=== PATIENT | female | born 1975 | race Caucasian/White ===

== ENCOUNTER 2021-02-18 12:10 | Inpatient (IN) | payer BC ==
[~2021-02-18] VITALS: Ht 157.5 cm; Wt 170.0 kg
[2021-02-18] VITALS (7 sets, daily range): BP systolic 110–146; BP diastolic 61–87
[2021-02-18] MEDS ORDERED: ALBUTEROL SULFATE 2.5 MG/3 ML NEBU. NEB PRN (14:30)
[2021-02-18] MEDS ORDERED: methylPREDNISolone SOD SUCC PF 125 MG/2 ML VIAL. IV SCH (15:00)
[2021-02-18] MEDS ORDERED: DEXTROSE 50% 25 GM / 50ML DISP.SYRIN. IV PRN (15:30)
[2021-02-18] MEDS ORDERED: REMDESIVIR LOAD in IV NORMAL SALINE 250ML TV IV ONE (15:30)
[2021-02-18] MEDS ORDERED: MELO15TA23 PO (15:36)
--- NOTE | 2021-02-18 15:38 | NUR ---
SW following for discharge planning. Spoke with RN and reviewed chart. Pt COVID positive. Pt on IV Remdesivir until 02/22. SW following for discharge planning. Addendum: 02/20/21 at 1149 by REJI GTZ Pt transferred to ICU.
[2021-02-18] MEDS ORDERED: IPRATROPIUM BROMIDE 0.5 MG/2.5 ML NEBU. NEB SCH (16:00)
[2021-02-18] MEDS: INSULIN LISPRO 300 UNITS/3 ML VIAL. SQ SCH (17:00)
[2021-02-18] MEDS ORDERED: STERILE WATER for RESP 1,000 ML BAG. INH PRN (18:15)
--- NOTE | 2021-02-18 18:30 | NUR ---
Spoke with patient and , patient is aware of concern for work at breathing. Discussion was had about intubation, the patient and both agreed that if needed to possibly save her life that they would like her to be intubated.
--- NOTE | 2021-02-18 18:41 | CONS ---
DATE OF CONSULTATION: 02/18/2021 PULMONARY CONSULTATION ATTENDING PHYSICIAN: Dr. Fairbanks. REASON FOR CONSULTATION: Respiratory failure, COVID-19 pneumonia. HISTORY OF PRESENT ILLNESS: The patient is a 45-year-old morbidly obese female with a BMI of 63.5. She was brought into the hospital from [facility] after she was tested positive for COVID-19. The patient has been short of breath, which has been progressive. She was transferred to our facility on 5 liters nasal cannula; however, she was hypoxic on arrival and as a result, was placed on a nonrebreather mask. I did a telemedicine consult. She appears to be mildly tachypneic, but saturating in the low 90s on 100% FiO2. Her T-max 100.3. She has a cough. This has been nonproductive. She has some tightness in her chest as well. No headache, no nausea, vomiting or diarrhea. She has history of obstructive sleep apnea for which she is on CPAP. The severity of sleep apnea unknown and CPAP pressure is unknown. She is not on oxygen. PAST MEDICAL HISTORY: Significant for morbid obesity with a BMI of 63. History of obstructive sleep apnea, possible obesity hypoventilation syndrome, history of asthma, which has been reasonably controlled. PAST SURGICAL HISTORY: No recent surgery. ALLERGIES: None. MEDICATIONS: On admission were reviewed. She is on Lovenox for DVT prophylaxis, high dose. REVIEW OF SYSTEMS: Ten-point system obtained. Pertinent positives discussed in my history of present illness, otherwise noncontributory. All systems that were negative were reviewed as well. SOCIAL HISTORY: Denies smoking. FAMILY HISTORY: Noncontributory to lungs. PHYSICAL EXAMINATION: VITAL SIGNS: Reviewed. Blood pressure 159/87, T-max of 100.5. She is mildly uncomfortable while on visual exam, but requiring nonrebreather 100% FiO2. She is obese. No significant pitting edema. LABORATORY DATA: Glucose of 102. Other chemistries and BMP have been ordered. Chest x-ray is pending. IMPRESSION: 1. Acute hypoxic respiratory failure with acute lung injury/early acute respiratory distress syndrome secondary to COVID-19 pneumonia. 2. Underlying morbid obesity one of the contributing factors to her severity of hypoxia. 3. No significant tobacco history. 4. History of asthma, under control. 5. Obstructive sleep apnea, on home CPAP. Unknown severity of obstructive sleep apnea and unknown CPAP pressure. 6. Abnormal CXR with bilateral patchy infiltrates c/w viral pneumonia. RECOMMENDATIONS: 1. I have discussed with the patient and the RN. At this point, I will transfer her to the ICU. She has risk for worsening hypoxia and intubation. I will place the patient on Vapotherm. 2. We will use BiPAP at nighttime. 3. Continue to finish the remdesivir course. 4. she is on solumedrol, will change to Decadron at 8 mg IV 24 hours. 5. High dose Lovenox for now 6. Obtain D-dimers. 7. Continue empiric antibiotics. 8. I discussed with the patient regarding the need for possible intubation in case of worsening hypoxia and she is agreeable to that. d/w RN. KEVIN PENNY MD DR: TAVON/carlos JOB#: [id number] / [id number] KRISTIE
--- NOTE | 2021-02-18 18:46 | NUR ---
PATIENT TRANSFERRED TO 113 D/T INCREASE O2 NEEDS. BRANDON JUÁREZ, UPDATED. REPORT GIVEN TO SAMINA COLON
[2021-02-18] MEDS: LACTOBACILLUS RHAMNOSUS GG 1 CAPSULE. PO SCH (20:28)
[2021-02-18] MEDS: guaiFENesin DM 600/30MG 1 TAB TAB.ER.12H PO SCH (20:28)
[2021-02-18] MEDS: ACETAMINOPHEN 325 MG TABLET. PO PRN (20:29)
[2021-02-18] MEDS: INSULIN GLARGINE SYRINGE. SQ SCH (21:15)
--- NOTE | 2021-02-18 22:07 | NUR ---
Oxygen Sat 84% - 86% with Vapotherm at 40/100 with NRB at 15L. RT placed patient on Bi-Pap at 28/12 with Rate of 18 and FiO2 100%. Spoke with Marshall Zaidi, , with update on patient status. Marshall is aware patient may need intubation. Marshall reports he and the patient are "willing to do whatever it takes to make her better". ABG to be drawn at 2230.
[2021-02-18 23:07] LABS: BASE EXCESS ABG 0 mmol/L (-3-3); HCO3 ABG 27 mmol/L (21-28); PCO2 ABG 51 mmHg (35-46); PO2 ABG 57 mmHg (75-108); SAT O2 ABG 89 % (92-99)
[2021-02-18 23:08] LABS: FIO2 ABG 100
[2021-02-19] VITALS (32 sets, daily range): BP systolic 106–154; BP diastolic 61–96
[2021-02-19] MEDS: ACETAMINOPHEN 325 MG TABLET. PO PRN ×2 (02:49→14:19)
[2021-02-19] MEDS: INSULIN LISPRO 300 UNITS/3 ML VIAL. SQ SCH ×4 (07:32→23:46)
--- NOTE | 2021-02-19 07:53 | PDOC ---
Infectious Disease Note Vital Sign Vital Signs Vital Signs Date Time Temp Pulse Resp B/P (MAP) Pulse Ox O2 Delivery O2 Flow Rate FiO2 02/19/21 07:00 97.6 83 32 142/78 (99) 88 BiPAP/CPAP 97.6 02/18/21 21:00 40.0 Labs Lab Laboratory Tests Test 02/18/21 16:47 02/18/21 19:25 02/18/21 20:34 02/18/21 22:34 Glucose (Fingerstick) 102 mg/dL (70-99) 158 mg/dL (70-99) D-Dimer (Mckenzie) < 0.27 ug/mlFEU O2 Saturation 89 % (92-99) Arterial Blood pH 7.34 (7.35-7.45) Arterial Blood pCO2 at Patient Temp 51 mmHg (35-46) Arterial Blood pO2 at Patient Temp 57 mmHg (75-108) Arterial Blood HCO3 27 mmol/L (21-28) Arterial Blood Base Excess 0 mmol/L (-3-3) FiO2 100 Test 02/19/21 07:14 Glucose (Fingerstick) 164 mg/dL (70-99) Objective Assessment pt seen, consult dictated Plan Plan of Care / ALFIE CLAYTON MD Feb 19, 2021 07:53
[2021-02-19 08:07] LABS: HEMATOCRIT 37.3 % (36.0-47.0); HEMOGLOBIN 11.8 g/dL (12.0-15.5); RED BLOOD COUNT 4.76 x10^6/uL (3.50-5.40); WHITE BLOOD COUNT 6.6 x10^3/uL (4.0-11.0)
[2021-02-19] MEDS: LACTOBACILLUS RHAMNOSUS GG 1 CAPSULE. PO SCH (08:08)
[2021-02-19] MEDS: guaiFENesin DM 600/30MG 1 TAB TAB.ER.12H PO SCH ×2 (08:08→20:41)
[2021-02-19] MEDS: DEXAMETHASONE SOD PHOS 4 MG/ML VIAL IVP SCH (08:08)
[2021-02-19 08:19] LABS: ALBUMIN 2.5 g/dL (3.4-5.0); ALBUMIN/GLOBULIN RATIO 0.5 (1.0-1.7); C-REACTIVE PROTEIN 246.7 mg/L (0-3.3); CALCIUM 8.5 mg/dL (8.5-10.1); CREATININE 0.6 mg/dL (0.6-1.0); GFR 109.1; POTASSIUM 4.4 mmol/L (3.5-5.1); TOTAL BILIRUBIN 0.3 mg/dL (0.2-1.0); TOTAL PROTEIN 7.9 g/dL (6.4-8.2)
[2021-02-19 08:42] LABS: BASE EXCESS ABG 2 mmol/L (-3-3); HCO3 ABG 28 mmol/L (21-28); PCO2 ABG 49 mmHg (35-46); PO2 ABG 52 mmHg (75-108); SAT O2 ABG 87 % (92-99)
[2021-02-19 08:50] LABS: FIO2 ABG 100
--- NOTE | 2021-02-19 09:05 | PN ---
DATE: 02/19/2021 SUBJECTIVE: The patient is resting slightly propped up in bed, clearly tachypneic, on BiPAP machine. PHYSICAL EXAMINATION: GENERAL: When I examined her this morning, there was no pallor, jaundice, cyanosis or thyromegaly. No jugular venous distention. No lower limb edema. VITAL SIGNS: Her heart rate was 83, blood pressure was 142/78, temperature 97.6, respiratory rate was 52 and oxygen saturation was 88% on BiPAP machine with an FiO2 of 100%. HEAD, EYES, EARS, NOSE, THROAT: Showed normocephalic, atraumatic. NECK: Supple. HEART: Showed normal first and second heart sounds. No gallop, rub or murmur. CHEST: Shows central trachea. Equal bilateral chest expansion, air entry. Few scattered rhonchi and bilateral basal crepitation posteriorly. ABDOMEN: Distended, soft, nontender. NEUROLOGICAL: She is grossly intact. LABORATORY DATA: Her lab work is still pending at the time of this dictation. Her D-dimer was actually less than 0.27. Her blood sugar seems to be reasonably controlled. Her blood gases done yesterday showed a pH of 7.34, pCO2 of 51, pO2 of 57, bicarbonate 27 and oxygen saturation was 89% on FiO2 of 100%. ASSESSMENT: 1. Acute hypoxic respiratory failure. 2. COVID-19 pneumonia. 3. Questionable community acquired pneumonia. 4. Bronchial asthma exacerbation. 5. Morbid obesity and obstructive sleep apnea. PLAN: My plan is to repeat all her lab work and also arrange to have a chest x-ray and arterial blood gases. Meanwhile, we will continue with remdesivir and dexamethasone. Continue with insulin sliding scale and Lantus insulin. Continue with IV antibiotic and monitor her closely. ELIZABETH FERNANDEZ MD DR: BOLA/carlos JOB#: [id number] / [id number]
[2021-02-19] MEDS ORDERED: SUCCINYLCHOLINE 200 MG/10 ML VIAL. ONE ×2 (10:02→10:15)
[2021-02-19] MEDS ORDERED: ETOMIDATE 20 MG/10 ML VIAL. IV ONE ×2 (10:04→10:15)
--- NOTE | 2021-02-19 10:04 | PDOC ---
PULMONARY PROGRESS NOTES DATE: 02/19/21 TIME: 09:58 Subjective remains on 100%FIO2/ BIPAP still hypoxic Vitals Vital Signs Date Time Temp Pulse Resp B/P (MAP) Pulse Ox O2 Delivery O2 Flow Rate FiO2 02/19/21 09:00 94 37 139/83 (101) 86 BiPAP/CPAP 02/19/21 07:34 40.0 02/19/21 07:00 97.6 97.6 Comments visual exam done,mild increase WOM on BIPAP, sats 86% on 100%FIO2 Labs Laboratory Tests Test 02/18/21 16:47 02/18/21 19:25 02/18/21 20:34 02/18/21 22:34 Glucose (Fingerstick) 102 mg/dL (70-99) 158 mg/dL (70-99) D-Dimer (Mckenzie) < 0.27 ug/mlFEU O2 Saturation 89 % (92-99) Arterial Blood pH 7.34 (7.35-7.45) Arterial Blood pCO2 at Patient Temp 51 mmHg (35-46) Arterial Blood pO2 at Patient Temp 57 mmHg (75-108) Arterial Blood HCO3 27 mmol/L (21-28) Arterial Blood Base Excess 0 mmol/L (-3-3) FiO2 100 Test 02/19/21 07:14 02/19/21 07:57 02/19/21 08:35 Glucose (Fingerstick) 164 mg/dL (70-99) White Blood Count 6.6 x10^3/uL (4.0-11.0) Red Blood Count 4.76 x10^6/uL (3.50-5.40) Hemoglobin 11.8 g/dL (12.0-15.5) Hematocrit 37.3 % (36.0-47.0) Mean Corpuscular Volume 78 fL (79-100) Mean Corpuscular Hemoglobin 25 pg (25-35) Mean Corpuscular Hemoglobin Concent 32 g/dL (31-37) Red Cell Distribution Width 15.0 % (11.5-14.5) Platelet Count 253 x10^3/uL (140-400) D-Dimer (Mckenzie) 0.28 ug/mlFEU (0.00-0.50) Sodium Level 140 mmol/L (136-145) Potassium Level 4.4 mmol/L (3.5-5.1) Chloride Level 101 mmol/L (98-107) Carbon Dioxide Level 30 mmol/L (21-32) Anion Gap 9 (6-14) Blood Urea Nitrogen 12 mg/dL (7-20) Creatinine 0.6 mg/dL (0.6-1.0) Estimated GFR (Cockcroft-Gault) 109.1 BUN/Creatinine Ratio 20 (6-20) Glucose Level 143 mg/dL (70-99) Calcium Level 8.5 mg/dL (8.5-10.1) Total Bilirubin 0.3 mg/dL (0.2-1.0) Aspartate Amino Transf (AST/SGOT) 63 U/L (15-37) Alanine Aminotransferase (ALT/SGPT) 77 U/L (14-59) Alkaline Phosphatase 67 U/L (46-116) C-Reactive Protein, Quantitative 246.7 mg/L (0-3.3) Total Protein 7.9 g/dL (6.4-8.2) Albumin 2.5 g/dL (3.4-5.0) Albumin/Globulin Ratio 0.5 (1.0-1.7) O2 Saturation 87 % (92-99) Arterial Blood pH 7.37 (7.35-7.45) Arterial Blood pCO2 at Patient Temp 49 mmHg (35-46) Arterial Blood pO2 at Patient Temp 52 mmHg (75-108) Arterial Blood HCO3 28 mmol/L (21-28) Arterial Blood Base Excess 2 mmol/L (-3-3) FiO2 100 Laboratory Tests Test 02/18/21 16:47 02/18/21 19:25 02/18/21 20:34 02/18/21 22:34 Glucose (Fingerstick) 102 mg/dL (70-99) 158 mg/dL (70-99) D-Dimer (Mckenzie) < 0.27 ug/mlFEU O2 Saturation 89 % (92-99) Arterial Blood pH 7.34 (7.35-7.45) Arterial Blood pCO2 at Patient Temp 51 mmHg (35-46) Arterial Blood pO2 at Patient Temp 57 mmHg (75-108) Arterial Blood HCO3 27 mmol/L (21-28) Arterial Blood Base Excess 0 mmol/L (-3-3) FiO2 100 Test 02/19/21 07:14 02/19/21 07:57 02/19/21 08:35 Glucose (Fingerstick) 164 mg/dL (70-99) White Blood Count 6.6 x10^3/uL (4.0-11.0) Red Blood Count 4.76 x10^6/uL (3.50-5.40) Hemoglobin 11.8 g/dL (12.0-15.5) Hematocrit 37.3 % (36.0-47.0) Mean Corpuscular Volume 78 fL (79-100) Mean Corpuscular Hemoglobin 25 pg (25-35) Mean Corpuscular Hemoglobin Concent 32 g/dL (31-37) Red Cell Distribution Width 15.0 % (11.5-14.5) Platelet Count 253 x10^3/uL (140-400) D-Dimer (Mckenzie) 0.28 ug/mlFEU (0.00-0.50) Sodium Level 140 mmol/L (136-145) Potassium Level 4.4 mmol/L (3.5-5.1) Chloride Level 101 mmol/L (98-107) Carbon Dioxide Level 30 mmol/L (21-32) Anion Gap 9 (6-14) Blood Urea Nitrogen 12 mg/dL (7-20) Creatinine 0.6 mg/dL (0.6-1.0) Estimated GFR (Cockcroft-Gault) 109.1 BUN/Creatinine Ratio 20 (6-20) Glucose Level 143 mg/dL (70-99) Calcium Level 8.5 mg/dL (8.5-10.1) Total Bilirubin 0.3 mg/dL (0.2-1.0) Aspartate Amino Transf (AST/SGOT) 63 U/L (15-37) Alanine Aminotransferase (ALT/SGPT) 77 U/L (14-59) Alkaline Phosphatase 67 U/L (46-116) C-Reactive Protein, Quantitative 246.7 mg/L (0-3.3) Total Protein 7.9 g/dL (6.4-8.2) Albumin 2.5 g/dL (3.4-5.0) Albumin/Globulin Ratio 0.5 (1.0-1.7) O2 Saturation 87 % (92-99) Arterial Blood pH 7.37 (7.35-7.45) Arterial Blood pCO2 at Patient Temp 49 mmHg (35-46) Arterial Blood pO2 at Patient Temp 52 mmHg (75-108) Arterial Blood HCO3 28 mmol/L (21-28) Arterial Blood Base Excess 2 mmol/L (-3-3) FiO2 100 Medications Active Scripts Medications Dose Route/Sig Max Daily Dose Days Date Category Meloxicam 15 Mg Tablet 1 Tab PO DAILY 30 02/18/21 Reported Impression . 1. Acute hypoxic respiratory failure with acute lung injury/early acute respiratory distress syndrome secondary to COVID-19 pneumonia. 2. Underlying morbid obesity one of the contributing factors to her severity of hypoxia. 3. No significant tobacco history. 4. History of asthma, under control. 5. Obstructive sleep apnea, on home CPAP. Unknown severity of obstructive sleep apnea and unknown CPAP pressure. 6. Abnormal CXR with bilateral patchy infiltrates c/w viral pneumonia. Plan . 1. She has worsening hypoxia and cannot sustain BIPAP for long duration. She needs intubation. Will need high PEEP/ full sedation post intubation. Message left for . 2. follow ABG and make changes. 3. Continue to finish the remdesivir course. 4. Decadron at 8 mg IV 24 hours. 5. D-Dimer normal .on High dose Lovenox . will change to lower dose 6. start enteral nutrition 7. Continue empiric antibiotics. 8. d/w RN. / RT/ Anesthesia cct 35 min KEVIN PENNY MD Feb 19, 2021 10:04
[2021-02-19] MEDS ORDERED: PROPOFOL 100 ML IV ONE (10:12)
--- NOTE | 2021-02-19 10:14 | RAD ---
XR CHEST 1V History: Reason: worsening hypoxia / Spl. Instructions: / History: Comparison: February 15, 2021 Findings: Diffuse interstitial and alveolar opacities. Low lung volumes. No definite pneumothorax. Enlarged car diac size. Possible small pleural effusions. Impression: 1. Increased diffuse pulmonary consolidations, may represent pulmonary edema, ARDS or pneumonia. 2. Increased cardiac size, may represent pericardial effusion Electronically signed by: Ranjith Fuentes DO (02/19/2021 10:11 AM) [id number]
[2021-02-19] MEDS ORDERED: PROPOFOL 10 MG/ML (100ML) VIAL. IV ONE (10:15)
--- NOTE | 2021-02-19 10:28 | CONS ---
DATE OF CONSULTATION: 02/19/2021 REQUESTING PHYSICIAN: Chano Fairbanks MD REASON FOR CONSULTATION: Pneumonia and COVID-19 positive. HISTORY OF PRESENT ILLNESS: This is a 45-year-old morbidly obese female who was transferred from [facility]. The patient presented there with probably about 4 or 5 days' history of shortness of breath. The patient had gone to Urgent Care, but the test was mislabeled or something happened, so this was not available. At [facility], she had COVID done which was positive. The patient has been requiring more and more oxygen and hence transferred to [place]. The patient is now on 100% FiO2, satting at 88%. The patient is on steroids, Levaquin and consult has been requested. The patient is currently on BiPAP, able to communicate. PAST MEDICAL HISTORY: She does have a history of: 1. Asthma. 2. Obstructive sleep apnea. 3. Morbid obesity. 4. Hypothyroidism. 5. History of endometrial cancer. PAST SURGICAL HISTORY: 1. She had undergone abdominal hysterectomy. 2. Bilateral salpingo-oophorectomy. 3. She also had corneal transplant in the left side. SOCIAL HISTORY: Positive for smoking. No alcohol use or drug use. ALLERGIES: No known drug allergies. CURRENT MEDICATIONS: Reviewed. REVIEW OF SYSTEMS: As in HPI. All other systems reviewed are negative. PHYSICAL EXAMINATION: GENERAL: Alert, oriented female, in moderate respiratory distress, on a BiPAP. VITAL SIGNS: Temperature 97.6, pulse 94, respirations 28, blood pressure 136/81. The patient did have a temperature up to 100.6. HEENT: Both pupils are round and reacting. No conjunctival lesion. No lesion in the mouth. NECK: Supple. No JVP. No lymphadenopathy. LUNGS: Clear. HEART: S1, S2 regular. ABDOMEN: Soft, nontender. No organomegaly. EXTREMITIES: No edema or cyanosis. SKIN: Unremarkable. NEUROLOGIC: The patient is alert, awake and appropriate. No focal neurologic deficit. LABORATORY DATA: White count here is pending. Her white count at [place] was 8000. Creatinine is normal. Chest x-ray showed bilateral perihilar and bibasilar airspace opacity. IMPRESSION: 1. COVID-19 positive. 2. Hypoxic respiratory failure. 3. Pneumonia, bilateral pulmonary infiltrate. 4. Morbid obesity. 5. History of asthma. 6. Obstructive sleep apnea. RECOMMENDATIONS: Continue steroids. Continuous remdesivir has been started. Supportive care. We will continue to follow. Thank you very much, Dr. Fairbanks, for giving me the opportunity to participate in this patient's care. ALFIE CLAYTON MD DR: MAYRA/carlos JOB#: [id number] / [id number]
--- NOTE | 2021-02-19 10:29 | HP ---
ADMIT DATE: 02/18/2021 HISTORY OF PRESENT ILLNESS: The patient is a 45-year-old female patient who was admitted to the Emergency Room to [facility] on 02/16/2021 with a complaint of shortness of breath that apparently has been going on over the past week prior to admission and was seen at an urgent care for a COVID test, which was not at that time has resulted. She stated that she was diagnosed with an upper respiratory tract infection and was given treatment for bilateral ear infection; however, she continued to have fever, cough, shortness of breath and therefore, she came to the Emergency Room where she was extensively investigated, has had lab work with a white cell count that was normal. Her chemistry was mostly unremarkable except for slightly elevated liver enzymes. Her D-dimer was only 0.42. She has had a chest x-ray, which basically showed stable cardiomediastinal silhouette. There is pulmonary vascular congestion, bilateral perihilar and bibasilar airspace opacities that are unchanged; however, there is no pneumothorax or pleural effusion and no acute bony abnormalities. She was admitted with diagnosis of acute hypoxic respiratory failure, questionable community-acquired pneumonia versus COVID-19 pneumonia. She was started with IV Levaquin, dexamethasone, nebulized albuterol and Atrovent as well as Lovenox. Unfortunately, the patient continued to be short of breath and her oxygen saturation has steadily risen from 2 to 4 and eventually to 5. The patient requested transfer to [facility] and was transferred to 6th floor. She was continued on all her current medication. PAST MEDICAL HISTORY: Significant for bronchial asthma. She also has obstructive sleep apnea, on BiPAP. She stated that at one point in time, she had problems with her thyroid gland that has resolved. She has a history of endometrial cancer for which she underwent total abdominal hysterectomy and bilateral salpingo-oophorectomy. PAST SURGICAL HISTORY: Significant for, 1. Total abdominal hysterectomy, bilateral salpingo-oophorectomy. 2. Corneal transplant on the left side. ALLERGIES: She has no known drug allergies. HOME MEDICATIONS: Include Advair Diskus 250/50 one puff twice a day. She is also on albuterol sulfate 2 puffs every 4-6 hours. She was treated with Mucinex/dextromethorphan 1 tablet twice a day. She was also treated as an outpatient with Augmentin as well as Zithromax. After admission, we switched her to Levaquin and added dexamethasone as well as Lovenox. FAMILY HISTORY: She has 5 brothers and 4 sisters, 3 brothers and 2 sisters are older and the rest are younger and all seemingly healthy. Her father at the age of 63 because of myocardial infarction. Mother is still alive at age of 68 and apparently healthy. SOCIAL HISTORY: She is , has no children. She quit smoking 20 years ago. She does not drink alcohol or use any recreational drugs. 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 PHYSICAL EXAMINATION: GENERAL: On arrival to [facility], she was resting slightly propped up in bed, clearly somewhat tachypneic. There was no pallor, jaundice, cyanosis or thyromegaly. No jugular venous distention or limb edema. VITAL SIGNS: Her heart rate was 111, blood pressure was 139/87, temperature was 100.3, respiratory rate was 21. She was only 80% on 5 liters by nasal cannula, that improved to 92% by nonrebreather mask. HEAD, EYES, EARS, NOSE AND THROAT: Showed normocephalic, atraumatic. NECK: Supple. HEART: Showed normal first and second heart sounds. No gallop, rub or murmur. CHEST: Central trachea, equal bilateral expansion, air entry, vesicular breath sounds. Very few scattered rhonchi, could not appreciate any crepitation. ABDOMEN: Distended, soft, nontender. NEUROLOGIC: She was grossly intact. LABORATORY DATA: Showed a white cell count 7600, hemoglobin 11.9, hematocrit 38, MCV 79 and platelet count 236,000. Her chemistry showed a serum sodium 141, potassium 4.3, chloride 103, bicarbonate 27, anion gap of 11, BUN 15, creatinine 0.6, estimated GFR was 109 mL per minute. Glucose was 104 and calcium was 8.5. She continued to have slightly elevated liver enzymes. Her most recent D-dimer was 0.42 and her rapid COVID-19 antigen test was positive. Her blood cultures showed no growth after 2 days and her most recent chest x-ray done at [facility] showed that the cardiomediastinal silhouette is stable. There is pulmonary vascular congestion, bilateral perihilar and bibasilar airspace opacities are unchanged. There is no pneumothorax, no pleural effusion is appreciated, no acute bony abnormalities. ASSESSMENT: The patient was admitted to [facility] with, 1. Acute hypoxic respiratory failure. 2. COVID-19 pneumonia. 3. Questionable community-acquired pneumonia. 4. The patient is also known to have bronchial asthma. 5. Morbid obesity. 6. Obstructive sleep apnea. PLAN: My plan is obviously to continue with IV antibiotic. Continue with IV dexamethasone. Continue with Lovenox for DVT prophylaxis. I have consulted the cardiology coordinator and also started her on remdesivir. Apparently shortly after she arrived here, her oxygen requirement has dramatically increased and she was started initially on nonrebreather mask and Vapotherm. At around 2100 hours, she was on Vapotherm at 40 liters and FiO2 of 100% on nonrebreather mask and was started back on her BiPAP with an FiO2 of 100%. ELIZABETH FERNANDEZ MD DR: BOLA/carlos JOB#: [id number] / [id number]
[2021-02-19] MEDS: MIDAZOLAM 100mg/100ml NS BAG 100 ML IV PRN ×2 (11:12→16:46)
--- NOTE | 2021-02-19 11:30 | NUR ---
Patient was intubated at this time. Patient and (Marshall) have consent. Patient was given 200mg of Succinylcholine and 20mg of Etomidate before being intubated. Tube is a 7.5 and 22 @ the lip. Vent settings are AC 20, TV 500, FiO2 100% and peep of 12. Patient is receiving Versed drip at 10mg and Fentanyl at 75mcg. Patient's SpO2 is 92% and she is resting comfortable in bed, not fighting vent. Patient has an OG tube to LIS. Chest x-ray confirmed placement of ET tube and OG tube. And patient's hushand was update. Will continue to monitor patient.
--- NOTE | 2021-02-19 11:33 | RAD ---
AP chest. HISTORY: Intubated AP view was taken of the chest. There is an endotracheal tube at the level the clavicles at T2. There is an NG tube which extends into the stomach. There are diffuse bilateral infiltrates. There is no d efinite effusion. IMPRESSION: 1. Diffuse infiltrates. 2. Endotracheal tube at the level the clavicles at approximately T2. 3. NG tube extends into the stomach. Electronically signed by: Mynor Harris MD (02/19/2021 11:31 AM) [id number]
--- NOTE | 2021-02-19 11:42 | NUR ---
Have reviewed and agree with documentation completed by sports intern
[2021-02-19 12:15] LABS: BASE EXCESS ABG 3 mmol/L (-3-3); HCO3 ABG 31 mmol/L (21-28); PCO2 ABG 59 mmHg (35-46); PO2 ABG 56 mmHg (75-108); SAT O2 ABG 88 % (92-99)
[2021-02-19 12:16] LABS: FIO2 ABG 100
[2021-02-19] MEDS: fentaNYL HIGH DOSE PCA 55 ML IV PRN (13:38)
--- NOTE | 2021-02-19 13:49 | PDOC ---
Provider Note Date of Service: DATE: 02/19/21 TIME: 13:46 Provider Note called to ICU for covid pos pt with poor ventilation / labs, needing intubation, pre o2 x 5 min, induced 10mg etom, 100mg sux in peripheral IV. DL with glidescope easy, 7.5 ETT to 22cm, teeth, secured, pos ET CO2, CXR pending. care to icu team. left radi al art line sterile p/d, 20g over wire, secured. Justifications for Admission Other Justification DOMINIQUE RAY MD Feb 19, 2021 13:49
--- NOTE | 2021-02-19 14:09 | NUR ---
SS following for discharge planning. SS reviewed pt chart and discussed with pt RN. Pt is from home with spouse. Pt transferred from [facility]. Pt is COVID19 positive. Pt intubated today and is currently on the vent at 100%. Pt on IV Remdesivir and IV Levaquin. Pt on Versed and Fentanyl. Not stable. SS will continue to follow for discharge planning.
[2021-02-19] MEDS: REMDESIVIR 100mg in NORMAL SALINE 250ML X 4 DAYS IV SCH (15:58)
[2021-02-19] MEDS: FAMOTIDINE 20 MG/2 ML VIAL IVP SCH (20:39)
[2021-02-19] MEDS: VECURONIUM BOLUS 10 MG VIAL. IV PRN ×2 (20:39→23:46)
[2021-02-19] MEDS: INSULIN GLARGINE SYRINGE. SQ SCH (20:43)
[2021-02-19] MEDS: ENOXAPARIN 40 MG/0.4 ML SYRINGE. SQ SCH (20:46)
--- NOTE | 2021-02-19 22:23 | NUR ---
Suction patient and performed FS. Patient had eyes open and watching me. She then dropped her O2 sats to 64. She received a bolus of versed without and improvement. Vecuronium given. Dr Lechuga called. To add propofol to her sedation schedule Addendum: 02/20/21 at 0036 by BRAEDEN PAREDES RN [facility] placed. See their note
[2021-02-19] MEDS: PROPOFOL 100 ML IV PRN (23:20)
[2021-02-20] VITALS (25 sets, daily range): BP systolic 107–150; BP diastolic 58–77
[2021-02-20] MEDS: MIDAZOLAM 100mg/100ml NS BAG 100 ML IV PRN ×3 (00:29→20:14)
[2021-02-20] MEDS: VECURONIUM BOLUS 10 MG VIAL. IV PRN ×3 (04:15→13:26)
[2021-02-20] MEDS: PROPOFOL 100 ML IV PRN ×2 (04:21→14:55)
[2021-02-20] MEDS: fentaNYL HIGH DOSE PCA 55 ML IV PRN ×2 (05:55→23:10)
[2021-02-20] MEDS: INSULIN LISPRO 300 UNITS/3 ML VIAL. SQ SCH ×3 (06:00→17:56)
[2021-02-20 07:28] LABS: HEMATOCRIT 34.1 % (36.0-47.0); RED BLOOD COUNT 4.4 x10^6/uL (3.50-5.40); RED CELL DISTRIBUTION WIDTH 15.5 % (11.5-14.5); WHITE BLOOD COUNT 7.6 x10^3/uL (4.0-11.0)
--- NOTE | 2021-02-20 07:51 | PDOC ---
Infectious Disease Note Subjective Subjective pt is intubated on vent now ROS ROS no n/v/d/fever Vital Sign Vital Signs Vital Signs Date Time Temp Pulse Resp B/P (MAP) Pulse Ox O2 Delivery O2 Flow Rate FiO2 02/20/21 07:00 99 20 150/77 (101) 87 Ventilator 02/20/21 06:22 40.0 02/20/21 04:00 98.0 98.0 Physical Exam PHYSICAL EXAM GENERAL: sedated on vent VITAL SIGNS: stable HEENT: Both pupils are round and reacting. No conjunctival lesion. No lesion in the mouth. NECK: Supple. No JVP. No lymphadenopathy. LUNGS: Clear. HEART: S1, S2 regular. ABDOMEN: Soft, nontender. No organomegaly. EXTREMITIES: No edema or cyanosis. SKIN: Unremarkable. NEUROLOGIC: sedated on vent Labs Lab Laboratory Tests Test 02/19/21 07:57 02/19/21 08:35 02/19/21 12:05 02/19/21 17:17 White Blood Count 6.6 x10^3/uL (4.0-11.0) Red Blood Count 4.76 x10^6/uL (3.50-5.40) Hemoglobin 11.8 g/dL (12.0-15.5) Hematocrit 37.3 % (36.0-47.0) Mean Corpuscular Volume 78 fL (79-100) Mean Corpuscular Hemoglobin 25 pg (25-35) Mean Corpuscular Hemoglobin Concent 32 g/dL (31-37) Red Cell Distribution Width 15.0 % (11.5-14.5) Platelet Count 253 x10^3/uL (140-400) D-Dimer (Mckenzie) 0.28 ug/mlFEU (0.00-0.50) Sodium Level 140 mmol/L (136-145) Potassium Level 4.4 mmol/L (3.5-5.1) Chloride Level 101 mmol/L (98-107) Carbon Dioxide Level 30 mmol/L (21-32) Anion Gap 9 (6-14) Blood Urea Nitrogen 12 mg/dL (7-20) Creatinine 0.6 mg/dL (0.6-1.0) Estimated GFR (Cockcroft-Gault) 109.1 BUN/Creatinine Ratio 20 (6-20) Glucose Level 143 mg/dL (70-99) Calcium Level 8.5 mg/dL (8.5-10.1) Total Bilirubin 0.3 mg/dL (0.2-1.0) Aspartate Amino Transf (AST/SGOT) 63 U/L (15-37) Alanine Aminotransferase (ALT/SGPT) 77 U/L (14-59) Alkaline Phosphatase 67 U/L (46-116) C-Reactive Protein, Quantitative 246.7 mg/L (0-3.3) Total Protein 7.9 g/dL (6.4-8.2) Albumin 2.5 g/dL (3.4-5.0) Albumin/Globulin Ratio 0.5 (1.0-1.7) O2 Saturation 87 % (92-99) 88 % (92-99) Arterial Blood pH 7.37 (7.35-7.45) 7.33 (7.35-7.45) Arterial Blood pCO2 at Patient Temp 49 mmHg (35-46) 59 mmHg (35-46) Arterial Blood pO2 at Patient Temp 52 mmHg (75-108) 56 mmHg (75-108) Arterial Blood HCO3 28 mmol/L (21-28) 31 mmol/L (21-28) Arterial Blood Base Excess 2 mmol/L (-3-3) 3 mmol/L (-3-3) FiO2 100 100 Glucose (Fingerstick) 147 mg/dL (70-99) Test 02/19/21 20:21 02/20/21 06:00 Glucose (Fingerstick) 127 mg/dL (70-99) 115 mg/dL (70-99) Objective Assessment IMPRESSION: 1. COVID-19 positive. 2. Hypoxic respiratory failure. 3. Pneumonia, bilateral pulmonary infiltrate. 4. Morbid obesity. 5. History of asthma. 6. Obstructive sleep apnea. Plan Plan of Care cont supportive care cont steroids, remdesivir and levaquin ALFIE CLAYTON MD Feb 20, 2021 07:51
[2021-02-20 08:05] LABS: CALCIUM 8.8 mg/dL (8.5-10.1); CREATININE 0.6 mg/dL (0.6-1.0); GFR 109.1; POTASSIUM 4.4 mmol/L (3.5-5.1)
[2021-02-20] MEDS: ENOXAPARIN 40 MG/0.4 ML SYRINGE. SQ SCH ×2 (08:10→20:51)
[2021-02-20] MEDS: DEXAMETHASONE SOD PHOS 4 MG/ML VIAL IVP SCH (08:13)
[2021-02-20] MEDS: FAMOTIDINE 20 MG/2 ML VIAL IVP SCH ×2 (08:13→20:51)
[2021-02-20 08:48] LABS: BASE EXCESS ABG 3 mmol/L (-3-3); HCO3 ABG 29 mmol/L (21-28); PCO2 ABG 49 mmHg (35-46); SAT O2 ABG 79 % (92-99)
[2021-02-20 08:51] LABS: FIO2 ABG 100; PO2 ABG 44 mmHg (75-108)
[2021-02-20] MEDS: ACETAMINOPHEN 650 MG/20.3 ML SOLUTION. PEG PRN ×3 (09:28→20:24)
--- NOTE | 2021-02-20 10:15 | PN ---
DATE: 02/20/2021 SUBJECTIVE: The patient is heavily sedated, intubated and mechanically ventilated. Continued to be hypoxic despite FiO2 of 100%. PHYSICAL EXAMINATION: GENERAL: On examining her, she was resting slightly propped up in bed, in no apparent respiratory distress. No pallor, jaundice, cyanosis or thyromegaly. No jugular venous distension. No lower limb edema. VITAL SIGNS: Her heart rate was 94, blood pressure was 146/77, temperature was 98, respiratory rate was 20 and oxygen saturation was 88% on FiO2 of 100%. HEAD, EYES, EARS, NOSE AND THROAT: Showed normocephalic, atraumatic. NECK: Supple. HEART: Normal first and second heart sounds. No gallop, rub or murmur. CHEST: Showed central trachea, equal bilateral chest expansion, air entry, vesicular breath sounds. I could not really appreciate any crepitation or rhonchi anteriorly. ABDOMEN: Distended, soft and nontender. NEUROLOGIC: She was heavily sedated. Her intake over the last 24 hours was 270 and output was 1000. LABORATORY DATA: Her lab work as of yesterday showed white cell count 6600, hemoglobin 12, hematocrit 37, MCV 78 and platelet count 253,000. Her D-dimer was 0.28. Her chemistry as of yesterday showed a serum sodium 140, potassium 4.4, chloride 101, bicarbonate 30, anion gap of 9, BUN 12 and creatinine 0.6. Estimated GFR was 109 mL per minute. Her glucose 143 and calcium was 8.5. Total bilirubin, ALT and alkaline phosphatase were slightly elevated. The alkaline phosphatase ____. Her C-reactive protein was 246, total protein 7.9 and albumin 2.5. Today's labs are still pending at the time of this dictation. ASSESSMENT: 1. Acute hypoxic respiratory failure with acute lung injury and acute respiratory distress syndrome secondary to COVID-19 pneumonia. 2. Bronchial asthma. 3. Morbid obesity and obstructive sleep apnea. PLAN: To obviously continue with sedation and mechanical ventilation. Continue with nutritional support through the NG tube. Continue with IV antibiotic. Continue with DVT prophylaxis. Continue with GI prophylaxis. Continue with remdesivir and dexamethasone as well as levofloxacin. Continue to monitor blood sugar and adjust insulin. Continue with albuterol and Atrovent. ELIZABETH FERNANDEZ MD DR: BOLA/carlos JOB#: [id number] / [id number]
--- NOTE | 2021-02-20 11:02 | NUR ---
SS following up with discharge planning. SS reviewed pt chart and discussed with pt RN. Pt is currently on the vent at 100%. COVID19 positive. Pt on Remdesivir and IV Levaquin. Pt on Versed, Fentanyl, and Propofol. Not stable. SS will continue to follow for discharge planning.
[2021-02-20] MEDS ORDERED: PERFLUTREN PROTEIN-A MICROSPHR 0.22 MG/ML 3 ML VIAL. IV ONE ×2 (11:19→13:45)
--- NOTE | 2021-02-20 11:35 | PDOC ---
PULMONARY PROGRESS NOTES DATE: 02/20/21 TIME: 11:25 Subjective remains on 100%FIO2/ 12 PEEP desaturate with any movement sedated fully Vitals Vital Signs Date Time Temp Pulse Resp B/P (MAP) Pulse Ox O2 Delivery O2 Flow Rate FiO2 02/20/21 11:00 79 20 107/58 (74) 87 Ventilator 02/20/21 08:00 101.5 101.5 02/20/21 06:22 40.0 Comments visual exam done, intubated/ sedated no increase WOB Labs Laboratory Tests Test 02/18/21 16:47 02/18/21 19:25 02/18/21 20:34 02/18/21 22:34 Glucose (Fingerstick) 102 mg/dL (70-99) 158 mg/dL (70-99) D-Dimer (Mckenzie) < 0.27 ug/mlFEU O2 Saturation 89 % (92-99) Arterial Blood pH 7.34 (7.35-7.45) Arterial Blood pCO2 at Patient Temp 51 mmHg (35-46) Arterial Blood pO2 at Patient Temp 57 mmHg (75-108) Arterial Blood HCO3 27 mmol/L (21-28) Arterial Blood Base Excess 0 mmol/L (-3-3) FiO2 100 Test 02/19/21 07:14 02/19/21 07:57 02/19/21 08:35 02/19/21 12:05 Glucose (Fingerstick) 164 mg/dL (70-99) White Blood Count 6.6 x10^3/uL (4.0-11.0) Red Blood Count 4.76 x10^6/uL (3.50-5.40) Hemoglobin 11.8 g/dL (12.0-15.5) Hematocrit 37.3 % (36.0-47.0) Mean Corpuscular Volume 78 fL (79-100) Mean Corpuscular Hemoglobin 25 pg (25-35) Mean Corpuscular Hemoglobin Concent 32 g/dL (31-37) Red Cell Distribution Width 15.0 % (11.5-14.5) Platelet Count 253 x10^3/uL (140-400) D-Dimer (Mckenzie) 0.28 ug/mlFEU (0.00-0.50) Sodium Level 140 mmol/L (136-145) Potassium Level 4.4 mmol/L (3.5-5.1) Chloride Level 101 mmol/L (98-107) Carbon Dioxide Level 30 mmol/L (21-32) Anion Gap 9 (6-14) Blood Urea Nitrogen 12 mg/dL (7-20) Creatinine 0.6 mg/dL (0.6-1.0) Estimated GFR (Cockcroft-Gault) 109.1 BUN/Creatinine Ratio 20 (6-20) Glucose Level 143 mg/dL (70-99) Calcium Level 8.5 mg/dL (8.5-10.1) Total Bilirubin 0.3 mg/dL (0.2-1.0) Aspartate Amino Transf (AST/SGOT) 63 U/L (15-37) Alanine Aminotransferase (ALT/SGPT) 77 U/L (14-59) Alkaline Phosphatase 67 U/L (46-116) C-Reactive Protein, Quantitative 246.7 mg/L (0-3.3) Total Protein 7.9 g/dL (6.4-8.2) Albumin 2.5 g/dL (3.4-5.0) Albumin/Globulin Ratio 0.5 (1.0-1.7) O2 Saturation 87 % (92-99) 88 % (92-99) Arterial Blood pH 7.37 (7.35-7.45) 7.33 (7.35-7.45) Arterial Blood pCO2 at Patient Temp 49 mmHg (35-46) 59 mmHg (35-46) Arterial Blood pO2 at Patient Temp 52 mmHg (75-108) 56 mmHg (75-108) Arterial Blood HCO3 28 mmol/L (21-28) 31 mmol/L (21-28) Arterial Blood Base Excess 2 mmol/L (-3-3) 3 mmol/L (-3-3) FiO2 100 100 Test 02/19/21 17:17 02/19/21 20:21 02/20/21 06:00 02/20/21 07:20 Glucose (Fingerstick) 147 mg/dL (70-99) 127 mg/dL (70-99) 115 mg/dL (70-99) White Blood Count 7.6 x10^3/uL (4.0-11.0) Red Blood Count 4.40 x10^6/uL (3.50-5.40) Hemoglobin 11.0 g/dL (12.0-15.5) Hematocrit 34.1 % (36.0-47.0) Mean Corpuscular Volume 78 fL (79-100) Mean Corpuscular Hemoglobin 25 pg (25-35) Mean Corpuscular Hemoglobin Concent 32 g/dL (31-37) Red Cell Distribution Width 15.5 % (11.5-14.5) Platelet Count 274 x10^3/uL (140-400) Sodium Level 143 mmol/L (136-145) Potassium Level 4.4 mmol/L (3.5-5.1) Chloride Level 107 mmol/L (98-107) Carbon Dioxide Level 29 mmol/L (21-32) Anion Gap 7 (6-14) Blood Urea Nitrogen 23 mg/dL (7-20) Creatinine 0.6 mg/dL (0.6-1.0) Estimated GFR (Cockcroft-Gault) 109.1 Glucose Level 113 mg/dL (70-99) Calcium Level 8.8 mg/dL (8.5-10.1) Test 02/20/21 08:00 O2 Saturation 79 % (92-99) Arterial Blood pH 7.38 (7.35-7.45) Arterial Blood pCO2 at Patient Temp 49 mmHg (35-46) Arterial Blood pO2 at Patient Temp 44 mmHg (75-108) Arterial Blood HCO3 29 mmol/L (21-28) Arterial Blood Base Excess 3 mmol/L (-3-3) FiO2 100 Laboratory Tests Test 02/19/21 12:05 02/19/21 17:17 02/19/21 20:21 02/20/21 06:00 O2 Saturation 88 % (92-99) Arterial Blood pH 7.33 (7.35-7.45) Arterial Blood pCO2 at Patient Temp 59 mmHg (35-46) Arterial Blood pO2 at Patient Temp 56 mmHg (75-108) Arterial Blood HCO3 31 mmol/L (21-28) Arterial Blood Base Excess 3 mmol/L (-3-3) FiO2 100 Glucose (Fingerstick) 147 mg/dL (70-99) 127 mg/dL (70-99) 115 mg/dL (70-99) Test 02/20/21 07:20 02/20/21 08:00 White Blood Count 7.6 x10^3/uL (4.0-11.0) Red Blood Count 4.40 x10^6/uL (3.50-5.40) Hemoglobin 11.0 g/dL (12.0-15.5) Hematocrit 34.1 % (36.0-47.0) Mean Corpuscular Volume 78 fL (79-100) Mean Corpuscular Hemoglobin 25 pg (25-35) Mean Corpuscular Hemoglobin Concent 32 g/dL (31-37) Red Cell Distribution Width 15.5 % (11.5-14.5) Platelet Count 274 x10^3/uL (140-400) Sodium Level 143 mmol/L (136-145) Potassium Level 4.4 mmol/L (3.5-5.1) Chloride Level 107 mmol/L (98-107) Carbon Dioxide Level 29 mmol/L (21-32) Anion Gap 7 (6-14) Blood Urea Nitrogen 23 mg/dL (7-20) Creatinine 0.6 mg/dL (0.6-1.0) Estimated GFR (Cockcroft-Gault) 109.1 Glucose Level 113 mg/dL (70-99) Calcium Level 8.8 mg/dL (8.5-10.1) O2 Saturation 79 % (92-99) Arterial Blood pH 7.38 (7.35-7.45) Arterial Blood pCO2 at Patient Temp 49 mmHg (35-46) Arterial Blood pO2 at Patient Temp 44 mmHg (75-108) Arterial Blood HCO3 29 mmol/L (21-28) Arterial Blood Base Excess 3 mmol/L (-3-3) FiO2 100 Medications Active Scripts Medications Dose Route/Sig Max Daily Dose Days Date Category Meloxicam 15 Mg Tablet 1 Tab PO DAILY 02/18/21 Reported Comments cxr 4 extensive bilateral infiltrate cardiomegaly Impression . 1. Acute hypoxic respiratory failure with acute lung injury/early acute respiratory distress syndrome secondary to COVID-19 pneumonia./ severe hypoxia 2. Underlying morbid obesity one of the contributing factors to her severity of hypoxia. 3. No significant tobacco history. 4. History of asthma, under control. 5. Obstructive sleep apnea, on home CPAP. Unknown severity of obstructive sleep apnea and unknown CPAP pressure. 6. Abnormal CXR with bilateral patchy infiltrates c/w viral pneumonia. Plan . 1. AC mode/ increase PEEP to 13 full sedation / prn paralytic. De-saturate with any movement. Not safe to elis fuentes with a BMI of 61. Not a candidate for safe transfer to for ECHMO 2. follow ABG and make changes. 3. Continue to finish the remdesivir course. 4. Decadron at 8 mg IV 24 hours. 5. D-Dimer normal .Lovenox for DVT 6. enteral nutrition 7. Continue empiric antibiotics. 8. d/w RN. / RT/ 9. echo 10.d/w in detail .Prognosis explained cct 35 min KEVIN PENNY MD Feb 20, 2021 11:35
--- NOTE | 2021-02-20 14:55 | CARD ---
MR#: [id number] Date of Study: 02/20/2021 Ordering Physician: KEVIN PENNY, Referring Physician: KEVIN PENNY Tech: Miri Vela [facility] APPROVED REPORT EXAM: Two-dimensional and M-mode echocardiogram with Doppler and color Doppler. Other Information Quality : Technically LimitedHR: 78bpm Rhythm : NSRTechnically limited study due to Patient on vent Obese INDICATION Dyspnea Echo Enhancing Agent Indication: Endocardial border delineation Agent/Amount Used: Optison 3mL RISK FACTORS Hypertension Obesity 2D DIMENSIONS Left Atrium(2D)4.0 (1.6-4.0cm)IVSd1.0 (0.7-1.1cm) Aortic Root(2D)3.1 (2.0-3.7cm)LVDd4.5 (3.9-5.9cm) LVOT Diameter2.3 (1.8-2.4cm)PWd0.9 (0.7-1.1cm) LVDs3.6 (2.5-4.0cm)FS (%) 19.6 % SV37.1 mlLVEF(%)40.4 (>50%) Pulmonary Valve PV Peak Gmqaggdy34.5cm/s Tricuspid Valve TR P. [id number] Peak Gr.21mmHg LEFT VENTRICLE The left ventricle is normal size. There is normal left ventricular wall thickness. The left ventricu lar systolic function is normal and the ejection fraction is within normal range. Estimated ejection fraction 65%. There is normal LV segmental wall motion. The left ventricular diastolic function and f illing is normal for age. No left ventricle thrombus noted on this study. RIGHT VENTRICLE The right ventricle is normal size. There is normal right ventricular wall thickness. The right ventr icular systolic function is normal. ATRIA The left atrium size is normal. The right atrium size is normal. The interatrial septum is intact wit h no evidence for an atrial septal defect or patent foramen ovale as noted on 2-D or Doppler imaging. AORTIC VALVE The aortic valve is normal in structure and function. Doppler and Color Flow revealed no significant aortic regurgitation. There is no significant aortic valvular stenosis. MITRAL VALVE The mitral valve is normal in structure and function. There is no evidence of mitral valve prolapse. There is no mitral valve stenosis. Doppler and Color Flow revealed no mitral valve regurgitation note d. TRICUSPID VALVE The tricuspid valve is normal in structure and function. Doppler and Color Flow revealed no tricuspid valve regurgitation noted. There is no tricuspid valve stenosis. PULMONIC VALVE Doppler and Color Flow revealed no pulmonic valvular regurgitation. There is no pulmonic valvular eric nosis. GREAT VESSELS The aortic root is normal in size. The ascending aorta is normal in size. The IVC was not visualized. PERICARDIAL EFFUSION There is no evidence of significant pericardial effusion. Critical Notification Critical Value: No <Conclusion> The left ventricular systolic function is normal and the ejection fraction is within normal range. E stimated ejection fraction 65%. There is normal LV segmental wall motion. There is no evidence of significant pericardial effusion. No significant valvular regurgitation or stenosis. Technically limited study. Signed by : Rex Menjivar, Electronically Approved : 02/20/2021 14:55:04
[2021-02-20] MEDS: REMDESIVIR 100mg in NORMAL SALINE 250ML X 4 DAYS IV SCH (15:32)
[2021-02-20] MEDS: PIPERACILLIN/TAZOBACTAM 3.375 GM in IV NORMAL SALINE 50ML 50 ML IV SCH (18:11)
--- NOTE | 2021-02-20 20:00 | NUR ---
Patient has left radial arterial line for continuous close BP monitoring and lab draws. BP will be documented hourly under Vital Signs intervention and Q4HRS under Arterial Line intervention to avoid double charting. Addendum: 02/20/21 at 1074 by OBED ARCOS RN Amended: Links added.
--- NOTE | 2021-02-20 20:01 | NUR ---
Admission information completed using information from [facility] chart and patient's .
--- NOTE | 2021-02-20 20:30 | NUR ---
Patient suctioned and desaturated to mid 70's, recovered to 90% after 20min. Patient is to have minimal stimulation per Dr Lechuga secondary to poor oxygenation--no turns and minimal suctioning. Patient is offloaded and continuous rotation mode started (bed mode) with turns of 20 degrees every 30 minutes. Will monitor toleration and stop if O2 sats decrease <87%.
[2021-02-20] MEDS: INSULIN GLARGINE SYRINGE. SQ SCH (20:52)
[2021-02-21] VITALS (25 sets, daily range): BP systolic 120–165; BP diastolic 60–86
[2021-02-21] MEDS: PIPERACILLIN/TAZOBACTAM 3.375 GM in IV NORMAL SALINE 50ML 50 ML IV SCH ×5 (00:06→23:43)
[2021-02-21] MEDS: INSULIN LISPRO 300 UNITS/3 ML VIAL. SQ SCH ×5 (00:24→23:48)
[2021-02-21] MEDS: PROPOFOL 100 ML IV PRN ×3 (00:32→19:21)
[2021-02-21] MEDS: MIDAZOLAM 100mg/100ml NS BAG 100 ML IV PRN ×2 (06:01→15:37)
[2021-02-21 06:20] LABS: HEMATOCRIT 33.6 % (36.0-47.0); HEMOGLOBIN 10.8 g/dL (12.0-15.5); RED BLOOD COUNT 4.31 x10^6/uL (3.50-5.40); WHITE BLOOD COUNT 7.6 x10^3/uL (4.0-11.0)
[2021-02-21 06:45] LABS: ALBUMIN 2.2 g/dL (3.4-5.0); ALBUMIN/GLOBULIN RATIO 0.5 (1.0-1.7); CALCIUM 8.3 mg/dL (8.5-10.1); CREATININE 0.6 mg/dL (0.6-1.0); GFR 109.1; POTASSIUM 4.5 mmol/L (3.5-5.1); TOTAL BILIRUBIN 0.3 mg/dL (0.2-1.0); TOTAL PROTEIN 6.9 g/dL (6.4-8.2)
[2021-02-21 07:39] LABS: BASE EXCESS ABG 2 mmol/L (-3-3); FIO2 ABG 100; HCO3 ABG 27 mmol/L (21-28); PCO2 ABG 47 mmHg (35-46); PO2 ABG 53 mmHg (75-108); SAT O2 ABG 84 % (92-99)
--- NOTE | 2021-02-21 07:51 | PDOC ---
Infectious Disease Note Subjective Subjective pt is intubated on vent, cont fever ROS ROS no n/v/d/ Vital Sign Vital Signs Vital Signs Date Time Temp Pulse Resp B/P (MAP) Pulse Ox O2 Delivery O2 Flow Rate FiO2 02/21/21 07:27 92 Ventilator 02/21/21 07:00 64 20 131/66 (87) 02/21/21 04:00 99.4 99.4 Physical Exam PHYSICAL EXAM GENERAL: sedated on vent VITAL SIGNS: stable HEENT: Both pupils are round and reacting. No conjunctival lesion. No lesion in the mouth. NECK: Supple. No JVP. No lymphadenopathy. LUNGS: Clear. HEART: S1, S2 regular. ABDOMEN: Soft, nontender. No organomegaly. EXTREMITIES: No edema or cyanosis. SKIN: Unremarkable. NEUROLOGIC: sedated on vent Labs Lab Laboratory Tests Test 02/20/21 08:00 02/20/21 12:19 02/20/21 17:27 02/21/21 00:23 O2 Saturation 79 % (92-99) Arterial Blood pH 7.38 (7.35-7.45) Arterial Blood pCO2 at Patient Temp 49 mmHg (35-46) Arterial Blood pO2 at Patient Temp 44 mmHg (75-108) Arterial Blood HCO3 29 mmol/L (21-28) Arterial Blood Base Excess 3 mmol/L (-3-3) FiO2 100 Glucose (Fingerstick) 157 mg/dL (70-99) 130 mg/dL (70-99) 130 mg/dL (70-99) Test 02/21/21 05:50 02/21/21 05:59 02/21/21 07:35 White Blood Count 7.6 x10^3/uL (4.0-11.0) Red Blood Count 4.31 x10^6/uL (3.50-5.40) Hemoglobin 10.8 g/dL (12.0-15.5) Hematocrit 33.6 % (36.0-47.0) Mean Corpuscular Volume 78 fL (79-100) Mean Corpuscular Hemoglobin 25 pg (25-35) Mean Corpuscular Hemoglobin Concent 32 g/dL (31-37) Red Cell Distribution Width 15.0 % (11.5-14.5) Platelet Count 289 x10^3/uL (140-400) Sodium Level 144 mmol/L (136-145) Potassium Level 4.5 mmol/L (3.5-5.1) Chloride Level 108 mmol/L (98-107) Carbon Dioxide Level 30 mmol/L (21-32) Anion Gap 6 (6-14) Blood Urea Nitrogen 26 mg/dL (7-20) Creatinine 0.6 mg/dL (0.6-1.0) Estimated GFR (Cockcroft-Gault) 109.1 BUN/Creatinine Ratio 43 (6-20) Glucose Level 142 mg/dL (70-99) Calcium Level 8.3 mg/dL (8.5-10.1) Total Bilirubin 0.3 mg/dL (0.2-1.0) Aspartate Amino Transf (AST/SGOT) 65 U/L (15-37) Alanine Aminotransferase (ALT/SGPT) 64 U/L (14-59) Alkaline Phosphatase 58 U/L (46-116) Total Protein 6.9 g/dL (6.4-8.2) Albumin 2.2 g/dL (3.4-5.0) Albumin/Globulin Ratio 0.5 (1.0-1.7) Glucose (Fingerstick) 135 mg/dL (70-99) O2 Saturation 84 % (92-99) Arterial Blood pH 7.39 (7.35-7.45) Arterial Blood pCO2 at Patient Temp 47 mmHg (35-46) Arterial Blood pO2 at Patient Temp 53 mmHg (75-108) Arterial Blood HCO3 27 mmol/L (21-28) Arterial Blood Base Excess 2 mmol/L (-3-3) FiO2 100 Micro BC neg Objective Assessment IMPRESSION: 1. COVID-19 positive. 2. Hypoxic respiratory failure. 3. Pneumonia, bilateral pulmonary infiltrate. 4. Morbid obesity. 5. History of asthma. 6. Obstructive sleep apnea. 7 Fever likely from COVID Plan Plan of Care cont supportive care cont steroids, remdesivir and cont zosyn need ct chest, abd and pelvis, though now unstable to take for ct ALFIE CLAYTON MD Feb 21, 2021 07:51
--- NOTE | 2021-02-21 08:28 | PN ---
DATE: 02/21/2021 SUBJECTIVE: The patient continued to be heavily sedated, intubated and mechanically ventilated. She is now maintaining her oxygen saturation around 91-94% on FiO2 of 100%. She desaturates quickly. Suctioned or change position did also spike a temperature up to 101.9 yesterday. PHYSICAL EXAMINATION: GENERAL: On examining her this morning, she looked pale, but no jaundice, cyanosis, or thyromegaly. No jugular venous distention or limb edema. VITAL SIGNS: Her heart rate was 66, blood pressure was 125/63, temperature was 99.4, respiratory rate 20, and oxygen saturation was 92% on FiO2 of 100%. HEENT: Showed normocephalic, atraumatic. She has orotracheal and orogastric tube. NECK: Supple. HEART: Normal first and second heart sounds. No gallop or murmur. CHEST: Shows central trachea, equal bilateral expansion of air entry, vesicular sounds. I could not appreciate any crepitation or rhonchi anteriorly. ABDOMEN: Distended, soft, nontender. NEUROLOGIC: She is heavily sedated. Her intake over the last 24 hours was 763, output was 950. LABORATORY DATA: As of this morning, her white cell count was 7600, hemoglobin 11, hematocrit 33, MCV 78 and platelet count 289,000. Today, her chemistry is still pending at the time of this dictation. Her blood sugar seems to be reasonably controlled. Her chest x-ray showed the patient has diffuse infiltrate with endotracheal tube at the level of the clavicle at approximately T2, NG tube extends into the stomach. ASSESSMENT: 1. Acute hypoxic respiratory failure with lung injury and acute respiratory distress syndrome secondary to COVID-19 pneumonia. 2. Possible community-acquired pneumonia. 3. Bronchial asthma. 4. Morbid obesity. 5. Obstructive sleep apnea. PLAN: Obviously to continue with sedation and mechanical ventilation. Continue with IV dexamethasone. Continue with IV antibiotic. Continue with remdesivir. Continue nutritional support. Continue to monitor blood sugar and adjust insulin as needed. Continue with GI and DVT prophylaxis. ELIZABETH FERNANDEZ MD DR: BOLA/carlos JOB#: [id number] / [id number]
[2021-02-21] MEDS: DEXAMETHASONE SOD PHOS 4 MG/ML VIAL IVP SCH (08:47)
[2021-02-21] MEDS: ENOXAPARIN 40 MG/0.4 ML SYRINGE. SQ SCH ×2 (08:47→21:02)
[2021-02-21] MEDS: FAMOTIDINE 20 MG/2 ML VIAL IVP SCH ×2 (08:48→21:02)
--- NOTE | 2021-02-21 09:58 | PDOC ---
PULMONARY PROGRESS NOTES DATE: 02/21/21 TIME: 09:49 Subjective remains on 100%FIO2/ 13 PEEP desaturate with any movement sedated fully Vitals Vital Signs Date Time Temp Pulse Resp B/P (MAP) Pulse Ox O2 Delivery O2 Flow Rate FiO2 02/21/21 08:00 02/21/21 07:27 92 Ventilator 02/21/21 07:00 64 20 02/21/21 04:00 99.4 99.4 Comments visual exam done, intubated/ sedated no increase [facility] Labs Laboratory Tests Test 02/19/21 12:05 02/19/21 17:17 02/19/21 20:21 02/20/21 06:00 O2 Saturation 88 % (92-99) Arterial Blood pH 7.33 (7.35-7.45) Arterial Blood pCO2 at Patient Temp 59 mmHg (35-46) Arterial Blood pO2 at Patient Temp 56 mmHg (75-108) Arterial Blood HCO3 31 mmol/L (21-28) Arterial Blood Base Excess 3 mmol/L (-3-3) FiO2 100 Glucose (Fingerstick) 147 mg/dL (70-99) 127 mg/dL (70-99) 115 mg/dL (70-99) Test 02/20/21 07:20 02/20/21 08:00 02/20/21 12:19 02/20/21 17:27 White Blood Count 7.6 x10^3/uL (4.0-11.0) Red Blood Count 4.40 x10^6/uL (3.50-5.40) Hemoglobin 11.0 g/dL (12.0-15.5) Hematocrit 34.1 % (36.0-47.0) Mean Corpuscular Volume 78 fL (79-100) Mean Corpuscular Hemoglobin 25 pg (25-35) Mean Corpuscular Hemoglobin Concent 32 g/dL (31-37) Red Cell Distribution Width 15.5 % (11.5-14.5) Platelet Count 274 x10^3/uL (140-400) Sodium Level 143 mmol/L (136-145) Potassium Level 4.4 mmol/L (3.5-5.1) Chloride Level 107 mmol/L (98-107) Carbon Dioxide Level 29 mmol/L (21-32) Anion Gap 7 (6-14) Blood Urea Nitrogen 23 mg/dL (7-20) Creatinine 0.6 mg/dL (0.6-1.0) Estimated GFR (Cockcroft-Gault) 109.1 Glucose Level 113 mg/dL (70-99) Calcium Level 8.8 mg/dL (8.5-10.1) O2 Saturation 79 % (92-99) Arterial Blood pH 7.38 (7.35-7.45) Arterial Blood pCO2 at Patient Temp 49 mmHg (35-46) Arterial Blood pO2 at Patient Temp 44 mmHg (75-108) Arterial Blood HCO3 29 mmol/L (21-28) Arterial Blood Base Excess 3 mmol/L (-3-3) FiO2 100 Glucose (Fingerstick) 157 mg/dL (70-99) 130 mg/dL (70-99) Test 02/21/21 00:23 02/21/21 05:50 02/21/21 05:59 02/21/21 07:35 Glucose (Fingerstick) 130 mg/dL (70-99) 135 mg/dL (70-99) White Blood Count 7.6 x10^3/uL (4.0-11.0) Red Blood Count 4.31 x10^6/uL (3.50-5.40) Hemoglobin 10.8 g/dL (12.0-15.5) Hematocrit 33.6 % (36.0-47.0) Mean Corpuscular Volume 78 fL (79-100) Mean Corpuscular Hemoglobin 25 pg (25-35) Mean Corpuscular Hemoglobin Concent 32 g/dL (31-37) Red Cell Distribution Width 15.0 % (11.5-14.5) Platelet Count 289 x10^3/uL (140-400) Sodium Level 144 mmol/L (136-145) Potassium Level 4.5 mmol/L (3.5-5.1) Chloride Level 108 mmol/L (98-107) Carbon Dioxide Level 30 mmol/L (21-32) Anion Gap 6 (6-14) Blood Urea Nitrogen 26 mg/dL (7-20) Creatinine 0.6 mg/dL (0.6-1.0) Estimated GFR (Cockcroft-Gault) 109.1 BUN/Creatinine Ratio 43 (6-20) Glucose Level 142 mg/dL (70-99) Calcium Level 8.3 mg/dL (8.5-10.1) Total Bilirubin 0.3 mg/dL (0.2-1.0) Aspartate Amino Transf (AST/SGOT) 65 U/L (15-37) Alanine Aminotransferase (ALT/SGPT) 64 U/L (14-59) Alkaline Phosphatase 58 U/L (46-116) Total Protein 6.9 g/dL (6.4-8.2) Albumin 2.2 g/dL (3.4-5.0) Albumin/Globulin Ratio 0.5 (1.0-1.7) O2 Saturation 84 % (92-99) Arterial Blood pH 7.39 (7.35-7.45) Arterial Blood pCO2 at Patient Temp 47 mmHg (35-46) Arterial Blood pO2 at Patient Temp 53 mmHg (75-108) Arterial Blood HCO3 27 mmol/L (21-28) Arterial Blood Base Excess 2 mmol/L (-3-3) FiO2 100 Laboratory Tests Test 02/20/21 12:19 02/20/21 17:27 02/21/21 00:23 02/21/21 05:50 Glucose (Fingerstick) 157 mg/dL (70-99) 130 mg/dL (70-99) 130 mg/dL (70-99) White Blood Count 7.6 x10^3/uL (4.0-11.0) Red Blood Count 4.31 x10^6/uL (3.50-5.40) Hemoglobin 10.8 g/dL (12.0-15.5) Hematocrit 33.6 % (36.0-47.0) Mean Corpuscular Volume 78 fL (79-100) Mean Corpuscular Hemoglobin 25 pg (25-35) Mean Corpuscular Hemoglobin Concent 32 g/dL (31-37) Red Cell Distribution Width 15.0 % (11.5-14.5) Platelet Count 289 x10^3/uL (140-400) Sodium Level 144 mmol/L (136-145) Potassium Level 4.5 mmol/L (3.5-5.1) Chloride Level 108 mmol/L (98-107) Carbon Dioxide Level 30 mmol/L (21-32) Anion Gap 6 (6-14) Blood Urea Nitrogen 26 mg/dL (7-20) Creatinine 0.6 mg/dL (0.6-1.0) Estimated GFR (Cockcroft-Gault) 109.1 BUN/Creatinine Ratio 43 (6-20) Glucose Level 142 mg/dL (70-99) Calcium Level 8.3 mg/dL (8.5-10.1) Total Bilirubin 0.3 mg/dL (0.2-1.0) Aspartate Amino Transf (AST/SGOT) 65 U/L (15-37) Alanine Aminotransferase (ALT/SGPT) 64 U/L (14-59) Alkaline Phosphatase 58 U/L (46-116) Total Protein 6.9 g/dL (6.4-8.2) Albumin 2.2 g/dL (3.4-5.0) Albumin/Globulin Ratio 0.5 (1.0-1.7) Test 02/21/21 05:59 02/21/21 07:35 Glucose (Fingerstick) 135 mg/dL (70-99) O2 Saturation 84 % (92-99) Arterial Blood pH 7.39 (7.35-7.45) Arterial Blood pCO2 at Patient Temp 47 mmHg (35-46) Arterial Blood pO2 at Patient Temp 53 mmHg (75-108) Arterial Blood HCO3 27 mmol/L (21-28) Arterial Blood Base Excess 2 mmol/L (-3-3) FiO2 100 Medications Active Scripts Medications Dose Route/Sig Max Daily Dose Days Date Category Meloxicam 15 Mg Tablet 1 Tab PO DAILY 30 02/18/21 Reported Comments cxr 02/19 extensive bilateral infiltrate cardiomegaly Impression . 1. Acute hypoxic respiratory failure with acute lung injury/early acute respiratory distress syndrome secondary to COVID-19 pneumonia./ severe hypoxia 2. Underlying morbid obesity one of the contributing factors to her severity of hypoxia. 3. No significant tobacco history. 4. History of asthma, under control. 5. Obstructive sleep apnea, on home CPAP. Unknown severity of obstructive sleep apnea and unknown CPAP pressure. 6. Abnormal CXR with bilateral patchy infiltrates c/w viral pneumonia. Plan . 1. AC mode/ PEEP of 13, 100%FIO2 full sedation / prn paralytic. De-saturate with any movement. High risk to prone with a BMI of 61 but will attempt today. d/w ICU team. Not a candidate for safe transfer to for [facility] 2. follow ABG and make changes. 3. Continue to finish the remdesivir course. 4. Decadron at 8 mg IV 24 hours. 5. D-Dimer normal .Lovenox for DVT 6. enteral nutrition 7. Continue empiric antibiotics. 8. d/w RN. / RT/ 9. echo 10.d/w in detail .Prognosis explained/ d/w pharmacy . Tociluzimab not available cct 35 min KEVIN PENNY MD Feb 21, 2021 09:58
[2021-02-21] MEDS: VECURONIUM BOLUS 10 MG VIAL. IV PRN ×4 (10:06→17:51)
[2021-02-21] MEDS: fentaNYL HIGH DOSE PCA 55 ML IV PRN (15:38)
[2021-02-21] MEDS: REMDESIVIR 100mg in NORMAL SALINE 250ML X 4 DAYS IV SCH (16:41)
[2021-02-21] MEDS: VECURONIUM BROMIDE 50 MG in TOTAL VOLUME 50 ML IV PRN ×2 (18:06→21:03)
[2021-02-21 20:36] LABS: BASE EXCESS ABG 2 mmol/L (-3-3); FIO2 ABG 100%; HCO3 ABG 29 mmol/L (21-28); PCO2 ABG 57 mmHg (35-46); PO2 ABG 75 mmHg (75-108); SAT O2 ABG 93 % (92-99)
[2021-02-21] MEDS: INSULIN GLARGINE SYRINGE. SQ SCH (21:05)
[2021-02-22] VITALS (24 sets, daily range): BP systolic 115–137; BP diastolic 59–79
[2021-02-22] MEDS: VECURONIUM BROMIDE 50 MG in TOTAL VOLUME 50 ML IV PRN ×4 (03:22→21:00)
[2021-02-22] MEDS: MIDAZOLAM 100mg/100ml NS BAG 100 ML IV PRN ×2 (03:23→14:51)
[2021-02-22] MEDS: INSULIN LISPRO 300 UNITS/3 ML VIAL. SQ SCH ×4 (05:26→23:37)
[2021-02-22] MEDS: PIPERACILLIN/TAZOBACTAM 3.375 GM in IV NORMAL SALINE 50ML 50 ML IV SCH ×4 (05:26→23:38)
[2021-02-22 07:42] LABS: BASE EXCESS ABG 4 mmol/L (-3-3); HCO3 ABG 29 mmol/L (21-28); PCO2 ABG 47 mmHg (35-46); PO2 ABG 88 mmHg (75-108); SAT O2 ABG 96 % (92-99)
[2021-02-22 07:54] LABS: FIO2 ABG 100 VENT
[2021-02-22] MEDS: FAMOTIDINE 20 MG/2 ML VIAL IVP SCH ×2 (08:24→21:00)
[2021-02-22] MEDS: DEXAMETHASONE SOD PHOS 4 MG/ML VIAL IVP SCH (08:24)
[2021-02-22] MEDS: ENOXAPARIN 40 MG/0.4 ML SYRINGE. SQ SCH ×2 (08:25→20:59)
[2021-02-22] MEDS: fentaNYL HIGH DOSE PCA 55 ML IV PRN (09:24)
--- NOTE | 2021-02-22 10:17 | PDOC ---
PULMONARY PROGRESS NOTES DATE: 02/22/21 TIME: 10:13 Subjective remains on 100%FIO2/ 13 PEEP Improvement in oxygenation with prone positioning sedated fully Vitals Vital Signs Date Time Temp Pulse Resp B/P (MAP) Pulse Ox O2 Delivery O2 Flow Rate FiO2 02/22/21 10:02 96 Ventilator 02/22/21 10:00 65 20 126/63 (84) 02/22/21 08:00 99.2 99.2 Comments visual exam done, intubated/ sedated no increase WOB Labs Laboratory Tests Test 02/20/21 12:19 02/20/21 17:27 02/21/21 00:23 02/21/21 05:50 Glucose (Fingerstick) 157 mg/dL (70-99) 130 mg/dL (70-99) 130 mg/dL (70-99) White Blood Count 7.6 x10^3/uL (4.0-11.0) Red Blood Count 4.31 x10^6/uL (3.50-5.40) Hemoglobin 10.8 g/dL (12.0-15.5) Hematocrit 33.6 % (36.0-47.0) Mean Corpuscular Volume 78 fL (79-100) Mean Corpuscular Hemoglobin 25 pg (25-35) Mean Corpuscular Hemoglobin Concent 32 g/dL (31-37) Red Cell Distribution Width 15.0 % (11.5-14.5) Platelet Count 289 x10^3/uL (140-400) Sodium Level 144 mmol/L (136-145) Potassium Level 4.5 mmol/L (3.5-5.1) Chloride Level 108 mmol/L (98-107) Carbon Dioxide Level 30 mmol/L (21-32) Anion Gap 6 (6-14) Blood Urea Nitrogen 26 mg/dL (7-20) Creatinine 0.6 mg/dL (0.6-1.0) Estimated GFR (Cockcroft-Gault) 109.1 BUN/Creatinine Ratio 43 (6-20) Glucose Level 142 mg/dL (70-99) Calcium Level 8.3 mg/dL (8.5-10.1) Total Bilirubin 0.3 mg/dL (0.2-1.0) Aspartate Amino Transf (AST/SGOT) 65 U/L (15-37) Alanine Aminotransferase (ALT/SGPT) 64 U/L (14-59) Alkaline Phosphatase 58 U/L (46-116) Total Protein 6.9 g/dL (6.4-8.2) Albumin 2.2 g/dL (3.4-5.0) Albumin/Globulin Ratio 0.5 (1.0-1.7) Test 02/21/21 05:59 02/21/21 07:35 02/21/21 11:52 02/21/21 20:15 Glucose (Fingerstick) 135 mg/dL (70-99) 168 mg/dL (70-99) O2 Saturation 84 % (92-99) 93 % (92-99) Arterial Blood pH 7.39 (7.35-7.45) 7.33 (7.35-7.45) Arterial Blood pCO2 at Patient Temp 47 mmHg (35-46) 57 mmHg (35-46) Arterial Blood pO2 at Patient Temp 53 mmHg (75-108) 75 mmHg (75-108) Arterial Blood HCO3 27 mmol/L (21-28) 29 mmol/L (21-28) Arterial Blood Base Excess 2 mmol/L (-3-3) 2 mmol/L (-3-3) FiO2 100 100% Test 02/21/21 23:48 02/22/21 05:23 02/22/21 07:40 Glucose (Fingerstick) 156 mg/dL (70-99) 136 mg/dL (70-99) O2 Saturation 96 % (92-99) Arterial Blood pH 7.41 (7.35-7.45) Arterial Blood pCO2 at Patient Temp 47 mmHg (35-46) Arterial Blood pO2 at Patient Temp 88 mmHg (75-108) Arterial Blood HCO3 29 mmol/L (21-28) Arterial Blood Base Excess 4 mmol/L (-3-3) FiO2 100 vent Laboratory Tests Test 02/21/21 11:52 02/21/21 20:15 02/21/21 23:48 02/22/21 05:23 Glucose (Fingerstick) 168 mg/dL (70-99) 156 mg/dL (70-99) 136 mg/dL (70-99) O2 Saturation 93 % (92-99) Arterial Blood pH 7.33 (7.35-7.45) Arterial Blood pCO2 at Patient Temp 57 mmHg (35-46) Arterial Blood pO2 at Patient Temp 75 mmHg (75-108) Arterial Blood HCO3 29 mmol/L (21-28) Arterial Blood Base Excess 2 mmol/L (-3-3) FiO2 100% Test 02/22/21 07:40 O2 Saturation 96 % (92-99) Arterial Blood pH 7.41 (7.35-7.45) Arterial Blood pCO2 at Patient Temp 47 mmHg (35-46) Arterial Blood pO2 at Patient Temp 88 mmHg (75-108) Arterial Blood HCO3 29 mmol/L (21-28) Arterial Blood Base Excess 4 mmol/L (-3-3) FiO2 100 vent Medications Active Scripts Medications Dose Route/Sig Max Daily Dose Days Date Category Meloxicam 15 Mg Tablet 1 Tab PO DAILY 30 02/18/21 Reported Comments cxr 02/19 extensive bilateral infiltrate cardiomegaly Impression . 1. Acute hypoxic respiratory failure with acute lung injury/early acute respiratory distress syndrome secondary to COVID-19 pneumonia./ severe hypoxia 2. Underlying morbid obesity one of the contributing factors to her severity of hypoxia. 3. No significant tobacco history. 4. History of asthma, under control. 5. Obstructive sleep apnea, on home CPAP. Unknown severity of obstructive sleep apnea and unknown CPAP pressure. 6. Abnormal CXR with bilateral patchy infiltrates c/w viral pneumonia. Plan . updated 02/22 Improvement in oxygenation with prone positioning (PO2 improved from 53 to 88) 1. AC mode/ PEEP of 13, 100%FIO2 full sedation / prn paralytic. High risk to prone with a BMI of 61 but will continue daily 16 hrs prone positioning. d/w ICU team. 2. follow ABG and make changes. 3. Continue to finish the remdesivir course. 4. Decadron at 8 mg IV 24 hours. 5. D-Dimer normal .Lovenox for DVT 6. enteral nutrition 7. Continue empiric antibiotics. 8. d/w RN. / RT/ 9. echo with no pericardial effusion/ or CMP cct 30 min updated 02/21 1. AC mode/ PEEP of 13, 100%FIO2 full sedation / prn paralytic. De-saturate with any movement. High risk to prone with a BMI of 61 but will attempt today. d/w ICU team. Not a candidate for safe transfer to for [facility] 2. follow ABG and make changes. 3. Continue to finish the remdesivir course. 4. Decadron at 8 mg IV 24 hours. 5. D-Dimer normal .Lovenox for DVT 6. enteral nutrition 7. Continue empiric antibiotics. 8. d/w RN. / RT/ 9. echo 10.d/w in detail .Prognosis explained/ d/w pharmacy . Tociluzimab not available cct 35 min KEVIN PENNY MD Feb 22, 2021 10:17
[2021-02-22] MEDS: REMDESIVIR 100mg in NORMAL SALINE 250ML X 4 DAYS IV SCH (15:59)
[2021-02-22] MEDS: MINERAL OIL/PETROLATUM,WHITE OPHTH OINT 3.5GM TUBE. OU PRN (18:06)
[2021-02-22] MEDS: INSULIN GLARGINE SYRINGE. SQ SCH (20:59)
--- NOTE | 2021-02-22 21:42 | PN ---
DATE: 02/22/2021 SUBJECTIVE: The patient is now in a prone position, continued to be heavily sedated; however, her oxygen saturation was 98% on FiO2 of 100%. PHYSICAL EXAMINATION: GENERAL: On examining her, she looked well and was clearly in no apparent respiratory distress. No pallor, jaundice, cyanosis or thyromegaly. No jugular venous distension. No lower limb edema. VITAL SIGNS: Her heart rate was 63, blood pressure was 127/69, temperature was 98.6, respiratory rate 20, and oxygen saturation was 98% on FiO2 of 100%. The rest of clinical exam is stable. Her intake over the last 24 hours was 2600, output was 1330. LABORATORY WORK: As of yesterday showed a serum sodium of 144, potassium 4.5, chloride 108, bicarbonate 30, anion gap of 6, BUN 26, creatinine 0.6. Her blood sugars are within acceptable range. Her AST, ALT slightly elevated. Total bilirubin and alkaline phosphatase are normal. White cell count was 7600, hemoglobin 11, hematocrit 33, MCV 78 and platelet count 209,000. Her blood gases this morning showed a pH of 7.4, pCO2 of 46, and pO2 of 78. ASSESSMENT: 1. Acute hypoxic respiratory failure with lung injury and acute respiratory distress syndrome secondary to COVID-19 pneumonia. 2. Possible community-acquired pneumonia. 3. Bronchial asthma. 4. Morbid obesity. 5. Obstructive sleep apnea. PLAN: Continue with sedation and mechanical ventilation. She is now in a prone position and that improved her oxygen saturation to 98%. Continue with dexamethasone. Continue with IV antibiotic. Continue with remdesivir. Continue nutritional support. Continue to monitor blood sugar and adjust the insulin as needed. Continue with GI and DVT prophylaxis. ELIZABETH FERNANDEZ MD DR: BOLA/carlos JOB#: [id number] / [id number]
[2021-02-23] VITALS (24 sets, daily range): BP systolic 124–144; BP diastolic 61–74
[2021-02-23] MEDS: MIDAZOLAM 100mg/100ml NS BAG 100 ML IV PRN ×2 (03:13→15:16)
[2021-02-23] MEDS: VECURONIUM BROMIDE 50 MG in TOTAL VOLUME 50 ML IV PRN ×3 (03:14→18:36)
[2021-02-23] MEDS: fentaNYL HIGH DOSE PCA 55 ML IV PRN ×2 (03:14→20:15)
[2021-02-23] MEDS: PIPERACILLIN/TAZOBACTAM 3.375 GM in IV NORMAL SALINE 50ML 50 ML IV SCH ×3 (05:34→18:36)
[2021-02-23] MEDS: INSULIN LISPRO 300 UNITS/3 ML VIAL. SQ SCH ×3 (05:35→18:34)
[2021-02-23 05:49] LABS: HEMATOCRIT 36.4 % (36.0-47.0); HEMOGLOBIN 11.6 g/dL (12.0-15.5); RED BLOOD COUNT 4.61 x10^6/uL (3.50-5.40); RED CELL DISTRIBUTION WIDTH 14.8 % (11.5-14.5); WHITE BLOOD COUNT 10.4 x10^3/uL (4.0-11.0)
[2021-02-23 06:06] LABS: ALBUMIN 2.2 g/dL (3.4-5.0); ALBUMIN/GLOBULIN RATIO 0.5 (1.0-1.7); CALCIUM 8.6 mg/dL (8.5-10.1); CREATININE 0.6 mg/dL (0.6-1.0); GFR 109.1; POTASSIUM 4.5 mmol/L (3.5-5.1); TOTAL BILIRUBIN 0.6 mg/dL (0.2-1.0); TOTAL PROTEIN 6.7 g/dL (6.4-8.2)
--- NOTE | 2021-02-23 07:53 | PDOC ---
Infectious Disease Note Subjective Subjective pt is intubated on vent, ROS ROS no n/v/d/ Vital Sign Vital Signs Vital Signs Date Time Temp Pulse Resp B/P (MAP) Pulse Ox O2 Delivery O2 Flow Rate FiO2 02/23/21 05:57 84 20 135/67 (89) 95 Ventilator 02/23/21 04:00 99.2 99.2 Physical Exam PHYSICAL EXAM GENERAL: sedated on vent VITAL SIGNS: stable HEENT: Both pupils are round and reacting. No conjunctival lesion. No lesion in the mouth. NECK: Supple. No JVP. No lymphadenopathy. LUNGS: Clear. HEART: S1, S2 regular. ABDOMEN: Soft, nontender. No organomegaly. EXTREMITIES: No edema or cyanosis. SKIN: Unremarkable. NEUROLOGIC: sedated on vent Labs Lab Laboratory Tests Test 02/22/21 12:55 02/22/21 16:21 02/22/21 23:35 02/23/21 05:30 Glucose (Fingerstick) 159 mg/dL (70-99) 193 mg/dL (70-99) 161 mg/dL (70-99) White Blood Count 10.4 x10^3/uL (4.0-11.0) Red Blood Count 4.61 x10^6/uL (3.50-5.40) Hemoglobin 11.6 g/dL (12.0-15.5) Hematocrit 36.4 % (36.0-47.0) Mean Corpuscular Volume 79 fL (79-100) Mean Corpuscular Hemoglobin 25 pg (25-35) Mean Corpuscular Hemoglobin Concent 32 g/dL (31-37) Red Cell Distribution Width 14.8 % (11.5-14.5) Platelet Count 311 x10^3/uL (140-400) Sodium Level 143 mmol/L (136-145) Potassium Level 4.5 mmol/L (3.5-5.1) Chloride Level 104 mmol/L (98-107) Carbon Dioxide Level 32 mmol/L (21-32) Anion Gap 7 (6-14) Blood Urea Nitrogen 29 mg/dL (7-20) Creatinine 0.6 mg/dL (0.6-1.0) Estimated GFR (Cockcroft-Gault) 109.1 BUN/Creatinine Ratio 48 (6-20) Glucose Level 131 mg/dL (70-99) Calcium Level 8.6 mg/dL (8.5-10.1) Total Bilirubin 0.6 mg/dL (0.2-1.0) Aspartate Amino Transf (AST/SGOT) 134 U/L (15-37) Alanine Aminotransferase (ALT/SGPT) 229 U/L (14-59) Alkaline Phosphatase 77 U/L (46-116) Total Protein 6.7 g/dL (6.4-8.2) Albumin 2.2 g/dL (3.4-5.0) Albumin/Globulin Ratio 0.5 (1.0-1.7) Test 02/23/21 05:32 Glucose (Fingerstick) 128 mg/dL (70-99) Micro BC neg Objective Assessment IMPRESSION: 1. COVID-19 positive. 2. Hypoxic respiratory failure. 3. Pneumonia, bilateral pulmonary infiltrate. 4. Morbid obesity. 5. History of asthma. 6. Obstructive sleep apnea. 7 Fever likely from COVID Plan Plan of Care cont supportive care cont steroids, remdesivir and cont ALFIE Gloria MD Feb 23, 2021 07:53
--- NOTE | 2021-02-23 08:12 | RAD ---
XR CHEST 1V INDICATION: COVID/Intubated ICU#113 / Spl. Instructions: / History: . COMPARISON STUDY: 02/19/2021. FINDINGS: Life Support Devices: Stable endotracheal tube, enteric tube. Lungs: Low lung volume. Improving bilateral perihilar and basilar heterogeneous opacities. Pleura: Stable pleural spaces. Heart and Mediastinum: Stable cardiomediastinal silhouette and great vessels. Bones and Soft Tissues: Stable regional skeleton and soft tissues. IMPRESSION: 1. Stable life support devices. 2. Improving bilateral perihilar and basilar opacities Electronically signed by: Shyam Calvillo MD (02/23/2021 8:10 AM) [id number]
[2021-02-23] MEDS: DEXAMETHASONE SOD PHOS 4 MG/ML VIAL IVP SCH (08:45)
[2021-02-23] MEDS: FAMOTIDINE 20 MG/2 ML VIAL IVP SCH ×2 (08:46→21:16)
[2021-02-23] MEDS: MINERAL OIL/PETROLATUM,WHITE OPHTH OINT 3.5GM TUBE. OU PRN (08:47)
[2021-02-23] MEDS: ENOXAPARIN 40 MG/0.4 ML SYRINGE. SQ SCH (08:47)
[2021-02-23 08:55] LABS: BASE EXCESS ABG 5 mmol/L (-3-3); HCO3 ABG 31 mmol/L (21-28); PCO2 ABG 54 mmHg (35-46); PO2 ABG 65 mmHg (75-108); SAT O2 ABG 92 % (92-99)
[2021-02-23 08:57] LABS: FIO2 ABG 100
--- NOTE | 2021-02-23 10:16 | PDOC ---
PULMONARY PROGRESS NOTES DATE: 02/23/21 TIME: 10:13 Subjective remains on 100%FIO2/ 13 PEEP Improvement in oxygenation with prone positioning 02/22 sedated fully/ prn paralysis Vitals Vital Signs Date Time Temp Pulse Resp B/P (MAP) Pulse Ox O2 Delivery O2 Flow Rate FiO2 02/23/21 08:00 98 Ventilator 02/23/21 05:57 84 20 135/67 (89) 02/23/21 04:00 99.2 99.2 Comments visual exam done, intubated/ sedated no increase WOB Labs Laboratory Tests Test 02/21/21 11:52 02/21/21 20:15 02/21/21 23:48 02/22/21 05:23 Glucose (Fingerstick) 168 mg/dL (70-99) 156 mg/dL (70-99) 136 mg/dL (70-99) O2 Saturation 93 % (92-99) Arterial Blood pH 7.33 (7.35-7.45) Arterial Blood pCO2 at Patient Temp 57 mmHg (35-46) Arterial Blood pO2 at Patient Temp 75 mmHg (75-108) Arterial Blood HCO3 29 mmol/L (21-28) Arterial Blood Base Excess 2 mmol/L (-3-3) FiO2 100% Test 02/22/21 07:40 02/22/21 12:55 02/22/21 16:21 02/22/21 23:35 O2 Saturation 96 % (92-99) Arterial Blood pH 7.41 (7.35-7.45) Arterial Blood pCO2 at Patient Temp 47 mmHg (35-46) Arterial Blood pO2 at Patient Temp 88 mmHg (75-108) Arterial Blood HCO3 29 mmol/L (21-28) Arterial Blood Base Excess 4 mmol/L (-3-3) FiO2 100 vent Glucose (Fingerstick) 159 mg/dL (70-99) 193 mg/dL (70-99) 161 mg/dL (70-99) Test 02/23/21 05:30 02/23/21 05:32 02/23/21 08:00 White Blood Count 10.4 x10^3/uL (4.0-11.0) Red Blood Count 4.61 x10^6/uL (3.50-5.40) Hemoglobin 11.6 g/dL (12.0-15.5) Hematocrit 36.4 % (36.0-47.0) Mean Corpuscular Volume 79 fL (79-100) Mean Corpuscular Hemoglobin 25 pg (25-35) Mean Corpuscular Hemoglobin Concent 32 g/dL (31-37) Red Cell Distribution Width 14.8 % (11.5-14.5) Platelet Count 311 x10^3/uL (140-400) Sodium Level 143 mmol/L (136-145) Potassium Level 4.5 mmol/L (3.5-5.1) Chloride Level 104 mmol/L (98-107) Carbon Dioxide Level 32 mmol/L (21-32) Anion Gap 7 (6-14) Blood Urea Nitrogen 29 mg/dL (7-20) Creatinine 0.6 mg/dL (0.6-1.0) Estimated GFR (Cockcroft-Gault) 109.1 BUN/Creatinine Ratio 48 (6-20) Glucose Level 131 mg/dL (70-99) Calcium Level 8.6 mg/dL (8.5-10.1) Total Bilirubin 0.6 mg/dL (0.2-1.0) Aspartate Amino Transf (AST/SGOT) 134 U/L (15-37) Alanine Aminotransferase (ALT/SGPT) 229 U/L (14-59) Alkaline Phosphatase 77 U/L (46-116) Total Protein 6.7 g/dL (6.4-8.2) Albumin 2.2 g/dL (3.4-5.0) Albumin/Globulin Ratio 0.5 (1.0-1.7) Glucose (Fingerstick) 128 mg/dL (70-99) O2 Saturation 92 % (92-99) Arterial Blood pH 7.37 (7.35-7.45) Arterial Blood pCO2 at Patient Temp 54 mmHg (35-46) Arterial Blood pO2 at Patient Temp 65 mmHg (75-108) Arterial Blood HCO3 31 mmol/L (21-28) Arterial Blood Base Excess 5 mmol/L (-3-3) FiO2 100 Laboratory Tests Test 02/22/21 12:55 02/22/21 16:21 02/22/21 23:35 02/23/21 05:30 Glucose (Fingerstick) 159 mg/dL (70-99) 193 mg/dL (70-99) 161 mg/dL (70-99) White Blood Count 10.4 x10^3/uL (4.0-11.0) Red Blood Count 4.61 x10^6/uL (3.50-5.40) Hemoglobin 11.6 g/dL (12.0-15.5) Hematocrit 36.4 % (36.0-47.0) Mean Corpuscular Volume 79 fL (79-100) Mean Corpuscular Hemoglobin 25 pg (25-35) Mean Corpuscular Hemoglobin Concent 32 g/dL (31-37) Red Cell Distribution Width 14.8 % (11.5-14.5) Platelet Count 311 x10^3/uL (140-400) Sodium Level 143 mmol/L (136-145) Potassium Level 4.5 mmol/L (3.5-5.1) Chloride Level 104 mmol/L (98-107) Carbon Dioxide Level 32 mmol/L (21-32) Anion Gap 7 (6-14) Blood Urea Nitrogen 29 mg/dL (7-20) Creatinine 0.6 mg/dL (0.6-1.0) Estimated GFR (Cockcroft-Gault) 109.1 BUN/Creatinine Ratio 48 (6-20) Glucose Level 131 mg/dL (70-99) Calcium Level 8.6 mg/dL (8.5-10.1) Total Bilirubin 0.6 mg/dL (0.2-1.0) Aspartate Amino Transf (AST/SGOT) 134 U/L (15-37) Alanine Aminotransferase (ALT/SGPT) 229 U/L (14-59) Alkaline Phosphatase 77 U/L (46-116) Total Protein 6.7 g/dL (6.4-8.2) Albumin 2.2 g/dL (3.4-5.0) Albumin/Globulin Ratio 0.5 (1.0-1.7) Test 02/23/21 05:32 02/23/21 08:00 Glucose (Fingerstick) 128 mg/dL (70-99) O2 Saturation 92 % (92-99) Arterial Blood pH 7.37 (7.35-7.45) Arterial Blood pCO2 at Patient Temp 54 mmHg (35-46) Arterial Blood pO2 at Patient Temp 65 mmHg (75-108) Arterial Blood HCO3 31 mmol/L (21-28) Arterial Blood Base Excess 5 mmol/L (-3-3) FiO2 100 Medications Active Scripts Medications Dose Route/Sig Max Daily Dose Days Date Category Meloxicam 15 Mg Tablet 1 Tab PO DAILY 30 02/18/21 Reported Comments cxr 02/23 improving bilateral infiltrates cxr 02/19 extensive bilateral infiltrate cardiomegaly Impression . 1. Acute hypoxic respiratory failure with acute lung injury/early acute respiratory distress syndrome secondary to COVID-19 pneumonia./ severe hypoxia 2. Underlying morbid obesity one of the contributing factors to her severity of hypoxia. 3. No significant tobacco history. 4. History of asthma, under control. 5. Obstructive sleep apnea, on home CPAP. Unknown severity of obstructive sleep apnea and unknown CPAP pressure. 6. Abnormal CXR with bilateral patchy infiltrates c/w viral pneumonia., improving 02/23 Plan . updated 02/23 Improvement in oxygenation with prone positioning (PO2 improved from 53 to 88) on 02/23 1. AC mode/ PEEP of 13, 100%FIO2 full sedation / prn paralytic. Despite high risk to prone with a BMI of 61, we will continue daily 16 hrs prone positioning. Oxygenation improves with prone position .d/w ICU team. 2. follow ABG and make changes. 3. Continue to finish the remdesivir course. 4. Decadron at 8 mg IV 24 hours. 5. D-Dimer normal .Lovenox for DVT 6. enteral nutrition 7. Continue empiric antibiotics. 8. d/w RN. / RT/ and in detail 9. echo with no pericardial effusion/ or CMP cct 30 min updated 02/22 Improvement in oxygenation with prone positioning (PO2 improved from 53 to 88) 1. AC mode/ PEEP of 13, 100%FIO2 full sedation / prn paralytic. High risk to prone with a BMI of 61 but will continue daily 16 hrs prone positioning. d/w ICU team. 2. follow ABG and make changes. 3. Continue to finish the remdesivir course. 4. Decadron at 8 mg IV 24 hours. 5. D-Dimer normal .Lovenox for DVT 6. enteral nutrition 7. Continue empiric antibiotics. 8. d/w RN. / RT/ 9. echo with no pericardial effusion/ or CMP cct 30 min updated 02/21 1. AC mode/ PEEP of 13, 100%FIO2 full sedation / prn paralytic. De-saturate with any movement. High risk to prone with a BMI of 61 but will attempt today. d/w ICU team. Not a candidate for safe transfer to for [facility] 2. follow ABG and make changes. 3. Continue to finish the remdesivir course. 4. Decadron at 8 mg IV 24 hours. 5. D-Dimer normal .Lovenox for DVT 6. enteral nutrition 7. Continue empiric antibiotics. 8. d/w RN. / RT/ 9. echo 10.d/w in detail .Prognosis explained/ d/w pharmacy . Tociluzimab not available cct 35 min KEVIN PENNY MD Feb 23, 2021 10:16
--- NOTE | 2021-02-23 10:20 | PN ---
DATE: 02/23/2021 SUBJECTIVE: The patient is actually in supine position. She was in a prone position yesterday and around 4:00 p.m., she was switched back, she continued to do well; in fact oxygen saturation 99% on FiO2 of 100%. She has had a chest x-ray that was not read, but seems to be somewhat better than before. Nursing staff did not voice any concern and stated that she has generally uneventful night. PHYSICAL EXAMINATION: GENERAL: When I examined her, she was pale, no jaundice, cyanosis or thyromegaly. No jugular venous distention. No lower limb edema. VITAL SIGNS: Her heart rate was 84, blood pressure was 135/67, temperature 99.2, respiratory rate 20, and oxygen saturation was 99% on FiO2 of 100%. HEENT: Showed normocephalic, atraumatic. NECK: Supple. HEART: Normal first and second heart sounds. No gallop, rub or murmur. CHEST: Shows central trachea, equal bilateral expansion, air entry, vesicular sounds. I could not really appreciate any crepitation or rhonchi anteriorly. ABDOMEN: Distended, soft, nontender. NEUROLOGIC: She is heavily sedated. She continued to be on fentanyl, Versed and propofol. Her intake was 2350, output was 1400. LABORATORY DATA: As of this morning, her white cell count was 10,400, hemoglobin was 11.6, hematocrit 36, MCV 79 and platelet count of 311,000. Her serum sodium was 143, potassium 4.5, chloride 104, bicarbonate 32, anion gap of 7, BUN 29, creatinine 0.6, estimated GFR 109 mL per minute. Her glucose was 131, calcium was 8.6. Total bilirubin and alkaline phosphatase are normal. AST, ALT is slightly elevated and higher than before. Total protein 6.7, albumin 2.2. ASSESSMENT: 1. Acute hypoxic respiratory failure, lung injury and acute respiratory distress syndrome secondary to COVID-19 pneumonia, doing much better. She was in prone position yesterday, she is now maintaining her oxygen saturation at 99% on FiO2 of 100%. Her chest x-ray is definitely much better, although it has not been read officially yet. 2. Possible community-acquired pneumonia, for which she continues to be on IV antibiotic. 3. Bronchial asthma. 4. Morbid obesity. 5. Obstructive sleep apnea. PLAN: To obviously continue with mechanical ventilation and wean as tolerated. Continue on prone position as tolerated. Continue with dexamethasone. Continue with IV antibiotic. Continue with remdesivir. Continue with nutritional support. Continue to monitor blood sugar and adjust insulin as needed. Continue GI and DVT prophylaxis. ELIZABETH FERNANDEZ MD DR: BOLA/carlos JOB#: [id number] / [id number]
--- NOTE | 2021-02-23 14:43 | NUR ---
SS following up with discharge planning. SS reviewed pt chart and discussed with pt RN. Pt is currently on the vent at 100%. COVID19 positive. Pt on IV Zosyn. Pt on Fentanyl, Versed, and Vec. Not stable. SS will continue to follow for discharge planning.
--- NOTE | 2021-02-23 15:04 | NUR ---
Have reviewed and agree with documentation completed by biomedical engineering internship and made changes as needed
--- NOTE | 2021-02-23 20:00 | NUR ---
Patient is prone and has left radial arterial line for continuous close BP monitoring and lab draws. BP will be documented hourly under Vital Signs intervention and Q4HRS under Arterial Line intervention to avoid double charting Addendum: 02/23/21 at 2232 by OBED ARCOS RN Amended: Links added.
[2021-02-23] MEDS: ACETAMINOPHEN 650 MG SUPP.RECT. PR PRN (21:00)
[2021-02-23] MEDS: INSULIN GLARGINE SYRINGE. SQ SCH (21:00)
[2021-02-24] VITALS (24 sets, daily range): BP systolic 108–150; BP diastolic 53–82
[2021-02-24] MEDS: PIPERACILLIN/TAZOBACTAM 3.375 GM in IV NORMAL SALINE 50ML 50 ML IV SCH ×4 (00:07→18:17)
[2021-02-24] MEDS: INSULIN LISPRO 300 UNITS/3 ML VIAL. SQ SCH ×4 (00:26→17:20)
[2021-02-24] MEDS: MIDAZOLAM 100mg/100ml NS BAG 100 ML IV PRN ×3 (01:25→22:23)
[2021-02-24] MEDS: VECURONIUM BROMIDE 50 MG in TOTAL VOLUME 50 ML IV PRN ×3 (01:25→22:22)
--- NOTE | 2021-02-24 07:59 | PDOC ---
Infectious Disease Note Subjective Subjective pt is intubated on vent, in a prone position ROS ROS No nausea vomiting diarrhea Off-and-on fever Vital Sign Vital Signs Vital Signs Date Time Temp Pulse Resp B/P (MAP) Pulse Ox O2 Delivery O2 Flow Rate FiO2 02/24/21 07:00 78 20 130/69 (89) 91 Ventilator 02/24/21 04:00 98.6 98.6 Physical Exam PHYSICAL EXAM GENERAL: sedated on vent VITAL SIGNS: stable HEENT: Both pupils are round and reacting. No conjunctival lesion. No lesion in the mouth. NECK: Supple. No JVP. No lymphadenopathy. LUNGS: Clear. HEART: S1, S2 regular. ABDOMEN: Soft, nontender. No organomegaly. EXTREMITIES: No edema or cyanosis. SKIN: Unremarkable. NEUROLOGIC: sedated on vent Labs Lab Laboratory Tests Test 02/23/21 08:00 02/23/21 11:57 02/23/21 18:31 02/24/21 00:25 O2 Saturation 92 % (92-99) Arterial Blood pH 7.37 (7.35-7.45) Arterial Blood pCO2 at Patient Temp 54 mmHg (35-46) Arterial Blood pO2 at Patient Temp 65 mmHg (75-108) Arterial Blood HCO3 31 mmol/L (21-28) Arterial Blood Base Excess 5 mmol/L (-3-3) FiO2 100 Glucose (Fingerstick) 201 mg/dL (70-99) 173 mg/dL (70-99) 134 mg/dL (70-99) Test 02/24/21 06:21 Glucose (Fingerstick) 143 mg/dL (70-99) Micro BC neg Objective Assessment IMPRESSION: 1. COVID-19 positive. 2. Hypoxic respiratory failure. 3. Pneumonia, bilateral pulmonary infiltrate. 4. Morbid obesity. 5. History of asthma. 6. Obstructive sleep apnea. 7 Fever likely from COVID Plan Plan of Care cont supportive care cont steroids, remdesivir and cont ALFIE Gloria MD Feb 24, 2021 07:59
--- NOTE | 2021-02-24 08:06 | PDOC ---
PULMONARY PROGRESS NOTES DATE: 02/24/21 TIME: 08:06 Subjective Patient currently on 100% FiO2, 13 of PEEP Proned nightly Temperature yesterday 101.4 Sedate Vitals Vital Signs Date Time Temp Pulse Resp B/P (MAP) Pulse Ox O2 Delivery O2 Flow Rate FiO2 02/24/21 07:00 78 20 130/69 (89) 91 Ventilator 02/24/21 04:00 98.6 98.6 Comments visual exam done, intubated/ sedated no increase WOB Labs Laboratory Tests Test 02/22/21 12:55 02/22/21 16:21 02/22/21 23:35 02/23/21 05:30 Glucose (Fingerstick) 159 mg/dL (70-99) 193 mg/dL (70-99) 161 mg/dL (70-99) White Blood Count 10.4 x10^3/uL (4.0-11.0) Red Blood Count 4.61 x10^6/uL (3.50-5.40) Hemoglobin 11.6 g/dL (12.0-15.5) Hematocrit 36.4 % (36.0-47.0) Mean Corpuscular Volume 79 fL (79-100) Mean Corpuscular Hemoglobin 25 pg (25-35) Mean Corpuscular Hemoglobin Concent 32 g/dL (31-37) Red Cell Distribution Width 14.8 % (11.5-14.5) Platelet Count 311 x10^3/uL (140-400) Sodium Level 143 mmol/L (136-145) Potassium Level 4.5 mmol/L (3.5-5.1) Chloride Level 104 mmol/L (98-107) Carbon Dioxide Level 32 mmol/L (21-32) Anion Gap 7 (6-14) Blood Urea Nitrogen 29 mg/dL (7-20) Creatinine 0.6 mg/dL (0.6-1.0) Estimated GFR (Cockcroft-Gault) 109.1 BUN/Creatinine Ratio 48 (6-20) Glucose Level 131 mg/dL (70-99) Calcium Level 8.6 mg/dL (8.5-10.1) Total Bilirubin 0.6 mg/dL (0.2-1.0) Aspartate Amino Transf (AST/SGOT) 134 U/L (15-37) Alanine Aminotransferase (ALT/SGPT) 229 U/L (14-59) Alkaline Phosphatase 77 U/L (46-116) Total Protein 6.7 g/dL (6.4-8.2) Albumin 2.2 g/dL (3.4-5.0) Albumin/Globulin Ratio 0.5 (1.0-1.7) Test 02/23/21 05:32 02/23/21 08:00 02/23/21 11:57 02/23/21 18:31 Glucose (Fingerstick) 128 mg/dL (70-99) 201 mg/dL (70-99) 173 mg/dL (70-99) O2 Saturation 92 % (92-99) Arterial Blood pH 7.37 (7.35-7.45) Arterial Blood pCO2 at Patient Temp 54 mmHg (35-46) Arterial Blood pO2 at Patient Temp 65 mmHg (75-108) Arterial Blood HCO3 31 mmol/L (21-28) Arterial Blood Base Excess 5 mmol/L (-3-3) FiO2 100 Test 02/24/21 00:25 02/24/21 06:21 Glucose (Fingerstick) 134 mg/dL (70-99) 143 mg/dL (70-99) Laboratory Tests Test 02/23/21 11:57 02/23/21 18:31 02/24/21 00:25 02/24/21 06:21 Glucose (Fingerstick) 201 mg/dL (70-99) 173 mg/dL (70-99) 134 mg/dL (70-99) 143 mg/dL (70-99) Medications Active Scripts Medications Dose Route/Sig Max Daily Dose Days Date Category Meloxicam 15 Mg Tablet 1 Tab PO DAILY 30 02/18/21 Reported Comments cxr 4/5 improving bilateral infiltrates cxr 02/19 extensive bilateral infiltrate cardiomegaly Impression . 1. Acute hypoxic respiratory failure with acute lung injury/early acute respiratory distress syndrome secondary to COVID-19 pneumonia. 2. Morbid obesity, BMI of 65 3. No significant tobacco history. 4. History of asthma, under control. 5. Obstructive sleep apnea, on home CPAP. Unknown severity of obstructive sleep apnea and unknown CPAP pressure. 6. Abnormal CXR with bilateral patchy infiltrates c/w viral pneumonia., Plan . Updated 4 6 Continue proning nightly Increase IV ratio to 1-1 ABG noted, adequate for patient Continue DVT GI prophylaxis Enteral nutrition Steroids Completed a course of remdesivir Total cumulative critical care time of approximately 35 minutes, reviewing the current documentation, labs, chest x-ray, discussing with RN and RT, formulating a plan. updated 02/23 Improvement in oxygenation with prone positioning (PO2 improved from 53 to 88) on 02/23 1. AC mode/ PEEP of 13, 100%FIO2 full sedation / prn paralytic. Despite high risk to prone with a BMI of 61, we will continue daily 16 hrs prone positioning. Oxygenation improves with prone position .d/w ICU team. 2. follow ABG and make changes. 3. Continue to finish the remdesivir course. 4. Decadron at 8 mg IV 24 hours. 5. D-Dimer normal .Lovenox for DVT 6. enteral nutrition 7. Continue empiric antibiotics. 8. d/w RN. / RT/ and in detail 9. echo with no pericardial effusion/ or CMP cct 30 min DAVID LIZ MD Feb 24, 2021 08:06
[2021-02-24 08:12] LABS: BASE EXCESS ABG 7 mmol/L (-3-3); HCO3 ABG 34 mmol/L (21-28); PCO2 ABG 58 mmHg (35-46); PO2 ABG 58 mmHg (75-108); SAT O2 ABG 89 % (92-99)
--- NOTE | 2021-02-24 08:38 | PN ---
DATE: 02/24/2021 SUBJECTIVE: The patient is in a prone position, continued to be intubated, mechanically ventilated. She is maintaining her oxygen saturations 91% on FiO2 of 100%. PHYSICAL EXAMINATION: GENERAL: On examining her, she looked pale, but no jaundice or cyanosis. No lymphadenopathy, no thyromegaly. No jugular venous distention. No lower limb edema. VITAL SIGNS: Her heart rate was 78, blood pressure was 130/69, temperature was 98.6, respiratory rate was 20, and oxygen saturation was 91% on FiO2 of 100%. Rest of clinical exam is stable, has not really changed. Her intake over the last 24 hours was 2900, output was 1475. LABORATORY DATA: Her lab work is still pending at the time of this dictation. ASSESSMENT: 1. Acute hypoxic respiratory failure, lung cancer and acute respiratory distress syndrome secondary to COVID-19 pneumonia. The patient is now in a prone position, maintaining her oxygen saturation at 91% on FiO2 of 100%. Her chest x-ray is definitely much better compared to initial x-ray on admission. 2. Possible community-acquired pneumonia for which she continues to be on IV antibiotic. 3. Bronchial asthma. 4. Morbid obesity. 5. Obstructive sleep apnea. PLAN: To continue mechanical ventilation, wean as tolerated. Continue prone position as per superintendent circus. Continue with dexamethasone. Continue with IV antibiotic. Continue with remdesivir. Continue nutritional support. Continue to monitor her blood sugar and adjust insulin as needed. Continue GI and DVT prophylaxis. ELIZABETH FERNANDEZ MD DR: BOLA/carlos JOB#: [id number] / [id number]
[2021-02-24] MEDS: DEXAMETHASONE SOD PHOS 4 MG/ML VIAL IVP SCH (09:09)
[2021-02-24] MEDS: FAMOTIDINE 20 MG/2 ML VIAL IVP SCH ×2 (09:09→20:32)
[2021-02-24 09:11] LABS: BASO % 0 % (0-3); EOS # 0.1 x10^3/uL (0.0-0.7); EOS % 1 % (0-3); HEMATOCRIT 39.1 % (36.0-47.0); HEMOGLOBIN 12.3 g/dL (12.0-15.5); LYMPH # 2.1 x10^3/uL (1.0-4.8); LYMPH % 16 % (24-48); MEAN CORPUSCULAR HEMOGLOBIN 25 pg (25-35); MEAN CORPUSCULAR HGB CONC 31 g/dL (31-37); MEAN CORPUSCULAR VOLUME 79 fL (79-100); MONO % 8 % (0-9); NEUT # 9.9 x10^3/uL (1.8-7.7); NEUT % 76 % (31-73); PLATELET COUNT 295 x10^3/uL (140-400); RED BLOOD COUNT 4.96 x10^6/uL (3.50-5.40); RED CELL DISTRIBUTION WIDTH 14.7 % (11.5-14.5); WHITE BLOOD COUNT 13.1 x10^3/uL (4.0-11.0)
[2021-02-24 09:18] LABS: CALCIUM 8.4 mg/dL (8.5-10.1); CREATININE 0.5 mg/dL (0.6-1.0); GFR 134.7; POTASSIUM 4.5 mmol/L (3.5-5.1)
[2021-02-24 09:20] LABS: FIO2 ABG 100
[2021-02-24] MEDS: fentaNYL HIGH DOSE PCA 55 ML IV PRN (13:13)
--- NOTE | 2021-02-24 15:03 | NUR ---
SS following up with discharge planning. SS reviewed pt chart and discussed with pt RN. No changes today. Pt is currently on the vent at 100%. COVID19 positive. Pt on IV Zosyn. Pt on Fentanyl, Versed, and Vec. Not stable. SS will continue to follow for discharge planning.
[2021-02-24] MEDS: INSULIN GLARGINE SYRINGE. SQ SCH (20:33)
[2021-02-25] VITALS (23 sets, daily range): BP systolic 107–151; BP diastolic 52–77
[2021-02-25] MEDS: PIPERACILLIN/TAZOBACTAM 3.375 GM in IV NORMAL SALINE 50ML 50 ML IV SCH ×4 (00:12→17:02)
[2021-02-25] MEDS: INSULIN LISPRO 300 UNITS/3 ML VIAL. SQ SCH ×4 (00:16→17:01)
[2021-02-25] MEDS: VECURONIUM BROMIDE 50 MG in TOTAL VOLUME 50 ML IV PRN ×4 (04:56→23:12)
[2021-02-25 06:42] LABS: BASO % 0 % (0-3); CALCIUM 8.8 mg/dL (8.5-10.1); CREATININE 0.6 mg/dL (0.6-1.0); EOS % 0 % (0-3); GFR 109.1; HEMATOCRIT 38.2 % (36.0-47.0); LYMPH # 1.7 x10^3/uL (1.0-4.8); LYMPH % 11 % (24-48); MEAN CORPUSCULAR HEMOGLOBIN 25 pg (25-35); MEAN CORPUSCULAR HGB CONC 31 g/dL (31-37); MEAN CORPUSCULAR VOLUME 80 fL (79-100); MONO # 1.2 x10^3/uL (0.0-1.1); MONO % 8 % (0-9); NEUT # 12.7 x10^3/uL (1.8-7.7); NEUT % 81 % (31-73); PLATELET COUNT 279 x10^3/uL (140-400); POTASSIUM 4.7 mmol/L (3.5-5.1); RED CELL DISTRIBUTION WIDTH 14.9 % (11.5-14.5); WHITE BLOOD COUNT 15.6 x10^3/uL (4.0-11.0)
[2021-02-25] MEDS: FAMOTIDINE 20 MG/2 ML VIAL IVP SCH ×2 (07:37→22:24)
[2021-02-25] MEDS: DEXAMETHASONE SOD PHOS 4 MG/ML VIAL IVP SCH (07:38)
[2021-02-25] MEDS: fentaNYL HIGH DOSE PCA 55 ML IV PRN ×2 (07:39→23:11)
--- NOTE | 2021-02-25 07:50 | PDOC ---
Infectious Disease Note Subjective Subjective pt is intubated on vent, in a prone position ROS ROS No nausea vomiting diarrhea Vital Sign Vital Signs Vital Signs Date Time Temp Pulse Resp B/P (MAP) Pulse Ox O2 Delivery O2 Flow Rate FiO2 02/25/21 07:00 78 20 120/71 (87) 100 Ventilator 02/25/21 04:00 99.4 99.4 Physical Exam PHYSICAL EXAM GENERAL: sedated on vent VITAL SIGNS: stable HEENT: Both pupils are round and reacting. No conjunctival lesion. No lesion in the mouth. NECK: Supple. No JVP. No lymphadenopathy. LUNGS: Clear. HEART: S1, S2 regular. ABDOMEN: Soft, nontender. No organomegaly. EXTREMITIES: No edema or cyanosis. SKIN: Unremarkable. NEUROLOGIC: sedated on vent Labs Lab Laboratory Tests Test 02/24/21 08:00 02/24/21 09:00 02/24/21 11:24 02/24/21 16:42 O2 Saturation 89 % (92-99) Arterial Blood pH 7.38 (7.35-7.45) Arterial Blood pCO2 at Patient Temp 58 mmHg (35-46) Arterial Blood pO2 at Patient Temp 58 mmHg (75-108) Arterial Blood HCO3 34 mmol/L (21-28) Arterial Blood Base Excess 7 mmol/L (-3-3) FiO2 100 White Blood Count 13.1 x10^3/uL (4.0-11.0) Red Blood Count 4.96 x10^6/uL (3.50-5.40) Hemoglobin 12.3 g/dL (12.0-15.5) Hematocrit 39.1 % (36.0-47.0) Mean Corpuscular Volume 79 fL (79-100) Mean Corpuscular Hemoglobin 25 pg (25-35) Mean Corpuscular Hemoglobin Concent 31 g/dL (31-37) Red Cell Distribution Width 14.7 % (11.5-14.5) Platelet Count 295 x10^3/uL (140-400) Neutrophils (%) (Auto) 76 % (31-73) Lymphocytes (%) (Auto) 16 % (24-48) Monocytes (%) (Auto) 8 % (0-9) Eosinophils (%) (Auto) 1 % (0-3) Basophils (%) (Auto) 0 % (0-3) Neutrophils # (Auto) 9.9 x10^3/uL (1.8-7.7) Lymphocytes # (Auto) 2.1 x10^3/uL (1.0-4.8) Monocytes # (Auto) 1.0 x10^3/uL (0.0-1.1) Eosinophils # (Auto) 0.1 x10^3/uL (0.0-0.7) Basophils # (Auto) 0.0 x10^3/uL (0.0-0.2) Sodium Level 144 mmol/L (136-145) Potassium Level 4.5 mmol/L (3.5-5.1) Chloride Level 102 mmol/L (98-107) Carbon Dioxide Level 34 mmol/L (21-32) Anion Gap 8 (6-14) Blood Urea Nitrogen 29 mg/dL (7-20) Creatinine 0.5 mg/dL (0.6-1.0) Estimated GFR (Cockcroft-Gault) 134.7 Glucose Level 122 mg/dL (70-99) Calcium Level 8.4 mg/dL (8.5-10.1) Glucose (Fingerstick) 165 mg/dL (70-99) 245 mg/dL (70-99) Test 02/25/21 00:15 02/25/21 05:45 02/25/21 05:52 Glucose (Fingerstick) 165 mg/dL (70-99) 141 mg/dL (70-99) White Blood Count 15.6 x10^3/uL (4.0-11.0) Red Blood Count 4.80 x10^6/uL (3.50-5.40) Hemoglobin 12.0 g/dL (12.0-15.5) Hematocrit 38.2 % (36.0-47.0) Mean Corpuscular Volume 80 fL (79-100) Mean Corpuscular Hemoglobin 25 pg (25-35) Mean Corpuscular Hemoglobin Concent 31 g/dL (31-37) Red Cell Distribution Width 14.9 % (11.5-14.5) Platelet Count 279 x10^3/uL (140-400) Neutrophils (%) (Auto) 81 % (31-73) Lymphocytes (%) (Auto) 11 % (24-48) Monocytes (%) (Auto) 8 % (0-9) Eosinophils (%) (Auto) 0 % (0-3) Basophils (%) (Auto) 0 % (0-3) Neutrophils # (Auto) 12.7 x10^3/uL (1.8-7.7) Lymphocytes # (Auto) 1.7 x10^3/uL (1.0-4.8) Monocytes # (Auto) 1.2 x10^3/uL (0.0-1.1) Eosinophils # (Auto) 0.0 x10^3/uL (0.0-0.7) Basophils # (Auto) 0.0 x10^3/uL (0.0-0.2) Sodium Level 139 mmol/L (136-145) Potassium Level 4.7 mmol/L (3.5-5.1) Chloride Level 102 mmol/L (98-107) Carbon Dioxide Level 34 mmol/L (21-32) Anion Gap 3 (6-14) Blood Urea Nitrogen 31 mg/dL (7-20) Creatinine 0.6 mg/dL (0.6-1.0) Estimated GFR (Cockcroft-Gault) 109.1 Glucose Level 131 mg/dL (70-99) Calcium Level 8.8 mg/dL (8.5-10.1) Micro BC neg Objective Assessment IMPRESSION: 1. COVID-19 positive. 2. Hypoxic respiratory failure. 3. Pneumonia, bilateral pulmonary infiltrate. 4. Morbid obesity. 5. History of asthma. 6. Obstructive sleep apnea. 7 Fever likely from COVID Plan Plan of Care cont supportive care cont steroids, cont ALFIE Gloria MD Feb 25, 2021 07:50
[2021-02-25 08:22] LABS: BASE EXCESS ABG 7 mmol/L (-3-3); HCO3 ABG 35 mmol/L (21-28); PO2 ABG 89 mmHg (75-108); SAT O2 ABG 96 % (92-99)
[2021-02-25 08:26] LABS: FIO2 ABG 100; PCO2 ABG 60 mmHg (35-46)
--- NOTE | 2021-02-25 08:43 | PDOC ---
PULMONARY PROGRESS NOTES DATE: 02/25/21 TIME: 08:43 Subjective No overnight events. Currently on 2-1 i.e. ratio Patient currently on 100% FiO2, 13 of PEEP Proned nightly Sedate Vitals Vital Signs Date Time Temp Pulse Resp B/P (MAP) Pulse Ox O2 Delivery O2 Flow Rate FiO2 02/25/21 08:00 Mechanical Ventilator 02/25/21 08:00 99.0 92 20 126/77 (93) 100 99.0 Comments visual exam done, intubated/ sedated no increase WOB Labs Laboratory Tests Test 02/23/21 11:57 02/23/21 18:31 02/24/21 00:25 02/24/21 06:21 Glucose (Fingerstick) 201 mg/dL (70-99) 173 mg/dL (70-99) 134 mg/dL (70-99) 143 mg/dL (70-99) Test 02/24/21 08:00 02/24/21 09:00 02/24/21 11:24 02/24/21 16:42 O2 Saturation 89 % (92-99) Arterial Blood pH 7.38 (7.35-7.45) Arterial Blood pCO2 at Patient Temp 58 mmHg (35-46) Arterial Blood pO2 at Patient Temp 58 mmHg (75-108) Arterial Blood HCO3 34 mmol/L (21-28) Arterial Blood Base Excess 7 mmol/L (-3-3) FiO2 100 White Blood Count 13.1 x10^3/uL (4.0-11.0) Red Blood Count 4.96 x10^6/uL (3.50-5.40) Hemoglobin 12.3 g/dL (12.0-15.5) Hematocrit 39.1 % (36.0-47.0) Mean Corpuscular Volume 79 fL (79-100) Mean Corpuscular Hemoglobin 25 pg (25-35) Mean Corpuscular Hemoglobin Concent 31 g/dL (31-37) Red Cell Distribution Width 14.7 % (11.5-14.5) Platelet Count 295 x10^3/uL (140-400) Neutrophils (%) (Auto) 76 % (31-73) Lymphocytes (%) (Auto) 16 % (24-48) Monocytes (%) (Auto) 8 % (0-9) Eosinophils (%) (Auto) 1 % (0-3) Basophils (%) (Auto) 0 % (0-3) Neutrophils # (Auto) 9.9 x10^3/uL (1.8-7.7) Lymphocytes # (Auto) 2.1 x10^3/uL (1.0-4.8) Monocytes # (Auto) 1.0 x10^3/uL (0.0-1.1) Eosinophils # (Auto) 0.1 x10^3/uL (0.0-0.7) Basophils # (Auto) 0.0 x10^3/uL (0.0-0.2) Sodium Level 144 mmol/L (136-145) Potassium Level 4.5 mmol/L (3.5-5.1) Chloride Level 102 mmol/L (98-107) Carbon Dioxide Level 34 mmol/L (21-32) Anion Gap 8 (6-14) Blood Urea Nitrogen 29 mg/dL (7-20) Creatinine 0.5 mg/dL (0.6-1.0) Estimated GFR (Cockcroft-Gault) 134.7 Glucose Level 122 mg/dL (70-99) Calcium Level 8.4 mg/dL (8.5-10.1) Glucose (Fingerstick) 165 mg/dL (70-99) 245 mg/dL (70-99) Test 02/25/21 00:15 02/25/21 05:45 02/25/21 05:52 02/25/21 07:45 Glucose (Fingerstick) 165 mg/dL (70-99) 141 mg/dL (70-99) White Blood Count 15.6 x10^3/uL (4.0-11.0) Red Blood Count 4.80 x10^6/uL (3.50-5.40) Hemoglobin 12.0 g/dL (12.0-15.5) Hematocrit 38.2 % (36.0-47.0) Mean Corpuscular Volume 80 fL (79-100) Mean Corpuscular Hemoglobin 25 pg (25-35) Mean Corpuscular Hemoglobin Concent 31 g/dL (31-37) Red Cell Distribution Width 14.9 % (11.5-14.5) Platelet Count 279 x10^3/uL (140-400) Neutrophils (%) (Auto) 81 % (31-73) Lymphocytes (%) (Auto) 11 % (24-48) Monocytes (%) (Auto) 8 % (0-9) Eosinophils (%) (Auto) 0 % (0-3) Basophils (%) (Auto) 0 % (0-3) Neutrophils # (Auto) 12.7 x10^3/uL (1.8-7.7) Lymphocytes # (Auto) 1.7 x10^3/uL (1.0-4.8) Monocytes # (Auto) 1.2 x10^3/uL (0.0-1.1) Eosinophils # (Auto) 0.0 x10^3/uL (0.0-0.7) Basophils # (Auto) 0.0 x10^3/uL (0.0-0.2) Sodium Level 139 mmol/L (136-145) Potassium Level 4.7 mmol/L (3.5-5.1) Chloride Level 102 mmol/L (98-107) Carbon Dioxide Level 34 mmol/L (21-32) Anion Gap 3 (6-14) Blood Urea Nitrogen 31 mg/dL (7-20) Creatinine 0.6 mg/dL (0.6-1.0) Estimated GFR (Cockcroft-Gault) 109.1 Glucose Level 131 mg/dL (70-99) Calcium Level 8.8 mg/dL (8.5-10.1) O2 Saturation 96 % (92-99) Arterial Blood pH 7.38 (7.35-7.45) Arterial Blood pCO2 at Patient Temp 60 mmHg (35-46) Arterial Blood pO2 at Patient Temp 89 mmHg (75-108) Arterial Blood HCO3 35 mmol/L (21-28) Arterial Blood Base Excess 7 mmol/L (-3-3) FiO2 100 Laboratory Tests Test 02/24/21 09:00 02/24/21 11:24 02/24/21 16:42 02/25/21 00:15 White Blood Count 13.1 x10^3/uL (4.0-11.0) Red Blood Count 4.96 x10^6/uL (3.50-5.40) Hemoglobin 12.3 g/dL (12.0-15.5) Hematocrit 39.1 % (36.0-47.0) Mean Corpuscular Volume 79 fL (79-100) Mean Corpuscular Hemoglobin 25 pg (25-35) Mean Corpuscular Hemoglobin Concent 31 g/dL (31-37) Red Cell Distribution Width 14.7 % (11.5-14.5) Platelet Count 295 x10^3/uL (140-400) Neutrophils (%) (Auto) 76 % (31-73) Lymphocytes (%) (Auto) 16 % (24-48) Monocytes (%) (Auto) 8 % (0-9) Eosinophils (%) (Auto) 1 % (0-3) Basophils (%) (Auto) 0 % (0-3) Neutrophils # (Auto) 9.9 x10^3/uL (1.8-7.7) Lymphocytes # (Auto) 2.1 x10^3/uL (1.0-4.8) Monocytes # (Auto) 1.0 x10^3/uL (0.0-1.1) Eosinophils # (Auto) 0.1 x10^3/uL (0.0-0.7) Basophils # (Auto) 0.0 x10^3/uL (0.0-0.2) Sodium Level 144 mmol/L (136-145) Potassium Level 4.5 mmol/L (3.5-5.1) Chloride Level 102 mmol/L (98-107) Carbon Dioxide Level 34 mmol/L (21-32) Anion Gap 8 (6-14) Blood Urea Nitrogen 29 mg/dL (7-20) Creatinine 0.5 mg/dL (0.6-1.0) Estimated GFR (Cockcroft-Gault) 134.7 Glucose Level 122 mg/dL (70-99) Calcium Level 8.4 mg/dL (8.5-10.1) Glucose (Fingerstick) 165 mg/dL (70-99) 245 mg/dL (70-99) 165 mg/dL (70-99) Test 02/25/21 05:45 02/25/21 05:52 02/25/21 07:45 White Blood Count 15.6 x10^3/uL (4.0-11.0) Red Blood Count 4.80 x10^6/uL (3.50-5.40) Hemoglobin 12.0 g/dL (12.0-15.5) Hematocrit 38.2 % (36.0-47.0) Mean Corpuscular Volume 80 fL (79-100) Mean Corpuscular Hemoglobin 25 pg (25-35) Mean Corpuscular Hemoglobin Concent 31 g/dL (31-37) Red Cell Distribution Width 14.9 % (11.5-14.5) Platelet Count 279 x10^3/uL (140-400) Neutrophils (%) (Auto) 81 % (31-73) Lymphocytes (%) (Auto) 11 % (24-48) Monocytes (%) (Auto) 8 % (0-9) Eosinophils (%) (Auto) 0 % (0-3) Basophils (%) (Auto) 0 % (0-3) Neutrophils # (Auto) 12.7 x10^3/uL (1.8-7.7) Lymphocytes # (Auto) 1.7 x10^3/uL (1.0-4.8) Monocytes # (Auto) 1.2 x10^3/uL (0.0-1.1) Eosinophils # (Auto) 0.0 x10^3/uL (0.0-0.7) Basophils # (Auto) 0.0 x10^3/uL (0.0-0.2) Sodium Level 139 mmol/L (136-145) Potassium Level 4.7 mmol/L (3.5-5.1) Chloride Level 102 mmol/L (98-107) Carbon Dioxide Level 34 mmol/L (21-32) Anion Gap 3 (6-14) Blood Urea Nitrogen 31 mg/dL (7-20) Creatinine 0.6 mg/dL (0.6-1.0) Estimated GFR (Cockcroft-Gault) 109.1 Glucose Level 131 mg/dL (70-99) Calcium Level 8.8 mg/dL (8.5-10.1) Glucose (Fingerstick) 141 mg/dL (70-99) O2 Saturation 96 % (92-99) Arterial Blood pH 7.38 (7.35-7.45) Arterial Blood pCO2 at Patient Temp 60 mmHg (35-46) Arterial Blood pO2 at Patient Temp 89 mmHg (75-108) Arterial Blood HCO3 35 mmol/L (21-28) Arterial Blood Base Excess 7 mmol/L (-3-3) FiO2 100 Medications Active Scripts Medications Dose Route/Sig Max Daily Dose Days Date Category Meloxicam 15 Mg Tablet 1 Tab PO DAILY 30 02/18/21 Reported Comments cxr 4/5 improving bilateral infiltrates cxr 4/ extensive bilateral infiltrate cardiomegaly Impression . 1. Acute hypoxic respiratory failure with acute lung injury/early acute respiratory distress syndrome secondary to COVID-19 pneumonia. 2. Morbid obesity, BMI of 65 3. No significant tobacco history. 4. History of asthma, under control. 5. Obstructive sleep apnea, on home CPAP. Unknown severity of obstructive sleep apnea and unknown CPAP pressure. 6. Abnormal CXR with bilateral patchy infiltrates c/w viral pneumonia., 7. Fever, improved Plan . Updated 02/25 Discussed with RN continue current proning nightly ABG noted DVT GI prophylaxis Steroids Completed remdesivir Currently on ratio of 2:1 Antibiotics per ID Total cumulative critical care time of 30 minutes, reviewing the current documentation, chest x-ray, labs, formulating the plan Updated 6 Continue proning nightly Increase IV ratio to 1-1 ABG noted, adequate for patient Continue DVT GI prophylaxis Enteral nutrition Steroids Completed a course of remdesivir Total cumulative critical care time of approximately 35 minutes, reviewing the current documentation, labs, chest x-ray, discussing with RN and RT, formulating a plan. updated 02/23 Improvement in oxygenation with prone positioning (PO2 improved from 53 to 88) on 02/23 1. AC mode/ PEEP of 13, 100%FIO2 full sedation / prn paralytic. Despite high risk to prone with a BMI of 61, we will continue daily 16 hrs prone positioning. Oxygenation improves with prone position .d/w ICU team. 2. follow ABG and make changes. 3. Continue to finish the remdesivir course. 4. Decadron at 8 mg IV 24 hours. 5. D-Dimer normal .Lovenox for DVT 6. enteral nutrition 7. Continue empiric antibiotics. 8. d/w RN. / RT/ and in detail 9. echo with no pericardial effusion/ or CMP cct 30 min DAVID LIZ MD Feb 25, 2021 08:43
[2021-02-25] MEDS: MIDAZOLAM 100mg/100ml NS BAG 100 ML IV PRN ×2 (10:30→21:24)
--- NOTE | 2021-02-25 10:59 | RAD ---
ADDENDUM #1 Addendum: Subcutaneous emphysema is seen on the left, new since the prior exam. Electronically signed by: Romeo Foley MD (02/25/2021 11:14 AM) [id number] ORIGINAL REPORT Exam Date: 02/25/2021 10:27 AM XR CHEST 1V Indication: Reason: ARDS/COVID / Spl. Instructions: / History: Comparison: February 23, 2021 FINDINGS/ IMPRESSION: Support lines and tubes remain in place. Evaluation is limited by rotation. Diffuse bilateral lung in filtrates are more prominent compared to the prior exam. Small bilateral pleural effusions are not ex cluded. No pneumothorax. The cardiac silhouette is obscured by infiltrates. Electronically signed by: Romeo Foley MD (02/25/2021 10:57 AM) [id number]
[2021-02-25 11:26] LABS: % BANDS 4 % (0-9); % LYMPHS 17 % (24-48); % MONOS 6 % (0-10); % SEGS 73 % (35-66); NUCLEATED RBC 1; PLT ESTIMATE ADEQUATE (ADEQUATE)
--- NOTE | 2021-02-25 12:35 | PN ---
DATE: 02/25/2021 SUBJECTIVE: The patient continued to be paralyzed, heavily sedated, in prone position; however, her oxygen saturation is much better, maintaining her oxygen saturation at 96% on FiO2 of 100%. Nursing staff stated that she has marked facial swelling and they turn her face as well as her arms regularly. PHYSICAL EXAMINATION: GENERAL: On examining her, she obviously was continued to be intubated, mechanically ventilated and heavily sedated, paralyzed, she was pale, but no jaundice, cyanosis or thyromegaly. No jugular venous distention. No lower limb edema. VITAL SIGNS: Her heart rate was 81, blood pressure was 117/71, temperature was 99.4, respiratory rate was 20, and oxygen saturation was 96% on FiO2 of 100%. Rest of her exam is stable. Her intake was 2700, output was 1600. LABORATORY DATA: As of this morning, her serum sodium was 139, potassium 4.7, chloride 102, bicarbonate 34, anion gap of 3, BUN 31, creatinine 0.6, estimated GFR was 109 mL per minute. Her glucose was 131 and calcium was 8.8. Her white cell count was 15,600, hemoglobin 12, hematocrit 38, MCV 80 and platelet count 279,000 with normal manual differential. ASSESSMENT: 1. Acute hypoxic respiratory failure, multifactorial including: A. COVID-19 pneumonia. B. Acute lung injury with respiratory distress syndrome. C. Possible community-acquired pneumonia. 2. Bronchial asthma. 3. Morbid obesity. 4. Obstructive sleep apnea. PLAN: Plan is obviously to continue with mechanical ventilation in the prone position, seems to be oxygenating much better. Continue with dexamethasone. Continue with IV antibiotic. Continue with remdesivir. Continue with nutritional support. Continue to monitor blood sugar and adjust insulin as needed. Continue with GI and DVT prophylaxis. ELIZABETH FERNANDEZ MD DR: BOLA/carlos JOB#: [id number] / [id number]
--- NOTE | 2021-02-25 15:08 | RAD ---
XR CHEST 1V Clinical Indication: Reason: ptx / Spl. Instructions: / History: Comparison: AP chest, earlier same day. Findings: Endotracheal tube tip is 6.2 cm superior to the [place]. Enteric tube courses below left hemidiaphragm , unchanged. There is right PICC, tip in distal SVC. The cardiomediastinal silhouette is probably sta ble, difficult to evaluate due to pulmonary opacities. There are diffuse bilateral pulmonary opacitie s. There is increased consolidation in the right lung base. No definite pneumothorax. No pleural effu [place] is seen. Left chest subcutaneous air is partially seen, is slightly improved. IMPRESSION: 1. Stable life support devices. 2. Bilateral diffuse pulmonary opacities. Increased consolidation in the right lung base. 3. Left chest wall subcutaneous air is slightly improved. Electronically signed by: Tanvir Valenzuela MD (02/25/2021 3:06 PM) [id number]
[2021-02-25] MEDS: ACETAMINOPHEN 650 MG SUPP.RECT. PR PRN ×2 (16:43→22:27)
--- NOTE | 2021-02-25 17:07 | NUR ---
SW following today. Pt remains COVID positive on the vent at 100%. Pt not ready for discharge.
[2021-02-25] MEDS: INSULIN GLARGINE SYRINGE. SQ SCH (22:25)
[2021-02-26] VITALS (24 sets, daily range): BP systolic 116–190; BP diastolic 63–107
[2021-02-26] MEDS: PIPERACILLIN/TAZOBACTAM 3.375 GM in IV NORMAL SALINE 50ML 50 ML IV SCH ×3 (00:17→12:15)
[2021-02-26] MEDS: INSULIN LISPRO 300 UNITS/3 ML VIAL. SQ SCH ×5 (01:41→23:36)
--- NOTE | 2021-02-26 07:48 | PDOC ---
Infectious Disease Note Subjective Subjective pt is intubated on vent, in a prone position ROS ROS no n/v/d/ Vital Sign Vital Signs Vital Signs Date Time Temp Pulse Resp B/P (MAP) Pulse Ox O2 Delivery O2 Flow Rate FiO2 02/26/21 06:00 93 20 166/90 (115) 87 Ventilator 02/26/21 04:00 98.7 98.7 02/25/21 23:11 40.0 Physical Exam PHYSICAL EXAM GENERAL: sedated on vent VITAL SIGNS: stable HEENT: Both pupils are round and reacting. No conjunctival lesion. No lesion in the mouth. NECK: Supple. No JVP. No lymphadenopathy. LUNGS: Clear. HEART: S1, S2 regular. ABDOMEN: Soft, nontender. No organomegaly. EXTREMITIES: No edema or cyanosis. SKIN: Unremarkable. NEUROLOGIC: sedated on vent Labs Lab Laboratory Tests Test 02/25/21 11:39 02/25/21 17:00 02/26/21 00:27 02/26/21 05:55 Glucose (Fingerstick) 180 mg/dL (70-99) 220 mg/dL (70-99) 154 mg/dL (70-99) 130 mg/dL (70-99) Micro BC neg Objective Assessment IMPRESSION: 1. COVID-19 positive. 2. Hypoxic respiratory failure. 3. Pneumonia, bilateral pulmonary infiltrate. 4. Morbid obesity. 5. History of asthma. 6. Obstructive sleep apnea. 7 Fever likely from COVID Plan Plan of Care cont supportive care cont steroids, cont ALFIE Gloria MD Feb 26, 2021 07:48
[2021-02-26 08:00] LABS: BASE EXCESS ABG 8 mmol/L (-3-3); HCO3 ABG 35 mmol/L (21-28); PO2 ABG 60 mmHg (75-108); SAT O2 ABG 89 % (92-99)
[2021-02-26 08:03] LABS: FIO2 ABG 100; PCO2 ABG 61 mmHg (35-46)
[2021-02-26 08:54] LABS: BASO % 0 % (0-3); EOS % 0 % (0-3); HEMATOCRIT 36.5 % (36.0-47.0); HEMOGLOBIN 11.6 g/dL (12.0-15.5); LYMPH # 1.4 x10^3/uL (1.0-4.8); LYMPH % 9 % (24-48); MEAN CORPUSCULAR HEMOGLOBIN 25 pg (25-35); MEAN CORPUSCULAR HGB CONC 32 g/dL (31-37); MEAN CORPUSCULAR VOLUME 79 fL (79-100); MONO % 7 % (0-9); NEUT # 12.2 x10^3/uL (1.8-7.7); NEUT % 83 % (31-73); PLATELET COUNT 292 x10^3/uL (140-400); RED BLOOD COUNT 4.65 x10^6/uL (3.50-5.40); RED CELL DISTRIBUTION WIDTH 14.7 % (11.5-14.5); WHITE BLOOD COUNT 14.6 x10^3/uL (4.0-11.0)
[2021-02-26] MEDS: VECURONIUM BROMIDE 50 MG in TOTAL VOLUME 50 ML IV PRN ×3 (08:55→20:58)
[2021-02-26] MEDS: MIDAZOLAM 100mg/100ml NS BAG 100 ML IV PRN ×2 (08:56→17:10)
[2021-02-26] MEDS: FAMOTIDINE 20 MG/2 ML VIAL IVP SCH ×2 (08:57→20:58)
[2021-02-26] MEDS: DEXAMETHASONE SOD PHOS 4 MG/ML VIAL IVP SCH (09:00)
--- NOTE | 2021-02-26 09:24 | PDOC ---
PULMONARY PROGRESS NOTES DATE: 02/26/21 TIME: 09:24 Subjective Patient currently on 100% FiO2 13 of PEEP Currently on 2-1 i.e. ratio No new overnight event Proned nightly Sedate Vitals Vital Signs Date Time Temp Pulse Resp B/P (MAP) Pulse Ox O2 Delivery O2 Flow Rate FiO2 02/26/21 08:34 85 Ventilator 02/26/21 06:00 93 20 166/90 (115) 02/26/21 04:00 98.7 98.7 02/25/21 23:11 40.0 Comments No subcutaneous emphysema ROS: No Chest Pain Lungs: Crackles Cardiovascular: S1, S2 Abdomen: Soft Extremities: Other (Edema) Skin: Warm Labs Laboratory Tests Test 02/24/21 11:24 02/24/21 16:42 02/25/21 00:15 02/25/21 05:45 Glucose (Fingerstick) 165 mg/dL (70-99) 245 mg/dL (70-99) 165 mg/dL (70-99) White Blood Count 15.6 x10^3/uL (4.0-11.0) Red Blood Count 4.80 x10^6/uL (3.50-5.40) Hemoglobin 12.0 g/dL (12.0-15.5) Hematocrit 38.2 % (36.0-47.0) Mean Corpuscular Volume 80 fL (79-100) Mean Corpuscular Hemoglobin 25 pg (25-35) Mean Corpuscular Hemoglobin Concent 31 g/dL (31-37) Red Cell Distribution Width 14.9 % (11.5-14.5) Platelet Count 279 x10^3/uL (140-400) Neutrophils (%) (Auto) 81 % (31-73) Lymphocytes (%) (Auto) 11 % (24-48) Monocytes (%) (Auto) 8 % (0-9) Eosinophils (%) (Auto) 0 % (0-3) Basophils (%) (Auto) 0 % (0-3) Neutrophils # (Auto) 12.7 x10^3/uL (1.8-7.7) Lymphocytes # (Auto) 1.7 x10^3/uL (1.0-4.8) Monocytes # (Auto) 1.2 x10^3/uL (0.0-1.1) Eosinophils # (Auto) 0.0 x10^3/uL (0.0-0.7) Basophils # (Auto) 0.0 x10^3/uL (0.0-0.2) Segmented Neutrophils % 73 % (35-66) Band Neutrophils % 4 % (0-9) Lymphocytes % 17 % (24-48) Monocytes % 6 % (0-10) Nucleated Red Blood Cells 1 Platelet Estimate Adequate (ADEQUATE) Sodium Level 139 mmol/L (136-145) Potassium Level 4.7 mmol/L (3.5-5.1) Chloride Level 102 mmol/L (98-107) Carbon Dioxide Level 34 mmol/L (21-32) Anion Gap 3 (6-14) Blood Urea Nitrogen 31 mg/dL (7-20) Creatinine 0.6 mg/dL (0.6-1.0) Estimated GFR (Cockcroft-Gault) 109.1 Glucose Level 131 mg/dL (70-99) Calcium Level 8.8 mg/dL (8.5-10.1) Test 02/25/21 05:52 02/25/21 07:45 02/25/21 11:39 02/25/21 17:00 Glucose (Fingerstick) 141 mg/dL (70-99) 180 mg/dL (70-99) 220 mg/dL (70-99) O2 Saturation 96 % (92-99) Arterial Blood pH 7.38 (7.35-7.45) Arterial Blood pCO2 at Patient Temp 60 mmHg (35-46) Arterial Blood pO2 at Patient Temp 89 mmHg (75-108) Arterial Blood HCO3 35 mmol/L (21-28) Arterial Blood Base Excess 7 mmol/L (-3-3) FiO2 100 Test 02/26/21 00:27 02/26/21 05:55 02/26/21 07:50 02/26/21 07:58 Glucose (Fingerstick) 154 mg/dL (70-99) 130 mg/dL (70-99) White Blood Count 14.6 x10^3/uL (4.0-11.0) Red Blood Count 4.65 x10^6/uL (3.50-5.40) Hemoglobin 11.6 g/dL (12.0-15.5) Hematocrit 36.5 % (36.0-47.0) Mean Corpuscular Volume 79 fL (79-100) Mean Corpuscular Hemoglobin 25 pg (25-35) Mean Corpuscular Hemoglobin Concent 32 g/dL (31-37) Red Cell Distribution Width 14.7 % (11.5-14.5) Platelet Count 292 x10^3/uL (140-400) Neutrophils (%) (Auto) 83 % (31-73) Lymphocytes (%) (Auto) 9 % (24-48) Monocytes (%) (Auto) 7 % (0-9) Eosinophils (%) (Auto) 0 % (0-3) Basophils (%) (Auto) 0 % (0-3) Neutrophils # (Auto) 12.2 x10^3/uL (1.8-7.7) Lymphocytes # (Auto) 1.4 x10^3/uL (1.0-4.8) Monocytes # (Auto) 1.0 x10^3/uL (0.0-1.1) Eosinophils # (Auto) 0.0 x10^3/uL (0.0-0.7) Basophils # (Auto) 0.0 x10^3/uL (0.0-0.2) O2 Saturation 89 % (92-99) Arterial Blood pH 7.38 (7.35-7.45) Arterial Blood pCO2 at Patient Temp 61 mmHg (35-46) Arterial Blood pO2 at Patient Temp 60 mmHg (75-108) Arterial Blood HCO3 35 mmol/L (21-28) Arterial Blood Base Excess 8 mmol/L (-3-3) FiO2 100 Laboratory Tests Test 02/25/21 11:39 02/25/21 17:00 02/26/21 00:27 02/26/21 05:55 Glucose (Fingerstick) 180 mg/dL (70-99) 220 mg/dL (70-99) 154 mg/dL (70-99) 130 mg/dL (70-99) Test 02/26/21 07:50 02/26/21 07:58 White Blood Count 14.6 x10^3/uL (4.0-11.0) Red Blood Count 4.65 x10^6/uL (3.50-5.40) Hemoglobin 11.6 g/dL (12.0-15.5) Hematocrit 36.5 % (36.0-47.0) Mean Corpuscular Volume 79 fL (79-100) Mean Corpuscular Hemoglobin 25 pg (25-35) Mean Corpuscular Hemoglobin Concent 32 g/dL (31-37) Red Cell Distribution Width 14.7 % (11.5-14.5) Platelet Count 292 x10^3/uL (140-400) Neutrophils (%) (Auto) 83 % (31-73) Lymphocytes (%) (Auto) 9 % (24-48) Monocytes (%) (Auto) 7 % (0-9) Eosinophils (%) (Auto) 0 % (0-3) Basophils (%) (Auto) 0 % (0-3) Neutrophils # (Auto) 12.2 x10^3/uL (1.8-7.7) Lymphocytes # (Auto) 1.4 x10^3/uL (1.0-4.8) Monocytes # (Auto) 1.0 x10^3/uL (0.0-1.1) Eosinophils # (Auto) 0.0 x10^3/uL (0.0-0.7) Basophils # (Auto) 0.0 x10^3/uL (0.0-0.2) O2 Saturation 89 % (92-99) Arterial Blood pH 7.38 (7.35-7.45) Arterial Blood pCO2 at Patient Temp 61 mmHg (35-46) Arterial Blood pO2 at Patient Temp 60 mmHg (75-108) Arterial Blood HCO3 35 mmol/L (21-28) Arterial Blood Base Excess 8 mmol/L (-3-3) FiO2 100 Medications Active Scripts Medications Dose Route/Sig Max Daily Dose Days Date Category Meloxicam 15 Mg Tablet 1 Tab PO DAILY 30 02/18/21 Reported Comments cxr 02/23 improving bilateral infiltrates cxr 02/19 extensive bilateral infiltrate cardiomegaly Impression . 1. Acute hypoxic respiratory failure with acute lung injury/early acute respiratory distress syndrome secondary to COVID-19 pneumonia. 2. Morbid obesity, BMI of 65 3. No significant tobacco history. 4. History of asthma, under control. 5. Obstructive sleep apnea, on home CPAP. Unknown severity of obstructive sleep apnea and unknown CPAP pressure. 6. Abnormal CXR with bilateral patchy infiltrates c/w viral pneumonia., 7. Fever, 8. Subcutaneous emphysema improved Plan . Updated 4/8 Continue current support Proning nightly Discussed with RN Antibiotics Completed course of remdesivir Continue steroids Nutritional support Total cumulative 30 minutes, reviewing the current documentation, data, labs, chest x-ray, discussion with RN and RT, formulating a plan. Updated 02/25 Discussed with RN continue current proning nightly ABG noted DVT GI prophylaxis Steroids Completed remdesivir Currently on ratio of 2:1 Antibiotics per ID Total cumulative critical care time of 30 minutes, reviewing the current documen tation, chest x-ray, labs, formulating the plan Updated 6 Continue proning nightly Increase IV ratio to 1-1 ABG noted, adequate for patient Continue DVT GI prophylaxis Enteral nutrition Steroids Completed a course of remdesivir Total cumulative critical care time of approximately 35 minutes, reviewing the current documentation, labs, chest x-ray, discussing with RN and RT, formulating a plan. updated 02/23 Improvement in oxygenation with prone positioning (PO2 improved from 53 to 88) on 02/23 1. AC mode/ PEEP of 13, 100%FIO2 full sedation / prn paralytic. Despite high risk to prone with a BMI of 61, we will continue daily 16 hrs prone positioning. Oxygenation improves with prone position .d/w ICU team. 2. follow ABG and make changes. 3. Continue to finish the remdesivir course. 4. Decadron at 8 mg IV 24 hours. 5. D-Dimer normal .Lovenox for DVT 6. enteral nutrition 7. Continue empiric antibiotics. 8. d/w RN. / RT/ and in detail 9. echo with no pericardial effusion/ or CMP cct 30 min DAVID LIZ MD Feb 26, 2021 09:24
[2021-02-26 09:28] LABS: CALCIUM 8.8 mg/dL (8.5-10.1); CREATININE 0.5 mg/dL (0.6-1.0); GFR 134.7; MAGNESIUM 2.4 mg/dL (1.8-2.4); POTASSIUM 4.7 mmol/L (3.5-5.1)
--- NOTE | 2021-02-26 12:55 | PN ---
DATE: 02/26/2021 SUBJECTIVE: She is still on vecuronium sedated, paralyzed, intubated and mechanically ventilated. She is now in a supine position, maintaining her oxygen saturation at 88% on FiO2 of 100%. She normally goes to a prone position at [address] to 8:00 in the morning and during the daytime, she is in a supine position. PHYSICAL EXAMINATION: GENERAL: When I examined her, she looked pale, but no jaundice or cyanosis. No lymphadenopathy, no thyromegaly. No jugular venous distention. Mild bilateral lower limb edema. VITAL SIGNS: Her heart rate was 88, blood pressure was 136/76, temperature was 98.7, respiratory rate was 20, and oxygen saturation was 88% on FiO2 of 100% in a supine position. HEAD, EYES, EARS, NOSE, AND THROAT: Normocephalic, atraumatic. The rest of clinical exam is stable. Her intake over the last 24 hours was 2300, output was 1400. LABORATORY DATA: As of this morning showed a white cell count of 14,600; hemoglobin 11.6; hematocrit 36; MCV 79 and platelet count of 292,000. Her chemistry showed a serum sodium 142, potassium 4.7, chloride 101, bicarbonate 36, anion gap of 5, BUN 26, creatinine 0.5. Estimated GFR was 134 mL per minute. Her glucose was 88 and magnesium was 2.4. ASSESSMENT: 1. Acute hypoxic respiratory failure, multifactorial including: A. COVID-19 pneumonia. B. Acute lung injury with respiratory distress syndrome. C. Possible community-acquired pneumonia. 2. Bronchial asthma. 3. Morbid obesity. 4. Obstructive sleep apnea. PLAN: To obviously continue with mechanical ventilation in the prone position. It seems to be oxygenating much better. Continue with dexamethasone. Continue with IV antibiotic. Continue with remdesivir. Continue with nutritional support. Continue to monitor blood sugar and adjust insulin as needed. Continue GI and DVT prophylaxis. ELIZABETH FERNANDEZ MD DR: BOLA/carlos JOB#: [id number] / [id number]
--- NOTE | 2021-02-26 12:55 | RAD ---
XR CHEST 1V INDICATION: Reason: Vent Pt / Spl. Instructions: / History: . COMPARISON STUDY: 02/25/2021. FINDINGS: Life Support Devices: Stable endotracheal tube, enteric tube, right PICC. Lungs: Normal lung volume. Stable diffuse bilateral opacities. Pleura: Stable pleural spaces. Heart and Mediastinum: Stable cardiomediastinal silhouette and great vessels. Bones and Soft Tissues: Stable regional skeleton and soft tissues. IMPRESSION: 1. Stable diffuse bilateral opacities. 2. Stable life support devices. Electronically signed by: Shyam Calvillo MD (02/26/2021 12:52 PM) [id number]
[2021-02-26] MEDS: POLYETHYLENE GLYCOL 3350 17 GM PACKET. PO PRN (14:08)
[2021-02-26] MEDS: ACETAMINOPHEN 650 MG/20.3 ML SOLUTION. PEG PRN (14:13)
[2021-02-26] MEDS: fentaNYL HIGH DOSE PCA 55 ML IV PRN (16:19)
[2021-02-26] MEDS: INSULIN GLARGINE SYRINGE. SQ SCH (20:58)
[2021-02-27] VITALS (24 sets, daily range): BP systolic 91–174; BP diastolic 50–100
[2021-02-27] MEDS: VECURONIUM BROMIDE 50 MG in TOTAL VOLUME 50 ML IV PRN ×4 (02:11→22:58)
[2021-02-27] MEDS: MIDAZOLAM 100mg/100ml NS BAG 100 ML IV PRN ×3 (02:12→21:35)
[2021-02-27 05:40] LABS: BASO % 0 % (0-3); EOS % 0 % (0-3); HEMATOCRIT 38.7 % (36.0-47.0); HEMOGLOBIN 12.5 g/dL (12.0-15.5); LYMPH # 1.7 x10^3/uL (1.0-4.8); LYMPH % 11 % (24-48); MEAN CORPUSCULAR HEMOGLOBIN 25 pg (25-35); MEAN CORPUSCULAR HGB CONC 32 g/dL (31-37); MEAN CORPUSCULAR VOLUME 79 fL (79-100); MONO # 1.3 x10^3/uL (0.0-1.1); MONO % 8 % (0-9); NEUT # 12.6 x10^3/uL (1.8-7.7); NEUT % 81 % (31-73); PLATELET COUNT 330 x10^3/uL (140-400); RED BLOOD COUNT 4.92 x10^6/uL (3.50-5.40); WHITE BLOOD COUNT 15.6 x10^3/uL (4.0-11.0)
[2021-02-27] MEDS: fentaNYL HIGH DOSE PCA 55 ML IV PRN ×2 (05:58→21:36)
[2021-02-27] MEDS: INSULIN LISPRO 300 UNITS/3 ML VIAL. SQ SCH ×4 (06:00→23:15)
[2021-02-27 06:13] LABS: CALCIUM 9.1 mg/dL (8.5-10.1); CREATININE 0.5 mg/dL (0.6-1.0); GFR 134.7; POTASSIUM 4.7 mmol/L (3.5-5.1)
[2021-02-27 07:57] LABS: BASE EXCESS ABG 7 mmol/L (-3-3); HCO3 ABG 35 mmol/L (21-28); PO2 ABG 69 mmHg (75-108); SAT O2 ABG 92 % (92-99)
--- NOTE | 2021-02-27 08:03 | PDOC ---
Infectious Disease Note Subjective Subjective pt is intubated on vent, in a prone position ROS ROS no n/v/d/ Vital Sign Vital Signs Vital Signs Date Time Temp Pulse Resp B/P (MAP) Pulse Ox O2 Delivery O2 Flow Rate FiO2 02/27/21 07:14 99.4 130 24 161/98 (119) 98 Ventilator 99.4 02/27/21 06:28 40.0 Physical Exam PHYSICAL EXAM GENERAL: sedated on vent VITAL SIGNS: stable HEENT: Both pupils are round and reacting. No conjunctival lesion. No lesion in the mouth. NECK: Supple. No JVP. No lymphadenopathy. LUNGS: Clear. HEART: S1, S2 regular. ABDOMEN: Soft, nontender. No organomegaly. EXTREMITIES: No edema or cyanosis. SKIN: Unremarkable. NEUROLOGIC: sedated on vent Labs Lab Laboratory Tests Test 02/26/21 12:18 02/26/21 16:55 02/26/21 23:34 02/27/21 05:30 Glucose (Fingerstick) 194 mg/dL (70-99) 253 mg/dL (70-99) 179 mg/dL (70-99) White Blood Count 15.6 x10^3/uL (4.0-11.0) Red Blood Count 4.92 x10^6/uL (3.50-5.40) Hemoglobin 12.5 g/dL (12.0-15.5) Hematocrit 38.7 % (36.0-47.0) Mean Corpuscular Volume 79 fL (79-100) Mean Corpuscular Hemoglobin 25 pg (25-35) Mean Corpuscular Hemoglobin Concent 32 g/dL (31-37) Red Cell Distribution Width 15.0 % (11.5-14.5) Platelet Count 330 x10^3/uL (140-400) Neutrophils (%) (Auto) 81 % (31-73) Lymphocytes (%) (Auto) 11 % (24-48) Monocytes (%) (Auto) 8 % (0-9) Eosinophils (%) (Auto) 0 % (0-3) Basophils (%) (Auto) 0 % (0-3) Neutrophils # (Auto) 12.6 x10^3/uL (1.8-7.7) Lymphocytes # (Auto) 1.7 x10^3/uL (1.0-4.8) Monocytes # (Auto) 1.3 x10^3/uL (0.0-1.1) Eosinophils # (Auto) 0.0 x10^3/uL (0.0-0.7) Basophils # (Auto) 0.0 x10^3/uL (0.0-0.2) Sodium Level 140 mmol/L (136-145) Potassium Level 4.7 mmol/L (3.5-5.1) Chloride Level 102 mmol/L (98-107) Carbon Dioxide Level 32 mmol/L (21-32) Anion Gap 6 (6-14) Blood Urea Nitrogen 33 mg/dL (7-20) Creatinine 0.5 mg/dL (0.6-1.0) Estimated GFR (Cockcroft-Gault) 134.7 Glucose Level 131 mg/dL (70-99) Calcium Level 9.1 mg/dL (8.5-10.1) Micro BC neg Objective Assessment IMPRESSION: 1. COVID-19 positive. 2. Hypoxic respiratory failure. 3. Pneumonia, bilateral pulmonary infiltrate. 4. Morbid obesity. 5. History of asthma. 6. Obstructive sleep apnea. 7 Fever likely from COVID Plan Plan of Care cont supportive care cont steroids, prognosis poor ALFIE CLAYTON MD Feb 27, 2021 08:03
[2021-02-27 08:07] LABS: PCO2 ABG 64 mmHg (35-46)
[2021-02-27] MEDS: FAMOTIDINE 20 MG/2 ML VIAL IVP SCH ×2 (08:16→20:33)
[2021-02-27] MEDS: DEXAMETHASONE SOD PHOS 4 MG/ML VIAL IVP SCH (08:17)
--- NOTE | 2021-02-27 08:53 | PN ---
DATE: 02/27/2021 SUBJECTIVE: The patient continued to be in a prone position maintaining her oxygen saturations at 97% on FiO2 of 100%. She is, however, somewhat tachycardic with a heart rate of 120. Her blood pressure is also on a slightly higher side at 160/98. OBJECTIVE: GENERAL: On examining her, she was pale, but not jaundiced or cyanosed. No lymphadenopathy, no thyromegaly. No jugular venous distention. Mild bilateral lower limb edema. VITAL SIGNS: Her heart rate was 120, blood pressure was 160/98, temperature was 99, respiratory rate was 24, and oxygen saturation was 98% on FiO2 of 100%. HEAD, EYES, EARS, NOSE AND THROAT: Showed normocephalic, atraumatic. The rest of clinical exam is stable. Her intake was 1850, output was 1300. LABORATORY DATA: As of this morning, her white cell count was 15,600, hemoglobin 13, hematocrit 39, MCV 79 and platelet count of 230,000. Serum sodium 140, potassium 4.7, chloride 102, bicarbonate 32, anion gap of 6, BUN 33, creatinine 0.5, estimated GFR was 134 mL per minute. Her glucose 131, calcium was 9.1. Her blood gases are still pending at the time of this dictation. ASSESSMENT: 1. Acute hypoxic respiratory failure, multifactorial including: A. COVID-19 pneumonia. B. Acute lung injury with respiratory distress syndrome. C. Possible community-acquired pneumonia. 2. Bronchial asthma. 3. Morbid obesity. 4. Obstructive sleep apnea. PLAN: To continue with current plan of management, mainly sedation and paralytic agent. Continue mechanical ventilation. Continue with nutritional support. Continue with dexamethasone. She is off antibiotic. Continue with DVT and GI prophylaxis. ELIZABETH FERNANDEZ MD DR: BOLA/carlos JOB#: [id number] / [id number]
--- NOTE | 2021-02-27 10:09 | PDOC ---
PULMONARY PROGRESS NOTES DATE: 02/27/21 TIME: 10:08 Subjective Patient currently on 100% FiO2 13 of PEEP Currently on 2-1 i.e. ratio Tachy on monitor No new overnight event Vitals Vital Signs Date Time Temp Pulse Resp B/P (MAP) Pulse Ox O2 Delivery O2 Flow Rate FiO2 02/27/21 09:15 126 26 130/74 (92) 91 Ventilator 02/27/21 07:14 99.4 99.4 02/27/21 06:28 40.0 Lungs: Crackles Cardiovascular: S1, S2 Abdomen: Soft Extremities: Other (Edema) Skin: Warm Labs Laboratory Tests Test 02/25/21 11:39 02/25/21 17:00 02/26/21 00:27 02/26/21 05:55 Glucose (Fingerstick) 180 mg/dL (70-99) 220 mg/dL (70-99) 154 mg/dL (70-99) 130 mg/dL (70-99) Test 02/26/21 07:50 02/26/21 07:58 02/26/21 12:18 02/26/21 16:55 White Blood Count 14.6 x10^3/uL (4.0-11.0) Red Blood Count 4.65 x10^6/uL (3.50-5.40) Hemoglobin 11.6 g/dL (12.0-15.5) Hematocrit 36.5 % (36.0-47.0) Mean Corpuscular Volume 79 fL (79-100) Mean Corpuscular Hemoglobin 25 pg (25-35) Mean Corpuscular Hemoglobin Concent 32 g/dL (31-37) Red Cell Distribution Width 14.7 % (11.5-14.5) Platelet Count 292 x10^3/uL (140-400) Neutrophils (%) (Auto) 83 % (31-73) Lymphocytes (%) (Auto) 9 % (24-48) Monocytes (%) (Auto) 7 % (0-9) Eosinophils (%) (Auto) 0 % (0-3) Basophils (%) (Auto) 0 % (0-3) Neutrophils # (Auto) 12.2 x10^3/uL (1.8-7.7) Lymphocytes # (Auto) 1.4 x10^3/uL (1.0-4.8) Monocytes # (Auto) 1.0 x10^3/uL (0.0-1.1) Eosinophils # (Auto) 0.0 x10^3/uL (0.0-0.7) Basophils # (Auto) 0.0 x10^3/uL (0.0-0.2) Sodium Level 142 mmol/L (136-145) Potassium Level 4.7 mmol/L (3.5-5.1) Chloride Level 101 mmol/L (98-107) Carbon Dioxide Level 36 mmol/L (21-32) Anion Gap 5 (6-14) Blood Urea Nitrogen 26 mg/dL (7-20) Creatinine 0.5 mg/dL (0.6-1.0) Estimated GFR (Cockcroft-Gault) 134.7 Glucose Level 134 mg/dL (70-99) Calcium Level 8.8 mg/dL (8.5-10.1) Magnesium Level 2.4 mg/dL (1.8-2.4) O2 Saturation 89 % (92-99) Arterial Blood pH 7.38 (7.35-7.45) Arterial Blood pCO2 at Patient Temp 61 mmHg (35-46) Arterial Blood pO2 at Patient Temp 60 mmHg (75-108) Arterial Blood HCO3 35 mmol/L (21-28) Arterial Blood Base Excess 8 mmol/L (-3-3) FiO2 100 Glucose (Fingerstick) 194 mg/dL (70-99) 253 mg/dL (70-99) Test 02/26/21 23:34 02/27/21 05:30 02/27/21 07:45 Glucose (Fingerstick) 179 mg/dL (70-99) White Blood Count 15.6 x10^3/uL (4.0-11.0) Red Blood Count 4.92 x10^6/uL (3.50-5.40) Hemoglobin 12.5 g/dL (12.0-15.5) Hematocrit 38.7 % (36.0-47.0) Mean Corpuscular Volume 79 fL (79-100) Mean Corpuscular Hemoglobin 25 pg (25-35) Mean Corpuscular Hemoglobin Concent 32 g/dL (31-37) Red Cell Distribution Width 15.0 % (11.5-14.5) Platelet Count 330 x10^3/uL (140-400) Neutrophils (%) (Auto) 81 % (31-73) Lymphocytes (%) (Auto) 11 % (24-48) Monocytes (%) (Auto) 8 % (0-9) Eosinophils (%) (Auto) 0 % (0-3) Basophils (%) (Auto) 0 % (0-3) Neutrophils # (Auto) 12.6 x10^3/uL (1.8-7.7) Lymphocytes # (Auto) 1.7 x10^3/uL (1.0-4.8) Monocytes # (Auto) 1.3 x10^3/uL (0.0-1.1) Eosinophils # (Auto) 0.0 x10^3/uL (0.0-0.7) Basophils # (Auto) 0.0 x10^3/uL (0.0-0.2) Sodium Level 140 mmol/L (136-145) Potassium Level 4.7 mmol/L (3.5-5.1) Chloride Level 102 mmol/L (98-107) Carbon Dioxide Level 32 mmol/L (21-32) Anion Gap 6 (6-14) Blood Urea Nitrogen 33 mg/dL (7-20) Creatinine 0.5 mg/dL (0.6-1.0) Estimated GFR (Cockcroft-Gault) 134.7 Glucose Level 131 mg/dL (70-99) Calcium Level 9.1 mg/dL (8.5-10.1) O2 Saturation 92 % (92-99) Arterial Blood pH 7.36 (7.35-7.45) Arterial Blood pCO2 at Patient Temp 64 mmHg (35-46) Arterial Blood pO2 at Patient Temp 69 mmHg (75-108) Arterial Blood HCO3 35 mmol/L (21-28) Arterial Blood Base Excess 7 mmol/L (-3-3) FiO2 100/vent Laboratory Tests Test 02/26/21 12:18 02/26/21 16:55 02/26/21 23:34 02/27/21 05:30 Glucose (Fingerstick) 194 mg/dL (70-99) 253 mg/dL (70-99) 179 mg/dL (70-99) White Blood Count 15.6 x10^3/uL (4.0-11.0) Red Blood Count 4.92 x10^6/uL (3.50-5.40) Hemoglobin 12.5 g/dL (12.0-15.5) Hematocrit 38.7 % (36.0-47.0) Mean Corpuscular Volume 79 fL (79-100) Mean Corpuscular Hemoglobin 25 pg (25-35) Mean Corpuscular Hemoglobin Concent 32 g/dL (31-37) Red Cell Distribution Width 15.0 % (11.5-14.5) Platelet Count 330 x10^3/uL (140-400) Neutrophils (%) (Auto) 81 % (31-73) Lymphocytes (%) (Auto) 11 % (24-48) Monocytes (%) (Auto) 8 % (0-9) Eosinophils (%) (Auto) 0 % (0-3) Basophils (%) (Auto) 0 % (0-3) Neutrophils # (Auto) 12.6 x10^3/uL (1.8-7.7) Lymphocytes # (Auto) 1.7 x10^3/uL (1.0-4.8) Monocytes # (Auto) 1.3 x10^3/uL (0.0-1.1) Eosinophils # (Auto) 0.0 x10^3/uL (0.0-0.7) Basophils # (Auto) 0.0 x10^3/uL (0.0-0.2) Sodium Level 140 mmol/L (136-145) Potassium Level 4.7 mmol/L (3.5-5.1) Chloride Level 102 mmol/L (98-107) Carbon Dioxide Level 32 mmol/L (21-32) Anion Gap 6 (6-14) Blood Urea Nitrogen 33 mg/dL (7-20) Creatinine 0.5 mg/dL (0.6-1.0) Estimated GFR (Cockcroft-Gault) 134.7 Glucose Level 131 mg/dL (70-99) Calcium Level 9.1 mg/dL (8.5-10.1) Test 02/27/21 07:45 O2 Saturation 92 % (92-99) Arterial Blood pH 7.36 (7.35-7.45) Arterial Blood pCO2 at Patient Temp 64 mmHg (35-46) Arterial Blood pO2 at Patient Temp 69 mmHg (75-108) Arterial Blood HCO3 35 mmol/L (21-28) Arterial Blood Base Excess 7 mmol/L (-3-3) FiO2 100/vent Medications Active Scripts Medications Dose Route/Sig Max Daily Dose Days Date Category Meloxicam 15 Mg Tablet 1 Tab PO DAILY 02/18/21 Reported Comments CXR-02/26 Impression: Extensive subcutaneous emphysema is seen throughout the chest. There appears to be a small right pneumothorax. Pneumomediastinum is seen. cxr 02/23 improving bilateral infiltrates cxr 02/19 extensive bilateral infiltrate cardiomegaly Impression . 1. Acute hypoxic respiratory failure with acute lung injury/early acute respiratory distress syndrome secondary to COVID-19 pneumonia. 2. Morbid obesity, BMI of 65 3. No significant tobacco history. 4. History of asthma, under control. 5. Obstructive sleep apnea, on home CPAP. Unknown severity of obstructive sleep apnea and unknown CPAP pressure. 6. Abnormal CXR with bilateral patchy infiltrates c/w viral pneumonia., 7. Fever, 8. Subcutaneous emphysema improved Plan . Updated 02/27 Continue current vent support currently on 100% and PEEP 13 Follow ABG/CXR-- small right pneumo, no other changes IR consult for right side Chest tube 2/2 pneumo Proning 16 hours daily Continue Antibiotics per ID Pt. has Completed course of remdesivir Continue steroids Nutritional support DVT/GI PPX D/W RN and RT and IR Total cumulative 30 minutes, reviewing the current documentation, data, labs, chest x-ray, discussion with RN and RT, formulating a plan. Updated 02/26 Continue current support Proning nightly Discussed with RN Antibiotics Completed course of remdesivir Continue steroids Nutritional support Total cumulative 30 minutes, reviewing the current documentation, data, labs, chest x-ray, discussion with RN and RT, formulating a plan. Updated 02/25 Discussed with RN continue current proning nightly ABG noted DVT GI prophylaxis Steroids Completed remdesivir Currently on ratio of 2:1 Antibiotics per ID Total cumulative critical care time of 30 minutes, reviewing the current documentation, chest x-ray, labs, formulating the plan Updated 02 24 Continue proning nightly Increase IV ratio to 1-1 ABG noted, adequate for patient Continue DVT GI prophylaxis Enteral nutrition Steroids Completed a course of remdesivir Total cumulative critical care time of approximately 35 minutes, reviewing the current documentation, labs, chest x-ray, discussing with RN and RT, formulating a plan. updated 02/23 Improvement in oxygenation with prone positioning (PO2 improved from 53 to 88) on 02/23 1. AC mode/ PEEP of 13, 100%FIO2 full sedation / prn paralytic. Despite high risk to prone with a BMI of 61, we will continue daily 16 hrs prone positioning. Oxygenation improves with prone position .d/w ICU team. 2. follow ABG and make changes. 3. Continue to finish the remdesivir course. 4. Decadron at 8 mg IV 24 hours. 5. D-Dimer normal .Lovenox for DVT 6. enteral nutrition 7. Continue empiric antibiotics. 8. d/w RN. / RT/ and in detail 9. echo with no pericardial effusion/ or CMP cct 30 min DAVID LIZ MD Feb 27, 2021 10:09
--- NOTE | 2021-02-27 10:22 | NUR ---
SS following up with discharge planning. SS reviewed pt chart and discussed with pt RN. Pt is currently on the vent at 100%. COVID19 positive. Pt is off antibiotics. Pt on Vec, Fentanyl, and Versed. Not stable. SS will continue to follow for discharge planning.
--- NOTE | 2021-02-27 13:46 | RAD ---
AP portable chest radiograph 02/27/2021 Clinical History: Respiratory failure. An AP erect portable digital radiograph of the chest was obtained. Comparison study is dated 02/26/2021. The ET tube, NG tube and right arm PICC are unchanged in position. The cardiac and mediastinal silhou ettes are within normal limits in size and configuration. Pneumomediastinum is seen. Extensive subcut aneous emphysema is seen throughout the chest and visualized neck and proximal arms which is new sinc e the previous examination there appears to be a small right pneumothorax new since the previous exam ination. Diffuse bilateral perihilar infiltrates are noted. No pleural effusion is seen. The osseous structures are unchanged. Impression: Extensive subcutaneous emphysema is seen throughout the chest. There appears to be a smal l right pneumothorax. Pneumomediastinum is seen. These findings are new since the previous examinatio n. These findings were discussed with the patient's nurse. FOR INTERNAL CODING PURPOSES RESULT CODE: (C) Electronically signed by: Suman Harris MD (02/27/2021 1:44 PM) [id number]
[2021-02-27] MEDS: DEXMEDETOMIDINE 400 MCG in IV NORMAL SALINE 100ML 96 ML IV PRN (13:47)
[2021-02-27] MEDS ORDERED: LIDOCAINE WITH 8.4% SOD BICARB 3 ML DISP.SYRIN. ONE (14:23)
[2021-02-27] MEDS ORDERED: LIDOCAINE WITH 8.4% SOD BICARB 3 ML DISP.SYRIN. INJ ONE (15:30)
--- NOTE | 2021-02-27 15:50 | PDOC4 ---
PROCEDURE Procedure Procedure: Chest tube placement 24 Kenyan, on the right side. Indication: Repeat chest x-ray revealed diffuse subcutaneous emphysema with a small right-sided pneumothorax Risk benefits and alternatives reviewed with he consented. Description: Timeout was performed prior to the procedure. Patient was prepped in sterile fashion. I palpated a area directly under her breast tissue, the area was prepped in sterile fashion. Utilizing a scalpel an incision was made approximately 1 cm in length. Thereafter blunt dissection utilizing a [place] and my finger was performed. I eventually reached the intercostal space. A [place]ita was utilized to enter the intercostal space. Upon entering the the pleural space there was a gush of air. Subsequently a digital exam was performed there was no adhesions. A 24 Kenyan was introduced aiming for the apex. There was minimal amount of pleural fluid. There was no air leak seen after chest tube placement. There was minimal amount of fluctuation with inspiration and expiration. The chest tube was secured in place with interrupted sutures. Vaseline gauze was applied. 4 x 4's were applied along with tape. Patient tolerated procedure well with no immediate complications Impression #1 spontaneous pneumothorax, COVID-19 viral pneumonia, respiratory failure, ARDS. Plan chest tube placement 24 Kenyan as described above Stat chest x-ray for placement. DAVID LIZ MD Feb 27, 2021 15:50
--- NOTE | 2021-02-27 16:01 | RAD ---
EXAM: XR CHEST 1V 02/27/2021 3:27 PM CLINICAL INDICATION: Chest tube placement COMPARISON: Chest radiograph 02/27/2021 TECHNIQUE: AP supine view the chest FINDINGS: An endotracheal tube terminates 5.8 cm above the [place]. A nasogastric tube is seen to the level the diaphragm. A right PICC projects over the lower superior vena cava. The heart is normal in size. Multifocal airspace opacities are redemonstrated. There is a new right c hest tube. The right pneumothorax has decreased in size, now small. No definite left pneumothorax. Ex tensive subcutaneous emphysema is unchanged. IMPRESSION: 1. Interval placement of right chest tube with decrease, small right pleural pneumothorax. 2. Unchanged extensive subcutaneous emphysema. 3. Unchanged extensive bilateral airspace opacities. Electronically signed by: Odessa Ortiz MD (02/27/2021 3:59 PM) [id number]
[2021-02-27] MEDS: INSULIN GLARGINE SYRINGE. SQ SCH (20:32)
[2021-02-27] MEDS: ACETAMINOPHEN 650 MG/20.3 ML SOLUTION. PEG PRN (20:33)
[2021-02-28] VITALS (25 sets, daily range): BP systolic 70–154; BP diastolic 34–78
[2021-02-28] MEDS: VECURONIUM BROMIDE 50 MG in TOTAL VOLUME 50 ML IV PRN ×4 (02:55→22:35)
[2021-02-28] MEDS: INSULIN LISPRO 300 UNITS/3 ML VIAL. SQ SCH ×4 (05:34→23:40)
[2021-02-28 05:43] LABS: HEMATOCRIT 36.9 % (36.0-47.0); HEMOGLOBIN 11.7 g/dL (12.0-15.5); RED BLOOD COUNT 4.64 x10^6/uL (3.50-5.40); RED CELL DISTRIBUTION WIDTH 15.3 % (11.5-14.5); WHITE BLOOD COUNT 12.9 x10^3/uL (4.0-11.0)
[2021-02-28 05:57] LABS: CALCIUM 8.3 mg/dL (8.5-10.1); CREATININE 0.8 mg/dL (0.6-1.0); GFR 78.3; POTASSIUM 5.6 mmol/L (3.5-5.1)
--- NOTE | 2021-02-28 06:28 | RAD ---
XR CHEST 1V History: Reason: vent patient with sub q emphysema ICU#113 / Spl. Instructions: / History: Comparison: February 27, 2021 Findings: Diffuse interstitial and alveolar opacities, decreased compared to prior. Stable right thoracostomy t ube. Decreased right pneumothorax. Diffuse chest wall subcutaneous gas, unchanged. Stable right PICC and endotracheal tube as well as enteric tube. Unchanged heart size. Impression: 1. Decreased diffuse interstitial and alveolar opacities. 2. Decreased right pneumothorax. Stable thoracostomy tube. Electronically signed by: Ranjith Fuentes DO (02/28/2021 6:26 AM) [facility]
--- NOTE | 2021-02-28 08:12 | PDOC ---
Infectious Disease Note Subjective Subjective pt is intubated on vent, ROS ROS No nausea vomiting diarrhea Vital Sign Vital Signs Vital Signs Date Time Temp Pulse Resp B/P (MAP) Pulse Ox O2 Delivery O2 Flow Rate FiO2 02/28/21 07:46 93 Ventilator 02/28/21 06:00 114 26 91/49 (63) 02/28/21 04:00 98.3 98.3 Physical Exam PHYSICAL EXAM GENERAL: sedated on vent VITAL SIGNS: stable HEENT: Both pupils are round and reacting. No conjunctival lesion. No lesion in the mouth. NECK: Supple. No JVP. No lymphadenopathy. LUNGS: Clear. HEART: S1, S2 regular. ABDOMEN: Soft, nontender. No organomegaly. EXTREMITIES: No edema or cyanosis. SKIN: Unremarkable. NEUROLOGIC: sedated on vent Labs Lab Laboratory Tests Test 02/27/21 12:19 02/27/21 17:32 02/27/21 23:13 02/28/21 05:30 Glucose (Fingerstick) 247 mg/dL (70-99) 252 mg/dL (70-99) 199 mg/dL (70-99) White Blood Count 12.9 x10^3/uL (4.0-11.0) Red Blood Count 4.64 x10^6/uL (3.50-5.40) Hemoglobin 11.7 g/dL (12.0-15.5) Hematocrit 36.9 % (36.0-47.0) Mean Corpuscular Volume 80 fL (79-100) Mean Corpuscular Hemoglobin 25 pg (25-35) Mean Corpuscular Hemoglobin Concent 32 g/dL (31-37) Red Cell Distribution Width 15.3 % (11.5-14.5) Platelet Count 294 x10^3/uL (140-400) Sodium Level 140 mmol/L (136-145) Potassium Level 5.6 mmol/L (3.5-5.1) Chloride Level 102 mmol/L (98-107) Carbon Dioxide Level 34 mmol/L (21-32) Anion Gap 4 (6-14) Blood Urea Nitrogen 53 mg/dL (7-20) Creatinine 0.8 mg/dL (0.6-1.0) Estimated GFR (Cockcroft-Gault) 78.3 Glucose Level 162 mg/dL (70-99) Calcium Level 8.3 mg/dL (8.5-10.1) Test 02/28/21 05:32 Glucose (Fingerstick) 151 mg/dL (70-99) Micro BC neg Objective Assessment IMPRESSION: 1. COVID-19 positive. 2. Hypoxic respiratory failure. 3. Pneumonia, bilateral pulmonary infiltrate. 4. Morbid obesity. 5. History of asthma. 6. Obstructive sleep apnea. 7 Fever likely from COVID Plan Plan of Care cont supportive care cont steroids, prognosis poor ALFIE CLAYTON MD Feb 28, 2021 08:12
[2021-02-28 08:14] LABS: BASE EXCESS ABG 2 mmol/L (-3-3); HCO3 ABG 30 mmol/L (21-28); PO2 ABG 89 mmHg (75-108); SAT O2 ABG 96 % (92-99)
[2021-02-28] MEDS: FAMOTIDINE 20 MG/2 ML VIAL IVP SCH ×2 (08:44→21:00)
[2021-02-28] MEDS: DEXAMETHASONE SOD PHOS 4 MG/ML VIAL IVP SCH (08:45)
--- NOTE | 2021-02-28 08:45 | PN ---
DATE: 02/28/2021 SUBJECTIVE: The patient is resting, slightly propped up in bed, in a supine position, continues to be on mechanical ventilation. She is paralyzed, sedated, maintaining her oxygen saturation at 92% on FiO2 of 100%. She has a right-sided chest tube and her lungs seemed to be completely expanded. She is somewhat tachycardic and slightly hypotensive, probably intravascularly depleted as her BUN is disproportionately high compared to creatinine. In fact, her BUN today is 53. PHYSICAL EXAMINATION: GENERAL: On examining her, she was somewhat pale, but no jaundice, cyanosis, or thyromegaly. No jugular venous distention. No lower limb edema. VITAL SIGNS: Her heart rate was 114, blood pressure was 91/49, temperature was 98.3, respiratory rate was 26 and oxygen saturation was 92% on FiO2 of 100%. HEAD, EYES, EARS, NOSE, AND THROAT: Showed normocephalic, atraumatic. She has orotracheal and orogastric tube in place. NECK: Supple. HEART: Normal first and second heart sounds. No gallop or murmur. CHEST: Shows central trachea, equal bilateral chest expansion, air entry, vesicular sounds. I could not appreciate any crepitation or rhonchi anteriorly. ABDOMEN: Distended, soft, nontender. NEUROLOGIC: She is heavily sedated. Her intake was 2850, output was 1500. Her white cell count was 12,900; hemoglobin 11.7; hematocrit 37; MCV 80; and platelet count 294,000. Serum sodium 140, potassium 5.6, chloride 102, bicarbonate 34, anion gap of 4, BUN 53, creatinine 0.8, estimated GFR was 78 mL per minute. Her glucose 162, calcium was 8.3. Today's blood gases are still pending at the time of this dictation. As of yesterday, her arterial blood gas showed a pH of 7.36, pCO2 of 64, pO2 of 69, bicarb 35, and oxygen saturation was 92% on FiO2 of 100%. ASSESSMENT: 1. Acute hypoxic respiratory failure, multifactorial including: A. COVID-19 pneumonia. B. Acute lung injury with respiratory distress syndrome. C. Possible community-acquired pneumonia. 2. Right-sided pneumothorax, status post chest tube placement and full expansion of the right lung. 3. Bronchial asthma. 4. Morbid obesity. 5. Obstructive sleep apnea. PLAN: The patient is tachycardic and hypotensive and probably clinically seemed to be dehydrated, so we will give her a bolus of normal saline. There is also hyperkalemia; it could be due to hemolysis. The patient is not on any potassium. I will probably repeat her lab work before treating this. ELIZABETH FERNANDEZ MD DR: BOLA/carlos JOB#: [id number] / [id number]
[2021-02-28 09:03] LABS: FIO2 ABG 100% VENT; PCO2 ABG 61 mmHg (35-46)
[2021-02-28] MEDS: ACETAMINOPHEN 650 MG/20.3 ML SOLUTION. PEG PRN ×2 (09:36→14:51)
[2021-02-28] MEDS ORDERED: IV NORMAL SALINE 1000ML BAG 1,000 ML IV ONE (09:45)
[2021-02-28] MEDS: MIDAZOLAM 100mg/100ml NS BAG 100 ML IV PRN ×2 (11:05→21:01)
[2021-02-28 12:24] LABS: CALCIUM 8.1 mg/dL (8.5-10.1); CREATININE 0.9 mg/dL (0.6-1.0); GFR 68.3; POTASSIUM 5.6 mmol/L (3.5-5.1)
[2021-02-28] MEDS ORDERED: CALCIUM GLUCONATE 1,000 MG/10 ML VIAL. IVP ONE (13:45)
[2021-02-28] MEDS ORDERED: DEXTROSE 50% 25 GM / 50ML DISP.SYRIN. IV ONE (13:45)
[2021-02-28] MEDS ORDERED: INSULIN REGULAR 100 UNIT/ML 3ML VIAL. IV ONE (13:45)
[2021-02-28] MEDS: fentaNYL HIGH DOSE PCA 55 ML IV PRN (14:49)
--- NOTE | 2021-02-28 16:13 | PDOC ---
PULMONARY PROGRESS NOTES DATE: 02/28/21 TIME: 16:10 Subjective remains on vent support 26/500/100%/13 Currently on 2-1 i.e. ratio Fever overnight S/P right chest tube on 02/27/21-- no leak on exam Vitals Vital Signs Date Time Temp Pulse Resp B/P (MAP) Pulse Ox O2 Delivery O2 Flow Rate FiO2 02/28/21 15:25 94 Ventilator 02/28/21 15:00 101.3 118 26 138/71 (93) 101.3 02/28/21 14:49 40.0 Comments intubated/sedated Lungs: Crackles Cardiovascular: S1, S2 Abdomen: Soft Extremities: Other (Edema) Skin: Warm Labs Laboratory Tests Test 02/26/21 16:55 02/26/21 23:34 02/27/21 05:30 02/27/21 07:45 Glucose (Fingerstick) 253 mg/dL (70-99) 179 mg/dL (70-99) White Blood Count 15.6 x10^3/uL (4.0-11.0) Red Blood Count 4.92 x10^6/uL (3.50-5.40) Hemoglobin 12.5 g/dL (12.0-15.5) Hematocrit 38.7 % (36.0-47.0) Mean Corpuscular Volume 79 fL (79-100) Mean Corpuscular Hemoglobin 25 pg (25-35) Mean Corpuscular Hemoglobin Concent 32 g/dL (31-37) Red Cell Distribution Width 15.0 % (11.5-14.5) Platelet Count 330 x10^3/uL (140-400) Neutrophils (%) (Auto) 81 % (31-73) Lymphocytes (%) (Auto) 11 % (24-48) Monocytes (%) (Auto) 8 % (0-9) Eosinophils (%) (Auto) 0 % (0-3) Basophils (%) (Auto) 0 % (0-3) Neutrophils # (Auto) 12.6 x10^3/uL (1.8-7.7) Lymphocytes # (Auto) 1.7 x10^3/uL (1.0-4.8) Monocytes # (Auto) 1.3 x10^3/uL (0.0-1.1) Eosinophils # (Auto) 0.0 x10^3/uL (0.0-0.7) Basophils # (Auto) 0.0 x10^3/uL (0.0-0.2) Sodium Level 140 mmol/L (136-145) Potassium Level 4.7 mmol/L (3.5-5.1) Chloride Level 102 mmol/L (98-107) Carbon Dioxide Level 32 mmol/L (21-32) Anion Gap 6 (6-14) Blood Urea Nitrogen 33 mg/dL (7-20) Creatinine 0.5 mg/dL (0.6-1.0) Estimated GFR (Cockcroft-Gault) 134.7 Glucose Level 131 mg/dL (70-99) Calcium Level 9.1 mg/dL (8.5-10.1) O2 Saturation 92 % (92-99) Arterial Blood pH 7.36 (7.35-7.45) Arterial Blood pCO2 at Patient Temp 64 mmHg (35-46) Arterial Blood pO2 at Patient Temp 69 mmHg (75-108) Arterial Blood HCO3 35 mmol/L (21-28) Arterial Blood Base Excess 7 mmol/L (-3-3) FiO2 100/vent Test 02/27/21 12:19 02/27/21 17:32 02/27/21 23:13 02/28/21 05:30 Glucose (Fingerstick) 247 mg/dL (70-99) 252 mg/dL (70-99) 199 mg/dL (70-99) White Blood Count 12.9 x10^3/uL (4.0-11.0) Red Blood Count 4.64 x10^6/uL (3.50-5.40) Hemoglobin 11.7 g/dL (12.0-15.5) Hematocrit 36.9 % (36.0-47.0) Mean Corpuscular Volume 80 fL (79-100) Mean Corpuscular Hemoglobin 25 pg (25-35) Mean Corpuscular Hemoglobin Concent 32 g/dL (31-37) Red Cell Distribution Width 15.3 % (11.5-14.5) Platelet Count 294 x10^3/uL (140-400) Sodium Level 140 mmol/L (136-145) Potassium Level 5.6 mmol/L (3.5-5.1) Chloride Level 102 mmol/L (98-107) Carbon Dioxide Level 34 mmol/L (21-32) Anion Gap 4 (6-14) Blood Urea Nitrogen 53 mg/dL (7-20) Creatinine 0.8 mg/dL (0.6-1.0) Estimated GFR (Cockcroft-Gault) 78.3 Glucose Level 162 mg/dL (70-99) Calcium Level 8.3 mg/dL (8.5-10.1) Test 02/28/21 05:32 02/28/21 08:05 02/28/21 12:00 02/28/21 14:39 Glucose (Fingerstick) 151 mg/dL (70-99) 244 mg/dL (70-99) O2 Saturation 96 % (92-99) Arterial Blood pH 7.32 (7.35-7.45) Arterial Blood pCO2 at Patient Temp 61 mmHg (35-46) Arterial Blood pO2 at Patient Temp 89 mmHg (75-108) Arterial Blood HCO3 30 mmol/L (21-28) Arterial Blood Base Excess 2 mmol/L (-3-3) FiO2 100% vent Sodium Level 140 mmol/L (136-145) Potassium Level 5.6 mmol/L (3.5-5.1) Chloride Level 105 mmol/L (98-107) Carbon Dioxide Level 33 mmol/L (21-32) Anion Gap 2 (6-14) Blood Urea Nitrogen 49 mg/dL (7-20) Creatinine 0.9 mg/dL (0.6-1.0) Estimated GFR (Cockcroft-Gault) 68.3 Glucose Level 223 mg/dL (70-99) Calcium Level 8.1 mg/dL (8.5-10.1) Laboratory Tests Test 02/27/21 17:32 02/27/21 23:13 02/28/21 05:30 02/28/21 05:32 Glucose (Fingerstick) 252 mg/dL (70-99) 199 mg/dL (70-99) 151 mg/dL (70-99) White Blood Count 12.9 x10^3/uL (4.0-11.0) Red Blood Count 4.64 x10^6/uL (3.50-5.40) Hemoglobin 11.7 g/dL (12.0-15.5) Hematocrit 36.9 % (36.0-47.0) Mean Corpuscular Volume 80 fL (79-100) Mean Corpuscular Hemoglobin 25 pg (25-35) Mean Corpuscular Hemoglobin Concent 32 g/dL (31-37) Red Cell Distribution Width 15.3 % (11.5-14.5) Platelet Count 294 x10^3/uL (140-400) Sodium Level 140 mmol/L (136-145) Potassium Level 5.6 mmol/L (3.5-5.1) Chloride Level 102 mmol/L (98-107) Carbon Dioxide Level 34 mmol/L (21-32) Anion Gap 4 (6-14) Blood Urea Nitrogen 53 mg/dL (7-20) Creatinine 0.8 mg/dL (0.6-1.0) Estimated GFR (Cockcroft-Gault) 78.3 Glucose Level 162 mg/dL (70-99) Calcium Level 8.3 mg/dL (8.5-10.1) Test 02/28/21 08:05 02/28/21 12:00 02/28/21 14:39 O2 Saturation 96 % (92-99) Arterial Blood pH 7.32 (7.35-7.45) Arterial Blood pCO2 at Patient Temp 61 mmHg (35-46) Arterial Blood pO2 at Patient Temp 89 mmHg (75-108) Arterial Blood HCO3 30 mmol/L (21-28) Arterial Blood Base Excess 2 mmol/L (-3-3) FiO2 100% vent Sodium Level 140 mmol/L (136-145) Potassium Level 5.6 mmol/L (3.5-5.1) Chloride Level 105 mmol/L (98-107) Carbon Dioxide Level 33 mmol/L (21-32) Anion Gap 2 (6-14) Blood Urea Nitrogen 49 mg/dL (7-20) Creatinine 0.9 mg/dL (0.6-1.0) Estimated GFR (Cockcroft-Gault) 68.3 Glucose Level 223 mg/dL (70-99) Calcium Level 8.1 mg/dL (8.5-10.1) Glucose (Fingerstick) 244 mg/dL (70-99) Medications Active Scripts Medications Dose Route/Sig Max Daily Dose Days Date Category Meloxicam 15 Mg Tablet 1 Tab PO DAILY 30 02/18/21 Reported Comments CXR-02/26 Impression: Extensive subcutaneous emphysema is seen throughout the chest. There appears to be a small right pneumothorax. Pneumomediastinum is seen. cxr / improving bilateral infiltrates cxr 02/19 extensive bilateral infiltrate cardiomegaly Impression . 1. Acute hypoxic respiratory failure with acute lung injury/early acute respiratory distress syndrome secondary to COVID-19 pneumonia. 2. Morbid obesity, BMI of 65 3. No significant tobacco history. 4. History of asthma, under control. 5. Obstructive sleep apnea, on home CPAP. Unknown severity of obstructive sleep apnea and unknown CPAP pressure. 6. Abnormal CXR with bilateral patchy infiltrates c/w viral pneumonia., 7. Fever, 8. Subcutaneous emphysema improved Plan . Updated 02/28 Continue current vent support currently on 100% and PEEP 13 Follow ABG/CXR-no changes continue right chest tube to suction-20 Proning 16 hours daily Continue Antibiotics per ID Pt. has Completed course of remdesivir Continue steroids nwith slow taper Nutritional support DVT/GI PPX D/W RN and RT Total cumulative 30 minutes, reviewing the current documentation, data, labs, chest x-ray, discussion with RN and RT, formulating a plan. Updated 02/27 Continue current vent support currently on 100% and PEEP 13 Follow ABG/CXR-- small right pneumo, no other changes IR consult for right side Chest tube 2/2 pneumo Proning 16 hours daily Continue Antibiotics per ID Pt. has Completed course of remdesivir Continue steroids Nutritional support DVT/GI PPX D/W RN and RT and IR Total cumulative 30 minutes, reviewing the current documentation, data, labs, chest x-ray, discussion with RN and RT, formulating a plan. Updated 02/26 Continue current support Proning nightly Discussed with RN Antibiotics Completed course of remdesivir Continue steroids Nutritional support Total cumulative 30 minutes, reviewing the current documentation, data, labs, chest x-ray, discussion with RN and RT, formulating a plan. Updated 02/25 Discussed with RN continue current proning nightly ABG noted DVT GI prophylaxis Steroids Completed remdesivir Currently on ratio of 2:1 Antibiotics per ID Total cumulative critical care time of 30 minutes, reviewing the current documentation, chest x-ray, labs, formulating the plan Updated 4 6 Continue proning nightly Increase IV ratio to 1-1 ABG noted, adequate for patient Continue DVT GI prophylaxis Enteral nutrition Steroids Completed a course of remdesivir Total cumulative critical care time of approximately 35 minutes, reviewing the current documentation, labs, chest x-ray, discussing with RN and RT, formulating a plan. updated 02/23 Improvement in oxygenation with prone positioning (PO2 improved from 53 to 88) on 02/23 1. AC mode/ PEEP of 13, 100%FIO2 full sedation / prn paralytic. Despite high risk to prone with a BMI of 61, we will continue daily 16 hrs prone positioning. Oxygenation improves with prone position .d/w ICU team. 2. follow ABG and make changes. 3. Continue to finish the remdesivir course. 4. Decadron at 8 mg IV 24 hours. 5. D-Dimer normal .Lovenox for DVT 6. enteral nutrition 7. Continue empiric antibiotics. 8. d/w RN. / RT/ and in detail 9. echo with no pericardial effusion/ or CMP cct 30 min DAVID LIZ MD Feb 28, 2021 16:13
[2021-02-28] MEDS: MEROPENEM 1 GM in IV NORMAL SALINE 100ML 100 ML IV SCH ×2 (16:18→22:51)
[2021-02-28 20:07] LABS: CALCIUM 8.1 mg/dL (8.5-10.1); CREATININE 0.7 mg/dL (0.6-1.0); GFR 91.3; POTASSIUM 5.5 mmol/L (3.5-5.1)
[2021-02-28] MEDS: INSULIN GLARGINE SYRINGE. SQ SCH (21:01)
[2021-03-01] VITALS (23 sets, daily range): BP systolic 86–177; BP diastolic 41–87
[2021-03-01] MEDS: VECURONIUM BROMIDE 50 MG in TOTAL VOLUME 50 ML IV PRN ×5 (04:24→23:58)
[2021-03-01] MEDS: INSULIN LISPRO 300 UNITS/3 ML VIAL. SQ SCH ×4 (05:28→23:56)
[2021-03-01] MEDS: MEROPENEM 1 GM in IV NORMAL SALINE 100ML 100 ML IV SCH ×3 (05:28→22:00)
[2021-03-01] MEDS: fentaNYL HIGH DOSE PCA 55 ML IV PRN ×2 (05:28→20:59)
--- NOTE | 2021-03-01 05:35 | RAD ---
XR CHEST 1V Clinical History: Reason: vent patient with sub q emphysema ICU#113 / Spl. Instructions: / History : Technique: AP view of the chest was obtained at 03/01/2021 4:45 AM. Comparison: February 29, 2020. Findings: The heart is top normal limits in size. The pulmonary vessels appear normal. There is patchy reticula r opacities of lungs is hazy opacity in the left lung base and obscuration left hemidiaphragm. The endotracheal tube NG tube and right chest tube and right PICC are again seen unchanged. Impression: 1. Small left effusion and marked bilateral interstitial infiltrates likely atypical pneumonia. 2. The left effusion appears worse however the infiltrates appear unchanged. 3. Previously seen bilateral subcutaneous emphysema has resolved. Electronically signed by: Sylvester Brewer III, MD (03/01/2021 5:32 AM) [facility]
[2021-03-01] MEDS: FAMOTIDINE 20 MG/2 ML VIAL IVP SCH ×2 (07:34→21:13)
[2021-03-01] MEDS: DEXAMETHASONE SOD PHOS 4 MG/ML VIAL IVP SCH (07:34)
[2021-03-01 08:09] LABS: BASE EXCESS ABG 8 mmol/L (-3-3); HCO3 ABG 36 mmol/L (21-28); PO2 ABG 53 mmHg (75-108); SAT O2 ABG 86 % (92-99)
[2021-03-01 08:25] LABS: HEMATOCRIT 36.3 % (36.0-47.0); HEMOGLOBIN 11.5 g/dL (12.0-15.5); RED BLOOD COUNT 4.57 x10^6/uL (3.50-5.40); RED CELL DISTRIBUTION WIDTH 14.9 % (11.5-14.5); WHITE BLOOD COUNT 16.6 x10^3/uL (4.0-11.0)
[2021-03-01 08:32] LABS: FIO2 ABG 100% VENT; PCO2 ABG 66 mmHg (35-46)
[2021-03-01 08:38] LABS: ALBUMIN 2.2 g/dL (3.4-5.0); ALBUMIN/GLOBULIN RATIO 0.5 (1.0-1.7); CALCIUM 8.6 mg/dL (8.5-10.1); CREATININE 0.5 mg/dL (0.6-1.0); GFR 134.7; POTASSIUM 4.9 mmol/L (3.5-5.1); TOTAL BILIRUBIN 0.6 mg/dL (0.2-1.0); TOTAL PROTEIN 6.9 g/dL (6.4-8.2)
--- NOTE | 2021-03-01 08:57 | PDOC ---
Infectious Disease Note Subjective Subjective pt is intubated on vent, ROS ROS no n/v/d, did have fever Vital Sign Vital Signs Vital Signs Date Time Temp Pulse Resp B/P (MAP) Pulse Ox O2 Delivery O2 Flow Rate FiO2 03/01/21 07:17 85 Ventilator 03/01/21 05:48 82 26 104/46 (65) 03/01/21 03:51 99.8 99.8 02/28/21 15:19 40.0 Physical Exam PHYSICAL EXAM GENERAL: sedated on vent VITAL SIGNS: stable HEENT: Both pupils are round and reacting. No conjunctival lesion. No lesion in the mouth. NECK: Supple. No JVP. No lymphadenopathy. LUNGS: decrease bs, chest tube in place HEART: S1, S2 regular. ABDOMEN: Soft, nontender. No organomegaly. EXTREMITIES: No edema or cyanosis. SKIN: Unremarkable. NEUROLOGIC: sedated on vent Labs Lab Laboratory Tests Test 02/28/21 12:00 02/28/21 14:39 02/28/21 16:11 02/28/21 19:50 Sodium Level 140 mmol/L (136-145) 142 mmol/L (136-145) Potassium Level 5.6 mmol/L (3.5-5.1) 5.5 mmol/L (3.5-5.1) Chloride Level 105 mmol/L (98-107) 104 mmol/L (98-107) Carbon Dioxide Level 33 mmol/L (21-32) 35 mmol/L (21-32) Anion Gap 2 (6-14) 3 (6-14) Blood Urea Nitrogen 49 mg/dL (7-20) 31 mg/dL (7-20) Creatinine 0.9 mg/dL (0.6-1.0) 0.7 mg/dL (0.6-1.0) Estimated GFR (Cockcroft-Gault) 68.3 91.3 Glucose Level 223 mg/dL (70-99) 205 mg/dL (70-99) Calcium Level 8.1 mg/dL (8.5-10.1) 8.1 mg/dL (8.5-10.1) Glucose (Fingerstick) 244 mg/dL (70-99) 256 mg/dL (70-99) Test 02/28/21 23:33 03/01/21 05:25 03/01/21 08:00 Glucose (Fingerstick) 182 mg/dL (70-99) 137 mg/dL (70-99) White Blood Count 16.6 x10^3/uL (4.0-11.0) Red Blood Count 4.57 x10^6/uL (3.50-5.40) Hemoglobin 11.5 g/dL (12.0-15.5) Hematocrit 36.3 % (36.0-47.0) Mean Corpuscular Volume 80 fL (79-100) Mean Corpuscular Hemoglobin 25 pg (25-35) Mean Corpuscular Hemoglobin Concent 32 g/dL (31-37) Red Cell Distribution Width 14.9 % (11.5-14.5) Platelet Count 292 x10^3/uL (140-400) O2 Saturation 86 % (92-99) Arterial Blood pH 7.36 (7.35-7.45) Arterial Blood pCO2 at Patient Temp 66 mmHg (35-46) Arterial Blood pO2 at Patient Temp 53 mmHg (75-108) Arterial Blood HCO3 36 mmol/L (21-28) Arterial Blood Base Excess 8 mmol/L (-3-3) FiO2 100% vent Sodium Level 142 mmol/L (136-145) Potassium Level 4.9 mmol/L (3.5-5.1) Chloride Level 100 mmol/L (98-107) Carbon Dioxide Level 36 mmol/L (21-32) Anion Gap 6 (6-14) Blood Urea Nitrogen 29 mg/dL (7-20) Creatinine 0.5 mg/dL (0.6-1.0) Estimated GFR (Cockcroft-Gault) 134.7 BUN/Creatinine Ratio 58 (6-20) Glucose Level 138 mg/dL (70-99) Calcium Level 8.6 mg/dL (8.5-10.1) Total Bilirubin 0.6 mg/dL (0.2-1.0) Aspartate Amino Transf (AST/SGOT) 227 U/L (15-37) Alanine Aminotransferase (ALT/SGPT) 646 U/L (14-59) Alkaline Phosphatase 102 U/L (46-116) Total Protein 6.9 g/dL (6.4-8.2) Albumin 2.2 g/dL (3.4-5.0) Albumin/Globulin Ratio 0.5 (1.0-1.7) Micro BC neg Objective Assessment IMPRESSION: 1. COVID-19 positive. 2. Hypoxic respiratory failure. 3. Pneumonia, bilateral pulmonary infiltrate. 4. Morbid obesity. 5. History of asthma. 6. Obstructive sleep apnea. 7 Fever likely from COVID 8 Pneumothorax s/p chest tube in place Plan Plan of Care cont supportive care cont steroids, prognosis poor meropenem ALFIE CLAYTON MD Mar 01, 2021 08:57
[2021-03-01] MEDS: MIDAZOLAM 100mg/100ml NS BAG 100 ML IV PRN ×2 (10:49→19:34)
[2021-03-01] MEDS ORDERED: FUROSEMIDE 40 MG/4 ML VIAL. IVP ONE (11:00)
[2021-03-01] MEDS: ACETAMINOPHEN 650 MG/20.3 ML SOLUTION. PEG PRN (14:03)
--- NOTE | 2021-03-01 14:20 | PN ---
DATE: 03/01/2021 SUBJECTIVE: The patient is resting, slightly propped up in bed, in a supine position. She continued to be paralyzed, heavily sedated, however, her oxygen saturation is only 83% on FiO2 of 100%. She unfortunately developed pneumothorax. Her repeat chest x-ray this morning showed the patient has small left-sided pleural effusion and marked bilateral interstitial infiltrate, likely atypical pneumonia. The left effusion appears to have worse, however, the infiltrates appear unchanged. Previously seen bilateral subcutaneous emphysema has resolved. PHYSICAL EXAMINATION: GENERAL: When I examined her this morning, she looked pale, but no jaundice or cyanosis. No lymphadenopathy, no thyromegaly. No jugular venous distention. Mild bilateral lower limb edema. VITAL SIGNS: Her heart rate was 82, blood pressure 104/46, temperature was 99.8. She did spike a temperature yesterday up to 101.5, was cultured and started on meropenem. HEAD, EYES, EARS, NOSE AND THROAT: Showed normocephalic, atraumatic, has orotracheal and orogastric tube. The rest of clinical exam is stable, has not really changed. Her intake over the last 24 hours was 3073, output was 1820. LABORATORY DATA: As of yesterday, her white cell count was 12,900, hemoglobin 12, hematocrit 36, MCV 80 and platelet count 294,000. Her chemistry showed a serum sodium 142, potassium 5.5, chloride 104, bicarbonate 35, anion gap of 3, BUN 31, creatinine 0.7, estimated GFR was 91 mL per minute, her glucose was ____ and calcium was 8.1. ASSESSMENT: 1. Acute hypoxic respiratory failure, multifactorial including: A. COVID-19 pneumonia. B. Acute lung injury with acute respiratory distress syndrome. C. Possible community-acquired pneumonia. D. Small right-sided pleural effusion. E. Left-sided pleural effusion. 2. Bronchial asthma. 3. Morbid obesity. 4. Obstructive sleep apnea. 5. Mild hyperkalemia. 6. The patient has spiked her temperature up to 101.5. She was pancultured and was started on IV meropenem. PLAN: To continue with mechanical ventilation. Continue with IV antibiotic. Continue with nutritional support. We switched her to Nepro to minimize her potassium and today's labs are still pending at the time of this dictation. ELIZABETH FERNANDEZ MD DR: BOLA/carlos JOB#: [id number] / [id number]
[2021-03-01] MEDS ORDERED: VANCOMYCIN 2 GM in IV NORMAL SALINE 500ML BAG 500 ML IV ONE (15:00)
[2021-03-01] MEDS: VANCOMYCIN PER PHARMACY MC PRN (16:04)
--- NOTE | 2021-03-01 16:09 | NUR ---
Pharmacy Vancomycin Dosing Note S: Consulted to monitor and dose vancomycin started 03/01/21. O: SANTY LOUIS is a 45 year old F with CAP, INTUBATED Other Antibiotics: MERREM LABS: Last BUN: 29 Last Creatinine: 0.5 Creatinine Clearance: >100 mL/min Last WBC: 16.6 Tmax (past 24 hours): 101.5 Vancomycin Dosing: Dosing Weight: Actual Target Trough: 10-20 A: Based on: VANCO dosing guidelines P: 1. Begin Vancomycin 2000mg LOAD dose, then 1500 mg IV q12h 2. Follow up Trough level on 03/03/21 at 0030 3. Pharmacy will continue to monitor, follow and adjust therapy as needed. MELISSA JAIN, [facility], 03/01/21 [id number]
--- NOTE | 2021-03-01 20:12 | PDOC ---
PULMONARY PROGRESS NOTES DATE: 03/01/21 TIME: 20:08 Subjective remains on vent support 26/500/100%/13 Nursing reports [id number] hypoxia this am, with oxygen saturation in the low to mid 80% Currently on 2-1 i.e. ratio Fever overnight again, now with tachycardia as well S/P right chest tube on 02/27/21-- no leak on exam Vitals Vital Signs Date Time Temp Pulse Resp B/P (MAP) Pulse Ox O2 Delivery O2 Flow Rate FiO2 03/01/21 19:00 92 26 150/82 (104) 82 Ventilator 03/01/21 16:00 100.1 100.1 02/28/21 15:19 40.0 Comments intubated/sedated Lungs: Crackles Cardiovascular: S1, S2 Abdomen: Soft Extremities: Other (Edema) Skin: Warm Labs Laboratory Tests Test 02/27/21 23:13 02/28/21 05:30 02/28/21 05:32 02/28/21 08:05 Glucose (Fingerstick) 199 mg/dL (70-99) 151 mg/dL (70-99) White Blood Count 12.9 x10^3/uL (4.0-11.0) Red Blood Count 4.64 x10^6/uL (3.50-5.40) Hemoglobin 11.7 g/dL (12.0-15.5) Hematocrit 36.9 % (36.0-47.0) Mean Corpuscular Volume 80 fL (79-100) Mean Corpuscular Hemoglobin 25 pg (25-35) Mean Corpuscular Hemoglobin Concent 32 g/dL (31-37) Red Cell Distribution Width 15.3 % (11.5-14.5) Platelet Count 294 x10^3/uL (140-400) Sodium Level 140 mmol/L (136-145) Potassium Level 5.6 mmol/L (3.5-5.1) Chloride Level 102 mmol/L (98-107) Carbon Dioxide Level 34 mmol/L (21-32) Anion Gap 4 (6-14) Blood Urea Nitrogen 53 mg/dL (7-20) Creatinine 0.8 mg/dL (0.6-1.0) Estimated GFR (Cockcroft-Gault) 78.3 Glucose Level 162 mg/dL (70-99) Calcium Level 8.3 mg/dL (8.5-10.1) O2 Saturation 96 % (92-99) Arterial Blood pH 7.32 (7.35-7.45) Arterial Blood pCO2 at Patient Temp 61 mmHg (35-46) Arterial Blood pO2 at Patient Temp 89 mmHg (75-108) Arterial Blood HCO3 30 mmol/L (21-28) Arterial Blood Base Excess 2 mmol/L (-3-3) FiO2 100% vent Test 02/28/21 12:00 02/28/21 14:39 02/28/21 16:11 02/28/21 19:50 Sodium Level 140 mmol/L (136-145) 142 mmol/L (136-145) Potassium Level 5.6 mmol/L (3.5-5.1) 5.5 mmol/L (3.5-5.1) Chloride Level 105 mmol/L (98-107) 104 mmol/L (98-107) Carbon Dioxide Level 33 mmol/L (21-32) 35 mmol/L (21-32) Anion Gap 2 (6-14) 3 (6-14) Blood Urea Nitrogen 49 mg/dL (7-20) 31 mg/dL (7-20) Creatinine 0.9 mg/dL (0.6-1.0) 0.7 mg/dL (0.6-1.0) Estimated GFR (Cockcroft-Gault) 68.3 91.3 Glucose Level 223 mg/dL (70-99) 205 mg/dL (70-99) Calcium Level 8.1 mg/dL (8.5-10.1) 8.1 mg/dL (8.5-10.1) Glucose (Fingerstick) 244 mg/dL (70-99) 256 mg/dL (70-99) Test 02/28/21 23:33 03/01/21 05:25 03/01/21 08:00 03/01/21 13:32 Glucose (Fingerstick) 182 mg/dL (70-99) 137 mg/dL (70-99) 224 mg/dL (70-99) White Blood Count 16.6 x10^3/uL (4.0-11.0) Red Blood Count 4.57 x10^6/uL (3.50-5.40) Hemoglobin 11.5 g/dL (12.0-15.5) Hematocrit 36.3 % (36.0-47.0) Mean Corpuscular Volume 80 fL (79-100) Mean Corpuscular Hemoglobin 25 pg (25-35) Mean Corpuscular Hemoglobin Concent 32 g/dL (31-37) Red Cell Distribution Width 14.9 % (11.5-14.5) Platelet Count 292 x10^3/uL (140-400) O2 Saturation 86 % (92-99) Arterial Blood pH 7.36 (7.35-7.45) Arterial Blood pCO2 at Patient Temp 66 mmHg (35-46) Arterial Blood pO2 at Patient Temp 53 mmHg (75-108) Arterial Blood HCO3 36 mmol/L (21-28) Arterial Blood Base Excess 8 mmol/L (-3-3) FiO2 100% vent Sodium Level 142 mmol/L (136-145) Potassium Level 4.9 mmol/L (3.5-5.1) Chloride Level 100 mmol/L (98-107) Carbon Dioxide Level 36 mmol/L (21-32) Anion Gap 6 (6-14) Blood Urea Nitrogen 29 mg/dL (7-20) Creatinine 0.5 mg/dL (0.6-1.0) Estimated GFR (Cockcroft-Gault) 134.7 BUN/Creatinine Ratio 58 (6-20) Glucose Level 138 mg/dL (70-99) Calcium Level 8.6 mg/dL (8.5-10.1) Total Bilirubin 0.6 mg/dL (0.2-1.0) Aspartate Amino Transf (AST/SGOT) 227 U/L (15-37) Alanine Aminotransferase (ALT/SGPT) 646 U/L (14-59) Alkaline Phosphatase 102 U/L (46-116) Total Protein 6.9 g/dL (6.4-8.2) Albumin 2.2 g/dL (3.4-5.0) Albumin/Globulin Ratio 0.5 (1.0-1.7) Test 03/01/21 16:37 Glucose (Fingerstick) 219 mg/dL (70-99) Laboratory Tests Test 02/28/21 23:33 03/01/21 05:25 03/01/21 08:00 03/01/21 13:32 Glucose (Fingerstick) 182 mg/dL (70-99) 137 mg/dL (70-99) 224 mg/dL (70-99) White Blood Count 16.6 x10^3/uL (4.0-11.0) Red Blood Count 4.57 x10^6/uL (3.50-5.40) Hemoglobin 11.5 g/dL (12.0-15.5) Hematocrit 36.3 % (36.0-47.0) Mean Corpuscular Volume 80 fL (79-100) Mean Corpuscular Hemoglobin 25 pg (25-35) Mean Corpuscular Hemoglobin Concent 32 g/dL (31-37) Red Cell Distribution Width 14.9 % (11.5-14.5) Platelet Count 292 x10^3/uL (140-400) O2 Saturation 86 % (92-99) Arterial Blood pH 7.36 (7.35-7.45) Arterial Blood pCO2 at Patient Temp 66 mmHg (35-46) Arterial Blood pO2 at Patient Temp 53 mmHg (75-108) Arterial Blood HCO3 36 mmol/L (21-28) Arterial Blood Base Excess 8 mmol/L (-3-3) FiO2 100% vent Sodium Level 142 mmol/L (136-145) Potassium Level 4.9 mmol/L (3.5-5.1) Chloride Level 100 mmol/L (98-107) Carbon Dioxide Level 36 mmol/L (21-32) Anion Gap 6 (6-14) Blood Urea Nitrogen 29 mg/dL (7-20) Creatinine 0.5 mg/dL (0.6-1.0) Estimated GFR (Cockcroft-Gault) 134.7 BUN/Creatinine Ratio 58 (6-20) Glucose Level 138 mg/dL (70-99) Calcium Level 8.6 mg/dL (8.5-10.1) Total Bilirubin 0.6 mg/dL (0.2-1.0) Aspartate Amino Transf (AST/SGOT) 227 U/L (15-37) Alanine Aminotransferase (ALT/SGPT) 646 U/L (14-59) Alkaline Phosphatase 102 U/L (46-116) Total Protein 6.9 g/dL (6.4-8.2) Albumin 2.2 g/dL (3.4-5.0) Albumin/Globulin Ratio 0.5 (1.0-1.7) Test 03/01/21 16:37 Glucose (Fingerstick) 219 mg/dL (70-99) Medications Active Scripts Medications Dose Route/Sig Max Daily Dose Days Date Category Meloxicam 15 Mg Tablet 1 Tab PO DAILY 30 02/18/21 Reported Comments CXR 03/01 Impression: 1. Small left effusion and marked bilateral interstitial infiltrates likely atypical pneumonia. 2. The left effusion appears worse however the infiltrates appear unchanged. 3. Previously seen bilateral subcutaneous emphysema has resolved. CXR-02/26 Impression: Extensive subcutaneous emphysema is seen throughout the chest. There appears to be a small right pneumothorax. Pneumomediastinum is seen. cxr 02/23 improving bilateral infiltrates cxr 02/19 extensive bilateral infiltrate cardiomegaly Impression . 1. Acute hypoxic respiratory failure with acute lung injury/early acute respiratory distress syndrome secondary to COVID-19 pneumonia. 2. Morbid obesity, BMI of 65 3. No significant tobacco history. 4. History of asthma, under control. 5. Obstructive sleep apnea, on home CPAP. Unknown severity of obstructive sleep apnea and unknown CPAP pressure. 6. Abnormal CXR with bilateral patchy infiltrates c/w viral pneumonia., 7. Fever, 8. Subcutaneous emphysema improved Plan . Updated 03/01 Continue current vent support currently on 100% and PEEP 13, ongoing hypoxia despite vent support Follow ABG/CXR- lasix X1 today continue right chest tube to suction-20-- no air leak Proning 16 hours daily Continue Antibiotics and fever per ID Pt. has Completed course of remdesivir Continue steroids with slow taper Nutritional support Poor prognosis DVT/GI PPX D/W RN and RT Total cumulative 30 minutes, reviewing the current documentation, data, labs, chest x-ray, discussion with RN and RT, formulating a plan. Updated 02/28 Continue current vent support currently on 100% and PEEP 13 Follow ABG/CXR-no changes continue right chest tube to suction-20 Proning 16 hours daily Continue Antibiotics per ID Pt. has Completed course of remdesivir Continue steroids nwith slow taper Nutritional support DVT/GI PPX D/W RN and RT Total cumulative 30 minutes, reviewing the current documentation, data, labs, chest x-ray, discussion with RN and RT, formulating a plan. Updated 02/27 Continue current vent support currently on 100% and PEEP 13 Follow ABG/CXR-- small right pneumo, no other changes IR consult for right side Chest tube 2/2 pneumo Proning 16 hours daily Continue Antibiotics per ID Pt. has Completed course of remdesivir Continue steroids Nutritional support DVT/GI PPX D/W RN and RT and IR Total cumulative 30 minutes, reviewing the current documentation, data, labs, chest x-ray, discussion with RN and RT, formulating a plan. Updated 02/26 Continue current support Proning nightly Discussed with RN Antibiotics Completed course of remdesivir Continue steroids Nutritional support Total cumulative 30 minutes, reviewing the current documentation, data, labs, chest x-ray, discussion with RN and RT, formulating a plan. Updated 02/25 Discussed with RN continue current proning nightly ABG noted DVT GI prophylaxis Steroids Completed remdesivir Currently on ratio of 2:1 Antibiotics per ID Total cumulative critical care time of 30 minutes, reviewing the current documentation, chest x-ray, labs, formulating the plan Updated 02 24 Continue proning nightly Increase IV ratio to 1-1 ABG noted, adequate for patient Continue DVT GI prophylaxis Enteral nutrition Steroids Completed a course of remdesivir Total cumulative critical care time of approximately 35 minutes, reviewing the current documentation, labs, chest x-ray, discussing with RN and RT, formulating a plan. updated 02/23 Improvement in oxygenation with prone positioning (PO2 improved from 53 to 88) on 02/23 1. AC mode/ PEEP of 13, 100%FIO2 full sedation / prn paralytic. Despite high risk to prone with a BMI of 61, we will continue daily 16 hrs prone positioning. Oxygenation improves with prone position .d/w ICU team. 2. follow ABG and make changes. 3. Continue to finish the remdesivir course. 4. Decadron at 8 mg IV 24 hours. 5. D-Dimer normal .Lovenox for DVT 6. enteral nutrition 7. Continue empiric antibiotics. 8. d/w RN. / RT/ and in detail 9. echo with no pericardial effusion/ or CMP cct 30 min DAVID LIZ MD Mar 01, 2021 20:12
[2021-03-01] MEDS: INSULIN GLARGINE SYRINGE. SQ SCH (21:00)
[2021-03-02] VITALS (23 sets, daily range): BP systolic 88–185; BP diastolic 46–104
[2021-03-02] MEDS: VANCOMYCIN 1.5 GM in IV NORMAL SALINE 500ML BAG 500 ML IV SCH ×2 (01:21→13:38)
[2021-03-02] MEDS: MIDAZOLAM 100mg/100ml NS BAG 100 ML IV PRN ×2 (03:46→15:41)
[2021-03-02] MEDS: VECURONIUM BROMIDE 50 MG in TOTAL VOLUME 50 ML IV PRN ×4 (04:25→20:24)
[2021-03-02] MEDS: MEROPENEM 1 GM in IV NORMAL SALINE 100ML 100 ML IV SCH ×3 (05:40→22:18)
[2021-03-02] MEDS: INSULIN LISPRO 300 UNITS/3 ML VIAL. SQ SCH ×3 (05:40→18:28)
[2021-03-02] MEDS ORDERED: ALTEPLASE 2MG VIAL 5 MG in IV NORMAL SALINE 50ML 30 ML IV ONE (07:30)
[2021-03-02] MEDS ORDERED: ALTEPLASE 1MG SYRINGE. INT CAT ONE ×2 (07:45→16:00)
[2021-03-02 07:58] LABS: BASE EXCESS ABG 7 mmol/L (-3-3); HCO3 ABG 35 mmol/L (21-28); PO2 ABG 52 mmHg (75-108); SAT O2 ABG 83 % (92-99)
[2021-03-02 08:04] LABS: PCO2 ABG 64 mmHg (35-46)
[2021-03-02 08:05] LABS: FIO2 ABG 100
--- NOTE | 2021-03-02 08:08 | PDOC ---
Infectious Disease Note Subjective: Subjective Intubated/sedated Vital Signs: Vital Signs Vital Signs Date Time Temp Pulse Resp B/P (MAP) Pulse Ox O2 Delivery O2 Flow Rate FiO2 03/02/21 06:00 100 26 154/104 (121) 92 Ventilator 03/02/21 04:00 99.8 99.8 Physical Exam: PHYSICAL EXAM GENERAL: sedated on vent HEENT: Both pupils are round and reacting. ETT OGT tube in place NECK: Supple. No JVP. No lymphadenopathy. LUNGS: decrease bs, right chest tube in place HEART: S1, S2 regular. ABDOMEN: Soft, nontender. Bowel sounds present EXTREMITIES: Trace edema ,no cyanosis. SKIN: No generalized rash NEUROLOGIC: sedated on vent PICC line clean Medications: Inpatient Meds: Medications reviewed. Labs: Lab Laboratory Tests Test 03/01/21 13:32 03/01/21 16:37 03/01/21 23:52 03/02/21 05:10 Glucose (Fingerstick) 224 mg/dL (70-99) 219 mg/dL (70-99) 163 mg/dL (70-99) Procalcitonin 0.13 ng/mL (0.00-0.10) Test 03/02/21 05:37 03/02/21 07:50 Glucose (Fingerstick) 129 mg/dL (70-99) O2 Saturation 83 % (92-99) Arterial Blood pH 7.36 (7.35-7.45) Arterial Blood pCO2 at Patient Temp 64 mmHg (35-46) Arterial Blood pO2 at Patient Temp 52 mmHg (75-108) Arterial Blood HCO3 35 mmol/L (21-28) Arterial Blood Base Excess 7 mmol/L (-3-3) FiO2 100 Objective: Assessment: 1. COVID-19 positive. 2. Hypoxic respiratory failure. 3. Pneumonia, bilateral pulmonary infiltrate. 4. Morbid obesity. 5. History of asthma. 6. Obstructive sleep apnea. 7 Fever likely from COVID 8 Pneumothorax s/p chest tube in place Plan: Plan of Care cont supportive care cont steroids, meropenem prognosis poor BYRON CLAYTON MD Mar 02, 2021 08:08
[2021-03-02] MEDS: POLYETHYLENE GLYCOL 3350 17 GM PACKET. PO PRN ×2 (08:47→20:24)
[2021-03-02] MEDS: DEXAMETHASONE SOD PHOS 4 MG/ML VIAL IVP SCH (08:48)
[2021-03-02] MEDS: FAMOTIDINE 20 MG/2 ML VIAL IVP SCH ×2 (08:48→20:24)
--- NOTE | 2021-03-02 09:28 | PDOC ---
PULMONARY PROGRESS NOTES DATE: 03/02/21 TIME: 09:28 Subjective remains on vent support /500/100%/13 hypoxia Currently on 2-1 i.e. ratio S/P right chest tube on 02/27/21-- no leak on exam Vitals Vital Signs Date Time Temp Pulse Resp B/P (MAP) Pulse Ox O2 Delivery O2 Flow Rate FiO2 03/02/21 07:25 90 Ventilator 03/02/21 06:00 100 26 154/104 (121) 03/02/21 04:00 99.8 99.8 Comments intubated/sedated Lungs: Crackles Cardiovascular: S1, S2 Abdomen: Soft Extremities: Other (Edema) Skin: Warm Labs Laboratory Tests Test 02/28/21 12:00 02/28/21 14:39 02/28/21 16:11 02/28/21 19:50 Sodium Level 140 mmol/L (136-145) 142 mmol/L (136-145) Potassium Level 5.6 mmol/L (3.5-5.1) 5.5 mmol/L (3.5-5.1) Chloride Level 105 mmol/L (98-107) 104 mmol/L (98-107) Carbon Dioxide Level 33 mmol/L (21-32) 35 mmol/L (21-32) Anion Gap 2 (6-14) 3 (6-14) Blood Urea Nitrogen 49 mg/dL (7-20) 31 mg/dL (7-20) Creatinine 0.9 mg/dL (0.6-1.0) 0.7 mg/dL (0.6-1.0) Estimated GFR (Cockcroft-Gault) 68.3 91.3 Glucose Level 223 mg/dL (70-99) 205 mg/dL (70-99) Calcium Level 8.1 mg/dL (8.5-10.1) 8.1 mg/dL (8.5-10.1) Glucose (Fingerstick) 244 mg/dL (70-99) 256 mg/dL (70-99) Test 02/28/21 23:33 03/01/21 05:25 03/01/21 08:00 03/01/21 13:32 Glucose (Fingerstick) 182 mg/dL (70-99) 137 mg/dL (70-99) 224 mg/dL (70-99) White Blood Count 16.6 x10^3/uL (4.0-11.0) Red Blood Count 4.57 x10^6/uL (3.50-5.40) Hemoglobin 11.5 g/dL (12.0-15.5) Hematocrit 36.3 % (36.0-47.0) Mean Corpuscular Volume 80 fL (79-100) Mean Corpuscular Hemoglobin 25 pg (25-35) Mean Corpuscular Hemoglobin Concent 32 g/dL (31-37) Red Cell Distribution Width 14.9 % (11.5-14.5) Platelet Count 292 x10^3/uL (140-400) O2 Saturation 86 % (92-99) Arterial Blood pH 7.36 (7.35-7.45) Arterial Blood pCO2 at Patient Temp 66 mmHg (35-46) Arterial Blood pO2 at Patient Temp 53 mmHg (75-108) Arterial Blood HCO3 36 mmol/L (21-28) Arterial Blood Base Excess 8 mmol/L (-3-3) FiO2 100% vent Sodium Level 142 mmol/L (136-145) Potassium Level 4.9 mmol/L (3.5-5.1) Chloride Level 100 mmol/L (98-107) Carbon Dioxide Level 36 mmol/L (21-32) Anion Gap 6 (6-14) Blood Urea Nitrogen 29 mg/dL (7-20) Creatinine 0.5 mg/dL (0.6-1.0) Estimated GFR (Cockcroft-Gault) 134.7 BUN/Creatinine Ratio 58 (6-20) Glucose Level 138 mg/dL (70-99) Calcium Level 8.6 mg/dL (8.5-10.1) Total Bilirubin 0.6 mg/dL (0.2-1.0) Aspartate Amino Transf (AST/SGOT) 227 U/L (15-37) Alanine Aminotransferase (ALT/SGPT) 646 U/L (14-59) Alkaline Phosphatase 102 U/L (46-116) Total Protein 6.9 g/dL (6.4-8.2) Albumin 2.2 g/dL (3.4-5.0) Albumin/Globulin Ratio 0.5 (1.0-1.7) Test 03/01/21 16:37 03/01/21 23:52 03/02/21 05:10 03/02/21 05:37 Glucose (Fingerstick) 219 mg/dL (70-99) 163 mg/dL (70-99) 129 mg/dL (70-99) Procalcitonin 0.13 ng/mL (0.00-0.10) Test 03/02/21 07:50 O2 Saturation 83 % (92-99) Arterial Blood pH 7.36 (7.35-7.45) Arterial Blood pCO2 at Patient Temp 64 mmHg (35-46) Arterial Blood pO2 at Patient Temp 52 mmHg (75-108) Arterial Blood HCO3 35 mmol/L (21-28) Arterial Blood Base Excess 7 mmol/L (-3-3) FiO2 100 Laboratory Tests Test 03/01/21 13:32 03/01/21 16:37 03/01/21 23:52 03/02/21 05:10 Glucose (Fingerstick) 224 mg/dL (70-99) 219 mg/dL (70-99) 163 mg/dL (70-99) Procalcitonin 0.13 ng/mL (0.00-0.10) Test 03/02/21 05:37 03/02/21 07:50 Glucose (Fingerstick) 129 mg/dL (70-99) O2 Saturation 83 % (92-99) Arterial Blood pH 7.36 (7.35-7.45) Arterial Blood pCO2 at Patient Temp 64 mmHg (35-46) Arterial Blood pO2 at Patient Temp 52 mmHg (75-108) Arterial Blood HCO3 35 mmol/L (21-28) Arterial Blood Base Excess 7 mmol/L (-3-3) FiO2 100 Medications Active Scripts Medications Dose Route/Sig Max Daily Dose Days Date Category Meloxicam 15 Mg Tablet 1 Tab PO DAILY 30 02/18/21 Reported Comments CXR 03/02 IMPRESSION: 1. Stable bilateral perihilar and basilar opacities. 2. No pneumothorax is seen. 3. Stable small left greater than right pleural effusions. 4. Stable life devices. CXR 03/01 Impression: 1. Small left effusion and marked bilateral interstitial infiltrates likely atypical pneumonia. 2. The left effusion appears worse however the infiltrates appear unchanged. 3. Previously seen bilateral subcutaneous emphysema has resolved. CXR-02/26 Impression: Extensive subcutaneous emphysema is seen throughout the chest. There appears to be a small right pneumothorax. Pneumomediastinum is seen. cxr / improving bilateral infiltrates cxr 02/19 extensive bilateral infiltrate cardiomegaly Impression . 1. Acute hypoxic respiratory failure with acute lung injury/early acute respiratory distress syndrome secondary to COVID-19 pneumonia. 2. Morbid obesity, BMI of 65 3. No significant tobacco history. 4. History of asthma, under control. 5. Obstructive sleep apnea, on home CPAP. Unknown severity of obstructive sleep apnea and unknown CPAP pressure. 6. Abnormal CXR with bilateral patchy infiltrates c/w viral pneumonia., 7. Fever, 8. Subcutaneous emphysema improved Plan . Updated 03/02 Continue current vent support currently on 100% and PEEP 13 Follow ABG/CXR- continue right chest tube to suction-20-- no air leak Continue Antibiotics and fever per ID Pt. has Completed course of remdesivir Continue steroids with slow taper Nutritional support Poor prognosis DVT/GI PPX D/W RN and RT D/W at bedside Total cumulative 30 minutes, reviewing the current documentation, data, labs, chest x-ray, discussion with RN and RT, formulating a plan. Updated 03/01 Continue current vent support currently on 100% and PEEP 13, ongoing hypoxia d espite vent support Follow ABG/CXR- lasix X1 today continue right chest tube to suction-20-- no air leak Proning 16 hours daily Continue Antibiotics and fever per ID Pt. has Completed course of remdesivir Continue steroids with slow taper Nutritional support Poor prognosis DVT/GI PPX D/W RN and RT Total cumulative 30 minutes, reviewing the current documentation, data, labs, chest x-ray, discussion with RN and RT, formulating a plan. Updated 02/28 Continue current vent support currently on 100% and PEEP 13 Follow ABG/CXR-no changes continue right chest tube to suction-20 Proning 16 hours daily Continue Antibiotics per ID Pt. has Completed course of remdesivir Continue steroids nwith slow taper Nutritional support DVT/GI PPX D/W RN and RT Total cumulative 30 minutes, reviewing the current documentation, data, labs, chest x-ray, discussion with RN and RT, formulating a plan. Updated 02/27 Continue current vent support currently on 100% and PEEP 13 Follow ABG/CXR-- small right pneumo, no other changes IR consult for right side Chest tube 2/2 pneumo Proning 16 hours daily Continue Antibiotics per ID Pt. has Completed course of remdesivir Continue steroids Nutritional support DVT/GI PPX D/W RN and RT and IR Total cumulative 30 minutes, reviewing the current documentation, data, labs, chest x-ray, discussion with RN and RT, formulating a plan. Updated 02/26 Continue current support Proning nightly Discussed with RN Antibiotics Completed course of remdesivir Continue steroids Nutritional support Total cumulative 30 minutes, reviewing the current documentation, data, labs, chest x-ray, discussion with RN and RT, formulating a plan. Updated 02/25 Discussed with RN continue current proning nightly ABG noted DVT GI prophylaxis Steroids Completed remdesivir Currently on ratio of 2:1 Antibiotics per ID Total cumulative critical care time of 30 minutes, reviewing the current docum entation, chest x-ray, labs, formulating the plan Updated 02 24 Continue proning nightly Increase IV ratio to 1-1 ABG noted, adequate for patient Continue DVT GI prophylaxis Enteral nutrition Steroids Completed a course of remdesivir Total cumulative critical care time of approximately 35 minutes, reviewing the current documentation, labs, chest x-ray, discussing with RN and RT, formulating a plan. updated 02/23 Improvement in oxygenation with prone positioning (PO2 improved from 53 to 88) on 02/23 1. AC mode/ PEEP of 13, 100%FIO2 full sedation / prn paralytic. Despite high risk to prone with a BMI of 61, we will continue daily 16 hrs prone positioning. Oxygenation improves with prone position .d/w ICU team. 2. follow ABG and make changes. 3. Continue to finish the remdesivir course. 4. Decadron at 8 mg IV 24 hours. 5. D-Dimer normal .Lovenox for DVT 6. enteral nutrition 7. Continue empiric antibiotics. 8. d/w RN. / RT/ and in detail 9. echo with no pericardial effusion/ or CMP cct 30 min DAVID LIZ MD Mar 02, 2021 09:28
--- NOTE | 2021-03-02 10:40 | RAD ---
XR CHEST 1V INDICATION: vent pt COMPARISON STUDY: 03/01/2021. FINDINGS: Life Support Devices: Stable right chest tube, right PICC, endotracheal tube, enteric tube. Lungs: Normal lung volume. Stable bilateral perihilar and basilar opacities. Pleura: Stable small left greater than right pleural effusions. No pneumothorax. Heart and Mediastinum: Stable cardiomediastinal silhouette and great vessels. Bones and Soft Tissues: Stable regional skeleton and soft tissues. IMPRESSION: 1. Stable bilateral perihilar and basilar opacities. 2. No pneumothorax is seen. 3. Stable small left greater than right pleural effusions. 4. Stable life devices. Electronically signed by: Shyam Calvillo MD (03/02/2021 10:38 AM) [id number]
[2021-03-02] MEDS: fentaNYL HIGH DOSE PCA 55 ML IV PRN ×2 (10:47→22:10)
--- NOTE | 2021-03-02 11:44 | PN ---
DATE: SUBJECTIVE: The patient is resting, slightly propped up in bed, in a supine position, maintaining her oxygen saturation at 91% on FiO2 of 100%. Apparently, the patient had a rough night last night and has been hypoxic throughout the night despite suctioning. PHYSICAL EXAMINATION: GENERAL: When I examined her, she looked pale. No jaundice, cyanosis or thyromegaly. No jugular venous distention. No limb edema. VITAL SIGNS: Her heart rate was 100, blood pressure was 154/104, temperature was 99.8, respiratory rate was 26 and oxygen saturation was 91%. The rest of clinical exam is stable. Her intake over the last 24 hours was 4200, output was is 200. LABORATORY DATA: As of yesterday, her white cell count of 16,600, hemoglobin 11.5, hematocrit 36, MCV 80 and platelet count 292,000. Her blood sugar is reasonably but not optimally controlled. Her procalamine was 0.13. Her chest x-ray showed the heart is top normal limit in size and pulmonary vessels appear normal. There is patchy reticular opacities of lungs and hazy opacity in the left lung base and with obscuration of the left hemidiaphragm. The endotracheal tube, NG tube, and right chest tube and right PICC line are seen in and unchanged. ASSESSMENT: 1. Acute hypoxic respiratory failure, multifactorial including: A. COVID-19 pneumonia. B. Acute lung injury with acute respiratory distress syndrome. C. Possible community-acquired pneumonia. D. Small right-sided pleural effusion. E. Left-sided pleural effusion. 2. Bronchial asthma. 3. Morbid obesity. 4. Obstructive sleep apnea. 5. Mild hyperkalemia. 6. The patient has spiked a temperature up to 101.5 and her blood culture has grown Gram-positive cocci in clusters. Identification and sensitivity is still pending at the time of this dictation. PLAN: To obviously continue with mechanical ventilation. Continue with IV antibiotic. Nutritional support continued. She is now on Nepro as her potassium was high. Today's labs are still pending at the time of this dictation. ELIZABETH FERNANDEZ MD DR: BOLA/carlos JOB#: [id number] / [id number]
--- NOTE | 2021-03-02 15:23 | NUR ---
SS following up with discharge planning. SS reviewed pt chart and discussed with pt RN. Pt is currently on the vent at 100%. COVID19 positive. Pt had chest tube placed. Pt on IV Vancomycin and IV Meropenem. Pt on Fentanyl, Versed, and Vec. Full Code. Not stable. SS will continue to follow for discharge planning.
[2021-03-02] MEDS ORDERED: amLODIPine BESYLATE 5 MG TABLET PO ONE (16:00)
[2021-03-02] MEDS: PROPOFOL 100 ML IV PRN (20:23)
[2021-03-02] MEDS: NYSTATIN TOPICAL POWDER 15GM BOTTLE. TP SCH (20:27)
[2021-03-02] MEDS: INSULIN GLARGINE SYRINGE. SQ SCH (20:34)
[2021-03-03] VITALS (24 sets, daily range): BP systolic 98–203; BP diastolic 45–91
[2021-03-03] MEDS: INSULIN LISPRO 300 UNITS/3 ML VIAL. SQ SCH ×4 (00:48→18:45)
[2021-03-03] MEDS: PROPOFOL 100 ML IV PRN ×5 (01:00→20:36)
[2021-03-03] MEDS: VANCOMYCIN 1.5 GM in IV NORMAL SALINE 500ML BAG 500 ML IV SCH ×3 (01:01→18:05)
[2021-03-03 01:22] LABS: VANC TR 7.6 mcg/mL (10.0-20.0)
[2021-03-03] MEDS: VECURONIUM BROMIDE 50 MG in TOTAL VOLUME 50 ML IV PRN ×5 (01:54→20:40)
[2021-03-03] MEDS: MIDAZOLAM 100mg/100ml NS BAG 100 ML IV PRN ×3 (01:55→20:05)
[2021-03-03] MEDS: VANCOMYCIN PER PHARMACY MC PRN (03:02)
--- NOTE | 2021-03-03 03:02 | NUR ---
Pharmacy Vancomycin Dosing Note S:Consulted to monitor and dose vancomycin started 03/01/21. O:SANTY LOUIS is a 45 year old F with CAP INTUBATED . Height: 5 feet, 2 inches Weight: 163.476765 kg [place] Body Weight: 50.10 Adjusted Body Weight: 95.66 Dosing Weight: Actual Other Antibiotics: MERREM LABS: Last BUN: 29 Last Creatinine: 0.5 Creatinine Clearance: >100 mL/min Last WBC: 16.6 Last Procalcitonin: Tmax (past 24 hours): 101.5 Microbiology: I/O: 150 / 675 Drug Levels: Last Trough level: 7.2 on 03/03/21 at 0030 Last dose given 03/01/21 at 1500 Vancomycin Dosing: Loading Dose: 2000 mg x1 Dosing Weight: Actual Target Trough: 10-20 A: Based on: TROUGH AND CRCL P: 1. Begin Vancomycin 1500 mg IV q8h 2. Follow up Trough level on 03/04/21 at 0830 3. Pharmacy will continue to monitor, follow and adjust therapy as needed. GEMMA HENRY RPH, 03/03/21 0302 Signed: 03/03/21 at 0303 by GEMMA HENRY RPH PHA
[2021-03-03] MEDS: MEROPENEM 1 GM in IV NORMAL SALINE 100ML 100 ML IV SCH ×3 (05:47→22:31)
[2021-03-03 06:44] LABS: ALBUMIN 2.1 g/dL (3.4-5.0); ALBUMIN/GLOBULIN RATIO 0.5 (1.0-1.7); CALCIUM 8.6 mg/dL (8.5-10.1); CREATININE 0.5 mg/dL (0.6-1.0); GFR 134.7; POTASSIUM 4.7 mmol/L (3.5-5.1); TOTAL BILIRUBIN 0.5 mg/dL (0.2-1.0); TOTAL PROTEIN 6.3 g/dL (6.4-8.2)
--- NOTE | 2021-03-03 06:53 | RAD ---
XR CHEST 1V Clinical History: Reason: vent patient with sub q emphysema 113 / Spl. Instructions: / History: Technique: AP view of the chest was obtained at 03/03/2021 6:42 AM. Comparison March 02, 2021 Findings: The endotracheal tube is again seen with its tip at level of clavicles. The enteric tube and right PI CC are again seen unchanged. Right chest tubes again seen unchanged. The heart is top normal limits in size. There is patchy opacity throughout the lungs. The pulmonary v essels are not well seen. Impression: Marked bilateral infiltrates likely atypical pneumonia. This appears mildly worse. Electronically signed by: Sylvester Brewer III, MD (03/03/2021 6:51 AM) [facility]
[2021-03-03 07:23] LABS: BASO % 0 % (0-3); EOS # 0.1 x10^3/uL (0.0-0.7); EOS % 1 % (0-3); HEMATOCRIT 32.5 % (36.0-47.0); HEMOGLOBIN 10.3 g/dL (12.0-15.5); LYMPH # 1.4 x10^3/uL (1.0-4.8); LYMPH % 10 % (24-48); MEAN CORPUSCULAR HEMOGLOBIN 25 pg (25-35); MEAN CORPUSCULAR HGB CONC 32 g/dL (31-37); MEAN CORPUSCULAR VOLUME 80 fL (79-100); MONO # 0.9 x10^3/uL (0.0-1.1); MONO % 7 % (0-9); NEUT # 11.7 x10^3/uL (1.8-7.7); NEUT % 83 % (31-73); PLATELET COUNT 295 x10^3/uL (140-400); RED BLOOD COUNT 4.05 x10^6/uL (3.50-5.40); WHITE BLOOD COUNT 14.1 x10^3/uL (4.0-11.0)
--- NOTE | 2021-03-03 07:33 | PDOC ---
Infectious Disease Note Subjective: Subjective Intubated/sedated FiO2 100%, PEEP of 13 Vital Signs: Vital Signs Vital Signs Date Time Temp Pulse Resp B/P (MAP) Pulse Ox O2 Delivery O2 Flow Rate FiO2 03/03/21 06:00 68 26 122/57 (78) 82 Ventilator 03/03/21 04:00 99.2 99.2 03/02/21 22:40 92.0 Physical Exam: PHYSICAL EXAM GENERAL: sedated on vent HEENT: Both pupils are round and reacting. ETT OGT tube in place NECK: Supple. No JVP. No lymphadenopathy. LUNGS: decrease bs, right chest tube in place HEART: S1, S2 regular. ABDOMEN: Soft, nontender. Bowel sounds present EXTREMITIES: Trace edema ,no cyanosis. SKIN: No generalized rash NEUROLOGIC: sedated on vent PICC line clean Medications: Inpatient Meds: Medications reviewed. Labs: Lab Laboratory Tests Test 03/02/21 07:50 03/02/21 13:42 03/02/21 18:25 03/03/21 00:36 O2 Saturation 83 % (92-99) Arterial Blood pH 7.36 (7.35-7.45) Arterial Blood pCO2 at Patient Temp 64 mmHg (35-46) Arterial Blood pO2 at Patient Temp 52 mmHg (75-108) Arterial Blood HCO3 35 mmol/L (21-28) Arterial Blood Base Excess 7 mmol/L (-3-3) FiO2 100 Glucose (Fingerstick) 214 mg/dL (70-99) 247 mg/dL (70-99) 164 mg/dL (70-99) Test 03/03/21 00:38 03/03/21 05:30 03/03/21 05:41 Vancomycin Level Trough 7.6 mcg/mL (10.0-20.0) Vancomycin Last Dose Date Vancomycin Last Dose Time Sodium Level 139 mmol/L (136-145) Potassium Level 4.7 mmol/L (3.5-5.1) Chloride Level 101 mmol/L (98-107) Carbon Dioxide Level 33 mmol/L (21-32) Anion Gap 5 (6-14) Blood Urea Nitrogen 34 mg/dL (7-20) Creatinine 0.5 mg/dL (0.6-1.0) Estimated GFR (Cockcroft-Gault) 134.7 BUN/Creatinine Ratio 68 (6-20) Glucose Level 161 mg/dL (70-99) Calcium Level 8.6 mg/dL (8.5-10.1) Total Bilirubin 0.5 mg/dL (0.2-1.0) Aspartate Amino Transf (AST/SGOT) 84 U/L (15-37) Alanine Aminotransferase (ALT/SGPT) 467 U/L (14-59) Alkaline Phosphatase 98 U/L (46-116) Total Protein 6.3 g/dL (6.4-8.2) Albumin 2.1 g/dL (3.4-5.0) Albumin/Globulin Ratio 0.5 (1.0-1.7) Glucose (Fingerstick) 154 mg/dL (70-99) Objective: Assessment: 1. COVID-19 positive. 2. Hypoxic respiratory failure. 3. Pneumonia, bilateral pulmonary infiltrate. 4. Morbid obesity. 5. History of asthma. 6. Obstructive sleep apnea. 7 Fever likely from COVID 8 Pneumothorax s/p chest tube in place 9. Blood culture positive for GPC could be contaminant Plan: Plan of Care cont supportive care cont steroids, meropenem and iv vanc monitor renal func closely, creatinine 0.5 Follow-up repeat blood cultures 03/03/2021 prognosis poor dw BYRON SNA MD Mar 03, 2021 07:33
[2021-03-03 08:36] LABS: BASE EXCESS ABG 4 mmol/L (-3-3); HCO3 ABG 31 mmol/L (21-28); PCO2 ABG 56 mmHg (35-46); SAT O2 ABG 78 % (92-99)
[2021-03-03 08:53] LABS: PO2 ABG 45 mmHg (75-108)
[2021-03-03 08:54] LABS: FIO2 ABG 100% VENT
--- NOTE | 2021-03-03 10:02 | PDOC ---
PULMONARY PROGRESS NOTES DATE: 03/03/21 TIME: 09:55 Subjective remains on vent support /500/100%/13 hypoxia Currently on 2-1 i.e. ratio S/P right chest tube on 02/27/21-- no leak on exam Vitals Vital Signs Date Time Temp Pulse Resp B/P (MAP) Pulse Ox O2 Delivery O2 Flow Rate FiO2 03/03/21 09:25 77 Ventilator 03/03/21 06:00 68 26 122/57 (78) 03/03/21 04:00 99.2 99.2 03/02/21 22:40 92.0 Comments intubated/sedated Lungs: Crackles Cardiovascular: S1, S2 Abdomen: Soft Extremities: Other (Edema) Skin: Warm Labs Laboratory Tests Test 03/01/21 13:32 03/01/21 16:37 03/01/21 23:52 03/02/21 05:10 Glucose (Fingerstick) 224 mg/dL (70-99) 219 mg/dL (70-99) 163 mg/dL (70-99) Procalcitonin 0.13 ng/mL (0.00-0.10) Test 03/02/21 05:37 03/02/21 07:50 03/02/21 13:42 03/02/21 18:25 Glucose (Fingerstick) 129 mg/dL (70-99) 214 mg/dL (70-99) 247 mg/dL (70-99) O2 Saturation 83 % (92-99) Arterial Blood pH 7.36 (7.35-7.45) Arterial Blood pCO2 at Patient Temp 64 mmHg (35-46) Arterial Blood pO2 at Patient Temp 52 mmHg (75-108) Arterial Blood HCO3 35 mmol/L (21-28) Arterial Blood Base Excess 7 mmol/L (-3-3) FiO2 100 Test 03/03/21 00:36 03/03/21 00:38 03/03/21 05:30 03/03/21 05:41 Glucose (Fingerstick) 164 mg/dL (70-99) 154 mg/dL (70-99) Vancomycin Level Trough 7.6 mcg/mL (10.0-20.0) Vancomycin Last Dose Date Vancomycin Last Dose Time White Blood Count 14.1 x10^3/uL (4.0-11.0) Red Blood Count 4.05 x10^6/uL (3.50-5.40) Hemoglobin 10.3 g/dL (12.0-15.5) Hematocrit 32.5 % (36.0-47.0) Mean Corpuscular Volume 80 fL (79-100) Mean Corpuscular Hemoglobin 25 pg (25-35) Mean Corpuscular Hemoglobin Concent 32 g/dL (31-37) Red Cell Distribution Width 15.0 % (11.5-14.5) Platelet Count 295 x10^3/uL (140-400) Neutrophils (%) (Auto) 83 % (31-73) Lymphocytes (%) (Auto) 10 % (24-48) Monocytes (%) (Auto) 7 % (0-9) Eosinophils (%) (Auto) 1 % (0-3) Basophils (%) (Auto) 0 % (0-3) Neutrophils # (Auto) 11.7 x10^3/uL (1.8-7.7) Lymphocytes # (Auto) 1.4 x10^3/uL (1.0-4.8) Monocytes # (Auto) 0.9 x10^3/uL (0.0-1.1) Eosinophils # (Auto) 0.1 x10^3/uL (0.0-0.7) Basophils # (Auto) 0.0 x10^3/uL (0.0-0.2) Sodium Level 139 mmol/L (136-145) Potassium Level 4.7 mmol/L (3.5-5.1) Chloride Level 101 mmol/L (98-107) Carbon Dioxide Level 33 mmol/L (21-32) Anion Gap 5 (6-14) Blood Urea Nitrogen 34 mg/dL (7-20) Creatinine 0.5 mg/dL (0.6-1.0) Estimated GFR (Cockcroft-Gault) 134.7 BUN/Creatinine Ratio 68 (6-20) Glucose Level 161 mg/dL (70-99) Calcium Level 8.6 mg/dL (8.5-10.1) Total Bilirubin 0.5 mg/dL (0.2-1.0) Aspartate Amino Transf (AST/SGOT) 84 U/L (15-37) Alanine Aminotransferase (ALT/SGPT) 467 U/L (14-59) Alkaline Phosphatase 98 U/L (46-116) Total Protein 6.3 g/dL (6.4-8.2) Albumin 2.1 g/dL (3.4-5.0) Albumin/Globulin Ratio 0.5 (1.0-1.7) Test 03/03/21 08:00 O2 Saturation 78 % (92-99) Arterial Blood pH 7.36 (7.35-7.45) Arterial Blood pCO2 at Patient Temp 56 mmHg (35-46) Arterial Blood pO2 at Patient Temp 45 mmHg (75-108) Arterial Blood HCO3 31 mmol/L (21-28) Arterial Blood Base Excess 4 mmol/L (-3-3) FiO2 100% vent Laboratory Tests Test 03/02/21 13:42 03/02/21 18:25 03/03/21 00:36 03/03/21 00:38 Glucose (Fingerstick) 214 mg/dL (70-99) 247 mg/dL (70-99) 164 mg/dL (70-99) Vancomycin Level Trough 7.6 mcg/mL (10.0-20.0) Vancomycin Last Dose Date Vancomycin Last Dose Time Test 03/03/21 05:30 03/03/21 05:41 03/03/21 08:00 White Blood Count 14.1 x10^3/uL (4.0-11.0) Red Blood Count 4.05 x10^6/uL (3.50-5.40) Hemoglobin 10.3 g/dL (12.0-15.5) Hematocrit 32.5 % (36.0-47.0) Mean Corpuscular Volume 80 fL (79-100) Mean Corpuscular Hemoglobin 25 pg (25-35) Mean Corpuscular Hemoglobin Concent 32 g/dL (31-37) Red Cell Distribution Width 15.0 % (11.5-14.5) Platelet Count 295 x10^3/uL (140-400) Neutrophils (%) (Auto) 83 % (31-73) Lymphocytes (%) (Auto) 10 % (24-48) Monocytes (%) (Auto) 7 % (0-9) Eosinophils (%) (Auto) 1 % (0-3) Basophils (%) (Auto) 0 % (0-3) Neutrophils # (Auto) 11.7 x10^3/uL (1.8-7.7) Lymphocytes # (Auto) 1.4 x10^3/uL (1.0-4.8) Monocytes # (Auto) 0.9 x10^3/uL (0.0-1.1) Eosinophils # (Auto) 0.1 x10^3/uL (0.0-0.7) Basophils # (Auto) 0.0 x10^3/uL (0.0-0.2) Sodium Level 139 mmol/L (136-145) Potassium Level 4.7 mmol/L (3.5-5.1) Chloride Level 101 mmol/L (98-107) Carbon Dioxide Level 33 mmol/L (21-32) Anion Gap 5 (6-14) Blood Urea Nitrogen 34 mg/dL (7-20) Creatinine 0.5 mg/dL (0.6-1.0) Estimated GFR (Cockcroft-Gault) 134.7 BUN/Creatinine Ratio 68 (6-20) Glucose Level 161 mg/dL (70-99) Calcium Level 8.6 mg/dL (8.5-10.1) Total Bilirubin 0.5 mg/dL (0.2-1.0) Aspartate Amino Transf (AST/SGOT) 84 U/L (15-37) Alanine Aminotransferase (ALT/SGPT) 467 U/L (14-59) Alkaline Phosphatase 98 U/L (46-116) Total Protein 6.3 g/dL (6.4-8.2) Albumin 2.1 g/dL (3.4-5.0) Albumin/Globulin Ratio 0.5 (1.0-1.7) Glucose (Fingerstick) 154 mg/dL (70-99) O2 Saturation 78 % (92-99) Arterial Blood pH 7.36 (7.35-7.45) Arterial Blood pCO2 at Patient Temp 56 mmHg (35-46) Arterial Blood pO2 at Patient Temp 45 mmHg (75-108) Arterial Blood HCO3 31 mmol/L (21-28) Arterial Blood Base Excess 4 mmol/L (-3-3) FiO2 100% vent Medications Active Scripts Medications Dose Route/Sig Max Daily Dose Days Date Category Meloxicam 15 Mg Tablet 1 Tab PO DAILY 30 02/18/21 Reported Comments cxr 03/03 diffuse infiltrates small right apical PTX CXR 03/02 IMPRESSION: 1. Stable bilateral perihilar and basilar opacities. 2. No pneumothorax is seen. 3. Stable small left greater than right pleural effusions. 4. Stable life devices. CXR 03/01 Impression: 1. Small left effusion and marked bilateral interstitial infiltrates likely atypical pneumonia. 2. The left effusion appears worse however the infiltrates appear unchanged. 3. Previously seen bilateral subcutaneous emphysema has resolved. Impression . 1. Acute hypoxic respiratory failure with acute lung injury/early acute respiratory distress syndrome secondary to COVID-19 pneumonia. 2. Morbid obesity, BMI of 65 3. No significant tobacco history. 4. History of asthma, under control. 5. Obstructive sleep apnea, on home CPAP. Unknown severity of obstructive sleep apnea and unknown CPAP pressure. 6. Abnormal CXR with bilateral patchy infiltrates c/w viral pneumonia., 7. Fever, 8. Subcutaneous emphysema improved 9. Right PTX , small 10. New fever/ susperimposed new sepsis/ bacteremia Plan . Updated 03/03 Continue current vent support currently on 100% and PEEP 13 I increased PEEP today, her plateau pressure increased further to 41. reduced PEEP back to 13 Follow ABG/CXR-reviewed very poor prognosis despite two weeks of aggressive care continue right chest tube to suction-20-- no air leak Continue Antibiotics and fever per ID Pt. has Completed course of remdesivir Continue steroids with slow taper Nutritional support Poor prognosis DVT/GI PPX D/W RN and RT d/w in detail. He agrees for chemical code only if she codes Total cumulative 30 minutes, reviewing the current documentation, data, labs, chest x-ray, discussion with RN and RT, formulating a plan. Updated 03/02 Continue current vent support currently on 100% and PEEP 13 Follow ABG/CXR- continue right chest tube to suction-20-- no air leak Continue Antibiotics and fever per ID Pt. has Completed course of remdesivir Continue steroids with slow taper Nutritional support Poor prognosis DVT/GI PPX D/W RN and RT D/W at bedside Total cumulative 30 minutes, reviewing the current documentation, data, labs, chest x-ray, discussion with RN and RT, formulating a plan. Updated 03/01 Continue current vent support currently on 100% and PEEP 13, ongoing hypoxia despite vent support Follow ABG/CXR- lasix X1 today continue right chest tube to suction-20-- no air leak Proning 16 hours daily Continue Antibiotics and fever per ID Pt. has Completed course of remdesivir Continue steroids with slow taper Nutritional support Poor prognosis DVT/GI PPX D/W RN and RT Total cumulative 30 minutes, reviewing the current documentation, data, labs, chest x-ray, discussion with RN and RT, formulating a plan. KEVIN PENNY MD Mar 03, 2021 10:02
--- NOTE | 2021-03-03 10:18 | NUR ---
SS following up with discharge planning. SS reviewed pt chart and discussed with pt RN. Pt is currently on the vent at 100%. COVID19 positive. Chest tube in place. Full Code. Pt on IV Vancomycin and IV Meropenem. Pt on Fentanyl, Versed, and Vec. Not stable. SS will continue to follow for discharge planning.
[2021-03-03] MEDS: DEXAMETHASONE SOD PHOS 4 MG/ML VIAL IVP SCH (10:40)
[2021-03-03] MEDS: NYSTATIN TOPICAL POWDER 15GM BOTTLE. TP SCH ×2 (10:41→20:38)
[2021-03-03] MEDS: FAMOTIDINE 20 MG/2 ML VIAL IVP SCH ×2 (10:41→20:38)
[2021-03-03] MEDS: fentaNYL HIGH DOSE PCA 55 ML IV PRN ×2 (11:19→22:35)
--- NOTE | 2021-03-03 11:19 | PN ---
DATE: 03/03/2021 SUBJECTIVE: The patient is resting, slightly propped up in bed, continued to be paralyzed, sedated, intubated and mechanically ventilated. Unfortunately, she desaturates with any movement. PHYSICAL EXAMINATION: GENERAL: When I saw her this morning, she looked pale, no jaundice, cyanosis or thyromegaly. No jugular venous distension. No limb edema. VITAL SIGNS: Her heart rate was 68, blood pressure was 122/57, temperature was 99.2, respiratory rate was 26 and oxygen saturation was only 82% on FiO2 of 100%. HEAD, EYES, EARS, NOSE AND THROAT: Showed normocephalic, atraumatic. NECK: Supple. HEART: Normal first and second heart sounds. No gallop, rub or murmur. CHEST: Clear to auscultation. No crepitation or rhonchi. ABDOMEN: Distended, soft, nontender. NEUROLOGIC: She is heavily sedated. Her intake was 200, output was 2400. LABORATORY DATA: Her most recent white cell count was 16,600, hemoglobin 11.5, hematocrit 36, MCV was 80 and platelet count 292,000. Her chemistry as of this morning showed serum sodium 139, potassium 4.7, chloride 101, bicarbonate 33, anion gap of 5, BUN 34, creatinine 0.5, estimated GFR was 134, glucose 161, calcium was 8.6. Total bilirubin and alkaline phosphatase are normal. AST, ALT slightly elevated. Total protein 6.3, albumin was 2.1. ASSESSMENT: 1. Acute hypoxic respiratory failure, multifactorial including: A. COVID-19 pneumonia. B. Acute lung injury with acute respiratory distress syndrome. C. Community-acquired pneumonia. D. Small right side pleural effusion . E. Left side pleural effusion. F. Pneumothorax, status post chest tube placement with expansion of the right lung. 2. Bronchial asthma. 3. Morbid obesity. 4. Obstructive sleep apnea. 5. Hyperkalemia, resolved with potassium is down to 4.7. 6. The patient did spike a temperature up to 101.6, pancultured and she grew Gram-positive cocci in clusters. PLAN: Obviously to continue with mechanical ventilation and wean as tolerated. Continue with nutritional support. Continue with IV antibiotic. Continue with DVT and GI prophylaxis. Continue to monitor her blood sugar and adjust insulin as needed. ELIZABETH FERNANDEZ MD DR: Cece JOB#: [id number] / [id number]
--- NOTE | 2021-03-03 14:45 | NUR ---
Wound Care Attempted to see pt for wound care consult re: a R abdominal fold wound. Pt's family at bedside in active prayer/islam over pt, will f/u tomorrow to evaluate.
[2021-03-03] MEDS: INSULIN GLARGINE SYRINGE. SQ SCH (20:37)
[2021-03-04] VITALS (24 sets, daily range): BP systolic 103–172; BP diastolic 50–96
[2021-03-04] MEDS: INSULIN LISPRO 300 UNITS/3 ML VIAL. SQ SCH ×5 (00:33→23:49)
[2021-03-04] MEDS: VANCOMYCIN 1.5 GM in IV NORMAL SALINE 500ML BAG 500 ML IV SCH (00:35)
[2021-03-04] MEDS: VECURONIUM BROMIDE 50 MG in TOTAL VOLUME 50 ML IV PRN ×5 (01:43→20:56)
[2021-03-04] MEDS: PROPOFOL 100 ML IV PRN ×8 (02:26→23:27)
[2021-03-04] MEDS: MIDAZOLAM 100mg/100ml NS BAG 100 ML IV PRN ×2 (05:20→14:58)
[2021-03-04] MEDS: MEROPENEM 1 GM in IV NORMAL SALINE 100ML 100 ML IV SCH ×3 (05:21→22:06)
--- NOTE | 2021-03-04 07:25 | PDOC ---
Infectious Disease Note Subjective: Subjective Intubated/sedated T-max 100*F FiO2 100%, PEEP of 14 Vital Signs: Vital Signs Vital Signs Date Time Temp Pulse Resp B/P (MAP) Pulse Ox O2 Delivery O2 Flow Rate FiO2 03/04/21 06:00 73 26 107/60 (76) 75 Ventilator 03/04/21 04:00 99.0 99.0 03/03/21 23:05 92.0 Physical Exam: PHYSICAL EXAM GENERAL: sedated on vent HEENT: Both pupils are round and reacting. ETT OGT tube in place NECK: Supple. No JVP. No lymphadenopathy. LUNGS: decrease bs, right chest tube in place HEART: S1, S2 regular. ABDOMEN: Soft, nontender. Bowel sounds present EXTREMITIES: Trace edema ,no cyanosis. SKIN: No generalized rash NEUROLOGIC: sedated on vent PICC line clean Medications: Inpatient Meds: Medications reviewed. Labs: Lab Laboratory Tests Test 03/03/21 08:00 03/03/21 15:30 03/03/21 18:42 03/03/21 23:35 O2 Saturation 78 % (92-99) Arterial Blood pH 7.36 (7.35-7.45) Arterial Blood pCO2 at Patient Temp 56 mmHg (35-46) Arterial Blood pO2 at Patient Temp 45 mmHg (75-108) Arterial Blood HCO3 31 mmol/L (21-28) Arterial Blood Base Excess 4 mmol/L (-3-3) FiO2 100% vent Glucose (Fingerstick) 206 mg/dL (70-99) 212 mg/dL (70-99) 194 mg/dL (70-99) Test 03/04/21 05:46 Glucose (Fingerstick) 132 mg/dL (70-99) Objective: Assessment: 1. COVID-19 positive. 2. Hypoxic respiratory failure. 3. Pneumonia, bilateral pulmonary infiltrate. 4. Morbid obesity. 5. History of asthma. 6. Obstructive sleep apnea. 7 Fever likely from COVID 8 Pneumothorax s/p chest tube in place 9. Blood culture positive coagulase negative staph likely contaminant Plan: Plan of Care cont supportive care cont steroids, meropenem DC IV Vanco Start Zyvox Follow-up repeat blood cultures 03/03/2021 prognosis poor dw BYRON SAN MD Mar 04, 2021 07:25
[2021-03-04 08:14] LABS: BASE EXCESS ABG 6 mmol/L (-3-3); HCO3 ABG 34 mmol/L (21-28); SAT O2 ABG 72 % (92-99)
[2021-03-04 08:22] LABS: PCO2 ABG 63 mmHg (35-46)
[2021-03-04 08:23] LABS: FIO2 ABG 100; PO2 ABG 41 mmHg (75-108)
[2021-03-04] MEDS: FAMOTIDINE 20 MG/2 ML VIAL IVP SCH ×2 (08:48→20:43)
[2021-03-04] MEDS: DEXAMETHASONE SOD PHOS 4 MG/ML VIAL IVP SCH (08:48)
[2021-03-04] MEDS: LINEZOLID 600 MG TABLET PO SCH ×2 (08:48→20:44)
[2021-03-04] MEDS: NYSTATIN TOPICAL POWDER 15GM BOTTLE. TP SCH ×2 (09:00→20:47)
--- NOTE | 2021-03-04 10:04 | RAD ---
XR CHEST 1V History: Reason: Shortness of breath Comparison: March 03, 2021 Findings: Increased diffuse interstitial and alveolar opacities. Stable right thoracostomy tube. Increased smal l right apical pneumothorax. Enlarged cardiac size, unchanged. Stable endotracheal tube, right PICC a nd enteric tube. Small left pleural effusion, unchanged. Impression: 1. Increased small right apical pneumothorax. Stable right thoracostomy tube. 2. Increased diffuse interstitial and alveolar opacities. FOR INTERNAL CODING PURPOSES Critical result: Findings discussed with patient's nurse Mary Grace at 03/04/2021 10:00 AM. RESULT CODE: (C) Electronically signed by: Ranjith Fuentes DO (03/04/2021 10:02 AM) [id number]
--- NOTE | 2021-03-04 10:13 | PDOC ---
PULMONARY PROGRESS NOTES DATE: 03/04/21 TIME: 10:06 Subjective remains on vent support 26/500/100%/14 hypoxia persist Currently on 2-1 i.e. ratio S/P right chest tube on 02/27/21-- no leak on exam small stable right PTX Vitals Vital Signs Date Time Temp Pulse Resp B/P (MAP) Pulse Ox O2 Delivery O2 Flow Rate FiO2 03/04/21 08:37 75 Ventilator 03/04/21 06:00 73 26 107/60 (76) 03/04/21 04:00 99.0 99.0 03/03/21 23:05 92.0 Comments intubated/sedated/ paralyzed Lungs: Crackles Cardiovascular: S1, S2 Abdomen: Soft Extremities: Other (Edema) Skin: Warm Labs Laboratory Tests Test 03/02/21 13:42 03/02/21 18:25 03/03/21 00:36 03/03/21 00:38 Glucose (Fingerstick) 214 mg/dL (70-99) 247 mg/dL (70-99) 164 mg/dL (70-99) Vancomycin Level Trough 7.6 mcg/mL (10.0-20.0) Vancomycin Last Dose Date Vancomycin Last Dose Time Test 03/03/21 05:30 03/03/21 05:41 03/03/21 08:00 03/03/21 15:30 White Blood Count 14.1 x10^3/uL (4.0-11.0) Red Blood Count 4.05 x10^6/uL (3.50-5.40) Hemoglobin 10.3 g/dL (12.0-15.5) Hematocrit 32.5 % (36.0-47.0) Mean Corpuscular Volume 80 fL (79-100) Mean Corpuscular Hemoglobin 25 pg (25-35) Mean Corpuscular Hemoglobin Concent 32 g/dL (31-37) Red Cell Distribution Width 15.0 % (11.5-14.5) Platelet Count 295 x10^3/uL (140-400) Neutrophils (%) (Auto) 83 % (31-73) Lymphocytes (%) (Auto) 10 % (24-48) Monocytes (%) (Auto) 7 % (0-9) Eosinophils (%) (Auto) 1 % (0-3) Basophils (%) (Auto) 0 % (0-3) Neutrophils # (Auto) 11.7 x10^3/uL (1.8-7.7) Lymphocytes # (Auto) 1.4 x10^3/uL (1.0-4.8) Monocytes # (Auto) 0.9 x10^3/uL (0.0-1.1) Eosinophils # (Auto) 0.1 x10^3/uL (0.0-0.7) Basophils # (Auto) 0.0 x10^3/uL (0.0-0.2) Sodium Level 139 mmol/L (136-145) Potassium Level 4.7 mmol/L (3.5-5.1) Chloride Level 101 mmol/L (98-107) Carbon Dioxide Level 33 mmol/L (21-32) Anion Gap 5 (6-14) Blood Urea Nitrogen 34 mg/dL (7-20) Creatinine 0.5 mg/dL (0.6-1.0) Estimated GFR (Cockcroft-Gault) 134.7 BUN/Creatinine Ratio 68 (6-20) Glucose Level 161 mg/dL (70-99) Calcium Level 8.6 mg/dL (8.5-10.1) Total Bilirubin 0.5 mg/dL (0.2-1.0) Aspartate Amino Transf (AST/SGOT) 84 U/L (15-37) Alanine Aminotransferase (ALT/SGPT) 467 U/L (14-59) Alkaline Phosphatase 98 U/L (46-116) Total Protein 6.3 g/dL (6.4-8.2) Albumin 2.1 g/dL (3.4-5.0) Albumin/Globulin Ratio 0.5 (1.0-1.7) Glucose (Fingerstick) 154 mg/dL (70-99) 206 mg/dL (70-99) O2 Saturation 78 % (92-99) Arterial Blood pH 7.36 (7.35-7.45) Arterial Blood pCO2 at Patient Temp 56 mmHg (35-46) Arterial Blood pO2 at Patient Temp 45 mmHg (75-108) Arterial Blood HCO3 31 mmol/L (21-28) Arterial Blood Base Excess 4 mmol/L (-3-3) FiO2 100% vent Test 03/03/21 18:42 03/03/21 23:35 03/04/21 05:46 03/04/21 08:12 Glucose (Fingerstick) 212 mg/dL (70-99) 194 mg/dL (70-99) 132 mg/dL (70-99) O2 Saturation 72 % (92-99) Arterial Blood pH 7.35 (7.35-7.45) Arterial Blood pCO2 at Patient Temp 63 mmHg (35-46) Arterial Blood pO2 at Patient Temp 41 mmHg (75-108) Arterial Blood HCO3 34 mmol/L (21-28) Arterial Blood Base Excess 6 mmol/L (-3-3) FiO2 100 Laboratory Tests Test 03/03/21 15:30 03/03/21 18:42 03/03/21 23:35 03/04/21 05:46 Glucose (Fingerstick) 206 mg/dL (70-99) 212 mg/dL (70-99) 194 mg/dL (70-99) 132 mg/dL (70-99) Test 03/04/21 08:12 O2 Saturation 72 % (92-99) Arterial Blood pH 7.35 (7.35-7.45) Arterial Blood pCO2 at Patient Temp 63 mmHg (35-46) Arterial Blood pO2 at Patient Temp 41 mmHg (75-108) Arterial Blood HCO3 34 mmol/L (21-28) Arterial Blood Base Excess 6 mmol/L (-3-3) FiO2 100 Medications Active Scripts Medications Dose Route/Sig Max Daily Dose Days Date Category Meloxicam 15 Mg Tablet 1 Tab PO DAILY 30 02/18/21 Reported Comments 03/04 worsening bilateral infiltrates no change in small right apical PTX cxr 03/03 diffuse infiltrates small right apical PTX CXR 03/02 IMPRESSION: 1. Stable bilateral perihilar and basilar opacities. 2. No pneumothorax is seen. 3. Stable small left greater than right pleural effusions. 4. Stable life devices. CXR 03/01 Impression: 1. Small left effusion and marked bilateral interstitial infiltrates likely atypical pneumonia. 2. The left effusion appears worse however the infiltrates appear unchanged. 3. Previously seen bilateral subcutaneous emphysema has resolved. Impression . 1. Acute hypoxic respiratory failure with acute lung injury/ acute respiratory distress syndrome secondary to COVID-19 pneumonia and now new sepsis and suspected VAP. Hypoxia is refractory 2. Morbid obesity, BMI of 65 3. No significant tobacco history. 4. History of asthma, under control. 5. Obstructive sleep apnea, on home CPAP. Unknown severity of obstructive sleep apnea and unknown CPAP pressure. 6. Abnormal CXR with bilateral patchy infiltrates c/w viral pneumonia., worse 03/04 7. Fever, new sepsis/ suspected VAP 8. Subcutaneous emphysema improved 9. Right PTX , small and unchanged 10. New fever/ susperimposed new sepsis/ bacteremia Plan . Updated 03/04 remains critically ill with refractory hypoxia Continue current vent support currently on 100% and PEEP 14 I increased PEEP today to 15, her plateau pressure increased further to 45 with increase in driving pressure. She has reached upper inflection point and alveoli can no longer be recruited by increase in PEEP.. reduced PEEP back to 14 Follow ABG/CXR-reviewed, worsening infiltrates, suspected VAP, will try lasix very poor prognosis despite two weeks of aggressive care continue right chest tube to suction-20-- no air leak , no increase in PTX Continue Antibiotics and fever per ID Pt. has Completed course of remdesivir Continue steroids with slow taper Nutritional support Poor prognosis DVT/GI PPX D/W RN and RT d/w in detail. He agrees for chemical code only if she codes. Pt not likely to survive Total cumulative 35 minutes, reviewing the current documentation, data, labs, chest x-ray, discussion with RN and RT, formulating a plan. Updated 03/03 Continue current vent support currently on 100% and PEEP 13 I increased PEEP today, her plateau pressure increased further to 41. reduced PEEP back to 13 Follow ABG/CXR-reviewed very poor prognosis despite two weeks of aggressive care continue right chest tube to suction-20-- no air leak Continue Antibiotics and fever per ID Pt. has Completed course of remdesivir Continue steroids with slow taper Nutritional support Poor prognosis DVT/GI PPX D/W RN and RT d/w in detail. He agrees for chemical code only if she codes Total cumulative 30 minutes, reviewing the current documentation, data, labs, chest x-ray, discussion with RN and RT, formulating a plan. Updated 03/02 Continue current vent support currently on 100% and PEEP 13 Follow ABG/CXR- continue right chest tube to suction-20-- no air leak Continue Antibiotics and fever per ID Pt. has Completed course of remdesivir Continue steroids with slow taper Nutritional support Poor prognosis DVT/GI PPX D/W RN and RT D/W at bedside Total cumulative 30 minutes, reviewing the current documentation, data, labs, chest x-ray, discussion with RN and RT, formulating a plan. Updated 03/01 Continue current vent support currently on 100% and PEEP 13, ongoing hypoxia despite vent support Follow ABG/CXR- lasix X1 today continue right chest tube to suction-20-- no air leak Proning 16 hours daily Continue Antibiotics and fever per ID Pt. has Completed course of remdesivir Continue steroids with slow taper Nutritional support Poor prognosis DVT/GI PPX D/W RN and RT Total cumulative 30 minutes, reviewing the current documentation, data, labs, chest x-ray, discussion with RN and RT, formulating a plan. KEVIN PENNY MD Mar 04, 2021 10:13
[2021-03-04] MEDS ORDERED: FUROSEMIDE 40 MG/4 ML VIAL. IVP ONE (10:15)
[2021-03-04] MEDS: fentaNYL HIGH DOSE PCA 55 ML IV PRN (10:58)
--- NOTE | 2021-03-04 11:12 | PN ---
DATE: 03/04/2021 SUBJECTIVE: The patient continues to do poorly. She is now on oxygen saturation only 75% on FiO2 of 100%, apparently, her code status was changed to only chemical code according to nursing staff. OBJECTIVE: GENERAL: On examining her, she was pale, but no jaundice, cyanosis or thyromegaly. No jugular venous distention. No lower limb edema. VITAL SIGNS: Her heart rate was 73, blood pressure was 107/60, temperature was 99, respiratory rate was 26 and oxygen saturation was 75% on FiO2 of 100%. HEAD, EYES, EARS, NOSE AND THROAT Showed normocephalic, atraumatic. She has orotracheal and orogastric tube. NECK: Supple. HEART: Normal first and second heart sounds. No gallop or murmur. CHEST: Shows central trachea, equal bilateral expansion, air entry. I could not appreciate any crepitation or rhonchi anteriorly. ABDOMEN: Distended, soft, nontender. NEUROLOGIC: She is heavily sedated. She is paralyzed. Her intake was 4700, output was 2100. LABORATORY DATA: As of yesterday, her serum sodium was 139, potassium 4.7, chloride 101, bicarbonate 33, anion gap of 5, BUN 34, creatinine 0.5, estimated GFR was 134 mL per minute. Her glucose 161, calcium was 8.6. Total bilirubin and alkaline phosphatase is normal. AST and ALT are elevated, although they are trending down. Her total protein 6.3, albumin 2.1. White cell count was 14,000, hemoglobin 10, hematocrit 32, MCV 80 and platelet count 295,000. Her blood gases are still pending at the time of this dictation. ASSESSMENT: 1. Acute hypoxic respiratory failure with acute lung injury and early acute respiratory distress syndrome secondary to COVID-19 pneumonia. 2. Bronchial asthma. 3. Obstructive sleep apnea, on home CPAP. 4. Right side pneumothorax, status post chest tube placement. 5. Subcutaneous emphysema, resolved. 6. Superimposed bacteremia, pneumonia. PLAN: Obviously to continue with mechanical ventilation. She is on FiO2 of 100% and PEEP of 13 and maintaining oxygen saturation only at 75%. Continue with chest tube management. Continue with antibiotic. Continue with steroids. She has completed her remdesivir. Continued nutritional support. Continue with DVT and GI prophylaxis. Her prognosis overall is very poor. ELIZABETH FERNANDEZ MD DR: Cece JOB#: [id number] / [id number]
--- NOTE | 2021-03-04 12:28 | NUR ---
Hscarine and sister at bedside, aware of low O2 sats and stutus of poor prognosis. Praying. Sats running 70-75 consistent. VS stable otherwise.
--- NOTE | 2021-03-04 16:08 | NUR ---
SS following up with discharge planning. SS reviewed pt chart and discussed with pt RN. Pt is currently on the vent at 100%. COVID19 positive. Chest tube in place. Full Code. Pt on IV Meropenem. Pt on Fentanyl, Versed, Vec, and Propofol. Not stable. SS will continue to follow for discharge planning.
[2021-03-04] MEDS: INSULIN GLARGINE SYRINGE. SQ SCH (20:45)
[2021-03-05] VITALS (24 sets, daily range): BP systolic 104–169; BP diastolic 51–95
[2021-03-05] MEDS: fentaNYL HIGH DOSE PCA 55 ML IV PRN ×2 (00:13→13:07)
[2021-03-05] MEDS: VECURONIUM BROMIDE 50 MG in TOTAL VOLUME 50 ML IV PRN ×5 (01:48→21:58)
[2021-03-05] MEDS: MIDAZOLAM 100mg/100ml NS BAG 100 ML IV PRN ×3 (01:49→21:58)
[2021-03-05] MEDS: PROPOFOL 100 ML IV PRN ×7 (02:54→23:25)
[2021-03-05] MEDS: INSULIN LISPRO 300 UNITS/3 ML VIAL. SQ SCH ×4 (05:58→23:48)
[2021-03-05] MEDS: MEROPENEM 1 GM in IV NORMAL SALINE 100ML 100 ML IV SCH ×3 (05:58→21:47)
--- NOTE | 2021-03-05 07:38 | PDOC ---
Infectious Disease Note Subjective: Subjective Intubated/sedated Afebrile last 24 hours FiO2 100% PEEP of 14 No acute issues per discussion with RN Vital Signs: Vital Signs Vital Signs Date Time Temp Pulse Resp B/P (MAP) Pulse Ox O2 Delivery O2 Flow Rate FiO2 03/05/21 06:00 63 26 107/60 (76) 84 Ventilator 03/05/21 04:00 98.9 98.9 03/04/21 16:00 92.0 Physical Exam: PHYSICAL EXAM GENERAL: sedated on vent HEENT: Both pupils are round and reacting. ETT OGT tube in place NECK: Supple. No JVP. No lymphadenopathy. LUNGS: decrease bs, right chest tube in place HEART: S1, S2 regular. ABDOMEN: Soft, nontender. Bowel sounds present EXTREMITIES: Trace edema ,no cyanosis. SKIN: No generalized rash NEUROLOGIC: sedated on vent PICC line clean Medications: Inpatient Meds: Medications reviewed. Labs: Lab Laboratory Tests Test 03/04/21 08:12 03/04/21 12:04 03/04/21 17:27 03/04/21 23:37 O2 Saturation 72 % (92-99) Arterial Blood pH 7.35 (7.35-7.45) Arterial Blood pCO2 at Patient Temp 63 mmHg (35-46) Arterial Blood pO2 at Patient Temp 41 mmHg (75-108) Arterial Blood HCO3 34 mmol/L (21-28) Arterial Blood Base Excess 6 mmol/L (-3-3) FiO2 100 Glucose (Fingerstick) 130 mg/dL (70-99) 178 mg/dL (70-99) 122 mg/dL (70-99) Test 03/05/21 05:55 Glucose (Fingerstick) 105 mg/dL (70-99) Objective: Assessment: 1. COVID-19 positive. 2. Hypoxic respiratory failure. 3. Pneumonia, bilateral pulmonary infiltrate/ ARDS 4. Morbid obesity. 5. History of asthma. 6. Obstructive sleep apnea. 7 Fever likely from COVID resolved 8 Pneumothorax s/p chest tube in place 9. Blood culture positive coagulase negative staph likely contaminant Plan: Plan of Care cont supportive care cont steroids, meropenem/ Zyvox Follow-up repeat blood cultures 03/03/2021 prognosis poor dw BYRON SAN MD Mar 05, 2021 07:38
[2021-03-05] MEDS: FAMOTIDINE 20 MG/2 ML VIAL IVP SCH ×2 (08:28→20:14)
[2021-03-05] MEDS: DEXAMETHASONE SOD PHOS 4 MG/ML VIAL IVP SCH (08:28)
[2021-03-05] MEDS: LINEZOLID 600 MG TABLET PO SCH ×2 (08:30→20:14)
[2021-03-05 08:31] LABS: BASE EXCESS ABG 5 mmol/L (-3-3); HCO3 ABG 32 mmol/L (21-28); SAT O2 ABG 74 % (92-99)
[2021-03-05] MEDS: NYSTATIN TOPICAL POWDER 15GM BOTTLE. TP SCH ×2 (08:32→20:16)
[2021-03-05 08:40] LABS: PCO2 ABG 64 mmHg (35-46)
[2021-03-05 08:41] LABS: PO2 ABG 44 mmHg (75-108)
--- NOTE | 2021-03-05 08:43 | PDOC ---
PULMONARY PROGRESS NOTES DATE: 03/05/21 TIME: 08:42 Subjective Patient sedated, chest tube in place, no air leak Remains on vent support 26/500/100%/14 hypoxia persist Currently on 2-1 i.e. ratio Vitals Vital Signs Date Time Temp Pulse Resp B/P (MAP) Pulse Ox O2 Delivery O2 Flow Rate FiO2 03/05/21 08:12 77 Ventilator 03/05/21 06:00 63 26 107/60 (76) 03/05/21 04:00 98.9 98.9 03/04/21 16:00 92.0 Comments intubated/sedated/ paralyzed Lungs: Crackles Cardiovascular: S1, S2 Abdomen: Soft Extremities: Other (Edema) Skin: Warm Labs Laboratory Tests Test 03/03/21 15:30 03/03/21 18:42 03/03/21 23:35 03/04/21 05:46 Glucose (Fingerstick) 206 mg/dL (70-99) 212 mg/dL (70-99) 194 mg/dL (70-99) 132 mg/dL (70-99) Test 03/04/21 08:12 03/04/21 12:04 03/04/21 17:27 03/04/21 23:37 O2 Saturation 72 % (92-99) Arterial Blood pH 7.35 (7.35-7.45) Arterial Blood pCO2 at Patient Temp 63 mmHg (35-46) Arterial Blood pO2 at Patient Temp 41 mmHg (75-108) Arterial Blood HCO3 34 mmol/L (21-28) Arterial Blood Base Excess 6 mmol/L (-3-3) FiO2 100 Glucose (Fingerstick) 130 mg/dL (70-99) 178 mg/dL (70-99) 122 mg/dL (70-99) Test 03/05/21 05:55 03/05/21 08:00 Glucose (Fingerstick) 105 mg/dL (70-99) O2 Saturation 74 % (92-99) Arterial Blood pH 7.32 (7.35-7.45) Arterial Blood pCO2 at Patient Temp 64 mmHg (35-46) Arterial Blood pO2 at Patient Temp 44 mmHg (75-108) Arterial Blood HCO3 32 mmol/L (21-28) Arterial Blood Base Excess 5 mmol/L (-3-3) FiO2 100/vent Laboratory Tests Test 03/04/21 12:04 03/04/21 17:27 03/04/21 23:37 03/05/21 05:55 Glucose (Fingerstick) 130 mg/dL (70-99) 178 mg/dL (70-99) 122 mg/dL (70-99) 105 mg/dL (70-99) Test 03/05/21 08:00 O2 Saturation 74 % (92-99) Arterial Blood pH 7.32 (7.35-7.45) Arterial Blood pCO2 at Patient Temp 64 mmHg (35-46) Arterial Blood pO2 at Patient Temp 44 mmHg (75-108) Arterial Blood HCO3 32 mmol/L (21-28) Arterial Blood Base Excess 5 mmol/L (-3-3) FiO2 100/vent Medications Active Scripts Medications Dose Route/Sig Max Daily Dose Days Date Category Meloxicam 15 Mg Tablet 1 Tab PO DAILY 30 02/18/21 Reported Comments 03/04 worsening bilateral infiltrates no change in small right apical PTX cxr 03/03 diffuse infiltrates small right apical PTX CXR 03/02 IMPRESSION: 1. Stable bilateral perihilar and basilar opacities. 2. No pneumothorax is seen. 3. Stable small left greater than right pleural effusions. 4. Stable life devices. CXR 03/01 Impression: 1. Small left effusion and marked bilateral interstitial infiltrates likely atypical pneumonia. 2. The left effusion appears worse however the infiltrates appear unchanged. 3. Previously seen bilateral subcutaneous emphysema has resolved. Impression . 1. Acute hypoxic respiratory failure with acute lung injury/ acute respiratory distress syndrome secondary to COVID-19 pneumonia and now new sepsis and suspected VAP. Hypoxia is refractory 2. Morbid obesity, BMI of 65 3. No significant tobacco history. 4. History of asthma, under control. 5. Obstructive sleep apnea, on home CPAP. Unknown severity of obstructive sleep apnea and unknown CPAP pressure. 6. Abnormal CXR with bilateral patchy infiltrates c/w viral pneumonia., worse 03/04 7. Fever, new sepsis/ suspected VAP 8. Subcutaneous emphysema improved 9. Right PTX , small and unchanged 10. New fever/ susperimposed new sepsis/ bacteremia Plan . Updated 03/05 Continue current support currently on 14 of PEEP 100% FiO2 We will continue nutritional support Chest tube in place no air leak seen Antibiotics per ID Patient finished a course of remdesivir and steroids As needed Lasix Total cumulative critical care time of 30 minutes, reviewing the current documentation, labs, chest x-ray, going over the findings with the at the bedside, formulating a plan. Updated 03/04 remains critically ill with refractory hypoxia Continue current vent support currently on 100% and PEEP 14 I increased PEEP today to 15, her plateau pressure increased further to 45 with increase in driving pressure. She has reached upper inflection point and alveoli can no longer be recruited by increase in PEEP.. reduced PEEP back to 14 Follow ABG/CXR-reviewed, worsening infiltrates, suspected VAP, will try lasix very poor prognosis despite two weeks of aggressive care continue right chest tube to suction-20-- no air leak , no increase in PTX Continue Antibiotics and fever per ID Pt. has Completed course of remdesivir Continue steroids with slow taper Nutritional support Poor prognosis DVT/GI PPX D/W RN and RT d/w in detail. He agrees for chemical code only if she codes. Pt not likely to survive Total cumulative 35 minutes, reviewing the current documentation, data, labs, chest x-ray, discussion with RN and RT, formulating a plan. Updated 03/03 Continue current vent support currently on 100% and PEEP 13 I increased PEEP today, her plateau pressure increased further to 41. reduced PEEP back to 13 Follow ABG/CXR-reviewed very poor prognosis despite two weeks of aggressive care continue right chest tube to suction-20-- no air leak Continue Antibiotics and fever per ID Pt. has Completed course of remdesivir Continue steroids with slow taper Nutritional support Poor prognosis DVT/GI PPX D/W RN and RT d/w in detail. He agrees for chemical code only if she codes Total cumulative 30 minutes, reviewing the current documentation, data, labs, chest x-ray, discussion with RN and RT, formulating a plan. Updated 03/02 Continue current vent support currently on 100% and PEEP 13 Follow ABG/CXR- continue right chest tube to suction-20-- no air leak Continue Antibiotics and fever per ID Pt. has Completed course of remdesivir Continue steroids with slow taper Nutritional support Poor prognosis DVT/GI PPX D/W RN and RT D/W at bedside Total cumulative 30 minutes, reviewing the current documentation, data, labs, chest x-ray, discussion with RN and RT, formulating a plan. Updated 03/01 Continue current vent support currently on 100% and PEEP 13, ongoing hypoxia despite vent support Follow ABG/CXR- lasix X1 today continue right chest tube to suction-20-- no air leak Proning 16 hours daily Continue Antibiotics and fever per ID Pt. has Completed course of remdesivir Continue steroids with slow taper Nutritional support Poor prognosis DVT/GI PPX D/W RN and RT Total cumulative 30 minutes, reviewing the current documentation, data, labs, chest x-ray, discussion with RN and RT, formulating a plan. DAVID LIZ MD Mar 05, 2021 08:43
[2021-03-05 09:09] LABS: BASO % 0 % (0-3); EOS # 0.4 x10^3/uL (0.0-0.7); EOS % 2 % (0-3); HEMATOCRIT 35.1 % (36.0-47.0); LYMPH # 1.9 x10^3/uL (1.0-4.8); LYMPH % 13 % (24-48); MEAN CORPUSCULAR HEMOGLOBIN 25 pg (25-35); MEAN CORPUSCULAR HGB CONC 31 g/dL (31-37); MEAN CORPUSCULAR VOLUME 81 fL (79-100); MONO # 0.8 x10^3/uL (0.0-1.1); MONO % 5 % (0-9); NEUT # 11.9 x10^3/uL (1.8-7.7); NEUT % 79 % (31-73); PLATELET COUNT 342 x10^3/uL (140-400); RED BLOOD COUNT 4.34 x10^6/uL (3.50-5.40); RED CELL DISTRIBUTION WIDTH 15.9 % (11.5-14.5)
--- NOTE | 2021-03-05 09:40 | PN ---
DATE: 03/05/2021 SUBJECTIVE: The patient continued to be paralyzed, sedated, intubated and mechanically ventilated. Her oxygen saturation was only 77% this morning on FiO2 of 100%. She is now on PEEP on 14. PHYSICAL EXAMINATION: GENERAL: When I examined her, she was pale, but no jaundice, cyanosis or thyromegaly. No jugular venous distention. No lower limb edema. VITAL SIGNS: Blood pressure was 160/80, her heart rate was 100, her temperature was 98.9, respiratory rate 26 and oxygen saturation was 77% on FiO2 of 100%. HEAD, EYES, EARS, NOSE AND THROAT: Showed she is normocephalic, atraumatic. She has orotracheal and orogastric tube in place. NECK: Supple. HEART: Normal first and second heart sounds. No gallop, rub or murmur. CHEST: Shows central trachea, equal bilateral chest expansion, air entry, vesicular sounds. No crepitation or rhonchi anteriorly. ABDOMEN: Distended, soft. NEUROLOGIC: She is heavily sedated. Her intake over the last 24 hours was 4300, output was 1500. LABORATORY DATA: Lab work is still pending this morning; however, her most recent white cell count was 14,000, hemoglobin 10, hematocrit 33, MCV 80, platelet count 295,000. Her blood sugar is well controlled. Her most recent chemistry showed a serum sodium 139, potassium 4.7, chloride 101, bicarbonate 33, anion gap of 5, BUN 34, creatinine 0.5, estimated GFR was 34 mL per minute. Her glucose 161, calcium was 8.6. Total bilirubin and alkaline phosphatase is normal. AST and ALT elevated. Total protein 6.3, albumin was 2.1. ASSESSMENT: 1. Acute hypoxic respiratory failure, multifactorial including: A. COVID-19 pneumonia. B. Acute kidney injury. C. Adult respiratory distress syndrome. 2. Bronchial asthma. 3. Obstructive sleep apnea, on home CPAP. 4. Morbid obesity. 5. Right-sided pneumothorax, status post chest tube placement. 6. Subcutaneous emphysema, resolved. 7. Superimposed bacterial pneumonia. The patient continued to do poorly. Her overall prognosis is poor. She is now continued to be on FiO2 of 100% with a PEEP of 14. Her oxygen saturation was only 77%. PLAN: To continue obviously with chest tube management. Continue with antibiotic. Continue with steroids. She did complete her remdesivir treatment. Continue nutritional support through the gastrostomy tube. Continue with DVT and GI prophylaxis. ELIZABETH FERNANDEZ MD DR: BOLA/carlos JOB#: [id number] / [id number]
[2021-03-05 09:59] LABS: ALBUMIN 2.1 g/dL (3.4-5.0); ALBUMIN/GLOBULIN RATIO 0.4 (1.0-1.7); CALCIUM 8.9 mg/dL (8.5-10.1); CREATININE 0.5 mg/dL (0.6-1.0); GFR 134.7; POTASSIUM 4.9 mmol/L (3.5-5.1); TOTAL BILIRUBIN 0.6 mg/dL (0.2-1.0); TOTAL PROTEIN 6.8 g/dL (6.4-8.2)
[2021-03-05] MEDS ORDERED: FUROSEMIDE 40 MG/4 ML VIAL. IVP ONE (12:15)
--- NOTE | 2021-03-05 15:48 | NUR ---
SS following up with discharge planning. SS reviewed pt chart and discussed with pt RN. Pt is currently on the vent at 100%. COVID19 positive. Chest tube in place. Pt on IV Meropenem. Pt on Fentanyl, Versed, Vec, and Propofol. Not stable. SS will continue to follow for discharge planning.
[2021-03-05] MEDS: INSULIN GLARGINE SYRINGE. SQ SCH (20:15)
[2021-03-06] VITALS (25 sets, daily range): BP systolic 93–164; BP diastolic 50–92
[2021-03-06] MEDS: fentaNYL HIGH DOSE PCA 55 ML IV PRN ×2 (02:21→16:18)
[2021-03-06] MEDS: VECURONIUM BROMIDE 50 MG in TOTAL VOLUME 50 ML IV PRN ×5 (02:21→23:01)
[2021-03-06] MEDS: PROPOFOL 100 ML IV PRN ×5 (03:57→18:03)
[2021-03-06] MEDS: INSULIN LISPRO 300 UNITS/3 ML VIAL. SQ SCH ×4 (05:33→23:54)
[2021-03-06] MEDS: MEROPENEM 1 GM in IV NORMAL SALINE 100ML 100 ML IV SCH ×3 (05:33→21:35)
[2021-03-06 07:36] LABS: BASE EXCESS ABG 8 mmol/L (-3-3); HCO3 ABG 36 mmol/L (21-28); SAT O2 ABG 80 % (92-99)
[2021-03-06 07:39] LABS: FIO2 ABG 100; PCO2 ABG 67 mmHg (35-46); PO2 ABG 48 mmHg (75-108)
--- NOTE | 2021-03-06 08:18 | PDOC ---
Infectious Disease Note Subjective: Subjective Intubated/sedated T max 100.2 FiO2 100% PEEP of 14 No acute issues per discussion with RN Vital Signs: Vital Signs Vital Signs Date Time Temp Pulse Resp B/P (MAP) Pulse Ox O2 Delivery O2 Flow Rate FiO2 03/06/21 07:15 88 Ventilator 03/06/21 07:00 72 26 103/62 (76) 03/06/21 04:00 98.9 98.9 03/06/21 02:21 92.0 Physical Exam: PHYSICAL EXAM GENERAL: Intubated/sedated HEENT: ETT OGT tube in place, normocephalic atraumatic NECK: Supple. No JVP. LUNGS: Decreased breath sounds,Right chest tube in place HEART: S1, S2 ABDOMEN: Soft, nontender. Bowel sounds present Lott in place EXTREMITIES: +edema ,no cyanosis. SKIN: No generalized rash NEUROLOGIC: sedated on vent PICC line clean Medications: Inpatient Meds: Medications reviewed. Labs: Lab Laboratory Tests Test 03/05/21 08:55 03/05/21 14:04 03/05/21 17:47 03/05/21 23:45 White Blood Count 15.0 x10^3/uL (4.0-11.0) Red Blood Count 4.34 x10^6/uL (3.50-5.40) Hemoglobin 11.0 g/dL (12.0-15.5) Hematocrit 35.1 % (36.0-47.0) Mean Corpuscular Volume 81 fL (79-100) Mean Corpuscular Hemoglobin 25 pg (25-35) Mean Corpuscular Hemoglobin Concent 31 g/dL (31-37) Red Cell Distribution Width 15.9 % (11.5-14.5) Platelet Count 342 x10^3/uL (140-400) Neutrophils (%) (Auto) 79 % (31-73) Lymphocytes (%) (Auto) 13 % (24-48) Monocytes (%) (Auto) 5 % (0-9) Eosinophils (%) (Auto) 2 % (0-3) Basophils (%) (Auto) 0 % (0-3) Neutrophils # (Auto) 11.9 x10^3/uL (1.8-7.7) Lymphocytes # (Auto) 1.9 x10^3/uL (1.0-4.8) Monocytes # (Auto) 0.8 x10^3/uL (0.0-1.1) Eosinophils # (Auto) 0.4 x10^3/uL (0.0-0.7) Basophils # (Auto) 0.0 x10^3/uL (0.0-0.2) Sodium Level 140 mmol/L (136-145) Potassium Level 4.9 mmol/L (3.5-5.1) Chloride Level 98 mmol/L (98-107) Carbon Dioxide Level 34 mmol/L (21-32) Anion Gap 8 (6-14) Blood Urea Nitrogen 35 mg/dL (7-20) Creatinine 0.5 mg/dL (0.6-1.0) Estimated GFR (Cockcroft-Gault) 134.7 BUN/Creatinine Ratio 70 (6-20) Glucose Level 116 mg/dL (70-99) Calcium Level 8.9 mg/dL (8.5-10.1) Total Bilirubin 0.6 mg/dL (0.2-1.0) Aspartate Amino Transf (AST/SGOT) 29 U/L (15-37) Alanine Aminotransferase (ALT/SGPT) 235 U/L (14-59) Alkaline Phosphatase 112 U/L (46-116) Total Protein 6.8 g/dL (6.4-8.2) Albumin 2.1 g/dL (3.4-5.0) Albumin/Globulin Ratio 0.4 (1.0-1.7) Glucose (Fingerstick) 235 mg/dL (70-99) 226 mg/dL (70-99) 125 mg/dL (70-99) Test 03/06/21 05:00 03/06/21 05:26 03/06/21 07:20 Triglycerides Level 192 mg/dL (0-150) Glucose (Fingerstick) 122 mg/dL (70-99) O2 Saturation 80 % (92-99) Arterial Blood pH 7.35 (7.35-7.45) Arterial Blood pCO2 at Patient Temp 67 mmHg (35-46) Arterial Blood pO2 at Patient Temp 48 mmHg (75-108) Arterial Blood HCO3 36 mmol/L (21-28) Arterial Blood Base Excess 8 mmol/L (-3-3) FiO2 100 Objective: Assessment: 1. COVID-19 positive. 2. Hypoxic respiratory failure. 3. Pneumonia, bilateral pulmonary infiltrate/ ARDS 4. Morbid obesity. 5. History of asthma. 6. Obstructive sleep apnea. 7 Fever likely from COVID resolved 8 Pneumothorax s/p chest tube in place 9. Blood culture positive coagulase negative staph likely contaminant 10. Leucocytosis on steroids Plan: Plan of Care cont supportive care meropenem/ Zyvox Follow-up cult and lab prognosis poor BYRON Morelos RN, MD Mar 06, 2021 08:18
--- NOTE | 2021-03-06 08:54 | PN ---
DATE: 03/06/2021 SUBJECTIVE: The patient continued to be paralyzed, heavily sedated, intubated and mechanically ventilated. Her oxygen saturation continued to be low despite being on FiO2 of 100%, today was only 83% when I saw her. PHYSICAL EXAMINATION: GENERAL: When I examined her, she was pale, but no jaundice, cyanosis or thyromegaly. No jugular venous distention. No lower limb edema. VITAL SIGNS: Her heart rate was 72, blood pressure was 103/62, temperature was 98.9, respiratory rate was 26 and oxygen saturation was 83% on FiO2 of 100%. HEAD, EYES, EARS, NOSE AND THROAT: Showed normocephalic, atraumatic. She has orotracheal and orogastric tube. NECK: Supple. HEART: Normal first and second heart sounds. No gallop or murmur. CHEST: Clear to auscultation. No crepitation or rhonchi. ABDOMEN: Distended, soft, nontender. NEUROLOGIC: She is heavily sedated. Her intake was 2379, output was 2350. LABORATORY DATA: As of yesterday, her white cell count was 15,000, hemoglobin 11, hematocrit 35, MCV 81 and platelet count 342,000. Her chemistry as of yesterday showed a serum sodium 140, potassium 4.9, chloride 98, bicarbonate 34, anion gap of 8, BUN 35, creatinine 0.5, estimated GFR was 134 mL per minute. Her glucose 116, calcium was 8.9. Total bilirubin, AST, and alkaline phosphatase is normal. ALT slightly elevated. Her total protein was 6.8, albumin was 2.1. ASSESSMENT: 1. Acute hypoxic respiratory failure, multifactorial due to: A. COVID-19 pneumonia. B. Acute lung injury. C. Acute respiratory distress syndrome. 2. Bronchial asthma. 3. Obstructive sleep apnea, on home CPAP. 4. Morbid obesity. 5. Right-sided pneumothorax, chest tube placed. 6. Subcutaneous emphysema, resolved. 7. Possible superimposed bacterial pneumonia for which she is on IV antibiotic. PLAN: Obviously to continue with mechanical ventilation. Continue with chest tube management. Continue with steroids. Continue with DVT and GI prophylaxis. ELIZABETH FERNANDEZ MD DR: BOLA/carlos JOB#: [id number] / [id number]
[2021-03-06] MEDS: FAMOTIDINE 20 MG/2 ML VIAL IVP SCH ×2 (08:56→20:38)
[2021-03-06] MEDS: LINEZOLID 600 MG TABLET PO SCH ×2 (08:56→21:34)
[2021-03-06] MEDS: DEXAMETHASONE SOD PHOS 4 MG/ML VIAL IVP SCH (08:56)
[2021-03-06] MEDS: NYSTATIN TOPICAL POWDER 15GM BOTTLE. TP SCH ×2 (09:00→21:00)
--- NOTE | 2021-03-06 09:35 | PDOC ---
PULMONARY PROGRESS NOTES DATE: 03/06/21 TIME: 09:31 Subjective Patient sedated, chest tube in place, no air leak Remains on vent support 26/500/100%/14 hypoxia persist Currently on 2-1 i.e. ratio Vitals Vital Signs Date Time Temp Pulse Resp B/P (MAP) Pulse Ox O2 Delivery O2 Flow Rate FiO2 03/06/21 07:15 88 Ventilator 03/06/21 07:00 72 26 103/62 (76) 03/06/21 04:00 98.9 98.9 03/06/21 02:21 92.0 Comments intubated/sedated/ paralyzed Lungs: Crackles Cardiovascular: S1, S2 Abdomen: Soft Extremities: Other (Edema) Skin: Warm Labs Laboratory Tests Test 03/04/21 12:04 03/04/21 17:27 03/04/21 23:37 03/05/21 05:55 Glucose (Fingerstick) 130 mg/dL (70-99) 178 mg/dL (70-99) 122 mg/dL (70-99) 105 mg/dL (70-99) Test 03/05/21 08:00 03/05/21 08:55 03/05/21 14:04 03/05/21 17:47 O2 Saturation 74 % (92-99) Arterial Blood pH 7.32 (7.35-7.45) Arterial Blood pCO2 at Patient Temp 64 mmHg (35-46) Arterial Blood pO2 at Patient Temp 44 mmHg (75-108) Arterial Blood HCO3 32 mmol/L (21-28) Arterial Blood Base Excess 5 mmol/L (-3-3) FiO2 100/vent White Blood Count 15.0 x10^3/uL (4.0-11.0) Red Blood Count 4.34 x10^6/uL (3.50-5.40) Hemoglobin 11.0 g/dL (12.0-15.5) Hematocrit 35.1 % (36.0-47.0) Mean Corpuscular Volume 81 fL (79-100) Mean Corpuscular Hemoglobin 25 pg (25-35) Mean Corpuscular Hemoglobin Concent 31 g/dL (31-37) Red Cell Distribution Width 15.9 % (11.5-14.5) Platelet Count 342 x10^3/uL (140-400) Neutrophils (%) (Auto) 79 % (31-73) Lymphocytes (%) (Auto) 13 % (24-48) Monocytes (%) (Auto) 5 % (0-9) Eosinophils (%) (Auto) 2 % (0-3) Basophils (%) (Auto) 0 % (0-3) Neutrophils # (Auto) 11.9 x10^3/uL (1.8-7.7) Lymphocytes # (Auto) 1.9 x10^3/uL (1.0-4.8) Monocytes # (Auto) 0.8 x10^3/uL (0.0-1.1) Eosinophils # (Auto) 0.4 x10^3/uL (0.0-0.7) Basophils # (Auto) 0.0 x10^3/uL (0.0-0.2) Sodium Level 140 mmol/L (136-145) Potassium Level 4.9 mmol/L (3.5-5.1) Chloride Level 98 mmol/L (98-107) Carbon Dioxide Level 34 mmol/L (21-32) Anion Gap 8 (6-14) Blood Urea Nitrogen 35 mg/dL (7-20) Creatinine 0.5 mg/dL (0.6-1.0) Estimated GFR (Cockcroft-Gault) 134.7 BUN/Creatinine Ratio 70 (6-20) Glucose Level 116 mg/dL (70-99) Calcium Level 8.9 mg/dL (8.5-10.1) Total Bilirubin 0.6 mg/dL (0.2-1.0) Aspartate Amino Transf (AST/SGOT) 29 U/L (15-37) Alanine Aminotransferase (ALT/SGPT) 235 U/L (14-59) Alkaline Phosphatase 112 U/L (46-116) Total Protein 6.8 g/dL (6.4-8.2) Albumin 2.1 g/dL (3.4-5.0) Albumin/Globulin Ratio 0.4 (1.0-1.7) Glucose (Fingerstick) 235 mg/dL (70-99) 226 mg/dL (70-99) Test 03/05/21 23:45 03/06/21 05:00 03/06/21 05:26 03/06/21 07:20 Glucose (Fingerstick) 125 mg/dL (70-99) 122 mg/dL (70-99) Triglycerides Level 192 mg/dL (0-150) O2 Saturation 80 % (92-99) Arterial Blood pH 7.35 (7.35-7.45) Arterial Blood pCO2 at Patient Temp 67 mmHg (35-46) Arterial Blood pO2 at Patient Temp 48 mmHg (75-108) Arterial Blood HCO3 36 mmol/L (21-28) Arterial Blood Base Excess 8 mmol/L (-3-3) FiO2 100 Laboratory Tests Test 03/05/21 14:04 03/05/21 17:47 03/05/21 23:45 03/06/21 05:00 Glucose (Fingerstick) 235 mg/dL (70-99) 226 mg/dL (70-99) 125 mg/dL (70-99) Triglycerides Level 192 mg/dL (0-150) Test 03/06/21 05:26 03/06/21 07:20 Glucose (Fingerstick) 122 mg/dL (70-99) O2 Saturation 80 % (92-99) Arterial Blood pH 7.35 (7.35-7.45) Arterial Blood pCO2 at Patient Temp 67 mmHg (35-46) Arterial Blood pO2 at Patient Temp 48 mmHg (75-108) Arterial Blood HCO3 36 mmol/L (21-28) Arterial Blood Base Excess 8 mmol/L (-3-3) FiO2 100 Medications Active Scripts Medications Dose Route/Sig Max Daily Dose Days Date Category Meloxicam 15 Mg Tablet 1 Tab PO DAILY 30 02/18/21 Reported Comments 03/04 worsening bilateral infiltrates no change in small right apical PTX cxr 03/03 diffuse infiltrates small right apical PTX CXR 03/02 IMPRESSION: 1. Stable bilateral perihilar and basilar opacities. 2. No pneumothorax is seen. 3. Stable small left greater than right pleural effusions. 4. Stable life devices. CXR 03/01 Impression: 1. Small left effusion and marked bilateral interstitial infiltrates likely atypical pneumonia. 2. The left effusion appears worse however the infiltrates appear unchanged. 3. Previously seen bilateral subcutaneous emphysema has resolved. Impression . 1. Acute hypoxic respiratory failure with acute lung injury/ acute respiratory distress syndrome secondary to COVID-19 pneumonia and now new sepsis and suspected VAP. Hypoxia is refractory 2. Morbid obesity, BMI of 65 3. No significant tobacco history. 4. History of asthma, under control. 5. Obstructive sleep apnea, on home CPAP. Unknown severity of obstructive sleep apnea and unknown CPAP pressure. 6. Abnormal CXR with bilateral patchy infiltrates c/w viral pneumonia., worse 03/04 7. Fever, new sepsis/ suspected VAP 8. Subcutaneous emphysema improved 9. Right PTX , small and unchanged 10. New fever/ susperimposed new sepsis/ bacteremia Plan . Updated 03/06 remains critically ill with refractory hypoxia vent support currently on 100% and PEEP 14. Peak airway pressures in 50's. will try PC, increase PEEP, monitor driving pressure, plateau pressure Follow ABG/CXR-reviewed, worsening infiltrates, suspected VAP, repeat cxr in am very poor prognosis despite two weeks of aggressive care continue right chest tube to suction-20-- no air leak , no increase in PTX Continue Antibiotics and fever per ID Pt. has Completed course of remdesivir Continue steroids with slow taper Nutritional support Poor prognosis DVT/GI PPX D/W RN and RT d/w in detail. He agrees for chemical code only if she codes. Total cumulative 30 minutes, reviewing the current documentation, data, labs, chest x-ray, discussion with RN and RT, formulating a plan. Updated 03/05 Continue current support currently on 14 of PEEP 100% FiO2 We will continue nutritional support Chest tube in place no air leak seen Antibiotics per ID Patient finished a course of remdesivir and steroids As needed Lasix Total cumulative critical care time of 30 minutes, reviewing the current documentation, labs, chest x-ray, going over the findings with the at the bedside, formulating a plan. Updated 03/04 remains critically ill with refractory hypoxia Continue current vent support currently on 100% and PEEP 14 I increased PEEP today to 15, her plateau pressure increased further to 45 with increase in driving pressure. She has reached upper inflection point and alveoli can no longer be recruited by increase in PEEP.. reduced PEEP back to 14 Follow ABG/CXR-reviewed, worsening infiltrates, suspected VAP, will try lasix very poor prognosis despite two weeks of aggressive care continue right chest tube to suction-20-- no air leak , no increase in PTX Continue Antibiotics and fever per ID Pt. has Completed course of remdesivir Continue steroids with slow taper Nutritional support Poor prognosis DVT/GI PPX D/W RN and RT d/w in detail. He agrees for chemical code only if she codes. Pt not likely to survive Total cumulative 35 minutes, reviewing the current documentation, data, labs, chest x-ray, discussion with RN and RT, formulating a plan. Updated 03/03 Continue current vent support currently on 100% and PEEP 13 I increased PEEP today, her plateau pressure increased further to 41. reduced PEEP back to 13 Follow ABG/CXR-reviewed very poor prognosis despite two weeks of aggressive care continue right chest tube to suction-20-- no air leak Continue Antibiotics and fever per ID Pt. has Completed course of remdesivir Continue steroids with slow taper Nutritional support Poor prognosis DVT/GI PPX D/W RN and RT d/w in detail. He agrees for chemical code only if she codes Total cumulative 30 minutes, reviewing the current documentation, data, labs, chest x-ray, discussion with RN and RT, formulating a plan. Updated 03/02 Continue current vent support currently on 100% and PEEP 13 Follow ABG/CXR- continue right chest tube to suction-20-- no air leak Continue Antibiotics and fever per ID Pt. has Completed course of remdesivir Continue steroids with slow taper Nutritional support Poor prognosis DVT/GI PPX D/W RN and RT D/W at bedside Total cumulative 30 minutes, reviewing the current documentation, data, labs, chest x-ray, discussion with RN and RT, formulating a plan. Updated 03/01 Continue current vent support currently on 100% and PEEP 13, ongoing hypoxia despite vent support Follow ABG/CXR- lasix X1 today continue right chest tube to suction-20-- no air leak Proning 16 hours daily Continue Antibiotics and fever per ID Pt. has Completed course of remdesivir Continue steroids with slow taper Nutritional support Poor prognosis DVT/GI PPX D/W RN and RT Total cumulative 30 minutes, reviewing the current documentation, data, labs, chest x-ray, discussion with RN and RT, formulating a plan. KEVIN PENNY MD Mar 06, 2021 09:35
[2021-03-06] MEDS: MIDAZOLAM 100mg/100ml NS BAG 100 ML IV PRN ×2 (11:17→23:00)
[2021-03-06] MEDS: MINERAL OIL/PETROLATUM,WHITE OPHTH OINT 3.5GM TUBE. OU PRN (18:03)
[2021-03-06] MEDS: INSULIN GLARGINE SYRINGE. SQ SCH (20:39)
[2021-03-06] MEDS ORDERED: ALTEPLASE 1MG SYRINGE. INT CAT ONE (21:00)
--- NOTE | 2021-03-06 22:15 | NUR ---
Unable to withdraw blood from JULIÁN PICC at 1999, Cathflo inserted in red port at 2133. At 2214 Cathflo withdrawn from port and patient then had blood return in all ports.
--- NOTE | 2021-03-06 22:45 | NUR ---
Patient with low urine output--unable to bladder scan secondary to large abdomen/pannus. Ovalles irrigated and patient had 60CC urine return. Ovalles bag tubing with thick sediment at the tip so bag changed. Patient with no urine output at 2200 and unable to irrigate at all--ovalles removed and found to have large amount of sediment in it. Patient does have moderate amount of thick white discharge around luzmaria area. After cleaning luzmaria area well, #16 Ovalles catheter inserted using sterile technique. Immediate return of 340CC cloudy jacobo urine with sediment--sent for UA/C&S. Patient tolerated well, oxygen saturations remained mid 80%.
[2021-03-06 23:07] LABS: BILIRUBIN,URINE NEGATIVE (NEG); CLARITY,URINE CLOUDY; COLOR,URINE AMBER; NITRITE,URINE NEGATIVE (NEG); PROTEIN,URINE 30 mg/dL (NEG-TRACE)
[2021-03-06 23:15] LABS: BACTERIA,URINE FEW /HPF (0-FEW); GRANULAR CASTS,URINE FEW /HPF; HYALINE CASTS, URINE MODERATE /HPF; RBC,URINE TNTC /HPF (0-2)
[2021-03-07] VITALS (26 sets, daily range): BP systolic 82–142; BP diastolic 40–81
[2021-03-07] MEDS: PROPOFOL 100 ML IV PRN ×4 (03:56→20:26)
[2021-03-07] MEDS: VECURONIUM BROMIDE 50 MG in TOTAL VOLUME 50 ML IV PRN ×5 (04:08→23:44)
[2021-03-07] MEDS: fentaNYL HIGH DOSE PCA 55 ML IV PRN ×2 (05:24→18:00)
--- NOTE | 2021-03-07 05:30 | NUR ---
Patient's oxygen saturation low 50's and lung sounds now with loud expiratory wheeze and paitent's tidal volumes now 100's, Dr Salter paged. Dr Salter returned page, notified of above and RT attempting to adjust vent for better TV and increased saturations but no response with changes. Dr Salter stated to try to change patient back to AC without pressure control-RT notified.
--- NOTE | 2021-03-07 05:55 | NUR ---
CXR critical results of large Left Pneumothorax called by Dr Monk at 0553, Dr Salter paged. Dr Salter returned page at [phone], notified of left pneumothorax and also patient's oxygen saturations are now in the 30's. Dr Salter stated she will ask ED physician to place chest tube immediately since she will not be able to get to the hospital soon enough. at bedside, notified of CXR and plan for chest tube placement--verbalizes understanding. Addendum: 03/07/21 at 0819 by OBED ARCOS RN Amended: Links added.
--- NOTE | 2021-03-07 05:57 | RAD ---
XR CHEST 1V Clinical History: Reason: resp. failure ICU#[id number] PT DESTATING TO 7 / Spl. Instructions: / History: Technique: AP view of the chest was obtained at 03/07/2021 5:37 AM. Comparison: March 04, 2021. Findings: The small right apical pneumothorax is larger and there is a new large left sided pneumothorax. There is consolidation in the lungs and diffuse pulmonary infiltrates. The endotracheal tube has its tip at level of clavicles and there is an enteric tube seen at least fa r distal as the distal esophagus. The right PICC is unchanged. There is right-sided chest tube again seen. Impression: 1. Small right apical pneumothorax is larger and there is now a large left pneumothorax. 2. Marked diffuse pulmonary infiltrates persist and could be ARDS or pneumonia or pulmonary edema. End impression These results were called to the ICU nurse Zulma and verified by read back at the time of dictation. FOR INTERNAL CODING PURPOSES Critical result: Findings discussed with the ICU nurse at 03/07/2021 5:53 AM. RESULT CODE: (C) Electronically signed by: Sylvester Brewer III, MD (03/07/2021 5:54 AM) [facility]
--- NOTE | 2021-03-07 06:30 | NUR ---
Oxygen saturations 10 with TV 50; Dr Josue placed #9 Pigtail chest tube Left mid axilla at 0615 using sterile technique, immediate release of air with minimal sang drainage. Oxygen saturations slowly increased to 49% but no further; TVs are now 300. Patient back on Pressure control at 33, AC 26 FiO2 100% and Peep 15. CXR repeated and resulted resolution of Left pneumothorax. Dr Salter here and notified of above; and sister at bedside. Dr Salter spoke and sister at length regarding very poor prognosis and there are no further vent changes that can be made which will improve patient's overall condition. This RN spoke to and sister and explained DNR does not mean do not treat, and if decides to make patient DNR, she would continue to receive care she is getting but with coding, she will not receive CPR, Shocks nor medications. verbalized understanding but states he "is just not able to make her a DNR at this time." did agree to continued Chemical Code and will think about DNR status.
[2021-03-07] MEDS: MEROPENEM 1 GM in IV NORMAL SALINE 100ML 100 ML IV SCH ×3 (06:40→21:56)
--- NOTE | 2021-03-07 06:42 | RAD ---
XR CHEST 1V Clinical History: Reason: chest tube insertion / Spl. Instructions: / History: Technique: AP view of the chest was obtained at 03/07/2021 6:23 AM. Comparison: 5:30 AM. Findings: The heart is top normal limits in size. There has been interval placement of a small caliber chest tu be the left there is mild left chest wall subcutaneous some edema. This patchy opacities of the lungs bilaterally. The right-sided chest tube and right PICC are again seen. The right pneumothorax is no longer seen. The endotracheal tube and enteric tube again seen unchanged. Impression: 1. Status post left chest tube there is mild left chest wall subcutaneous emphysema. The left pneumot horax is no longer seen. 2. The right pneumothorax is no longer seen. 3. Persistent marked bilateral diffuse pulmonary infiltrates could be pulmonary edema or ARDS or pneu monia. Electronically signed by: Sylvester Brewer III, MD (03/07/2021 6:40 AM) [facility]
[2021-03-07] MEDS: INSULIN LISPRO 300 UNITS/3 ML VIAL. SQ SCH ×3 (06:43→17:47)
--- NOTE | 2021-03-07 07:20 | PDOC ---
PULMONARY PROGRESS NOTES DATE: 03/07/21 TIME: 07:18 Subjective Patient sedated, b lat ct in place Remains on vent support 26/500/100%/15 sat in 40s hypoxia persist Currently on 2-1 i.e. ratio Vitals Vital Signs Date Time Temp Pulse Resp B/P (MAP) Pulse Ox O2 Delivery O2 Flow Rate FiO2 03/07/21 06:03 71 Ventilator 03/07/21 05:54 26 03/07/21 02:00 76 102/69 (80) 03/06/21 23:59 98.0 98.0 Comments intubated/sedated/ paralyzed HEENT: Other (nc at [facility] no se clear orally intubated ) Lungs: Crackles, Other (b lat ct) Cardiovascular: S1, S2 Abdomen: Soft Extremities: Other (Edema) Skin: Warm Labs Laboratory Tests Test 03/05/21 08:00 03/05/21 08:55 03/05/21 14:04 03/05/21 17:47 O2 Saturation 74 % (92-99) Arterial Blood pH 7.32 (7.35-7.45) Arterial Blood pCO2 at Patient Temp 64 mmHg (35-46) Arterial Blood pO2 at Patient Temp 44 mmHg (75-108) Arterial Blood HCO3 32 mmol/L (21-28) Arterial Blood Base Excess 5 mmol/L (-3-3) FiO2 100/vent White Blood Count 15.0 x10^3/uL (4.0-11.0) Red Blood Count 4.34 x10^6/uL (3.50-5.40) Hemoglobin 11.0 g/dL (12.0-15.5) Hematocrit 35.1 % (36.0-47.0) Mean Corpuscular Volume 81 fL (79-100) Mean Corpuscular Hemoglobin 25 pg (25-35) Mean Corpuscular Hemoglobin Concent 31 g/dL (31-37) Red Cell Distribution Width 15.9 % (11.5-14.5) Platelet Count 342 x10^3/uL (140-400) Neutrophils (%) (Auto) 79 % (31-73) Lymphocytes (%) (Auto) 13 % (24-48) Monocytes (%) (Auto) 5 % (0-9) Eosinophils (%) (Auto) 2 % (0-3) Basophils (%) (Auto) 0 % (0-3) Neutrophils # (Auto) 11.9 x10^3/uL (1.8-7.7) Lymphocytes # (Auto) 1.9 x10^3/uL (1.0-4.8) Monocytes # (Auto) 0.8 x10^3/uL (0.0-1.1) Eosinophils # (Auto) 0.4 x10^3/uL (0.0-0.7) Basophils # (Auto) 0.0 x10^3/uL (0.0-0.2) Sodium Level 140 mmol/L (136-145) Potassium Level 4.9 mmol/L (3.5-5.1) Chloride Level 98 mmol/L (98-107) Carbon Dioxide Level 34 mmol/L (21-32) Anion Gap 8 (6-14) Blood Urea Nitrogen 35 mg/dL (7-20) Creatinine 0.5 mg/dL (0.6-1.0) Estimated GFR (Cockcroft-Gault) 134.7 BUN/Creatinine Ratio 70 (6-20) Glucose Level 116 mg/dL (70-99) Calcium Level 8.9 mg/dL (8.5-10.1) Total Bilirubin 0.6 mg/dL (0.2-1.0) Aspartate Amino Transf (AST/SGOT) 29 U/L (15-37) Alanine Aminotransferase (ALT/SGPT) 235 U/L (14-59) Alkaline Phosphatase 112 U/L (46-116) Total Protein 6.8 g/dL (6.4-8.2) Albumin 2.1 g/dL (3.4-5.0) Albumin/Globulin Ratio 0.4 (1.0-1.7) Glucose (Fingerstick) 235 mg/dL (70-99) 226 mg/dL (70-99) Test 03/05/21 23:45 03/06/21 05:00 03/06/21 05:26 03/06/21 07:20 Glucose (Fingerstick) 125 mg/dL (70-99) 122 mg/dL (70-99) Triglycerides Level 192 mg/dL (0-150) O2 Saturation 80 % (92-99) Arterial Blood pH 7.35 (7.35-7.45) Arterial Blood pCO2 at Patient Temp 67 mmHg (35-46) Arterial Blood pO2 at Patient Temp 48 mmHg (75-108) Arterial Blood HCO3 36 mmol/L (21-28) Arterial Blood Base Excess 8 mmol/L (-3-3) FiO2 100 Test 03/06/21 12:25 03/06/21 18:13 03/06/21 23:00 03/06/21 23:52 Glucose (Fingerstick) 188 mg/dL (70-99) 235 mg/dL (70-99) 161 mg/dL (70-99) Urine Collection Type U cath Urine Color Marquita Urine Clarity Cloudy Urine pH 6.0 (<5.0-8.0) Urine Specific [place] >=1.030 (1.000-1.030) Urine Protein 30 mg/dL (NEG-TRACE) Urine Glucose (UA) Negative mg/dL (NEG) Urine Ketones (Stick) Negative mg/dL (NEG) Urine Blood Large (NEG) Urine Nitrite Negative (NEG) Urine Bilirubin Negative (NEG) Urine Urobilinogen Dipstick 1.0 mg/dL (0.2 mg/dL) Urine Leukocyte Esterase Negative (NEG) Urine RBC Tntc /HPF (0-2) Urine WBC 1-4 /HPF (0-4) Urine Squamous Epithelial Cells Few /LPF Urine Bacteria Few /HPF (0-FEW) Urine Hyaline Casts Moderate /HPF Urine Granular Casts Few /HPF Test 03/07/21 05:52 Glucose (Fingerstick) 207 mg/dL (70-99) Laboratory Tests Test 03/06/21 07:20 03/06/21 12:25 03/06/21 18:13 03/06/21 23:00 O2 Saturation 80 % (92-99) Arterial Blood pH 7.35 (7.35-7.45) Arterial Blood pCO2 at Patient Temp 67 mmHg (35-46) Arterial Blood pO2 at Patient Temp 48 mmHg (75-108) Arterial Blood HCO3 36 mmol/L (21-28) Arterial Blood Base Excess 8 mmol/L (-3-3) FiO2 100 Glucose (Fingerstick) 188 mg/dL (70-99) 235 mg/dL (70-99) Urine Collection Type U cath Urine Color Marquita Urine Clarity Cloudy Urine pH 6.0 (<5.0-8.0) Urine Specific [place] >=1.030 (1.000-1.030) Urine Protein 30 mg/dL (NEG-TRACE) Urine Glucose (UA) Negative mg/dL (NEG) Urine Ketones (Stick) Negative mg/dL (NEG) Urine Blood Large (NEG) Urine Nitrite Negative (NEG) Urine Bilirubin Negative (NEG) Urine Urobilinogen Dipstick 1.0 mg/dL (0.2 mg/dL) Urine Leukocyte Esterase Negative (NEG) Urine RBC Tntc /HPF (0-2) Urine WBC 1-4 /HPF (0-4) Urine Squamous Epithelial Cells Few /LPF Urine Bacteria Few /HPF (0-FEW) Urine Hyaline Casts Moderate /HPF Urine Granular Casts Few /HPF Test 03/06/21 23:52 03/07/21 05:52 Glucose (Fingerstick) 161 mg/dL (70-99) 207 mg/dL (70-99) Medications Active Scripts Medications Dose Route/Sig Max Daily Dose Days Date Category Meloxicam 15 Mg Tablet 1 Tab PO DAILY 30 02/18/21 Reported Comments 03/07 5 am large left small r ptx r ct at [address] ptx resolved b lat infilt 03/04 worsening bilateral infiltrates no change in small right apical PTX cxr 03/03 diffuse infiltrates small right apical PTX CXR 03/02 IMPRESSION: 1. Stable bilateral perihilar and basilar opacities. 2. No pneumothorax is seen. 3. Stable small left greater than right pleural effusions. 4. Stable life devices. CXR 03/01 Impression: 1. Small left effusion and marked bilateral interstitial infiltrates likely atypical pneumonia. 2. The left effusion appears worse however the infiltrates appear unchanged. 3. Previously seen bilateral subcutaneous emphysema has resolved. Impression . 1. Acute hypoxic respiratory failure with acute lung injury/ acute respiratory distress syndrome secondary to COVID-19 pneumonia andsepsis and suspected VAP. Hypoxia is refractory 2. Morbid obesity, BMI of 65 3. No significant tobacco history. 4. History of asthma, under control. 5. Obstructive sleep apnea, on home CPAP. Unknown severity of obstructive sleep apnea and unknown CPAP pressure. 6. Abnormal CXR with bilateral patchy infiltrates c/w viral pneumonia., worse 03/04 7. Fever, new sepsis/ suspected VAP 8. Subcutaneous emphysema improved 9. Right PTX , small and unchanged 10. New fever/ susperimposed new sepsis/ bacteremia Plan . Updated 03/07 cxr new l ptx tension r ptx s/p l ct, cxr b lat infil ptx resolved sat in 40s inspite of correcting ptx cts to suction -40 critically ill prognosis very poor discussed in details w remains critically ill with refractory hypoxia for past week vent support currently on 100% and PEEP 15. very poor prognosis despite two weeks of aggressive care Continue Antibiotics and fever per ID Pt. has Completed course of remdesivir Continue steroids with slow taper Nutritional support Poor prognosis DVT/GI PPX D/W RN and RT discussed w dr alvarado and dr farooq Total cumulative 30 minutes, reviewing the current documentation, data, labs, chest x-ray, discussion with RN and RT, formulating a plan. Updated 03/06 remains critically ill with refractory hypoxia vent support currently on 100% and PEEP 14. Peak airway pressures in 50's. will try PC, increase PEEP, monitor driving pressure, plateau pressure Follow ABG/CXR-reviewed, worsening infiltrates, suspected VAP, repeat cxr in am very poor prognosis despite two weeks of aggressive care continue right chest tube to suction-20-- no air leak , no increase in PTX Continue Antibiotics and fever per ID Pt. has Completed course of remdesivir Continue steroids with slow taper Nutritional support Poor prognosis DVT/GI PPX D/W RN and RT d/w in detail. He agrees for chemical code only if she codes. Total cumulative 30 minutes, reviewing the current documentation, data, labs, chest x-ray, discussion with RN and RT, formulating a plan. Updated 03/05 Continue current support currently on 14 of PEEP 100% FiO2 We will continue nutritional support Chest tube in place no air leak seen Antibiotics per ID Patient finished a course of remdesivir and steroids As needed Lasix Total cumulative critical care time of 30 minutes, reviewing the current documentation, labs, chest x-ray, going over the findings with the at the bedside, formulating a plan. Updated 03/04 remains critically ill with refractory hypoxia Continue current vent support currently on 100% and PEEP 14 I increased PEEP today to 15, her plateau pressure increased further to 45 with increase in driving pressure. She has reached upper inflection point and alveoli can no longer be recruited by increase in PEEP.. reduced PEEP back to 14 Follow ABG/CXR-reviewed, worsening infiltrates, suspected VAP, will try lasix very poor prognosis despite two weeks of aggressive care continue right chest tube to suction-20-- no air leak , no increase in PTX Continue Antibiotics and fever per ID Pt. has Completed course of remdesivir Continue steroids with slow taper Nutritional support Poor prognosis DVT/GI PPX D/W RN and RT d/w in detail. He agrees for chemical code only if she codes. Pt not likely to survive Total cumulative 35 minutes, reviewing the current documentation, data, labs, chest x-ray, discussion with RN and RT, formulating a plan. Updated 03/03 Continue current vent support currently on 100% and PEEP 13 I increased PEEP today, her plateau pressure increased further to 41. reduced PEEP back to 13 Follow ABG/CXR-reviewed very poor prognosis despite two weeks of aggressive care continue right chest tube to suction-20-- no air leak Continue Antibiotics and fever per ID Pt. has Completed course of remdesivir Continue steroids with slow taper Nutritional support Poor prognosis DVT/GI PPX D/W RN and RT d/w in detail. He agrees for chemical code only if she codes Total cumulative 30 minutes, reviewing the current documentation, data, labs, chest x-ray, discussion with RN and RT, formulating a plan. Updated 03/02 Continue current vent support currently on 100% and PEEP 13 Follow ABG/CXR- continue right chest tube to suction-20-- no air leak Continue Antibiotics and fever per ID Pt. has Completed course of remdesivir Continue steroids with slow taper Nutritional support Poor prognosis DVT/GI PPX D/W RN and RT D/W at bedside Total cumulative 30 minutes, reviewing the current documentation, data, labs, chest x-ray, discussion with RN and RT, formulating a plan. Updated 03/01 Continue current vent support currently on 100% and PEEP 13, ongoing hypoxia despite vent support Follow ABG/CXR- lasix X1 today continue right chest tube to suction-20-- no air leak Proning 16 hours daily Continue Antibiotics and fever per ID Pt. has Completed course of remdesivir Continue steroids with slow taper Nutritional support Poor prognosis DVT/GI PPX D/W RN and RT Total cumulative 30 minutes, reviewing the current documentation, data, labs, chest x-ray, discussion with RN and RT, formulating a plan. NAFISA CLINE MD Mar 07, 2021 07:20
--- NOTE | 2021-03-07 07:23 | PDOC ---
Provider Note Date of Service: DATE: 03/07/21 TIME: 06:00 Provider Note Patient is a 45-year-old female who was admitted to the intensive care unit due to pneumonia COVID-19 infection. Patient was on the ventilator. Dr. Roth the mixing machine tender cork gasket on-call, call this physician at 6 AM, asked this physician for assistance to go up to the ICU to place a chest tube on this patient because she has a tension pneumothorax on the left side. Dr. Roth was coming in but she was 30 minutes away. Due the severity of this condition, with potential for patient being coded any moment, this physician agreed to proceed with chest tube placement emergently. Indication: Tension pneumothorax on the left side Consent: patient was on the ventilator, no consent was obtained. It was done emergently. Procedure: The patient was placed in an appropriate position. Local anesthesia was not used because patient was on the ventilator, sedated. An incision was made by # 11 scapel about 1.5 cm at the mid auxillary line, at the 4th intercostal space. A 9 [place] chest tube was placed and connected to PLEURIVAC. The tube was sutured in place and the site was covered with an occlusive dressing. All connections were banded. Breath sounds after the procedure were crackles and rales. A chest x-ray was obtained to evaluate placement. pneumothorax on the left side was gone, chest tube in the appropriate position. The patient tolerated the procedure well. Complications: no complication. Justifications for Admission Other Justification BRO STAFFORD DO Mar 07, 2021 07:23
[2021-03-07] MEDS: NOREPINEPHRINE VIAL 8 MG in IV DEXTROSE 5% 250 ML IV PRN ×2 (07:59→17:53)
[2021-03-07] MEDS: FLUCONAZOLE 100 MG TABLET. FT SCH (08:00)
[2021-03-07] MEDS: DEXAMETHASONE SOD PHOS 4 MG/ML VIAL IVP SCH (08:00)
[2021-03-07] MEDS: LINEZOLID 600 MG TABLET PO SCH ×2 (08:00→20:53)
[2021-03-07] MEDS: FAMOTIDINE 20 MG/2 ML VIAL IVP SCH ×2 (08:01→20:54)
[2021-03-07] MEDS: MIDAZOLAM 100mg/100ml NS BAG 100 ML IV PRN ×2 (08:05→18:01)
--- NOTE | 2021-03-07 08:18 | PN ---
DATE: 03/07/2021 SUBJECTIVE: The patient has continued to be paralyzed, sedated and mechanically ventilated. Apparently, she developed left-sided pneumothorax that is large, right over the small right apical pneumothorax that is larger. Her marked diffuse pulmonary infiltrates persistent could be ARDS or pneumonia or pulmonary edema. She did have a chest tube placed in the left side and her lung has apparently completely expanded and her left pneumothorax no longer seen, although she has small subcutaneous emphysema. The right pneumothorax is no longer seen and persistent marked bilateral diffuse pulmonary infiltrate could be pulmonary edema or ARDS or pneumonia. OBJECTIVE: GENERAL: On examining her, she was pale, but no jaundice, cyanosis or thyromegaly. No jugular venous distension. No limb edema. VITAL SIGNS: Her heart rate was 95, blood pressure was 97/59, temperature was 98, respiratory rate was 26 and oxygen saturation was 44% on FiO2 of 100%. HEAD, EYES, EARS, NOSE AND THROAT: Showed normocephalic, atraumatic. NECK: Supple. HEART: Showed normal first and second heart sounds. No gallop, rub or murmur. CHEST: Clear to auscultation. No crepitation or rhonchi. ABDOMEN: Distended, soft, nontender. NEUROLOGIC: She is heavily sedated. Her intake is 3300, output was 2300. LABORATORY DATA: Her lab work this morning is still pending at the time of this dictation. ASSESSMENT: 1. Acute hypoxic respiratory failure with worsening hypoxemia despite being on FiO2 of 100%, multifactorial due to: A. COVID-19 pneumonia. B. Acute lung injury. C. Acute respiratory distress syndrome. D. Bilateral pneumothoraces that have resolved after chest tube placement. The left pneumothorax developed last night and she had a left chest tube placed and the lung has completely expanded. Unfortunately, the patient's oxygen saturation is only 44%. 2. Bronchial asthma. 3. Obstructive sleep apnea, on home CPAP. 4. Morbid obesity. 5. Left-sided pneumothorax, status post chest tube placement with full expansion of the left lung. 6. Right-sided pneumothorax has resolved. 7. Subcutaneous emphysema on the left side. 8. Possible superimposed bacterial pneumonia for which she is on IV antibiotic. 9. Overall prognosis is extremely poor where oxygenation is getting steadily worse and family were told about the extremely poor prognosis; however, the apparently changed her code status to full code. ELIZABETH FERNANDEZ MD DR: Cece JOB#: [id number] / [id number]
--- NOTE | 2021-03-07 08:55 | PDOC ---
Infectious Disease Note Subjective: Subjective Intubated/sedated Underwent chest tube placement for left tension pneumothorax earlier this morning FiO2 100% PEEP of 15 Now on Levophed and sister at bedside along with food service agent Vital Signs: Vital Signs Vital Signs Date Time Temp Pulse Resp B/P (MAP) Pulse Ox O2 Delivery O2 Flow Rate FiO2 03/07/21 08:32 78 Ventilator 03/07/21 08:17 94 26 82/40 (54) 03/07/21 04:00 98.7 98.7 Physical Exam: PHYSICAL EXAM GENERAL: Intubated/sedated HEENT: ETT OGT tube in place, normocephalic atraumatic NECK: Supple. No JVP. LUNGS: Decreased breath sounds,Right chest tube in place, left chest tube present, Left chest wall subcutaneous emphysema present HEART: S1, S2 ABDOMEN: Obese soft, nontender. Bowel sounds present Lott in place EXTREMITIES: +edema ,no cyanosis. SKIN: No generalized rash NEUROLOGIC: sedated on vent PICC line clean Medications: Inpatient Meds: Medications reviewed. Labs: Lab Laboratory Tests Test 03/06/21 12:25 03/06/21 18:13 03/06/21 23:00 03/06/21 23:52 Glucose (Fingerstick) 188 mg/dL (70-99) 235 mg/dL (70-99) 161 mg/dL (70-99) Urine Collection Type U cath Urine Color Marquita Urine Clarity Cloudy Urine pH 6.0 (<5.0-8.0) Urine Specific [place] >=1.030 (1.000-1.030) Urine Protein 30 mg/dL (NEG-TRACE) Urine Glucose (UA) Negative mg/dL (NEG) Urine Ketones (Stick) Negative mg/dL (NEG) Urine Blood Large (NEG) Urine Nitrite Negative (NEG) Urine Bilirubin Negative (NEG) Urine Urobilinogen Dipstick 1.0 mg/dL (0.2 mg/dL) Urine Leukocyte Esterase Negative (NEG) Urine RBC Tntc /HPF (0-2) Urine WBC 1-4 /HPF (0-4) Urine Squamous Epithelial Cells Few /LPF Urine Bacteria Few /HPF (0-FEW) Urine Hyaline Casts Moderate /HPF Urine Granular Casts Few /HPF Test 03/07/21 05:52 Glucose (Fingerstick) 207 mg/dL (70-99) Objective: Assessment: 1. COVID-19 positive. 2. Hypoxic respiratory failure. 3. Pneumonia, bilateral pulmonary infiltrate/ ARDS 4. Morbid obesity. 5. History of asthma. 6. Obstructive sleep apnea. 7 Fever pattern improved 8 Pneumothorax s/p chest tube in place 9. Blood culture positive coagulase negative staph likely contaminant 10. Leucocytosis on steroids 11. Bilateral pneumothorax status post bilateral CTS Plan: Plan of Care cont supportive care Continue meropenem/ Zyvox Follow-up cult and lab prognosis very poor Discussed with , sister at bedside at length Discussed with Dr. Roth D/W BYRON SAN MD Mar 07, 2021 08:55
[2021-03-07] MEDS: NYSTATIN TOPICAL POWDER 15GM BOTTLE. TP SCH ×2 (09:00→20:55)
[2021-03-07 09:08] LABS: HEMATOCRIT 42.3 % (36.0-47.0); HEMOGLOBIN 12.6 g/dL (12.0-15.5); RED BLOOD COUNT 4.97 x10^6/uL (3.50-5.40); RED CELL DISTRIBUTION WIDTH 16.7 % (11.5-14.5); WHITE BLOOD COUNT 23.9 x10^3/uL (4.0-11.0)
[2021-03-07 09:18] LABS: ALBUMIN 2.4 g/dL (3.4-5.0); ALBUMIN/GLOBULIN RATIO 0.5 (1.0-1.7); CALCIUM 8.5 mg/dL (8.5-10.1); CREATININE 0.8 mg/dL (0.6-1.0); GFR 78.3; TOTAL BILIRUBIN 0.7 mg/dL (0.2-1.0); TOTAL PROTEIN 6.8 g/dL (6.4-8.2)
[2021-03-07 09:46] LABS: BASE EXCESS ABG -1 mmol/L (-3-3); HCO3 ABG 32 mmol/L (21-28); PO2 ABG 55 mmHg (75-108); SAT O2 ABG 76 % (92-99)
[2021-03-07 10:05] LABS: FIO2 ABG 100; PCO2 ABG 115 mmHg (35-46)
--- NOTE | 2021-03-07 18:23 | NUR ---
Code status was discussed with patient's spouse. He decided to keep patient as a partial code,(chemical code). No chest compressions.
[2021-03-07] MEDS: INSULIN GLARGINE SYRINGE. SQ SCH (20:54)
[2021-03-08] VITALS (29 sets, daily range): BP systolic 102–143; BP diastolic 3–73
[2021-03-08] MEDS: INSULIN LISPRO 300 UNITS/3 ML VIAL. SQ SCH ×4 (00:05→18:42)
[2021-03-08] MEDS: PROPOFOL 100 ML IV PRN ×4 (04:45→23:34)
[2021-03-08] MEDS: VECURONIUM BROMIDE 50 MG in TOTAL VOLUME 50 ML IV PRN ×4 (04:46→22:52)
[2021-03-08] MEDS: MEROPENEM 1 GM in IV NORMAL SALINE 100ML 100 ML IV SCH ×3 (05:59→21:59)
[2021-03-08] MEDS: NOREPINEPHRINE VIAL 8 MG in IV DEXTROSE 5% 250 ML IV PRN (05:59)
[2021-03-08] MEDS: MIDAZOLAM 100mg/100ml NS BAG 100 ML IV PRN ×2 (07:01→15:47)
--- NOTE | 2021-03-08 07:12 | PDOC ---
PULMONARY PROGRESS NOTES DATE: 03/08/21 TIME: 07:07 Subjective Patient sedated paralysed, b lat ct in place Remains on vent pressure support 37/30/100%/15 sat in 90s scant ett secretion Vitals Vital Signs Date Time Temp Pulse Resp B/P (MAP) Pulse Ox O2 Delivery O2 Flow Rate FiO2 03/08/21 05:24 92 Ventilator 03/08/21 02:30 77 30 123/59 (80) 03/07/21 23:59 98.4 98.4 03/07/21 18:45 1.0 Comments intubated/sedated/ paralyzed HEENT: Other (nc at [facility] [place] no se clear orally intubated ) Lungs: Crackles, Other (b lat ct) Cardiovascular: S1, S2 Abdomen: Soft Extremities: Other (Edema) Skin: Warm Labs Laboratory Tests Test 03/06/21 07:20 03/06/21 12:25 03/06/21 18:13 03/06/21 23:00 O2 Saturation 80 % (92-99) Arterial Blood pH 7.35 (7.35-7.45) Arterial Blood pCO2 at Patient Temp 67 mmHg (35-46) Arterial Blood pO2 at Patient Temp 48 mmHg (75-108) Arterial Blood HCO3 36 mmol/L (21-28) Arterial Blood Base Excess 8 mmol/L (-3-3) FiO2 100 Glucose (Fingerstick) 188 mg/dL (70-99) 235 mg/dL (70-99) Urine Collection Type U cath Urine Color Marquita Urine Clarity Cloudy Urine pH 6.0 (<5.0-8.0) Urine Specific [place] >=1.030 (1.000-1.030) Urine Protein 30 mg/dL (NEG-TRACE) Urine Glucose (UA) Negative mg/dL (NEG) Urine Ketones (Stick) Negative mg/dL (NEG) Urine Blood Large (NEG) Urine Nitrite Negative (NEG) Urine Bilirubin Negative (NEG) Urine Urobilinogen Dipstick 1.0 mg/dL (0.2 mg/dL) Urine Leukocyte Esterase Negative (NEG) Urine RBC Tntc /HPF (0-2) Urine WBC 1-4 /HPF (0-4) Urine Squamous Epithelial Cells Few /LPF Urine Bacteria Few /HPF (0-FEW) Urine Hyaline Casts Moderate /HPF Urine Granular Casts Few /HPF Test 03/06/21 23:52 03/07/21 05:52 03/07/21 08:55 03/07/21 09:40 Glucose (Fingerstick) 161 mg/dL (70-99) 207 mg/dL (70-99) White Blood Count 23.9 x10^3/uL (4.0-11.0) Red Blood Count 4.97 x10^6/uL (3.50-5.40) Hemoglobin 12.6 g/dL (12.0-15.5) Hematocrit 42.3 % (36.0-47.0) Mean Corpuscular Volume 85 fL (79-100) Mean Corpuscular Hemoglobin 25 pg (25-35) Mean Corpuscular Hemoglobin Concent 30 g/dL (31-37) Red Cell Distribution Width 16.7 % (11.5-14.5) Platelet Count 412 x10^3/uL (140-400) Sodium Level 138 mmol/L (136-145) Potassium Level 5.0 mmol/L (3.5-5.1) Chloride Level 96 mmol/L (98-107) Carbon Dioxide Level 27 mmol/L (21-32) Anion Gap 15 (6-14) Blood Urea Nitrogen 56 mg/dL (7-20) Creatinine 0.8 mg/dL (0.6-1.0) Estimated GFR (Cockcroft-Gault) 78.3 BUN/Creatinine Ratio 70 (6-20) Glucose Level 198 mg/dL (70-99) Calcium Level 8.5 mg/dL (8.5-10.1) Total Bilirubin 0.7 mg/dL (0.2-1.0) Aspartate Amino Transf (AST/SGOT) 161 U/L (15-37) Alanine Aminotransferase (ALT/SGPT) 261 U/L (14-59) Alkaline Phosphatase 257 U/L (46-116) Total Protein 6.8 g/dL (6.4-8.2) Albumin 2.4 g/dL (3.4-5.0) Albumin/Globulin Ratio 0.5 (1.0-1.7) O2 Saturation 76 % (92-99) Arterial Blood pH 7.06 (7.35-7.45) Arterial Blood pCO2 at Patient Temp 115 mmHg (35-46) Arterial Blood pO2 at Patient Temp 55 mmHg (75-108) Arterial Blood HCO3 32 mmol/L (21-28) Arterial Blood Base Excess -1 mmol/L (-3-3) FiO2 100 Test 03/07/21 12:10 03/07/21 17:46 03/07/21 23:47 03/08/21 05:54 Glucose (Fingerstick) 169 mg/dL (70-99) 231 mg/dL (70-99) 166 mg/dL (70-99) 201 mg/dL (70-99) Laboratory Tests Test 03/07/21 08:55 03/07/21 09:40 03/07/21 12:10 03/07/21 17:46 White Blood Count 23.9 x10^3/uL (4.0-11.0) Red Blood Count 4.97 x10^6/uL (3.50-5.40) Hemoglobin 12.6 g/dL (12.0-15.5) Hematocrit 42.3 % (36.0-47.0) Mean Corpuscular Volume 85 fL (79-100) Mean Corpuscular Hemoglobin 25 pg (25-35) Mean Corpuscular Hemoglobin Concent 30 g/dL (31-37) Red Cell Distribution Width 16.7 % (11.5-14.5) Platelet Count 412 x10^3/uL (140-400) Sodium Level 138 mmol/L (136-145) Potassium Level 5.0 mmol/L (3.5-5.1) Chloride Level 96 mmol/L (98-107) Carbon Dioxide Level 27 mmol/L (21-32) Anion Gap 15 (6-14) Blood Urea Nitrogen 56 mg/dL (7-20) Creatinine 0.8 mg/dL (0.6-1.0) Estimated GFR (Cockcroft-Gault) 78.3 BUN/Creatinine Ratio 70 (6-20) Glucose Level 198 mg/dL (70-99) Calcium Level 8.5 mg/dL (8.5-10.1) Total Bilirubin 0.7 mg/dL (0.2-1.0) Aspartate Amino Transf (AST/SGOT) 161 U/L (15-37) Alanine Aminotransferase (ALT/SGPT) 261 U/L (14-59) Alkaline Phosphatase 257 U/L (46-116) Total Protein 6.8 g/dL (6.4-8.2) Albumin 2.4 g/dL (3.4-5.0) Albumin/Globulin Ratio 0.5 (1.0-1.7) O2 Saturation 76 % (92-99) Arterial Blood pH 7.06 (7.35-7.45) Arterial Blood pCO2 at Patient Temp 115 mmHg (35-46) Arterial Blood pO2 at Patient Temp 55 mmHg (75-108) Arterial Blood HCO3 32 mmol/L (21-28) Arterial Blood Base Excess -1 mmol/L (-3-3) FiO2 100 Glucose (Fingerstick) 169 mg/dL (70-99) 231 mg/dL (70-99) Test 03/07/21 23:47 03/08/21 05:54 Glucose (Fingerstick) 166 mg/dL (70-99) 201 mg/dL (70-99) Medications Active Scripts Medications Dose Route/Sig Max Daily Dose Days Date Category Meloxicam 15 Mg Tablet 1 Tab PO DAILY 30 02/18/21 Reported Comments reviewed 03/08, b lat ct b lat infilt worse sub cut emphysema 03/07 5 am large left small r ptx r ct at [address] ptx resolved b lat infilt 03/04 worsening bilateral infiltrates no change in small right apical PTX cxr 03/03 diffuse infiltrates small right apical PTX CXR 03/02 IMPRESSION: 1. Stable bilateral perihilar and basilar opacities. 2. No pneumothorax is seen. 3. Stable small left greater than right pleural effusions. 4. Stable life devices. CXR 03/01 Impression: 1. Small left effusion and marked bilateral interstitial infiltrates likely atypical pneumonia. 2. The left effusion appears worse however the infiltrates appear unchanged. 3. Previously seen bilateral subcutaneous emphysema has resolved. Impression . 1. Acute hypoxic respiratory failure with acute lung injury/ acute respiratory distress syndrome secondary to COVID-19 pneumonia andsepsis and s uspected VAP. 2. Morbid obesity, BMI of 65 3. No significant tobacco history. 4. History of asthma, under control. 5. Obstructive sleep apnea, on home CPAP. Unknown severity of obstructive sleep apnea and unknown CPAP pressure. 6. Abnormal CXR with bilateral patchy infiltrates c/w viral pneumonia., worse 03/08 7. Fever, now afebrile, new sepsis/ suspected VAP 8. Subcutaneous emphysema improved 9. b lat ptx b lat ct Plan . Updated 03/08 cont vent support setting reviewed cxr b lat infilt worse, I>>>O lasix 20 mg iv x1 has b lat chest tube sub cut emphysema, cts suction -40 critically ill titrated down peep if able remains critically ill with severe hypoxia for past week vent support currently on 100% and PEEP 15. wean peep as tolerated very poor prognosis despite two weeks of aggressive care Continue Antibiotics per ID Pt. has Completed course of remdesivir Continue steroids with slow taper Nutritional support Poor prognosis DVT/GI PPX D/W RN and RT discussed w dr dr capri vergara Total cc time cumulative 30 minutes no overtime , reviewing the current documentation, data, labs, chest x-ray, discussion with RN and RT, formulating a plan. Updated 03/07 cxr new l ptx tension r ptx s/p l ct, cxr b lat infil ptx resolved sat in 40s inspite of correcting ptx cts to suction -40 critically ill prognosis very poor discussed in details w remains critically ill with refractory hypoxia for past week vent support currently on 100% and PEEP 15. very poor prognosis despite two weeks of aggressive care Continue Antibiotics and fever per ID Pt. has Completed course of remdesivir Continue steroids with slow taper Nutritional support Poor prognosis DVT/GI PPX D/W RN and RT discussed w dr alvarado and dr farooq Total cc cumulative 30 minutes, reviewing the current documentation, data, labs, chest x-ray, discussion with RN and RT, formulating a plan. Updated 03/06 remains critically ill with refractory hypoxia vent support currently on 100% and PEEP 14. Peak airway pressures in 50's. will try PC, increase PEEP, monitor driving pressure, plateau pressure Follow ABG/CXR-reviewed, worsening infiltrates, suspected VAP, repeat cxr in am very poor prognosis despite two weeks of aggressive care continue right chest tube to suction-20-- no air leak , no increase in PTX Continue Antibiotics and fever per ID Pt. has Completed course of remdesivir Continue steroids with slow taper Nutritional support Poor prognosis DVT/GI PPX D/W RN and RT d/w in detail. He agrees for chemical code only if she codes. Total cumulative 30 minutes, reviewing the current documentation, data, labs, chest x-ray, discussion with RN and RT, formulating a plan. Updated 03/05 Continue current support currently on 14 of PEEP 100% FiO2 We will continue nutritional support Chest tube in place no air leak seen Antibiotics per ID Patient finished a course of remdesivir and steroids As needed Lasix Total cumulative critical care time of 30 minutes, reviewing the current docu mentation, labs, chest x-ray, going over the findings with the at the bedside, formulating a plan. Updated 03/04 remains critically ill with refractory hypoxia Continue current vent support currently on 100% and PEEP 14 I increased PEEP today to 15, her plateau pressure increased further to 45 with increase in driving pressure. She has reached upper inflection point and alveoli can no longer be recruited by increase in PEEP.. reduced PEEP back to 14 Follow ABG/CXR-reviewed, worsening infiltrates, suspected VAP, will try lasix very poor prognosis despite two weeks of aggressive care continue right chest tube to suction-20-- no air leak , no increase in PTX Continue Antibiotics and fever per ID Pt. has Completed course of remdesivir Continue steroids with slow taper Nutritional support Poor prognosis DVT/GI PPX D/W RN and RT d/w in detail. He agrees for chemical code only if she codes. Pt not likely to survive Total cumulative 35 minutes, reviewing the current documentation, data, labs, chest x-ray, discussion with RN and RT, formulating a plan. Updated 03/03 Continue current vent support currently on 100% and PEEP 13 I increased PEEP today, her plateau pressure increased further to 41. reduced PEEP back to 13 Follow ABG/CXR-reviewed very poor prognosis despite two weeks of aggressive care continue right chest tube to suction-20-- no air leak Continue Antibiotics and fever per ID Pt. has Completed course of remdesivir Continue steroids with slow taper Nutritional support Poor prognosis DVT/GI PPX D/W RN and RT d/w in detail. He agrees for chemical code only if she codes Total cumulative 30 minutes, reviewing the current documentation, data, labs, chest x-ray, discussion with RN and RT, formulating a plan. Updated 03/02 Continue current vent support currently on 100% and PEEP 13 Follow ABG/CXR- continue right chest tube to suction-20-- no air leak Continue Antibiotics and fever per ID Pt. has Completed course of remdesivir Continue steroids with slow taper Nutritional support Poor prognosis DVT/GI PPX D/W RN and RT D/W at bedside Total cumulative 30 minutes, reviewing the current documentation, data, labs, chest x-ray, discussion with RN and RT, formulating a plan. Updated 03/01 Continue current vent support currently on 100% and PEEP 13, ongoing hypoxia despite vent support Follow ABG/CXR- lasix X1 today continue right chest tube to suction-20-- no air leak Proning 16 hours daily Continue Antibiotics and fever per ID Pt. has Completed course of remdesivir Continue steroids with slow taper Nutritional support Poor prognosis DVT/GI PPX D/W RN and RT Total cumulative 30 minutes, reviewing the current documentation, data, labs, chest x-ray, discussion with RN and RT, formulating a plan. NAFISA CLINE MD Mar 08, 2021 07:12
[2021-03-08] MEDS ORDERED: FUROSEMIDE 20 MG/2 ML VIAL. IVP ONE (07:15)
[2021-03-08] MEDS: FAMOTIDINE 20 MG/2 ML VIAL IVP SCH ×2 (07:47→20:49)
[2021-03-08] MEDS: DEXAMETHASONE SOD PHOS 4 MG/ML VIAL IVP SCH (07:47)
[2021-03-08] MEDS: FLUCONAZOLE 100 MG TABLET. FT SCH (07:48)
[2021-03-08] MEDS: LINEZOLID 600 MG TABLET PO SCH ×2 (07:48→20:49)
[2021-03-08] MEDS: NYSTATIN TOPICAL POWDER 15GM BOTTLE. TP SCH ×2 (07:48→20:49)
[2021-03-08 08:16] LABS: BASE EXCESS ABG 0 mmol/L (-3-3); FIO2 ABG 100; HCO3 ABG 28 mmol/L (21-28); PCO2 ABG 59 mmHg (35-46); PO2 ABG 61 mmHg (75-108); SAT O2 ABG 88 % (92-99)
[2021-03-08] MEDS: fentaNYL HIGH DOSE PCA 55 ML IV PRN ×2 (08:37→22:51)
--- NOTE | 2021-03-08 08:52 | PDOC ---
Infectious Disease Note Subjective: Subjective Intubated/sedated Bilateral chest tube in place FiO2 100% PEEP of 14 on Levophed No fevers last 24 hrs Vital Signs: Vital Signs Vital Signs Date Time Temp Pulse Resp B/P (MAP) Pulse Ox O2 Delivery O2 Flow Rate FiO2 03/08/21 08:00 98.1 93 30 133/72 (92) 94 Ventilator 98.1 03/07/21 18:45 1.0 Physical Exam: PHYSICAL EXAM GENERAL: Intubated/sedated HEENT: ETT OGT tube in place, normocephalic atraumatic NECK: Supple. No JVP. LUNGS: Decreased breath sounds,Right chest tube in place, left chest tube present, Left chest wall subcutaneous emphysema present HEART: S1, S2 ABDOMEN: Obese soft, nontender. Bowel sounds present Lott in place EXTREMITIES: +edema ,no cyanosis. SKIN: No generalized rash NEUROLOGIC: sedated on vent PICC line clean Medications: Inpatient Meds: Medications reviewed. Labs: Lab Laboratory Tests Test 03/07/21 08:55 03/07/21 09:40 03/07/21 12:10 03/07/21 17:46 White Blood Count 23.9 x10^3/uL (4.0-11.0) Red Blood Count 4.97 x10^6/uL (3.50-5.40) Hemoglobin 12.6 g/dL (12.0-15.5) Hematocrit 42.3 % (36.0-47.0) Mean Corpuscular Volume 85 fL (79-100) Mean Corpuscular Hemoglobin 25 pg (25-35) Mean Corpuscular Hemoglobin Concent 30 g/dL (31-37) Red Cell Distribution Width 16.7 % (11.5-14.5) Platelet Count 412 x10^3/uL (140-400) Sodium Level 138 mmol/L (136-145) Potassium Level 5.0 mmol/L (3.5-5.1) Chloride Level 96 mmol/L (98-107) Carbon Dioxide Level 27 mmol/L (21-32) Anion Gap 15 (6-14) Blood Urea Nitrogen 56 mg/dL (7-20) Creatinine 0.8 mg/dL (0.6-1.0) Estimated GFR (Cockcroft-Gault) 78.3 BUN/Creatinine Ratio 70 (6-20) Glucose Level 198 mg/dL (70-99) Calcium Level 8.5 mg/dL (8.5-10.1) Total Bilirubin 0.7 mg/dL (0.2-1.0) Aspartate Amino Transf (AST/SGOT) 161 U/L (15-37) Alanine Aminotransferase (ALT/SGPT) 261 U/L (14-59) Alkaline Phosphatase 257 U/L (46-116) Total Protein 6.8 g/dL (6.4-8.2) Albumin 2.4 g/dL (3.4-5.0) Albumin/Globulin Ratio 0.5 (1.0-1.7) O2 Saturation 76 % (92-99) Arterial Blood pH 7.06 (7.35-7.45) Arterial Blood pCO2 at Patient Temp 115 mmHg (35-46) Arterial Blood pO2 at Patient Temp 55 mmHg (75-108) Arterial Blood HCO3 32 mmol/L (21-28) Arterial Blood Base Excess -1 mmol/L (-3-3) FiO2 100 Glucose (Fingerstick) 169 mg/dL (70-99) 231 mg/dL (70-99) Test 03/07/21 23:47 03/08/21 05:54 03/08/21 08:00 Glucose (Fingerstick) 166 mg/dL (70-99) 201 mg/dL (70-99) O2 Saturation 88 % (92-99) Arterial Blood pH 7.29 (7.35-7.45) Arterial Blood pCO2 at Patient Temp 59 mmHg (35-46) Arterial Blood pO2 at Patient Temp 61 mmHg (75-108) Arterial Blood HCO3 28 mmol/L (21-28) Arterial Blood Base Excess 0 mmol/L (-3-3) FiO2 100 Objective: Assessment: 1. COVID-19 positive. 2. Acute hypoxic respiratory failure. 3. Pneumonia, bilateral pulmonary infiltrate/ ARDS 4. Morbid obesity. 5. History of asthma. 6. Obstructive sleep apnea. 7 Fever pattern improved 8 Bilateral pneumothorax status post bilateral CTS 9. Blood culture positive coagulase negative staph likely contaminant 10. Leucocytosis on steroids,also likely reactive Plan: Plan of Care Continue Supportive care Continue Meropenem/ Zyvox Started on fluconazole by primary 17 2020 Follow-up cult and lab Prognosis very poor Discussed with and sister at bedside yesterday at length D/W BYRON SAN MD Mar 08, 2021 08:52
--- NOTE | 2021-03-08 09:22 | RAD ---
XR CHEST 1V History: Reason: RF/ARDS/PTX ICU#113 / Spl. Instructions: / History: Comparison: March 07, 2021 Findings: Small left apical pneumothorax. Diffuse left chest wall subcutaneous gas increased compared to prior. Small caliber chest tube projecting over the lower lung. Stable endotracheal tube and enteric tube. Stable right thoracostomy tube. Small right apical pneumothorax, increased compared to prior. Diffuse lung consolidations, unchanged. Unchanged heart size. Impression: 1. Increased small bilateral pneumothoraces. Stable chest tubes. 2. Increased diffuse subcutaneous gas. 3. Diffuse pulmonary consolidations, unchanged. FOR INTERNAL CODING PURPOSES Critical result: Findings discussed with patient's nursing team at 03/08/2021 9:19 AM. RESULT CODE: (C) Electronically signed by: Ranjith Fuentes DO (03/08/2021 9:20 AM) [facility]
--- NOTE | 2021-03-08 09:34 | PN ---
DATE: 03/08/2021 SUBJECTIVE: The patient is resting, slightly propped up in bed, paralyzed, sedated. She is also on a small dose of Levophed, intubated and mechanically ventilated. Her numbers seemed to be much better today as her oxygen saturation was 96% on FiO2 of 100%, did receive 20 mg of IV Lasix. Her blood gases showed a pH of 7.298, pCO2 of 59 and pO2 of 60. OBJECTIVE: GENERAL: On examining her, she was pale, but no jaundice, cyanosis or thyromegaly. No jugular venous distention. No lower limb edema. VITAL SIGNS: Her heart rate was 92, blood pressure was 118/66, temperature was 97.4, respiratory rate was 30 and oxygen saturation was 96% on FiO2 of 100%. HEAD, EYES, EARS, NOSE AND THROAT: Showed normocephalic, atraumatic. She has orotracheal and orogastric tube. NECK: Supple. HEART: Normal first and second heart sounds. No gallop, rub or murmur. CHEST: Showed central trachea, equal bilateral expansion, air entry, vesicular sounds. I could not appreciate any crepitation or rhonchi anteriorly. ABDOMEN: Distended, soft, nontender. NEUROLOGIC: She is heavily sedated. Her intake was 4550, output was 1395. LABORATORY DATA: Her most recent lab work as of yesterday showed her hemoglobin was 12.6, hematocrit 42, however, her white cell count was high at 24 and platelet of 412,000. Her chemistry yesterday showed a serum sodium 138, potassium 5, chloride 96, bicarbonate 27, anion gap of 15, BUN 56, creatinine 0.8, estimated GFR was 78 mL per minute. Her glucose was 198, calcium was 8.5. Her total bilirubin is normal. AST, ALT, alkaline phosphatase were all elevated. Total protein 6.8, albumin was 2.4. ASSESSMENT: 1. Acute hypoxic respiratory failure, slightly better, her oxygen saturation was up to 96% when I saw her this morning on FiO2 of 100%, multifactorial including: A. COVID-19 pneumonia. B. Acute lung injury. C. Acute respiratory distress syndrome. D. Bilateral pneumothoraces that have resolved after chest tube has been placed. The left pneumothorax developed 2 nights ago. She has a left chest tube placed and the lung has completely expanded. 2. Bronchial asthma. 3. Obstructive sleep apnea, on CPAP. 4. Morbid obesity. 5. Left-sided pneumothorax, status post chest tube placement with full expansion of the left lung. 6. Right-sided pneumothorax that has resolved. 7. Subcutaneous emphysema on the left side. 8. Possible superimposed bacterial pneumonia for which she is on IV antibiotic. 9. She seemed to be better today. PLAN: Obviously to continue with sedation. Continue with mechanical ventilation. Continue nutritional support. ELIZABETH FERNANDEZ MD DR: BOLA/carlos JOB#: [id number] / [id number]
[2021-03-08] MEDS ORDERED: EPINEPHrine SYRINGE 1 MG/10 ML SYRINGE ONE (12:00)
[2021-03-08] MEDS: INSULIN GLARGINE SYRINGE. SQ SCH (20:48)
[2021-03-09] VITALS (23 sets, daily range): BP systolic 96–134; BP diastolic 46–71
[2021-03-09] MEDS: INSULIN LISPRO 300 UNITS/3 ML VIAL. SQ SCH ×5 (00:23→23:55)
[2021-03-09] MEDS: MIDAZOLAM 100mg/100ml NS BAG 100 ML IV PRN ×2 (04:13→14:23)
[2021-03-09] MEDS: VECURONIUM BROMIDE 50 MG in TOTAL VOLUME 50 ML IV PRN ×3 (04:37→20:02)
[2021-03-09] MEDS: PROPOFOL 100 ML IV PRN ×5 (05:08→20:32)
[2021-03-09] MEDS: MEROPENEM 1 GM in IV NORMAL SALINE 100ML 100 ML IV SCH ×3 (06:08→21:59)
--- NOTE | 2021-03-09 06:47 | RAD ---
Study: XR CHEST 1V Indication: Respiratory failure. Pneumothorax. Comparison: 03/08/2021 Findings: Unchanged positioning of a right-sided chest tube and a left pleural catheter. Enteric tube extends b eyond the inferior field of view. Right-sided PICC projects within the SVC. Redemonstrated but less extensive subcutaneous emphysema. Similar size of a left pneumothorax with th e visceral line projecting just above the fourth rib. A right-sided pneumothorax seen on the comparis on is less conspicuous on this exam. Persistence of diffuse airspace infiltrates throughout both lungs. Unchanged cardiomediastinal silhou ette. Impression: 1. Support device positioning as above. 2. A right pneumothorax seen on the comparison is not identified on this exam. Similar size of a smal l left pneumothorax. 3. Persistent and not significantly changed diffuse airspace infiltrates. Electronically signed by: DOMINIQUE CAIN MD (03/09/2021 6:44 AM) [facility]
[2021-03-09 07:42] LABS: HEMATOCRIT 31.5 % (36.0-47.0); HEMOGLOBIN 10.1 g/dL (12.0-15.5); RED BLOOD COUNT 3.89 x10^6/uL (3.50-5.40); WHITE BLOOD COUNT 11.8 x10^3/uL (4.0-11.0)
[2021-03-09 08:14] LABS: ALBUMIN/GLOBULIN RATIO 0.4 (1.0-1.7); CALCIUM 8.7 mg/dL (8.5-10.1); CREATININE 0.6 mg/dL (0.6-1.0); GFR 109.1; POTASSIUM 5.4 mmol/L (3.5-5.1); TOTAL BILIRUBIN 0.4 mg/dL (0.2-1.0); TOTAL PROTEIN 6.6 g/dL (6.4-8.2)
--- NOTE | 2021-03-09 08:14 | PDOC ---
PULMONARY PROGRESS NOTES DATE: 03/09/21 TIME: 08:13 Subjective Patient sedated, currently on pressure controlled of 38, rate of 30, i.e. ratio of 2:1, 100% FiO2 15 of PEEP Patient sedated, low-dose pressors Vitals Vital Signs Date Time Temp Pulse Resp B/P (MAP) Pulse Ox O2 Delivery O2 Flow Rate FiO2 03/09/21 08:05 69 30 110/58 (75) 94 Ventilator 03/09/21 07:02 98.7 98.7 03/08/21 22:51 1.0 HEENT: Other (nc at [facility] no se clear orally intubated ) Lungs: Crackles, Other (Bilateral chest tube placement,) Cardiovascular: S1, S2 Abdomen: Soft Extremities: Other (Edema) Skin: Warm Labs Laboratory Tests Test 03/07/21 08:55 03/07/21 09:40 03/07/21 12:10 03/07/21 17:46 White Blood Count 23.9 x10^3/uL (4.0-11.0) Red Blood Count 4.97 x10^6/uL (3.50-5.40) Hemoglobin 12.6 g/dL (12.0-15.5) Hematocrit 42.3 % (36.0-47.0) Mean Corpuscular Volume 85 fL (79-100) Mean Corpuscular Hemoglobin 25 pg (25-35) Mean Corpuscular Hemoglobin Concent 30 g/dL (31-37) Red Cell Distribution Width 16.7 % (11.5-14.5) Platelet Count 412 x10^3/uL (140-400) Sodium Level 138 mmol/L (136-145) Potassium Level 5.0 mmol/L (3.5-5.1) Chloride Level 96 mmol/L (98-107) Carbon Dioxide Level 27 mmol/L (21-32) Anion Gap 15 (6-14) Blood Urea Nitrogen 56 mg/dL (7-20) Creatinine 0.8 mg/dL (0.6-1.0) Estimated GFR (Cockcroft-Gault) 78.3 BUN/Creatinine Ratio 70 (6-20) Glucose Level 198 mg/dL (70-99) Calcium Level 8.5 mg/dL (8.5-10.1) Total Bilirubin 0.7 mg/dL (0.2-1.0) Aspartate Amino Transf (AST/SGOT) 161 U/L (15-37) Alanine Aminotransferase (ALT/SGPT) 261 U/L (14-59) Alkaline Phosphatase 257 U/L (46-116) Total Protein 6.8 g/dL (6.4-8.2) Albumin 2.4 g/dL (3.4-5.0) Albumin/Globulin Ratio 0.5 (1.0-1.7) O2 Saturation 76 % (92-99) Arterial Blood pH 7.06 (7.35-7.45) Arterial Blood pCO2 at Patient Temp 115 mmHg (35-46) Arterial Blood pO2 at Patient Temp 55 mmHg (75-108) Arterial Blood HCO3 32 mmol/L (21-28) Arterial Blood Base Excess -1 mmol/L (-3-3) FiO2 100 Glucose (Fingerstick) 169 mg/dL (70-99) 231 mg/dL (70-99) Test 03/07/21 23:47 03/08/21 05:54 03/08/21 08:00 03/08/21 12:02 Glucose (Fingerstick) 166 mg/dL (70-99) 201 mg/dL (70-99) 254 mg/dL (70-99) O2 Saturation 88 % (92-99) Arterial Blood pH 7.29 (7.35-7.45) Arterial Blood pCO2 at Patient Temp 59 mmHg (35-46) Arterial Blood pO2 at Patient Temp 61 mmHg (75-108) Arterial Blood HCO3 28 mmol/L (21-28) Arterial Blood Base Excess 0 mmol/L (-3-3) FiO2 100 Test 03/08/21 18:41 03/09/21 00:14 03/09/21 06:11 03/09/21 06:55 Glucose (Fingerstick) 203 mg/dL (70-99) 218 mg/dL (70-99) 176 mg/dL (70-99) White Blood Count 11.8 x10^3/uL (4.0-11.0) Red Blood Count 3.89 x10^6/uL (3.50-5.40) Hemoglobin 10.1 g/dL (12.0-15.5) Hematocrit 31.5 % (36.0-47.0) Mean Corpuscular Volume 81 fL (79-100) Mean Corpuscular Hemoglobin 26 pg (25-35) Mean Corpuscular Hemoglobin Concent 32 g/dL (31-37) Red Cell Distribution Width 16.0 % (11.5-14.5) Platelet Count 356 x10^3/uL (140-400) Laboratory Tests Test 03/08/21 12:02 03/08/21 18:41 03/09/21 00:14 03/09/21 06:11 Glucose (Fingerstick) 254 mg/dL (70-99) 203 mg/dL (70-99) 218 mg/dL (70-99) 176 mg/dL (70-99) Test 03/09/21 06:55 White Blood Count 11.8 x10^3/uL (4.0-11.0) Red Blood Count 3.89 x10^6/uL (3.50-5.40) Hemoglobin 10.1 g/dL (12.0-15.5) Hematocrit 31.5 % (36.0-47.0) Mean Corpuscular Volume 81 fL (79-100) Mean Corpuscular Hemoglobin 26 pg (25-35) Mean Corpuscular Hemoglobin Concent 32 g/dL (31-37) Red Cell Distribution Width 16.0 % (11.5-14.5) Platelet Count 356 x10^3/uL (140-400) Medications Active Scripts Medications Dose Route/Sig Max Daily Dose Days Date Category Meloxicam 15 Mg Tablet 1 Tab PO DAILY 30 02/18/21 Reported Comments Chest x-ray reviewed, 419 Bilateral chest tube placement No evidence of significant pneumothorax Impression . 1. Acute hypoxic respiratory failure with acute lung injury/ acute respiratory distress syndrome secondary to COVID-19 pneumonia andsepsis and suspected VAP. 2. Morbid obesity, BMI of 65 3. No significant tobacco history. 4. History of asthma, 5. Obstructive sleep apnea, on home CPAP. Unknown severity of obstructive sleep apnea and unknown CPAP pressure. 6. Abnormal CXR with bilateral patchy infiltrates c/w viral pneumonia. 7. Fever, per ID 8. Subcutaneous emphysema improved 9. Status post bilateral chest tube placement, for spontaneous pneumothorax 10. Bacteremia, more than likely contaminant Plan . Updated 03/09 Continue current support ABG noted adequate for patient Permissive hypercapnia Mild air leak on chest tube on the left side DVT GI prophylaxis Antibiotics per ID Continue steroids Continue nutritional support Total cumulative critical care time of 35 minutes, reviewing the old documentation, chest x-ray, labs, and formulating a plan. Updated 03/08 cont vent support setting reviewed cxr b lat infilt worse, I>>>O lasix 20 mg iv x1 has b lat chest tube sub cut emphysema, cts suction -40 critically ill titrated down peep if able remains critically ill with severe hypoxia for past week vent support currently on 100% and PEEP 15. wean peep as tolerated very poor prognosis despite two weeks of aggressive care Continue Antibiotics per ID Pt. has Completed course of remdesivir Continue steroids with slow taper Nutritional support Poor prognosis DVT/GI PPX D/W RN and RT discussed w dr dr capri vergara Total cc time cumulative 30 minutes no overtime , reviewing the current documentation, data, labs, chest x-ray, discussion with RN and RT, formulating a plan. DAVID LIZ MD Mar 09, 2021 08:14
--- NOTE | 2021-03-09 08:49 | PDOC ---
Infectious Disease Note Subjective: Subjective Intubated/sedated Bilateral chest tube in place FiO2 100% PEEP of 14 on low-dose Levophed No fevers last 24 hrs Vital Signs: Vital Signs Vital Signs Date Time Temp Pulse Resp B/P (MAP) Pulse Ox O2 Delivery O2 Flow Rate FiO2 03/09/21 08:13 Mechanical Ventilator 03/09/21 08:05 69 30 110/58 (75) 94 03/09/21 07:02 98.7 98.7 03/08/21 22:51 1.0 Physical Exam: PHYSICAL EXAM GENERAL: Intubated/sedated HEENT: ETT OGT tube in place, normocephalic atraumatic NECK: Supple. No JVP. LUNGS: Decreased breath sounds,Right chest tube in place, left chest tube present, Left chest wall subcutaneous emphysema present HEART: S1, S2 ABDOMEN: Obese soft, nontender. Bowel sounds present Lott in place EXTREMITIES: +edema ,no cyanosis. SKIN: No generalized rash NEUROLOGIC: sedated on vent PICC line clean Medications: Inpatient Meds: Medications reviewed. Labs: Lab Laboratory Tests Test 03/08/21 12:02 03/08/21 18:41 03/09/21 00:14 03/09/21 06:11 Glucose (Fingerstick) 254 mg/dL (70-99) 203 mg/dL (70-99) 218 mg/dL (70-99) 176 mg/dL (70-99) Test 03/09/21 06:53 03/09/21 06:55 Sodium Level 134 mmol/L (136-145) Potassium Level 5.4 mmol/L (3.5-5.1) Chloride Level 99 mmol/L (98-107) Carbon Dioxide Level 29 mmol/L (21-32) Anion Gap 6 (6-14) Blood Urea Nitrogen 65 mg/dL (7-20) Creatinine 0.6 mg/dL (0.6-1.0) Estimated GFR (Cockcroft-Gault) 109.1 BUN/Creatinine Ratio 108 (6-20) Glucose Level 155 mg/dL (70-99) Calcium Level 8.7 mg/dL (8.5-10.1) Total Bilirubin 0.4 mg/dL (0.2-1.0) Aspartate Amino Transf (AST/SGOT) 26 U/L (15-37) Alanine Aminotransferase (ALT/SGPT) 121 U/L (14-59) Alkaline Phosphatase 139 U/L (46-116) Total Protein 6.6 g/dL (6.4-8.2) Albumin 2.0 g/dL (3.4-5.0) Albumin/Globulin Ratio 0.4 (1.0-1.7) White Blood Count 11.8 x10^3/uL (4.0-11.0) Red Blood Count 3.89 x10^6/uL (3.50-5.40) Hemoglobin 10.1 g/dL (12.0-15.5) Hematocrit 31.5 % (36.0-47.0) Mean Corpuscular Volume 81 fL (79-100) Mean Corpuscular Hemoglobin 26 pg (25-35) Mean Corpuscular Hemoglobin Concent 32 g/dL (31-37) Red Cell Distribution Width 16.0 % (11.5-14.5) Platelet Count 356 x10^3/uL (140-400) Objective: Assessment: 1. COVID-19 positive. 2. Acute hypoxic respiratory failure. 3. Pneumonia, bilateral pulmonary infiltrate/ ARDS 4. Morbid obesity. 5. History of asthma. 6. Obstructive sleep apnea. 7 Fever pattern improved 8 Bilateral pneumothorax status post bilateral CTS 9. Blood culture positive coagulase negative staph likely contaminant, repeat blood cultures negative 10. Leucocytosis on steroids,also likely reactive Plan: Plan of Care Continue Supportive care Continue Meropenem/ Zyvox Started on fluconazole by primary March 07 2021 Follow-up cult and lab Prognosis very poor D/W BYRON SAN MD Mar 09, 2021 08:49
[2021-03-09 09:07] LABS: BASE EXCESS ABG 2 mmol/L (-3-3); HCO3 ABG 31 mmol/L (21-28); PO2 ABG 79 mmHg (75-108); SAT O2 ABG 93 % (92-99)
[2021-03-09] MEDS: FAMOTIDINE 20 MG/2 ML VIAL IVP SCH ×2 (09:43→21:36)
[2021-03-09] MEDS: DEXAMETHASONE SOD PHOS 4 MG/ML VIAL IVP SCH (09:43)
[2021-03-09] MEDS: LINEZOLID 600 MG TABLET PO SCH ×2 (09:43→21:36)
[2021-03-09] MEDS: FLUCONAZOLE 100 MG TABLET. FT SCH (09:43)
[2021-03-09] MEDS: NYSTATIN TOPICAL POWDER 15GM BOTTLE. TP SCH ×2 (09:44→21:00)
--- NOTE | 2021-03-09 10:35 | PN ---
DATE: 03/09/2021 SUBJECTIVE: The patient apparently has desaturated again last night after they lowered the pressor and she responded very well to the 20 mg of IV Lasix and had about 3 liters of urine output. Her pressors were put back and she is now maintaining her oxygen saturation around 90-91%. PHYSICAL EXAMINATION: GENERAL: When I examined her, she was pale, but no jaundice, cyanosis or thyromegaly. No jugular venous distention or limb edema. VITAL SIGNS: Her heart rate was 69, blood pressure was 111/59, her temperature was 98.7, respiratory rate was 30 and oxygen saturation was 91% on FiO2 of 100%. HEAD, EYES, EARS, NOSE AND THROAT: Showed normocephalic, atraumatic. NECK: Supple. HEART: Showed normal first and second heart sounds. No gallop or murmur. CHEST: Clear to auscultation. No crepitation or rhonchi. ABDOMEN: Distended, soft, nontender. NEUROLOGIC: She is heavily sedated. Her intake was 4500, output was 1400. LABORATORY DATA: Her lab work is still pending at the time of this dictation. Her chest x-ray this morning showed that the patient has right pneumothorax seen. The comparison is not identified on this exam, similar size of the small left pneumothorax, persistent, not significantly changed, diffuse airspace infiltrate. ASSESSMENT: 1. Acute hypoxic respiratory failure, maintaining her oxygen saturation at 91% on FiO2 of 100%, probably multifactorial including: A. COVID-19 pneumonia. B. Acute lung injury. C. Acute respiratory distress syndrome. D. Bilateral pneumothoraces have resolved after chest tube placed in respect to hemothorax. 2. Bronchial asthma. 3. Obstructive sleep apnea, on CPAP. 4. Morbid obesity. 5. Left-sided pneumothorax, status post chest tube placement with full expansion of the left lung. 6. Right-sided pneumothorax that has resolved. 7. Subcutaneous emphysema on the left side. 8. Possible superimposed bacterial pneumonia for which she is on IV antibiotic. PLAN: Obviously continue with paralysis sedation and mechanical ventilation. Continue nutritional support. Continue with Levophed. Continue with IV antibiotics in the form of meropenem and linezolid. Continue with DVT prophylaxis and GI prophylaxis. ELIZABETH FERNANDEZ MD DR: BOLA/carlos JOB#: [id number] / [id number]
[2021-03-09 10:55] LABS: FIO2 ABG 100% PC 38 PEEP 15; PCO2 ABG 69 mmHg (35-46)
[2021-03-09] MEDS: NOREPINEPHRINE VIAL 8 MG in IV DEXTROSE 5% 250 ML IV PRN (11:06)
[2021-03-09] MEDS ORDERED: PROPOFOL 100 ML IV ONE ×2 (11:42→20:29)
[2021-03-09] MEDS: fentaNYL HIGH DOSE PCA 55 ML IV PRN (13:31)
--- NOTE | 2021-03-09 14:44 | NUR ---
This RN used train of four on patient and resulted in 1 twitch of patient's brow on level 9. Vecuronium gtt was decreased from 0.8mcg/kg/min to 0.7mcg/kg/min. Patient's O2 saturation decreased to mid 80's. This RN increased patient's vecuronium gtt back to 0.8mcg/kg/min and patient's O2 saturation increased to 92-94.
--- NOTE | 2021-03-09 16:12 | NUR ---
SS following for discharge planning. SS reviewed pt chart and discussed with pt RN. Pt is currently on the vent at 100%. COVID19 positive. Pt on IV Meropenem. Pt on Vec, Fentanyl, Propofol, and Versed. Chest tube x2. Chemical code only. Not stable. SS will continue to follow for discharge planning.
[2021-03-09] MEDS: MINERAL OIL/PETROLATUM,WHITE OPHTH OINT 3.5GM TUBE. OU PRN (17:28)
[2021-03-09] MEDS ORDERED: FAMOTIDINE 20 MG/2 ML VIAL ONE (21:29)
[2021-03-09] MEDS: INSULIN GLARGINE SYRINGE. SQ SCH (21:36)
[2021-03-10] VITALS (35 sets, daily range): BP systolic 96–182; BP diastolic 5–87
[2021-03-10] MEDS ORDERED: PROPOFOL 100 ML IV ONE ×2 (01:12→05:19)
[2021-03-10] MEDS: PROPOFOL 100 ML IV PRN ×6 (01:13→22:35)
[2021-03-10] MEDS: VECURONIUM BROMIDE 50 MG in TOTAL VOLUME 50 ML IV PRN ×4 (01:14→17:09)
[2021-03-10] MEDS: MIDAZOLAM 100mg/100ml NS BAG 100 ML IV PRN ×3 (01:14→17:13)
[2021-03-10] MEDS: fentaNYL HIGH DOSE PCA 55 ML IV PRN ×2 (02:40→14:43)
[2021-03-10] MEDS: MEROPENEM 1 GM in IV NORMAL SALINE 100ML 100 ML IV SCH ×3 (05:35→22:00)
[2021-03-10] MEDS: INSULIN LISPRO 300 UNITS/3 ML VIAL. SQ SCH ×3 (05:35→17:56)
--- NOTE | 2021-03-10 07:02 | RAD ---
Study: XR CHEST 1V Indication: Respiratory failure/ARDS/pneumothorax Comparison: 03/09/2021 Findings: Enteric tube terminates below the inferior field of view. Unchanged positioning of a right chest tube . A right-sided PICC projects within the SVC. Small caliber left pleural catheter. Decreased size of a small left pneumothorax. The visceral line projects above the fourth rib which wa s also the case on the prior however lucency along the lateral pleural margin is less noticeable. Dif fuse airspace infiltrates with a basilar predominance are not significantly different. Impression: 1. Unchanged support device positioning, as above. 2. Decreased volume of a small left pneumothorax. 3. Unchanged extent of diffuse airspace infiltrates greatest at the lung bases. Electronically signed by: DOMINIQUE CAIN MD (03/10/2021 6:59 AM) [facility]
--- NOTE | 2021-03-10 07:47 | PDOC ---
Infectious Disease Note Subjective: Subjective Intubated/sedated Bilateral chest tubes in place FiO2 100% PEEP of 15 on low-dose Levophed No fevers last 48 hrs Tolerating tube feedings well Acute issues per discussion with RN Vital Signs: Vital Signs Vital Signs Date Time Temp Pulse Resp B/P (MAP) Pulse Ox O2 Delivery O2 Flow Rate FiO2 03/10/21 07:20 92 Ventilator 03/10/21 06:00 68 30 135/67 (89) 03/10/21 04:00 98.9 98.9 03/09/21 14:01 1.0 Physical Exam: PHYSICAL EXAM GENERAL: Intubated/sedated HEENT: ETT OGT tube in place, normocephalic atraumatic NECK: Supple. No JVP. LUNGS: Decreased breath sounds,Right chest tube in place, left chest tube present, Left chest wall subcutaneous emphysema present HEART: S1, S2 ABDOMEN: Obese soft, nontender. Bowel sounds present Lott in place EXTREMITIES: +edema ,no cyanosis. SKIN: No generalized rash NEUROLOGIC: sedated on vent PICC line clean Medications: Inpatient Meds: Medications reviewed. Labs: Lab Laboratory Tests Test 03/09/21 08:59 03/09/21 12:05 03/09/21 18:23 03/09/21 23:52 O2 Saturation 93 % (92-99) Arterial Blood pH 7.27 (7.35-7.45) Arterial Blood pCO2 at Patient Temp 69 mmHg (35-46) Arterial Blood pO2 at Patient Temp 79 mmHg (75-108) Arterial Blood HCO3 31 mmol/L (21-28) Arterial Blood Base Excess 2 mmol/L (-3-3) FiO2 100% pc 38 peep 15 Glucose (Fingerstick) 201 mg/dL (70-99) 235 mg/dL (70-99) 165 mg/dL (70-99) Test 03/10/21 05:35 Glucose (Fingerstick) 135 mg/dL (70-99) Objective: Assessment: 1. COVID-19 positive. 2. Acute hypoxic respiratory failure. 3. Pneumonia, bilateral pulmonary infiltrate/ ARDS 4. Morbid obesity. 5. History of asthma. 6. Obstructive sleep apnea. 7 Fever pattern improved 8 Bilateral pneumothorax status post bilateral CTS 9. Blood culture positive coagulase negative staph likely contaminant, repeat blood cultures negative 10. Leucocytosis on steroids,also likely reactive Plan: Plan of Care Continue Supportive care Continue Meropenem/ Zyvox Started on fluconazole by primary March 07 2021 Follow-up cult and lab Prognosis very poor D/W BYRON SAN MD Mar 10, 2021 07:47
[2021-03-10 08:18] LABS: BASE EXCESS ABG 6 mmol/L (-3-3); HCO3 ABG 30 mmol/L (21-28); PCO2 ABG 43 mmHg (35-46); PO2 ABG 58 mmHg (75-108); SAT O2 ABG 90 % (92-99)
[2021-03-10 08:27] LABS: FIO2 ABG 100% VENT
[2021-03-10] MEDS ORDERED: FAMOTIDINE 20 MG/2 ML VIAL ONE (08:30)
[2021-03-10] MEDS ORDERED: FLUCONAZOLE 100 MG TABLET. ONE (08:30)
[2021-03-10] MEDS ORDERED: DEXAMETHASONE SOD PHOS 4 MG/ML VIAL ONE (08:30)
[2021-03-10] MEDS: FAMOTIDINE 20 MG/2 ML VIAL IVP SCH ×2 (08:33→21:07)
[2021-03-10] MEDS: FLUCONAZOLE 100 MG TABLET. FT SCH (08:34)
[2021-03-10] MEDS: DEXAMETHASONE SOD PHOS 4 MG/ML VIAL IVP SCH (08:34)
[2021-03-10] MEDS: NYSTATIN TOPICAL POWDER 15GM BOTTLE. TP SCH ×2 (09:00→21:00)
--- NOTE | 2021-03-10 09:13 | PDOC ---
PULMONARY PROGRESS NOTES DATE: 03/10/21 TIME: 09:13 Subjective Patient continues to require 100% FiO2 15 of PEEP She is currently on pressure control ventilation Vitals Vital Signs Date Time Temp Pulse Resp B/P (MAP) Pulse Ox O2 Delivery O2 Flow Rate FiO2 03/10/21 07:20 92 Ventilator 03/10/21 06:00 68 30 135/67 (89) 03/10/21 04:00 98.9 98.9 03/09/21 14:01 1.0 HEENT: Other (No significant subcutaneous emphysema) Lungs: Crackles, Other (Bilateral chest tube placement,) Cardiovascular: S1, S2 Abdomen: Soft Extremities: Other (Edema) Skin: Warm Labs Laboratory Tests Test 03/08/21 12:02 03/08/21 18:41 03/09/21 00:14 03/09/21 06:11 Glucose (Fingerstick) 254 mg/dL (70-99) 203 mg/dL (70-99) 218 mg/dL (70-99) 176 mg/dL (70-99) Test 03/09/21 06:53 03/09/21 06:55 03/09/21 08:59 03/09/21 12:05 Sodium Level 134 mmol/L (136-145) Potassium Level 5.4 mmol/L (3.5-5.1) Chloride Level 99 mmol/L (98-107) Carbon Dioxide Level 29 mmol/L (21-32) Anion Gap 6 (6-14) Blood Urea Nitrogen 65 mg/dL (7-20) Creatinine 0.6 mg/dL (0.6-1.0) Estimated GFR (Cockcroft-Gault) 109.1 BUN/Creatinine Ratio 108 (6-20) Glucose Level 155 mg/dL (70-99) Calcium Level 8.7 mg/dL (8.5-10.1) Total Bilirubin 0.4 mg/dL (0.2-1.0) Aspartate Amino Transf (AST/SGOT) 26 U/L (15-37) Alanine Aminotransferase (ALT/SGPT) 121 U/L (14-59) Alkaline Phosphatase 139 U/L (46-116) Total Protein 6.6 g/dL (6.4-8.2) Albumin 2.0 g/dL (3.4-5.0) Albumin/Globulin Ratio 0.4 (1.0-1.7) White Blood Count 11.8 x10^3/uL (4.0-11.0) Red Blood Count 3.89 x10^6/uL (3.50-5.40) Hemoglobin 10.1 g/dL (12.0-15.5) Hematocrit 31.5 % (36.0-47.0) Mean Corpuscular Volume 81 fL (79-100) Mean Corpuscular Hemoglobin 26 pg (25-35) Mean Corpuscular Hemoglobin Concent 32 g/dL (31-37) Red Cell Distribution Width 16.0 % (11.5-14.5) Platelet Count 356 x10^3/uL (140-400) O2 Saturation 93 % (92-99) Arterial Blood pH 7.27 (7.35-7.45) Arterial Blood pCO2 at Patient Temp 69 mmHg (35-46) Arterial Blood pO2 at Patient Temp 79 mmHg (75-108) Arterial Blood HCO3 31 mmol/L (21-28) Arterial Blood Base Excess 2 mmol/L (-3-3) FiO2 100% pc 38 peep 15 Glucose (Fingerstick) 201 mg/dL (70-99) Test 03/09/21 18:23 03/09/21 23:52 03/10/21 05:35 03/10/21 08:15 Glucose (Fingerstick) 235 mg/dL (70-99) 165 mg/dL (70-99) 135 mg/dL (70-99) O2 Saturation 90 % (92-99) Arterial Blood pH 7.46 (7.35-7.45) Arterial Blood pCO2 at Patient Temp 43 mmHg (35-46) Arterial Blood pO2 at Patient Temp 58 mmHg (75-108) Arterial Blood HCO3 30 mmol/L (21-28) Arterial Blood Base Excess 6 mmol/L (-3-3) FiO2 100% vent Laboratory Tests Test 03/09/21 12:05 03/09/21 18:23 03/09/21 23:52 03/10/21 05:35 Glucose (Fingerstick) 201 mg/dL (70-99) 235 mg/dL (70-99) 165 mg/dL (70-99) 135 mg/dL (70-99) Test 03/10/21 08:15 O2 Saturation 90 % (92-99) Arterial Blood pH 7.46 (7.35-7.45) Arterial Blood pCO2 at Patient Temp 43 mmHg (35-46) Arterial Blood pO2 at Patient Temp 58 mmHg (75-108) Arterial Blood HCO3 30 mmol/L (21-28) Arterial Blood Base Excess 6 mmol/L (-3-3) FiO2 100% vent Medications Active Scripts Medications Dose Route/Sig Max Daily Dose Days Date Category Meloxicam 15 Mg Tablet 1 Tab PO DAILY 30 02/18/21 Reported Comments Chest x-ray reviewed, small pneumo on the left some subcutaneous emphysema Impression . 1. Acute hypoxic respiratory failure with acute lung injury/ acute respiratory distress syndrome secondary to COVID-19 pneumonia andsepsis and suspected VAP. 2. Morbid obesity, BMI of 65 3. No significant tobacco history. 4. History of asthma, 5. Obstructive sleep apnea, on home CPAP. Unknown severity of obstructive sleep apnea and unknown CPAP pressure. 6. Abnormal CXR with bilateral patchy infiltrates c/w viral pneumonia. 7. Fever, per ID 8. Subcutaneous emphysema improved 9. Status post bilateral chest tube placement, for spontaneous pneumothorax 10. Bacteremia, more than likely contaminant Plan . Updated 03/10 Mild air leak on left-sided chest tube No significant subcutaneous emphysema on exam ABG noted, adequate for patient, PCO2 is better today. Continue steroids Antibiotics per ID Nutritional support at the bedside, reviewed current findings, Total cumulative critical care time of 30 minutes, reviewing current documentation, labs, chest x-ray, formulating a plan, updated Updated 03/09 Continue current support ABG noted adequate for patient Permissive hypercapnia Mild air leak on chest tube on the left side DVT GI prophylaxis Antibiotics per ID Continue steroids Continue nutritional support Total cumulative critical care time of 35 minutes, reviewing the old documentation, chest x-ray, labs, and formulating a plan. Updated 03/08 cont vent support setting reviewed cxr b lat infilt worse, I>>>O lasix 20 mg iv x1 has b lat chest tube sub cut emphysema, cts suction -40 critically ill titrated down peep if able remains critically ill with severe hypoxia for past week vent support currently on 100% and PEEP 15. wean peep as tolerated very poor prognosis despite two weeks of aggressive care Continue Antibiotics per ID Pt. has Completed course of remdesivir Continue steroids with slow taper Nutritional support Poor prognosis DVT/GI PPX D/W RN and RT discussed w dr dr capri dr ursula Total cc time cumulative 30 minutes no overtime , reviewing the current documentation, data, labs, chest x-ray, discussion with RN and RT, formulating a plan. DAVID LIZ MD Mar 10, 2021 09:13
[2021-03-10 10:25] LABS: CALCIUM 8.6 mg/dL (8.5-10.1); CREATININE 0.4 mg/dL (0.6-1.0); GFR 174.2; POTASSIUM 5.5 mmol/L (3.5-5.1)
[2021-03-10] MEDS ORDERED: DEXTROSE 50% 25 GM / 50ML DISP.SYRIN. IV ONE ×2 (12:29→12:30)
[2021-03-10] MEDS ORDERED: CALCIUM GLUCONATE 1,000 MG/10 ML VIAL. ONE (12:29)
[2021-03-10] MEDS ORDERED: CALCIUM GLUCONATE 1,000 MG/10 ML VIAL. IVP ONE (12:30)
[2021-03-10] MEDS ORDERED: INSULIN REGULAR 100 UNIT/ML 3ML VIAL. IV ONE (12:30)
[2021-03-10] MEDS: LINEZOLID 600 MG TABLET PO SCH ×2 (14:09→21:07)
--- NOTE | 2021-03-10 16:05 | NUR ---
SS following up with discharge planning. SS reviewed pt chart and discussed with pt RN. Pt is currently on the vent at 100%. COVID19 positive. Pt on IV Meropenem. Chest tube x2. Pt on Fentanyl, Propofol, Versed, and Vec. Chemical code only. Not stable. SS will continue to follow for discharge planning.
--- NOTE | 2021-03-10 18:40 | NUR ---
pt turned as there was liq stool. Both CT's intact. Pt was turned and cleaned. There were at least 2 breakdown spots. Pt jeanne turn as sat stayed >90. CT Lt dsg changed. Remains on Vec, Fent versed and propofol gtts and Levo at low dose. at bedside most of day
[2021-03-10 19:44] LABS: CALCIUM 8.7 mg/dL (8.5-10.1); CREATININE 0.5 mg/dL (0.6-1.0); GFR 134.7; POTASSIUM 5.8 mmol/L (3.5-5.1)
[2021-03-10] MEDS: INSULIN GLARGINE SYRINGE. SQ SCH (21:10)
[2021-03-11] VITALS (25 sets, daily range): BP systolic 85–187; BP diastolic 43–100
[2021-03-11] MEDS: INSULIN LISPRO 300 UNITS/3 ML VIAL. SQ SCH ×5 (00:08→23:39)
--- NOTE | 2021-03-11 00:44 | PN ---
DATE: 03/10/2021 SUBJECTIVE: The patient is resting, slightly propped up in bed, continued to be paralyzed, sedated and mechanically ventilated. She continues to be on FiO2 of 100%; however, her at least oxygen saturation is now about 90-91%. PHYSICAL EXAMINATION: GENERAL: When I examined her, she was pale, no jaundice, cyanosis or thyromegaly. No jugular venous distention. No limb edema. VITAL SIGNS: Her heart rate was 68, blood pressure was 135/67, temperature was 98.9, respiratory rate was 30 and oxygen saturation was 90% on FiO2 of 100%. HEAD, EYES, EARS, NOSE AND THROAT: Showed normocephalic She has orotracheal and orogastric tube in place. NECK: Supple. HEART: Normal first and second heart sounds. No gallop, rub or murmur. CHEST: Clear to auscultation. No crepitation or rhonchi. ABDOMEN: Distended, soft, nontender. No guarding or rigidity. No organomegaly. All hernial orifices are intact. Bowel sounds normal. NEUROLOGIC: She is heavily sedated. Her intake was 3220, output was 3410. LABORATORY DATA: As of this morning, her blood gas showed a pH of 7.46, pCO2 of 43, pO2 of 58, bicarbonate 30 and oxygen saturation was 90% on FiO2 of 100%. Her white cell count was 11,800, hemoglobin 10, hematocrit 32, MCV 81 and platelet count 356,000. Her serum sodium was 134, potassium 5.4, chloride 99, bicarbonate 29, anion gap of 6, BUN 65, creatinine 0.6, estimated GFR was 109 mL per minute. Her glucose was 135, calcium was 8.7. Total bilirubin, AST normal. ALT and alkaline phosphatase slightly elevated. Total protein 6.6, albumin 2. ASSESSMENT: 1. Acute hypoxic respiratory failure. Continue on mechanical ventilation, maintaining her oxygen saturation at 90% on FiO2 of 100%, probably multifactorial including: A. COVID-19 pneumonia. B. Acute lung injury. 2. Acute respiratory distress syndrome. C. Bilateral pneumothoraces have resolved after chest tube placement. 3. Bronchial asthma. 4. Obstructive sleep apnea, on CPAP. 5. Morbid obesity. 6. Left-sided pneumothorax, status post chest tube placement with full expansion of the left lung. 7. Right-sided pneumothorax that has mostly resolved. 8. Subcutaneous emphysema on the left side. 9. Possible superimposed bacterial pneumonia for which she is on IV antibiotic. PLAN: To obviously continue with paralysis, sedation and mechanical ventilation. Continue nutritional support. Continue with Levophed. Continue with IV antibiotic in the form of meropenem and linezolid. Continue with DVT and GI prophylaxis. ELIZABETH FERNANDEZ MD DR: BOLA/carlos JOB#: [id number] / [id number]
[2021-03-11] MEDS: NOREPINEPHRINE VIAL 8 MG in IV DEXTROSE 5% 250 ML IV PRN (01:50)
[2021-03-11] MEDS: PROPOFOL 100 ML IV PRN ×4 (02:34→20:03)
[2021-03-11] MEDS: MIDAZOLAM 100mg/100ml NS BAG 100 ML IV PRN ×3 (03:43→23:40)
[2021-03-11] MEDS: VECURONIUM BROMIDE 50 MG in TOTAL VOLUME 50 ML IV PRN ×4 (03:44→20:56)
[2021-03-11] MEDS: fentaNYL HIGH DOSE PCA 55 ML IV PRN ×2 (03:44→17:13)
[2021-03-11] MEDS: MEROPENEM 1 GM in IV NORMAL SALINE 100ML 100 ML IV SCH ×3 (05:32→22:00)
[2021-03-11 08:34] LABS: HEMATOCRIT 32.1 % (36.0-47.0); HEMOGLOBIN 10.2 g/dL (12.0-15.5); RED BLOOD COUNT 3.96 x10^6/uL (3.50-5.40); RED CELL DISTRIBUTION WIDTH 16.8 % (11.5-14.5); WHITE BLOOD COUNT 11.8 x10^3/uL (4.0-11.0)
[2021-03-11 08:39] LABS: CALCIUM 9.1 mg/dL (8.5-10.1); CREATININE 0.4 mg/dL (0.6-1.0); GFR 174.2; POTASSIUM 4.8 mmol/L (3.5-5.1)
[2021-03-11] MEDS: NYSTATIN TOPICAL POWDER 15GM BOTTLE. TP SCH ×2 (09:00→21:00)
[2021-03-11 09:05] LABS: BASE EXCESS ABG 6 mmol/L (-3-3); HCO3 ABG 30 mmol/L (21-28); PCO2 ABG 42 mmHg (35-46); PO2 ABG 63 mmHg (75-108); SAT O2 ABG 92 % (92-99)
--- NOTE | 2021-03-11 09:15 | PDOC ---
PULMONARY PROGRESS NOTES DATE: 03/11/21 TIME: 09:15 Subjective On pressure control with inverse ratio Patient continues to require 100% FiO2 15 of PEEP Vitals Vital Signs Date Time Temp Pulse Resp B/P (MAP) Pulse Ox O2 Delivery O2 Flow Rate FiO2 03/11/21 06:00 97 30 138/71 (93) 100 Ventilator 03/11/21 04:00 98.7 98.7 03/10/21 15:13 1.0 HEENT: Other (No significant subcutaneous emphysema) Lungs: Crackles, Other (Bilateral chest tube placement,) Cardiovascular: S1, S2 Abdomen: Soft Extremities: Other (Edema) Skin: Warm Labs Laboratory Tests Test 03/09/21 12:05 03/09/21 18:23 03/09/21 23:52 03/10/21 05:35 Glucose (Fingerstick) 201 mg/dL (70-99) 235 mg/dL (70-99) 165 mg/dL (70-99) 135 mg/dL (70-99) Test 03/10/21 08:15 03/10/21 10:00 03/10/21 11:45 03/10/21 14:46 O2 Saturation 90 % (92-99) Arterial Blood pH 7.46 (7.35-7.45) Arterial Blood pCO2 at Patient Temp 43 mmHg (35-46) Arterial Blood pO2 at Patient Temp 58 mmHg (75-108) Arterial Blood HCO3 30 mmol/L (21-28) Arterial Blood Base Excess 6 mmol/L (-3-3) FiO2 100% vent Sodium Level 137 mmol/L (136-145) Potassium Level 5.5 mmol/L (3.5-5.1) Chloride Level 100 mmol/L (98-107) Carbon Dioxide Level 34 mmol/L (21-32) Anion Gap 3 (6-14) Blood Urea Nitrogen 48 mg/dL (7-20) Creatinine 0.4 mg/dL (0.6-1.0) Estimated GFR (Cockcroft-Gault) 174.2 Glucose Level 151 mg/dL (70-99) Calcium Level 8.6 mg/dL (8.5-10.1) Glucose (Fingerstick) 155 mg/dL (70-99) 261 mg/dL (70-99) Test 03/10/21 17:36 03/10/21 19:20 03/11/21 00:05 03/11/21 05:25 Glucose (Fingerstick) 196 mg/dL (70-99) 193 mg/dL (70-99) 128 mg/dL (70-99) Sodium Level 138 mmol/L (136-145) Potassium Level 5.8 mmol/L (3.5-5.1) Chloride Level 100 mmol/L (98-107) Carbon Dioxide Level 30 mmol/L (21-32) Anion Gap 8 (6-14) Blood Urea Nitrogen 43 mg/dL (7-20) Creatinine 0.5 mg/dL (0.6-1.0) Estimated GFR (Cockcroft-Gault) 134.7 Glucose Level 166 mg/dL (70-99) Calcium Level 8.7 mg/dL (8.5-10.1) Test 03/11/21 08:15 White Blood Count 11.8 x10^3/uL (4.0-11.0) Red Blood Count 3.96 x10^6/uL (3.50-5.40) Hemoglobin 10.2 g/dL (12.0-15.5) Hematocrit 32.1 % (36.0-47.0) Mean Corpuscular Volume 81 fL (79-100) Mean Corpuscular Hemoglobin 26 pg (25-35) Mean Corpuscular Hemoglobin Concent 32 g/dL (31-37) Red Cell Distribution Width 16.8 % (11.5-14.5) Platelet Count 310 x10^3/uL (140-400) Sodium Level 140 mmol/L (136-145) Potassium Level 4.8 mmol/L (3.5-5.1) Chloride Level 101 mmol/L (98-107) Carbon Dioxide Level 32 mmol/L (21-32) Anion Gap 7 (6-14) Blood Urea Nitrogen 37 mg/dL (7-20) Creatinine 0.4 mg/dL (0.6-1.0) Estimated GFR (Cockcroft-Gault) 174.2 Glucose Level 116 mg/dL (70-99) Calcium Level 9.1 mg/dL (8.5-10.1) Laboratory Tests Test 03/10/21 10:00 03/10/21 11:45 03/10/21 14:46 03/10/21 17:36 Sodium Level 137 mmol/L (136-145) Potassium Level 5.5 mmol/L (3.5-5.1) Chloride Level 100 mmol/L (98-107) Carbon Dioxide Level 34 mmol/L (21-32) Anion Gap 3 (6-14) Blood Urea Nitrogen 48 mg/dL (7-20) Creatinine 0.4 mg/dL (0.6-1.0) Estimated GFR (Cockcroft-Gault) 174.2 Glucose Level 151 mg/dL (70-99) Calcium Level 8.6 mg/dL (8.5-10.1) Glucose (Fingerstick) 155 mg/dL (70-99) 261 mg/dL (70-99) 196 mg/dL (70-99) Test 03/10/21 19:20 03/11/21 00:05 03/11/21 05:25 03/11/21 08:15 Sodium Level 138 mmol/L (136-145) 140 mmol/L (136-145) Potassium Level 5.8 mmol/L (3.5-5.1) 4.8 mmol/L (3.5-5.1) Chloride Level 100 mmol/L (98-107) 101 mmol/L (98-107) Carbon Dioxide Level 30 mmol/L (21-32) 32 mmol/L (21-32) Anion Gap 8 (6-14) 7 (6-14) Blood Urea Nitrogen 43 mg/dL (7-20) 37 mg/dL (7-20) Creatinine 0.5 mg/dL (0.6-1.0) 0.4 mg/dL (0.6-1.0) Estimated GFR (Cockcroft-Gault) 134.7 174.2 Glucose Level 166 mg/dL (70-99) 116 mg/dL (70-99) Calcium Level 8.7 mg/dL (8.5-10.1) 9.1 mg/dL (8.5-10.1) Glucose (Fingerstick) 193 mg/dL (70-99) 128 mg/dL (70-99) White Blood Count 11.8 x10^3/uL (4.0-11.0) Red Blood Count 3.96 x10^6/uL (3.50-5.40) Hemoglobin 10.2 g/dL (12.0-15.5) Hematocrit 32.1 % (36.0-47.0) Mean Corpuscular Volume 81 fL (79-100) Mean Corpuscular Hemoglobin 26 pg (25-35) Mean Corpuscular Hemoglobin Concent 32 g/dL (31-37) Red Cell Distribution Width 16.8 % (11.5-14.5) Platelet Count 310 x10^3/uL (140-400) Medications Active Scripts Medications Dose Route/Sig Max Daily Dose Days Date Category Meloxicam 15 Mg Tablet 1 Tab PO DAILY 02/18/21 Reported Comments Chest x-ray reviewed, small pneumo on the left some subcutaneous emphysema Impression . 1. Acute hypoxic respiratory failure with acute lung injury/ acute respiratory distress syndrome secondary to COVID-19 pneumonia andsepsis and suspected VAP. 2. Morbid obesity, BMI of 65 3. No significant tobacco history. 4. History of asthma, 5. Obstructive sleep apnea, on home CPAP. Unknown severity of obstructive sleep apnea and unknown CPAP pressure. 6. Abnormal CXR with bilateral patchy infiltrates c/w viral pneumonia. 7. Fever, per ID 8. Subcutaneous emphysema improved 9. Status post bilateral chest tube placement, for spontaneous pneumothorax 10. Bacteremia, more than likely contaminant 11. Subcutaneous emphysema, traveling up to the neck and eyes Plan . Updated 03/11 Subcutaneous emphysema is worsening on the right Mild air leak left chest tube Reviewed current vent settings adequate for patient Continues to require 100% FiO2 and 15 of PEEP Updated at the bedside Nutritional support Antibiotics per ID Total cumulative critical care time of 35 minutes, reviewing the current documentation, chest x-ray, reviewing the findings with the . Discussing case with RN and RT. Formulating a plan. Updated 03/10 Mild air leak on left-sided chest tube No significant subcutaneous emphysema on exam ABG noted, adequate for patient, PCO2 is better today. Continue steroids Antibiotics per ID Nutritional support at the bedside, reviewed current findings, Total cumulative critical care time of 30 minutes, reviewing current docume ntation, labs, chest x-ray, formulating a plan, updated Updated 03/09 Continue current support ABG noted adequate for patient Permissive hypercapnia Mild air leak on chest tube on the left side DVT GI prophylaxis Antibiotics per ID Continue steroids Continue nutritional support Total cumulative critical care time of 35 minutes, reviewing the old documentation, chest x-ray, labs, and formulating a plan. DAVID LIZ MD Mar 11, 2021 09:15
[2021-03-11 09:20] LABS: FIO2 ABG 100
[2021-03-11] MEDS: FLUCONAZOLE 100 MG TABLET. FT SCH (09:32)
[2021-03-11] MEDS: LINEZOLID 600 MG TABLET PO SCH ×2 (09:32→20:56)
[2021-03-11] MEDS: FAMOTIDINE 20 MG/2 ML VIAL IVP SCH ×2 (09:32→20:56)
[2021-03-11] MEDS: DEXAMETHASONE SOD PHOS 4 MG/ML VIAL IVP SCH (09:32)
--- NOTE | 2021-03-11 10:36 | PDOC ---
Infectious Disease Note Subjective: Subjective Intubated/sedated More emphysema now encroaching neck and face including right eyelid Bilateral chest tubes in place at bedside Vital Signs: Vital Signs Vital Signs Date Time Temp Pulse Resp B/P (MAP) Pulse Ox O2 Delivery O2 Flow Rate FiO2 03/11/21 10:00 96 Ventilator 03/11/21 09:00 100 30 109/63 (78) 03/11/21 08:00 97.9 97.9 03/10/21 15:13 1.0 Physical Exam: PHYSICAL EXAM GENERAL: Intubated/sedated HEENT: ETT OGT tube in place, normocephalic atraumatic, subcutaneous emphysema now on neck and face more over the right side including right eyelid LUNGS: Decreased breath sounds,Right chest tube in place, left chest tube present, Chest wall subcutaneous emphysema worsened HEART: S1, S2 ABDOMEN: Obese soft, nontender. Bowel sounds present Lott in place EXTREMITIES: +edema ,no cyanosis. SKIN: No generalized rash NEUROLOGIC: sedated on vent PICC line clean Medications: Inpatient Meds: Medications reviewed. Labs: Lab Laboratory Tests Test 03/10/21 11:45 03/10/21 14:46 03/10/21 17:36 03/10/21 19:20 Glucose (Fingerstick) 155 mg/dL (70-99) 261 mg/dL (70-99) 196 mg/dL (70-99) Sodium Level 138 mmol/L (136-145) Potassium Level 5.8 mmol/L (3.5-5.1) Chloride Level 100 mmol/L (98-107) Carbon Dioxide Level 30 mmol/L (21-32) Anion Gap 8 (6-14) Blood Urea Nitrogen 43 mg/dL (7-20) Creatinine 0.5 mg/dL (0.6-1.0) Estimated GFR (Cockcroft-Gault) 134.7 Glucose Level 166 mg/dL (70-99) Calcium Level 8.7 mg/dL (8.5-10.1) Test 03/11/21 00:05 03/11/21 05:25 03/11/21 08:15 03/11/21 09:00 Glucose (Fingerstick) 193 mg/dL (70-99) 128 mg/dL (70-99) White Blood Count 11.8 x10^3/uL (4.0-11.0) Red Blood Count 3.96 x10^6/uL (3.50-5.40) Hemoglobin 10.2 g/dL (12.0-15.5) Hematocrit 32.1 % (36.0-47.0) Mean Corpuscular Volume 81 fL (79-100) Mean Corpuscular Hemoglobin 26 pg (25-35) Mean Corpuscular Hemoglobin Concent 32 g/dL (31-37) Red Cell Distribution Width 16.8 % (11.5-14.5) Platelet Count 310 x10^3/uL (140-400) Sodium Level 140 mmol/L (136-145) Potassium Level 4.8 mmol/L (3.5-5.1) Chloride Level 101 mmol/L (98-107) Carbon Dioxide Level 32 mmol/L (21-32) Anion Gap 7 (6-14) Blood Urea Nitrogen 37 mg/dL (7-20) Creatinine 0.4 mg/dL (0.6-1.0) Estimated GFR (Cockcroft-Gault) 174.2 Glucose Level 116 mg/dL (70-99) Calcium Level 9.1 mg/dL (8.5-10.1) O2 Saturation 92 % (92-99) Arterial Blood pH 7.47 (7.35-7.45) Arterial Blood pCO2 at Patient Temp 42 mmHg (35-46) Arterial Blood pO2 at Patient Temp 63 mmHg (75-108) Arterial Blood HCO3 30 mmol/L (21-28) Arterial Blood Base Excess 6 mmol/L (-3-3) FiO2 100 Objective: Assessment: 1. COVID-19 positive. 2. Acute hypoxic respiratory failure. 3. Pneumonia, bilateral pulmonary infiltrate/ ARDS 4. Morbid obesity. 5. History of asthma. 6. Obstructive sleep apnea. 7 Fever pattern improved 8 Bilateral pneumothorax status post bilateral CTS 9. Blood culture positive coagulase negative staph likely contaminant, repeat blood cultures negative 10. Leucocytosis on steroids,also likely reactive Plan: Plan of Care Continue Supportive care Continue Meropenem/ Zyvox Started on fluconazole by primary Follow-up cult and lab Prognosis very poor Discussed with at bedside D/W BYRON SAN MD Mar 11, 2021 10:36
--- NOTE | 2021-03-11 13:10 | RAD ---
AP chest. HISTORY: Covid-19, on ventilator, bilateral chest tubes AP view was taken of the chest. There is extensive subcutaneous emphysema with worsening compared to the prior study. There is a right chest tube in place. There is a trace of pneumoperitoneum on the ri ght. There is a small left chest tube. There is a small left apical pneumothorax similar to the left prior study although obscured by the subcutaneous emphysema. There is a possible kink in the right ch est tube at the margin of the rib. Endotracheal tube is at the level the clavicles without change. NG tube extends into the abdomen. IMPRESSION: 1. Increased subcutaneous emphysema. 2. Right chest tube unchanged, tiny right pneumothorax. 3. Possible kink in the left chest tube. 4. Persistent small left apical pneumothorax. 5. Persistent diffuse infiltrates. 6. Endotracheal tube and NG tube unchanged. The nurse in the ICU was called and notified the findings at the time of dictation. Electronically signed by: Mynor Harris MD (03/11/2021 1:08 PM) [facility]
--- NOTE | 2021-03-11 13:30 | NUR ---
Dr Burgos notified about kink in patient's chest tube. He looked at cxr, patient doesn't have a pneumo. Due to patient being to unstable, patient would not be able to go to Vascular lab for CT guided chest tube replacement. Will monitor
[2021-03-11] MEDS ORDERED: VITS A & D/LANOLIN TOPICAL OINTMENT 42GM TUBE. TP PRN (19:15)
[2021-03-11] MEDS: INSULIN GLARGINE SYRINGE. SQ SCH (20:57)
[2021-03-12] VITALS (29 sets, daily range): BP systolic 82–174; BP diastolic 41–95
[2021-03-12] MEDS: PROPOFOL 100 ML IV PRN ×6 (00:26→22:52)
--- NOTE | 2021-03-12 04:14 | RAD ---
Study: XR CHEST 1V Indication: Intubation. Chest tubes. Comparison: 03/11/2021 Findings: Redemonstrated severe subcutaneous emphysema. Small apical pneumothoraces on both the right and left have not significantly changed in size. Basilar predominant airspace opacities and diffusely increase d interstitial markings are unchanged. Redemonstrated right-sided chest tube and left pleural catheter relevant change in position. Right PI CC appears to terminate within the SVC. Endotracheal tube tip 4 to 5 cm above the [place]. Enteric tub e extends beyond the inferior field of view. Impression: 1. No significant change in support device positioning. The previously seen possible kink in the left pleural catheter is no longer apparent. 2. Small bilateral pneumothoraces have not appreciably changed in size. 3. Extensive airspace infiltrates no different from the comparison. 4. Redemonstrated extensive subcutaneous emphysema. Electronically signed by: DOMINIQUE CAIN MD (03/12/2021 4:11 AM) [facility]
[2021-03-12] MEDS: MEROPENEM 1 GM in IV NORMAL SALINE 100ML 100 ML IV SCH ×3 (05:43→20:53)
[2021-03-12] MEDS: INSULIN LISPRO 300 UNITS/3 ML VIAL. SQ SCH ×3 (05:44→17:28)
[2021-03-12] MEDS: VECURONIUM BROMIDE 50 MG in TOTAL VOLUME 50 ML IV PRN ×2 (06:21→18:40)
[2021-03-12] MEDS: fentaNYL HIGH DOSE PCA 55 ML IV PRN ×2 (06:22→19:46)
--- NOTE | 2021-03-12 07:40 | PDOC ---
Infectious Disease Note Subjective: Subjective Intubated/sedated More subcutaneous emphysema more prominent over chest wall, face including both eyelids Bilateral chest tubes in place Brother at bedside Off Levophed since this morning Discussed with nursing staff Vital Signs: Vital Signs Vital Signs Date Time Temp Pulse Resp B/P (MAP) Pulse Ox O2 Delivery O2 Flow Rate FiO2 03/12/21 07:25 93 Ventilator 03/12/21 07:15 97.5 107 30 123/63 (83) 97.5 03/11/21 17:43 1.0 Physical Exam: PHYSICAL EXAM GENERAL: Intubated/sedated HEENT: ETT OGT tube in place, normocephalic atraumatic, subcutaneous emphysema now on neck and face ncluding both eyelids LUNGS: Decreased breath sounds,Right chest tube in place, left chest tube presen t, Chest wall subcutaneous emphysema worsened HEART: S1, S2 ABDOMEN: Obese soft, nontender. Bowel sounds present Lott in place EXTREMITIES generalized anasarca SKIN: No generalized rash NEUROLOGIC: sedated on vent PICC line clean Medications: Inpatient Meds: Medications reviewed. Labs: Lab Laboratory Tests Test 03/11/21 08:15 03/11/21 09:00 03/11/21 12:33 03/11/21 17:32 White Blood Count 11.8 x10^3/uL (4.0-11.0) Red Blood Count 3.96 x10^6/uL (3.50-5.40) Hemoglobin 10.2 g/dL (12.0-15.5) Hematocrit 32.1 % (36.0-47.0) Mean Corpuscular Volume 81 fL (79-100) Mean Corpuscular Hemoglobin 26 pg (25-35) Mean Corpuscular Hemoglobin Concent 32 g/dL (31-37) Red Cell Distribution Width 16.8 % (11.5-14.5) Platelet Count 310 x10^3/uL (140-400) Sodium Level 140 mmol/L (136-145) Potassium Level 4.8 mmol/L (3.5-5.1) Chloride Level 101 mmol/L (98-107) Carbon Dioxide Level 32 mmol/L (21-32) Anion Gap 7 (6-14) Blood Urea Nitrogen 37 mg/dL (7-20) Creatinine 0.4 mg/dL (0.6-1.0) Estimated GFR (Cockcroft-Gault) 174.2 Glucose Level 116 mg/dL (70-99) Calcium Level 9.1 mg/dL (8.5-10.1) O2 Saturation 92 % (92-99) Arterial Blood pH 7.47 (7.35-7.45) Arterial Blood pCO2 at Patient Temp 42 mmHg (35-46) Arterial Blood pO2 at Patient Temp 63 mmHg (75-108) Arterial Blood HCO3 30 mmol/L (21-28) Arterial Blood Base Excess 6 mmol/L (-3-3) FiO2 100 Glucose (Fingerstick) 171 mg/dL (70-99) 154 mg/dL (70-99) Test 03/11/21 23:37 03/12/21 05:13 Glucose (Fingerstick) 155 mg/dL (70-99) 96 mg/dL (70-99) Objective: Assessment: 1. COVID-19 positive. 2. Acute hypoxic respiratory failure. 3. Pneumonia, bilateral pulmonary infiltrate/ ARDS 4. Morbid obesity. 5. History of asthma. 6. Obstructive sleep apnea. 7 Fever pattern improved 8 Bilateral pneumothorax status post bilateral CTS 9. Blood culture positive coagulase negative staph likely contaminant, repeat blood cultures negative 10. Leucocytosis on steroids,also likely reactive Plan: Plan of Care Patient remains critically ill Continue supportive care Continue Meropenem/ Zyvox On fluconazole Follow-up cult and lab Prognosis very poor Discussed with brother at bedside D/W BYRON SAN MD Mar 12, 2021 07:40
[2021-03-12 08:13] LABS: BASE EXCESS ABG 6 mmol/L (-3-3); HCO3 ABG 31 mmol/L (21-28); PCO2 ABG 47 mmHg (35-46); PO2 ABG 62 mmHg (75-108); SAT O2 ABG 91 % (92-99)
[2021-03-12 08:38] LABS: FIO2 ABG 100%+15
[2021-03-12 08:48] LABS: HEMATOCRIT 31.1 % (36.0-47.0); HEMOGLOBIN 9.9 g/dL (12.0-15.5); RED BLOOD COUNT 3.84 x10^6/uL (3.50-5.40); RED CELL DISTRIBUTION WIDTH 16.9 % (11.5-14.5); WHITE BLOOD COUNT 9.4 x10^3/uL (4.0-11.0)
[2021-03-12 09:05] LABS: ALBUMIN 1.9 g/dL (3.4-5.0); ALBUMIN/GLOBULIN RATIO 0.4 (1.0-1.7); CREATININE 0.4 mg/dL (0.6-1.0); GFR 174.2; POTASSIUM 5.2 mmol/L (3.5-5.1); TOTAL BILIRUBIN 0.5 mg/dL (0.2-1.0); TOTAL PROTEIN 6.2 g/dL (6.4-8.2)
--- NOTE | 2021-03-12 09:36 | PDOC ---
PULMONARY PROGRESS NOTES DATE: 03/12/21 TIME: 09:36 Subjective Patient with increased subcutaneous emphysema around the face Currently on pressure control ventilation inverse ratio Sedated Vitals Vital Signs Date Time Temp Pulse Resp B/P (MAP) Pulse Ox O2 Delivery O2 Flow Rate FiO2 03/12/21 09:12 95 Ventilator 03/12/21 09:02 73 30 94/44 (61) 03/12/21 07:15 97.5 97.5 03/11/21 17:43 1.0 HEENT: Other (No significant subcutaneous emphysema) Lungs: Crackles, Other (Bilateral chest tube placement,) Cardiovascular: S1, S2 Abdomen: Soft Extremities: Other (Edema) Skin: Warm Labs Laboratory Tests Test 03/10/21 10:00 03/10/21 11:45 03/10/21 14:46 03/10/21 17:36 Sodium Level 137 mmol/L (136-145) Potassium Level 5.5 mmol/L (3.5-5.1) Chloride Level 100 mmol/L (98-107) Carbon Dioxide Level 34 mmol/L (21-32) Anion Gap 3 (6-14) Blood Urea Nitrogen 48 mg/dL (7-20) Creatinine 0.4 mg/dL (0.6-1.0) Estimated GFR (Cockcroft-Gault) 174.2 Glucose Level 151 mg/dL (70-99) Calcium Level 8.6 mg/dL (8.5-10.1) Glucose (Fingerstick) 155 mg/dL (70-99) 261 mg/dL (70-99) 196 mg/dL (70-99) Test 03/10/21 19:20 03/11/21 00:05 03/11/21 05:25 03/11/21 08:15 Sodium Level 138 mmol/L (136-145) 140 mmol/L (136-145) Potassium Level 5.8 mmol/L (3.5-5.1) 4.8 mmol/L (3.5-5.1) Chloride Level 100 mmol/L (98-107) 101 mmol/L (98-107) Carbon Dioxide Level 30 mmol/L (21-32) 32 mmol/L (21-32) Anion Gap 8 (6-14) 7 (6-14) Blood Urea Nitrogen 43 mg/dL (7-20) 37 mg/dL (7-20) Creatinine 0.5 mg/dL (0.6-1.0) 0.4 mg/dL (0.6-1.0) Estimated GFR (Cockcroft-Gault) 134.7 174.2 Glucose Level 166 mg/dL (70-99) 116 mg/dL (70-99) Calcium Level 8.7 mg/dL (8.5-10.1) 9.1 mg/dL (8.5-10.1) Glucose (Fingerstick) 193 mg/dL (70-99) 128 mg/dL (70-99) White Blood Count 11.8 x10^3/uL (4.0-11.0) Red Blood Count 3.96 x10^6/uL (3.50-5.40) Hemoglobin 10.2 g/dL (12.0-15.5) Hematocrit 32.1 % (36.0-47.0) Mean Corpuscular Volume 81 fL (79-100) Mean Corpuscular Hemoglobin 26 pg (25-35) Mean Corpuscular Hemoglobin Concent 32 g/dL (31-37) Red Cell Distribution Width 16.8 % (11.5-14.5) Platelet Count 310 x10^3/uL (140-400) Test 03/11/21 09:00 03/11/21 12:33 03/11/21 17:32 03/11/21 23:37 O2 Saturation 92 % (92-99) Arterial Blood pH 7.47 (7.35-7.45) Arterial Blood pCO2 at Patient Temp 42 mmHg (35-46) Arterial Blood pO2 at Patient Temp 63 mmHg (75-108) Arterial Blood HCO3 30 mmol/L (21-28) Arterial Blood Base Excess 6 mmol/L (-3-3) FiO2 100 Glucose (Fingerstick) 171 mg/dL (70-99) 154 mg/dL (70-99) 155 mg/dL (70-99) Test 03/12/21 05:13 03/12/21 08:00 03/12/21 08:40 Glucose (Fingerstick) 96 mg/dL (70-99) O2 Saturation 91 % (92-99) Arterial Blood pH 7.43 (7.35-7.45) Arterial Blood pCO2 at Patient Temp 47 mmHg (35-46) Arterial Blood pO2 at Patient Temp 62 mmHg (75-108) Arterial Blood HCO3 31 mmol/L (21-28) Arterial Blood Base Excess 6 mmol/L (-3-3) FiO2 100%+15 White Blood Count 9.4 x10^3/uL (4.0-11.0) Red Blood Count 3.84 x10^6/uL (3.50-5.40) Hemoglobin 9.9 g/dL (12.0-15.5) Hematocrit 31.1 % (36.0-47.0) Mean Corpuscular Volume 81 fL (79-100) Mean Corpuscular Hemoglobin 26 pg (25-35) Mean Corpuscular Hemoglobin Concent 32 g/dL (31-37) Red Cell Distribution Width 16.9 % (11.5-14.5) Platelet Count 305 x10^3/uL (140-400) Sodium Level 139 mmol/L (136-145) Potassium Level 5.2 mmol/L (3.5-5.1) Chloride Level 100 mmol/L (98-107) Carbon Dioxide Level 33 mmol/L (21-32) Anion Gap 6 (6-14) Blood Urea Nitrogen 31 mg/dL (7-20) Creatinine 0.4 mg/dL (0.6-1.0) Estimated GFR (Cockcroft-Gault) 174.2 BUN/Creatinine Ratio 78 (6-20) Glucose Level 106 mg/dL (70-99) Calcium Level 9.0 mg/dL (8.5-10.1) Total Bilirubin 0.5 mg/dL (0.2-1.0) Aspartate Amino Transf (AST/SGOT) 32 U/L (15-37) Alanine Aminotransferase (ALT/SGPT) 101 U/L (14-59) Alkaline Phosphatase 150 U/L (46-116) Total Protein 6.2 g/dL (6.4-8.2) Albumin 1.9 g/dL (3.4-5.0) Albumin/Globulin Ratio 0.4 (1.0-1.7) Laboratory Tests Test 03/11/21 12:33 03/11/21 17:32 03/11/21 23:37 03/12/21 05:13 Glucose (Fingerstick) 171 mg/dL (70-99) 154 mg/dL (70-99) 155 mg/dL (70-99) 96 mg/dL (70-99) Test 03/12/21 08:00 03/12/21 08:40 O2 Saturation 91 % (92-99) Arterial Blood pH 7.43 (7.35-7.45) Arterial Blood pCO2 at Patient Temp 47 mmHg (35-46) Arterial Blood pO2 at Patient Temp 62 mmHg (75-108) Arterial Blood HCO3 31 mmol/L (21-28) Arterial Blood Base Excess 6 mmol/L (-3-3) FiO2 100%+15 White Blood Count 9.4 x10^3/uL (4.0-11.0) Red Blood Count 3.84 x10^6/uL (3.50-5.40) Hemoglobin 9.9 g/dL (12.0-15.5) Hematocrit 31.1 % (36.0-47.0) Mean Corpuscular Volume 81 fL (79-100) Mean Corpuscular Hemoglobin 26 pg (25-35) Mean Corpuscular Hemoglobin Concent 32 g/dL (31-37) Red Cell Distribution Width 16.9 % (11.5-14.5) Platelet Count 305 x10^3/uL (140-400) Sodium Level 139 mmol/L (136-145) Potassium Level 5.2 mmol/L (3.5-5.1) Chloride Level 100 mmol/L (98-107) Carbon Dioxide Level 33 mmol/L (21-32) Anion Gap 6 (6-14) Blood Urea Nitrogen 31 mg/dL (7-20) Creatinine 0.4 mg/dL (0.6-1.0) Estimated GFR (Cockcroft-Gault) 174.2 BUN/Creatinine Ratio 78 (6-20) Glucose Level 106 mg/dL (70-99) Calcium Level 9.0 mg/dL (8.5-10.1) Total Bilirubin 0.5 mg/dL (0.2-1.0) Aspartate Amino Transf (AST/SGOT) 32 U/L (15-37) Alanine Aminotransferase (ALT/SGPT) 101 U/L (14-59) Alkaline Phosphatase 150 U/L (46-116) Total Protein 6.2 g/dL (6.4-8.2) Albumin 1.9 g/dL (3.4-5.0) Albumin/Globulin Ratio 0.4 (1.0-1.7) Medications Active Scripts Medications Dose Route/Sig Max Daily Dose Days Date Category Meloxicam 15 Mg Tablet 1 Tab PO DAILY 30 02/18/21 Reported Comments Chest x-ray reviewed, small pneumo on the left some subcutaneous emphysema Impression . 1. Acute hypoxic respiratory failure with acute lung injury/ acute respiratory distress syndrome secondary to COVID-19 pneumonia andsepsis and suspected VAP. 2. Morbid obesity, BMI of 65 3. No significant tobacco history. 4. History of asthma, 5. Obstructive sleep apnea, on home CPAP. Unknown severity of obstructive sleep apnea and unknown CPAP pressure. 6. Abnormal CXR with bilateral patchy infiltrates c/w viral pneumonia. 7. Fever, per ID 8. Subcutaneous emphysema improved 9. Status post bilateral chest tube placement, for spontaneous pneumothorax 10. Bacteremia, more than likely contaminant 11. Subcutaneous emphysema, traveling up to the neck and eyes Plan . Updated 03/11 No air leak seen on the right chest tube, I repositioned the chest tube on the right, it started working there is a small air leak, suspect this will help facial subcutaneous emphysema Continue 100% FiO2 15 of PEEP Inverse ratio, pressure control ventilation Antibiotics per ID Discussed decreasing caloric delivery, with RN. Discussed above with at the bedside Total cumulative critical care time of 30 minutes, reviewing labs, chest x-ray, and formulating a plan. Updated 03/11 Subcutaneous emphysema is worsening on the right Mild air leak left chest tube Reviewed current vent settings adequate for patient Continues to require 100% FiO2 and 15 of PEEP Updated at the bedside Nutritional support Antibiotics per ID Total cumulative critical care time of 35 minutes, reviewing the current documentation, chest x-ray, reviewing the findings with the . Discussing case with RN and RT. Formulating a plan. Updated 03/10 Mild air leak on left-sided chest tube No significant subcutaneous emphysema on exam ABG noted, adequate for patient, PCO2 is better today. Continue steroids Antibiotics per ID Nutritional support at the bedside, reviewed current findings, Total cumulative critical care time of 30 minutes, reviewing current documentation, labs, chest x-ray, formulating a plan, updated Updated 03/09 Continue current support ABG noted adequate for patient Permissive hypercapnia Mild air leak on chest tube on the left side DVT GI prophylaxis Antibiotics per ID Continue steroids Continue nutritional support Total cumulative critical care time of 35 minutes, reviewing the old documentation, chest x-ray, labs, and formulating a plan. DAVID LIZ MD Mar 12, 2021 09:36
[2021-03-12] MEDS ORDERED: MULTIVITAMINS,THERAPEUTIC 5 ML ORAL LIQUID. ONE (09:41)
[2021-03-12] MEDS: MULTIVITAMINS,THERAPEUTIC 5 ML ORAL LIQUID. PEG SCH (09:42)
[2021-03-12] MEDS: DEXAMETHASONE SOD PHOS 4 MG/ML VIAL IVP SCH (09:43)
[2021-03-12] MEDS: FAMOTIDINE 20 MG/2 ML VIAL IVP SCH ×2 (09:43→20:37)
[2021-03-12] MEDS: FLUCONAZOLE 100 MG TABLET. FT SCH (09:43)
[2021-03-12] MEDS: LINEZOLID 600 MG TABLET PO SCH ×2 (09:43→20:38)
[2021-03-12] MEDS: MINERAL OIL/PETROLATUM,WHITE OPHTH OINT 3.5GM TUBE. OU PRN (09:44)
[2021-03-12] MEDS: NYSTATIN TOPICAL POWDER 15GM BOTTLE. TP SCH ×2 (09:45→20:37)
[2021-03-12] MEDS: MIDAZOLAM 100mg/100ml NS BAG 100 ML IV PRN ×2 (10:57→21:02)
--- NOTE | 2021-03-12 14:28 | NUR ---
SS following up with discharge planning. SS reviewed pt chart and discussed with pt RN. Pt is currently on the vent at 100%. COVID19 positive. Pt on IV Meropenem. Pt on vec, fentanyl, versed, and propofol. Low dose Levophed. Pt has catheter and rectal tube. Chest tube x2. Chemical code only. Not stable. SS will continue to follow for discharge planning.
--- NOTE | 2021-03-12 17:11 | PN ---
DATE: 03/11/2021 SUBJECTIVE: The patient is continued to be paralyzed, sedated, mechanically ventilated, continued to be on FiO2 of 100%; however, oxygen saturation is 96%. Nursing staff did not voice any concerns, stated that she had an uneventful night. PHYSICAL EXAMINATION: GENERAL: When I examined her, she looked pale. No jaundice, cyanosis, or thyromegaly. No jugular venous distention. No limb edema. VITAL SIGNS: Her heart rate was 100, blood pressure is 109/63, temperature 97.9, respiratory rate 30, and oxygen saturation was 96% on FiO2 of 100%. HEAD, EYES, EARS, NOSE AND THROAT: Normocephalic, atraumatic. She has orotracheal and orogastric tube. NECK: Supple. HEART: Showed normal first and second heart sounds, no gallop, rub or murmur. CHEST: Shows central trachea, equal bilateral chest expansion, air entry. Vesicular breath sounds. I could not appreciate any crepitation or rhonchi anteriorly. ABDOMEN: Distended, soft, nontender. NEUROLOGIC: She is heavily sedated. Her intake over the last 24 hours 2100, output was 2700. LABORATORY DATA: As of this morning, her white cell count was 11,800, hemoglobin 10, hematocrit 32, MCV 81 and platelet count 310,000. Her serum sodium was 140, potassium 4.8, chloride 101, bicarbonate 32, anion gap of 7, BUN 37, creatinine 0.4. Estimated GFR was 174 mL per minute. Her glucose 116, calcium was 9.1. Her arterial blood gas this morning showed a pH of 7.47, her pCO2 of 42, pO2 of 63 and bicarbonate of 30 and oxygen saturation was 92% on FiO2 of 100%. Her chest x-ray as of yesterday showed decreased volume of the small left pneumothorax, unchanged extensive diffuse airspace infiltrate, greatest at the lung bases. ASSESSMENT: 1. Acute hypoxic respiratory failure. The patient continued to be paralyzed and sedated, mechanically ventilated. She is maintaining her oxygen saturation at 96% on FiO2 of 100% this morning. This is probably multifactorial including COVID-19 pneumonia, acute respiratory distress syndrome and superimposed bacterial pneumonia for which she is on IV antibiotic. 2. Bronchial asthma. 3. Obstructive sleep apnea, on CPAP. 4. Morbid obesity. 5. Left-sided pneumothorax that has decreased in size dramatically. 6. Right-sided pneumothorax has mostly resolved. PLAN: To continue with paralysis sedation and mechanical ventilation. Continue with nutritional support. Continue with Levophed. Continue with IV antibiotics in the form of meropenem and linezolid. Continue with DVT and GI prophylaxis. BOLA/YAS/BONY DR: Cece TID: [id number]
--- NOTE | 2021-03-12 17:52 | NUR ---
Patient tolerated turns with O2 sat >90%. Levo at low dose was restarted to keep MAP>65. All lines in place. Sub Q air has decreased in chest and abdomen. and sister at bedside.
[2021-03-12] MEDS: INSULIN GLARGINE SYRINGE. SQ SCH (20:40)
[2021-03-13] VITALS (31 sets, daily range): BP systolic 85–173; BP diastolic 45–96
[2021-03-13] MEDS: VECURONIUM BROMIDE 50 MG in TOTAL VOLUME 50 ML IV PRN ×4 (01:23→23:10)
[2021-03-13] MEDS: PROPOFOL 100 ML IV PRN ×5 (02:08→23:14)
--- NOTE | 2021-03-13 03:24 | PN ---
DATE: 03/12/2021 SUBJECTIVE: The patient is resting, slightly propped up in bed, continued to be heavily sedated. She is off the Levophed. She is maintaining her oxygen saturation at 96% on FiO2 of 100%. She has extensive subcutaneous emphysema. PHYSICAL EXAMINATION: GENERAL: When I examined her, she was pale, but no jaundice, cyanosis or thyromegaly. No jugular venous distention, no lower limb edema. VITAL SIGNS: Her heart rate was 107, blood pressure was 123/63, temperature 97.5, respiratory rate was 30 and oxygen saturation was 96% on FiO2 of 100%. HEAD, EYES, EARS, NOSE, AND THROAT: Showed normocephalic, atraumatic. NECK: Supple. HEART: Showed normal first and second heart sounds, no gallop, rub or murmur. CHEST: Clear to auscultation, no crepitation or rhonchi. ABDOMEN: Distended, soft, nontender. No guarding or rigidity. No organomegaly. All hernial orifices intact. Bowel sounds normal. NEUROLOGIC: She is heavily sedated. Her intake over the last 24 hours was 3170 and output was 2613. Her blood sugar seems to be well controlled. LABORATORY DATA: Lab work is still pending at the time of this dictation. ASSESSMENT: 1. Acute hypoxic respiratory failure. The patient continues to be on mechanical ventilation, maintaining her oxygen saturation at 96% on FiO2 100%, multifactorial including: A. COVID-19 pneumonia. B. Acute respiratory distress syndrome. C. Bilateral presumed pneumonic infiltrate. D. Bilateral pneumothoraces that has mostly resolved. 2. Bronchial asthma. 3. Morbid obesity. 4. Obstructive sleep apnea. 5. The patient has extensive subcutaneous emphysema. PLAN: My plan is to obviously continue with mechanical ventilation and wean as tolerated. Continue nutritional support. Continue with IV antibiotic. Continue with DVT and GI prophylaxis. BOLA/ROSSY/ESTRELLA DR: BOLA/carlos TID: [id number]
--- NOTE | 2021-03-13 05:37 | RAD ---
Study: XR CHEST 1V Indication: Ventilated patient. Comparison: 03/12/2021 Findings: Endotracheal tube tip approximately 4 to 5 cm above the [place]. Enteric tube extends beyond the infer ior field of view. Right-sided PICC extends into the SVC with the tip difficult to visualize. Unchang ed positioning of a right-sided chest tube. The tip of a left pleural catheter extends upwards to the middle third while previously at the lower third. Increased size of a left pneumothorax now moderate in volume while previously small. At the apex, the pneumothorax now measures 3.6 cm compared to 1.5 cm. Gas tracks along the lateral pleural space with newly visualized gas at the left costophrenic angle. A right pneumothorax has decreased in size and is no longer well visualized. Persistence of extensive airspace infiltrates bilaterally. No apparent mediastinal shift noting patie nt rotation. Persistence of extensive subcutaneous emphysema but apparently decreasing. Impression: 1. A left pneumothorax has increased in size now moderate in volume while previously small. A pleural catheter is again seen on the left but is in a different location potentially from replacement or re positioning. If done recently this could account for the increase in size. Attention on short-term fo llow-up. No evidence for tension. 2. Additional support devices are unchanged. Decreasing pneumothorax on the right. Persistence of dif fuse airspace infiltrates. Electronically signed by: DOMINIQUE CAIN MD (03/13/2021 5:34 AM) [facility]
[2021-03-13] MEDS: INSULIN LISPRO 300 UNITS/3 ML VIAL. SQ SCH ×4 (06:00→17:40)
[2021-03-13] MEDS: MEROPENEM 1 GM in IV NORMAL SALINE 100ML 100 ML IV SCH ×3 (06:11→21:44)
[2021-03-13] MEDS: fentaNYL HIGH DOSE PCA 55 ML IV PRN ×2 (06:37→19:56)
[2021-03-13] MEDS: MIDAZOLAM 100mg/100ml NS BAG 100 ML IV PRN ×2 (06:37→17:03)
[2021-03-13 07:49] LABS: BASE EXCESS ABG 2 mmol/L (-3-3); HCO3 ABG 28 mmol/L (21-28); PCO2 ABG 51 mmHg (35-46); PO2 ABG 56 mmHg (75-108); SAT O2 ABG 85 % (92-99)
[2021-03-13 07:51] LABS: FIO2 ABG 100
--- NOTE | 2021-03-13 08:21 | PDOC ---
Infectious Disease Note Subjective: Subjective Intubated/sedated Fio2 remains unchanged at 100%,PEEP remains at 15 on pressores Bilateral chest tubes in place,subcut emphysema + Discussed with nursing staff Vital Signs: Vital Signs Vital Signs Date Time Temp Pulse Resp B/P (MAP) Pulse Ox O2 Delivery O2 Flow Rate FiO2 03/13/21 07:30 94 Ventilator 03/13/21 07:10 97.6 103 94/58 (70) 97.6 03/13/21 06:37 30 Physical Exam: PHYSICAL EXAM GENERAL: Intubated/sedated HEENT: ETT OGT tube in place, normocephalic atraumatic, subcutaneous emphysema now on neck and face more pronounced this am over Rt eyes LUNGS: Decreased breath sounds,Right chest tube in place, left chest tube present, Chest wall extensive subcutaneous emphysema HEART: S1, S2 ABDOMEN: Obese soft, nontender. Bowel sounds present Lott in place,fecal tube present EXTREMITIES generalized anasarca, cyanotic finger tips SKIN: No generalized rash NEUROLOGIC: sedated on vent PICC line clean Medications: Inpatient Meds: Medications reviewed. Labs: Lab Laboratory Tests Test 03/12/21 08:40 03/12/21 13:33 03/12/21 17:26 03/13/21 00:20 White Blood Count 9.4 x10^3/uL (4.0-11.0) Red Blood Count 3.84 x10^6/uL (3.50-5.40) Hemoglobin 9.9 g/dL (12.0-15.5) Hematocrit 31.1 % (36.0-47.0) Mean Corpuscular Volume 81 fL (79-100) Mean Corpuscular Hemoglobin 26 pg (25-35) Mean Corpuscular Hemoglobin Concent 32 g/dL (31-37) Red Cell Distribution Width 16.9 % (11.5-14.5) Platelet Count 305 x10^3/uL (140-400) Sodium Level 139 mmol/L (136-145) Potassium Level 5.2 mmol/L (3.5-5.1) Chloride Level 100 mmol/L (98-107) Carbon Dioxide Level 33 mmol/L (21-32) Anion Gap 6 (6-14) Blood Urea Nitrogen 31 mg/dL (7-20) Creatinine 0.4 mg/dL (0.6-1.0) Estimated GFR (Cockcroft-Gault) 174.2 BUN/Creatinine Ratio 78 (6-20) Glucose Level 106 mg/dL (70-99) Calcium Level 9.0 mg/dL (8.5-10.1) Total Bilirubin 0.5 mg/dL (0.2-1.0) Aspartate Amino Transf (AST/SGOT) 32 U/L (15-37) Alanine Aminotransferase (ALT/SGPT) 101 U/L (14-59) Alkaline Phosphatase 150 U/L (46-116) Total Protein 6.2 g/dL (6.4-8.2) Albumin 1.9 g/dL (3.4-5.0) Albumin/Globulin Ratio 0.4 (1.0-1.7) Glucose (Fingerstick) 137 mg/dL (70-99) 182 mg/dL (70-99) 131 mg/dL (70-99) Test 03/13/21 06:02 03/13/21 07:30 Glucose (Fingerstick) 142 mg/dL (70-99) O2 Saturation 85 % (92-99) Arterial Blood pH 7.36 (7.35-7.45) Arterial Blood pCO2 at Patient Temp 51 mmHg (35-46) Arterial Blood pO2 at Patient Temp 56 mmHg (75-108) Arterial Blood HCO3 28 mmol/L (21-28) Arterial Blood Base Excess 2 mmol/L (-3-3) FiO2 100 Objective: Assessment: 1. COVID-19 positive. 2. Acute hypoxic respiratory failure. 3. Pneumonia, bilateral pulmonary infiltrate/ ARDS 4. Morbid obesity. 5. History of asthma. 6. Obstructive sleep apnea. 7 Fever pattern improved 8 Bilateral pneumothorax status post bilateral CTS 9. Blood culture positive coagulase negative staph likely contaminant, repeat b lood cultures negative 10. Leucocytosis on steroids,also likely reactive Plan: Plan of Care Patient remains critically ill Continue supportive care Continue Meropenem/ Zyvox On fluconazole Follow-up cult and lab Prognosis very poor D/W BYRON SAN MD Mar 13, 2021 08:21
[2021-03-13] MEDS: NOREPINEPHRINE VIAL 8 MG in IV DEXTROSE 5% 250 ML IV PRN (09:05)
[2021-03-13 09:17] LABS: CALCIUM 9.4 mg/dL (8.5-10.1); CREATININE 0.3 mg/dL (0.6-1.0); GFR 242.8; POTASSIUM 5.1 mmol/L (3.5-5.1)
[2021-03-13 09:19] LABS: HEMATOCRIT 34.1 % (36.0-47.0); HEMOGLOBIN 10.6 g/dL (12.0-15.5); RED BLOOD COUNT 4.19 x10^6/uL (3.50-5.40); RED CELL DISTRIBUTION WIDTH 17.8 % (11.5-14.5); WHITE BLOOD COUNT 12.1 x10^3/uL (4.0-11.0)
[2021-03-13 09:23] LABS: ALBUMIN/GLOBULIN RATIO 0.4 (1.0-1.7); TOTAL BILIRUBIN 0.6 mg/dL (0.2-1.0); TOTAL PROTEIN 6.7 g/dL (6.4-8.2)
--- NOTE | 2021-03-13 09:34 | PDOC ---
PULMONARY PROGRESS NOTES DATE: 03/13/21 TIME: 09:34 Subjective Chest tube on the right side reposition yesterday, subcutaneous emphysema has diminished Patient continues to require pressure control ventilation 15 of PEEP 100% Saturations at this juncture low 75-80 Vitals Vital Signs Date Time Temp Pulse Resp B/P (MAP) Pulse Ox O2 Delivery O2 Flow Rate FiO2 03/13/21 08:24 Mechanical Ventilator 03/13/21 07:30 94 03/13/21 07:10 97.6 103 94/58 (70) 97.6 03/13/21 06:37 30 HEENT: Other (No significant subcutaneous emphysema) Lungs: Crackles, Other (Bilateral chest tube placement,) Cardiovascular: S1, S2 Abdomen: Soft Extremities: Other (Edema) Skin: Warm Labs Laboratory Tests Test 03/11/21 12:33 03/11/21 17:32 03/11/21 23:37 03/12/21 05:13 Glucose (Fingerstick) 171 mg/dL (70-99) 154 mg/dL (70-99) 155 mg/dL (70-99) 96 mg/dL (70-99) Test 03/12/21 08:00 03/12/21 08:40 03/12/21 13:33 03/12/21 17:26 O2 Saturation 91 % (92-99) Arterial Blood pH 7.43 (7.35-7.45) Arterial Blood pCO2 at Patient Temp 47 mmHg (35-46) Arterial Blood pO2 at Patient Temp 62 mmHg (75-108) Arterial Blood HCO3 31 mmol/L (21-28) Arterial Blood Base Excess 6 mmol/L (-3-3) FiO2 100%+15 White Blood Count 9.4 x10^3/uL (4.0-11.0) Red Blood Count 3.84 x10^6/uL (3.50-5.40) Hemoglobin 9.9 g/dL (12.0-15.5) Hematocrit 31.1 % (36.0-47.0) Mean Corpuscular Volume 81 fL (79-100) Mean Corpuscular Hemoglobin 26 pg (25-35) Mean Corpuscular Hemoglobin Concent 32 g/dL (31-37) Red Cell Distribution Width 16.9 % (11.5-14.5) Platelet Count 305 x10^3/uL (140-400) Sodium Level 139 mmol/L (136-145) Potassium Level 5.2 mmol/L (3.5-5.1) Chloride Level 100 mmol/L (98-107) Carbon Dioxide Level 33 mmol/L (21-32) Anion Gap 6 (6-14) Blood Urea Nitrogen 31 mg/dL (7-20) Creatinine 0.4 mg/dL (0.6-1.0) Estimated GFR (Cockcroft-Gault) 174.2 BUN/Creatinine Ratio 78 (6-20) Glucose Level 106 mg/dL (70-99) Calcium Level 9.0 mg/dL (8.5-10.1) Total Bilirubin 0.5 mg/dL (0.2-1.0) Aspartate Amino Transf (AST/SGOT) 32 U/L (15-37) Alanine Aminotransferase (ALT/SGPT) 101 U/L (14-59) Alkaline Phosphatase 150 U/L (46-116) Total Protein 6.2 g/dL (6.4-8.2) Albumin 1.9 g/dL (3.4-5.0) Albumin/Globulin Ratio 0.4 (1.0-1.7) Glucose (Fingerstick) 137 mg/dL (70-99) 182 mg/dL (70-99) Test 03/13/21 00:20 03/13/21 06:02 03/13/21 07:30 03/13/21 08:40 Glucose (Fingerstick) 131 mg/dL (70-99) 142 mg/dL (70-99) O2 Saturation 85 % (92-99) Arterial Blood pH 7.36 (7.35-7.45) Arterial Blood pCO2 at Patient Temp 51 mmHg (35-46) Arterial Blood pO2 at Patient Temp 56 mmHg (75-108) Arterial Blood HCO3 28 mmol/L (21-28) Arterial Blood Base Excess 2 mmol/L (-3-3) FiO2 100 White Blood Count 12.1 x10^3/uL (4.0-11.0) Red Blood Count 4.19 x10^6/uL (3.50-5.40) Hemoglobin 10.6 g/dL (12.0-15.5) Hematocrit 34.1 % (36.0-47.0) Mean Corpuscular Volume 81 fL (79-100) Mean Corpuscular Hemoglobin 25 pg (25-35) Mean Corpuscular Hemoglobin Concent 31 g/dL (31-37) Red Cell Distribution Width 17.8 % (11.5-14.5) Platelet Count 384 x10^3/uL (140-400) Sodium Level 136 mmol/L (136-145) Potassium Level 5.1 mmol/L (3.5-5.1) Chloride Level 98 mmol/L (98-107) Carbon Dioxide Level 32 mmol/L (21-32) Anion Gap 6 (6-14) Blood Urea Nitrogen 32 mg/dL (7-20) Creatinine 0.3 mg/dL (0.6-1.0) Estimated GFR (Cockcroft-Gault) 242.8 BUN/Creatinine Ratio 107 (6-20) Glucose Level 169 mg/dL (70-99) Calcium Level 9.4 mg/dL (8.5-10.1) Total Bilirubin 0.6 mg/dL (0.2-1.0) Aspartate Amino Transf (AST/SGOT) 31 U/L (15-37) Alanine Aminotransferase (ALT/SGPT) 96 U/L (14-59) Alkaline Phosphatase 145 U/L (46-116) Total Protein 6.7 g/dL (6.4-8.2) Albumin 2.0 g/dL (3.4-5.0) Albumin/Globulin Ratio 0.4 (1.0-1.7) Laboratory Tests Test 03/12/21 13:33 03/12/21 17:26 03/13/21 00:20 03/13/21 06:02 Glucose (Fingerstick) 137 mg/dL (70-99) 182 mg/dL (70-99) 131 mg/dL (70-99) 142 mg/dL (70-99) Test 03/13/21 07:30 03/13/21 08:40 O2 Saturation 85 % (92-99) Arterial Blood pH 7.36 (7.35-7.45) Arterial Blood pCO2 at Patient Temp 51 mmHg (35-46) Arterial Blood pO2 at Patient Temp 56 mmHg (75-108) Arterial Blood HCO3 28 mmol/L (21-28) Arterial Blood Base Excess 2 mmol/L (-3-3) FiO2 100 White Blood Count 12.1 x10^3/uL (4.0-11.0) Red Blood Count 4.19 x10^6/uL (3.50-5.40) Hemoglobin 10.6 g/dL (12.0-15.5) Hematocrit 34.1 % (36.0-47.0) Mean Corpuscular Volume 81 fL (79-100) Mean Corpuscular Hemoglobin 25 pg (25-35) Mean Corpuscular Hemoglobin Concent 31 g/dL (31-37) Red Cell Distribution Width 17.8 % (11.5-14.5) Platelet Count 384 x10^3/uL (140-400) Sodium Level 136 mmol/L (136-145) Potassium Level 5.1 mmol/L (3.5-5.1) Chloride Level 98 mmol/L (98-107) Carbon Dioxide Level 32 mmol/L (21-32) Anion Gap 6 (6-14) Blood Urea Nitrogen 32 mg/dL (7-20) Creatinine 0.3 mg/dL (0.6-1.0) Estimated GFR (Cockcroft-Gault) 242.8 BUN/Creatinine Ratio 107 (6-20) Glucose Level 169 mg/dL (70-99) Calcium Level 9.4 mg/dL (8.5-10.1) Total Bilirubin 0.6 mg/dL (0.2-1.0) Aspartate Amino Transf (AST/SGOT) 31 U/L (15-37) Alanine Aminotransferase (ALT/SGPT) 96 U/L (14-59) Alkaline Phosphatase 145 U/L (46-116) Total Protein 6.7 g/dL (6.4-8.2) Albumin 2.0 g/dL (3.4-5.0) Albumin/Globulin Ratio 0.4 (1.0-1.7) Medications Active Scripts Medications Dose Route/Sig Max Daily Dose Days Date Category Meloxicam 15 Mg Tablet 1 Tab PO DAILY 30 02/18/21 Reported Comments Chest x-ray reviewed, small pneumo on the left some subcutaneous emphysema Impression . 1. Acute hypoxic respiratory failure with acute lung injury/ acute respiratory distress syndrome secondary to COVID-19 pneumonia andsepsis and suspected VAP. 2. Morbid obesity, BMI of 65 3. No significant tobacco history. 4. History of asthma, 5. Obstructive sleep apnea, on home CPAP. Unknown severity of obstructive sleep apnea and unknown CPAP pressure. 6. Abnormal CXR with bilateral patchy infiltrates c/w viral pneumonia. 7. Fever, per ID 8. Subcutaneous emphysema improved 9. Status post bilateral chest tube placement, for spontaneous pneumothorax 10. Bacteremia, more than likely contaminant 11. Subcutaneous emphysema, traveling up to the neck and eyes 1. A left pneumothorax has increased in size now moderate in volume while previously small. A pleural catheter is again seen on the left but is in a diff erent location potentially from replacement or repositioning. If done recently this could account for the increase in size. Attention on short-term follow-up. No evidence for tension. 2. Additional support devices are unchanged. Decreasing pneumothorax on the right. Persistence of diffuse airspace infiltrates. Plan . Updated 03/13 Chest x-ray reviewed, increasing pneumonia on the left, discussed with interventional radiology, Dr. Burgos Continue air leak on the right, subcutaneous emphysema has improved Patient continues to require 100% FiO2 15 of PEEP Discussed findings with at the bedside Overall prognosis is dismal Total cumulative critical care time of 30 minutes, reviewing the current documentation, chest x-ray, labs, and formulating a plan Updated 03/12 No air leak seen on the right chest tube, I repositioned the chest tube on the right, it started working there is a small air leak, suspect this will help facial subcutaneous emphysema Continue 100% FiO2 15 of PEEP Inverse ratio, pressure control ventilation Antibiotics per ID Discussed decreasing caloric delivery, with RN. Discussed above with at the bedside Total cumulative critical care time of 30 minutes, reviewing labs, chest x-ray, and formulating a plan. Updated 03/11 Subcutaneous emphysema is worsening on the right Mild air leak left chest tube Reviewed current vent settings adequate for patient Continues to require 100% FiO2 and 15 of PEEP Updated at the bedside Nutritional support Antibiotics per ID Total cumulative critical care time of 35 minutes, reviewing the current documentation, chest x-ray, reviewing the findings with the . Discussing case with RN and RT. Formulating a plan. Updated 03/10 Mild air leak on left-sided chest tube No significant subcutaneous emphysema on exam ABG noted, adequate for patient, PCO2 is better today. Continue steroids Antibiotics per ID Nutritional support at the bedside, reviewed current findings, Total cumulative critical care time of 30 minutes, reviewing current documentation, labs, chest x-ray, formulating a plan, updated Updated 03/09 Continue current support ABG noted adequate for patient Permissive hypercapnia Mild air leak on chest tube on the left side DVT GI prophylaxis Antibiotics per ID Continue steroids Continue nutritional support Total cumulative critical care time of 35 minutes, reviewing the old documentation, chest x-ray, labs, and formulating a plan. DAVID LIZ MD Mar 13, 2021 09:34
[2021-03-13] MEDS: MULTIVITAMINS,THERAPEUTIC 5 ML ORAL LIQUID. PEG SCH (09:41)
[2021-03-13] MEDS: DEXAMETHASONE SOD PHOS 4 MG/ML VIAL IVP SCH (09:42)
[2021-03-13] MEDS: FLUCONAZOLE 100 MG TABLET. FT SCH (09:42)
[2021-03-13] MEDS: FAMOTIDINE 20 MG/2 ML VIAL IVP SCH ×2 (09:43→21:10)
[2021-03-13] MEDS: LINEZOLID 600 MG TABLET PO SCH ×2 (09:43→21:10)
[2021-03-13] MEDS: NYSTATIN TOPICAL POWDER 15GM BOTTLE. TP SCH ×2 (09:44→21:11)
[2021-03-13] MEDS ORDERED: LIDOCAINE WITH 8.4% SOD BICARB 3 ML DISP.SYRIN. ONE (13:33)
--- NOTE | 2021-03-13 14:13 | RAD ---
EXAM: CHEST ONE VIEW. HISTORY: Chest tube placement. COMPARISON: 03/13/2021. FINDINGS: A frontal view of the chest is obtained. An endotracheal tube has its tip 4 cm above the ca héctor. A nasogastric tube has its tip below the inferior margin of the view. A right arm PICC line has its tip in the superior vena cava. Bilateral chest tubes are again noted. There is extensive bilateral chest wall gas, mildly decreased on the right. The left pneumothorax is now small. The right is not detectable currently. Bilateral diffuse infiltrates appear better aerated on the right and worsened on the left. There is n o clear pleural effusion. The heart is not enlarged. IMPRESSION: 1. Bilateral pneumothoraces are now tiny with chest tubes in place. Extensive chest wall gas. 2. Bilateral diffuse infiltrates appear increased on the left. Electronically signed by: Juvenal Farmer MD (03/13/2021 2:11 PM) [id number]
--- NOTE | 2021-03-13 15:11 | NUR ---
SS following up with discharge planning. SS reviewed pt chart and discussed with pt RN. Pt is currently on the vent at 100%. COVID19 recovered. Pt on Fentanyl, Propofol, Versed, and Vec. Pt on IV Meropenem. Chest tube x2. Cath and rectal tube in place. Chemical code only. Not stable. SS will continue to follow for discharge planning.
[2021-03-13] MEDS: MINERAL OIL/PETROLATUM,WHITE OPHTH OINT 3.5GM TUBE. OU PRN (16:15)
--- NOTE | 2021-03-13 16:37 | NUR ---
Wound Care Wound Type/Assessment: Pt seen per wound care consultation, see wound assessments. Pt has a combination of moisture associated skin damage (MASD), deep tissue injury and Stage II pressure ulcers to bilateral buttocks, coccyx, luzmaria and posterior thigh areas. Areas are dark red and purple, bright and dark red open and peeling skin scattered, small area of bleeding tissue. RLQ pannus fold and bilateral lower back folds with Intertrigo from friction and sheer of skin and folds rubbing and pressing against one another. Pt's heels are pink and blanchable, foam dressings applied. Treatment Recommendations/Plan: Recommend Vitamin A&D ointment to skin breakdown on buttocks and luzmaria areas, leave [employer] RELATIONS ASSISTANT, left and R side turns only. Intertriginous areas dressed with Xeroform gauze, and foam dressings for protection. Education provided: to SAMINA [place] re: POC. Offloading surface/device: ICU Total Care Bariatric bed, Heelmedix boots to bilateral feet, wedge and pillows. Pt repositioned onto R side with wedge and pillows. Recommended Referrals/Tests: n/a Discharge Recommendations for dressings: will continue to follow.
[2021-03-13] MEDS: INSULIN GLARGINE SYRINGE. SQ SCH (21:13)
[2021-03-14] VITALS (24 sets, daily range): BP systolic 82–146; BP diastolic 45–83
[2021-03-14] MEDS: INSULIN LISPRO 300 UNITS/3 ML VIAL. SQ SCH ×5 (00:07→23:40)
--- NOTE | 2021-03-14 02:51 | PN ---
DATE: 03/13/2021 SUBJECTIVE: The patient is continued to be paralyzed, sedated, intubated, mechanically ventilated. Her oxygen saturation was 91% on FiO2 of 100%. She is on Levophed. PHYSICAL EXAMINATION: GENERAL: When I examined her this morning, she was pale, but no jaundice, cyanosis or thyromegaly. No jugular venous distention, but generalized anasarca. VITAL SIGNS: Heart rate was 103, blood pressure was 94/58, temperature was 97.6, respiratory rate was 30 and oxygen saturation was 91% on FiO2 of 100%. HEAD, EYES, EARS, NOSE AND THROAT: Normocephalic, atraumatic. Marked periorbital edema. NECK: Supple. HEART: Normal first and second sounds. No gallop or murmur. CHEST: Shows centered trachea. Equal bilateral chest expansion, air entry. Vesicular breath sounds. No crepitations, no rhonchi appreciated anteriorly. ABDOMEN: Distended, soft, nontender. NEUROLOGIC: She is heavily sedated. Her intake was 2900, output was 1460. LABORATORY DATA: Her blood gas this morning showed a pH of 7.36, pCO2 of 51, pO2 of 56, bicarbonate 28 and oxygen saturation was 85% on FiO2 of 100%. Her lab work is still pending at the time of this dictation. Her chest x-ray showed the patient has a left pneumothorax that is increased in size now, moderate in volume, while previously was small. The pleural catheter is again seen on the left, but is in the different location potentially from replacement or repositioning done recently. This could account for the increase in size, attention on short-term followup. No evidence of ____. Additional support device is unchanged, decreasing pneumothorax on the right, persistent diffuse airspace infiltrate. ASSESSMENT: 1. Acute hypoxic respiratory failure. The patient continued to be on mechanical ventilation, maintaining her oxygen saturation at 91% on FiO2 of 100%, multifactorial including: A. COVID-19 pneumonia. B. Acute respiratory distress syndrome. C. Bilateral presumed pneumonic infiltration. D. Bilateral pneumothoraces. The left-sided pneumothorax has increased in size. 2. Bronchial asthma. 3. Morbid obesity. 4. Obstructive sleep apnea. 5. The patient has extensive subcutaneous emphysema. 6. Severe protein-calorie malnutrition. Serum albumin is only 1.9 g/dL. 7. Normochromic normocytic anemia. PLAN: Plan is to continue with mechanical ventilation. Continue with nutritional support. Continue with fluconazole, linezolid as well as meropenem. Continue to monitor her blood sugar and adjust insulin as needed. BOLA/LEIGH/ESTRELLA DR: Cece TID: [id number]
[2021-03-14] MEDS: PROPOFOL 100 ML IV PRN ×5 (03:22→21:08)
[2021-03-14] MEDS: MIDAZOLAM 100mg/100ml NS BAG 100 ML IV PRN ×3 (03:22→23:41)
[2021-03-14] MEDS: MEROPENEM 1 GM in IV NORMAL SALINE 100ML 100 ML IV SCH ×3 (05:52→21:50)
--- NOTE | 2021-03-14 07:20 | PDOC ---
PULMONARY PROGRESS NOTES DATE: 03/14/21 TIME: 07:20 Subjective on vent pc 30 rr 30 peep 15 fio2 100% small ett secretion subcut air improved on vec, fentanyl, propofol, versed Vitals Vital Signs Date Time Temp Pulse Resp B/P (MAP) Pulse Ox O2 Delivery O2 Flow Rate FiO2 03/14/21 07:01 97.7 98 30 134/63 (86) 91 Ventilator 97.7 03/13/21 07:07 1.0 Comments on vent sedated paralyzed HEENT: Other (nc at perrl No significant subcutaneous emphysema) Lungs: Crackles, Other (Bilateral chest tube placement,) Cardiovascular: S1, S2 Abdomen: Soft Extremities: Other (Edema) Skin: Warm Labs Laboratory Tests Test 03/12/21 08:00 03/12/21 08:40 03/12/21 13:33 03/12/21 17:26 O2 Saturation 91 % (92-99) Arterial Blood pH 7.43 (7.35-7.45) Arterial Blood pCO2 at Patient Temp 47 mmHg (35-46) Arterial Blood pO2 at Patient Temp 62 mmHg (75-108) Arterial Blood HCO3 31 mmol/L (21-28) Arterial Blood Base Excess 6 mmol/L (-3-3) FiO2 100%+15 White Blood Count 9.4 x10^3/uL (4.0-11.0) Red Blood Count 3.84 x10^6/uL (3.50-5.40) Hemoglobin 9.9 g/dL (12.0-15.5) Hematocrit 31.1 % (36.0-47.0) Mean Corpuscular Volume 81 fL (79-100) Mean Corpuscular Hemoglobin 26 pg (25-35) Mean Corpuscular Hemoglobin Concent 32 g/dL (31-37) Red Cell Distribution Width 16.9 % (11.5-14.5) Platelet Count 305 x10^3/uL (140-400) Sodium Level 139 mmol/L (136-145) Potassium Level 5.2 mmol/L (3.5-5.1) Chloride Level 100 mmol/L (98-107) Carbon Dioxide Level 33 mmol/L (21-32) Anion Gap 6 (6-14) Blood Urea Nitrogen 31 mg/dL (7-20) Creatinine 0.4 mg/dL (0.6-1.0) Estimated GFR (Cockcroft-Gault) 174.2 BUN/Creatinine Ratio 78 (6-20) Glucose Level 106 mg/dL (70-99) Calcium Level 9.0 mg/dL (8.5-10.1) Total Bilirubin 0.5 mg/dL (0.2-1.0) Aspartate Amino Transf (AST/SGOT) 32 U/L (15-37) Alanine Aminotransferase (ALT/SGPT) 101 U/L (14-59) Alkaline Phosphatase 150 U/L (46-116) Total Protein 6.2 g/dL (6.4-8.2) Albumin 1.9 g/dL (3.4-5.0) Albumin/Globulin Ratio 0.4 (1.0-1.7) Glucose (Fingerstick) 137 mg/dL (70-99) 182 mg/dL (70-99) Test 03/13/21 00:20 03/13/21 06:02 03/13/21 07:30 03/13/21 08:40 Glucose (Fingerstick) 131 mg/dL (70-99) 142 mg/dL (70-99) O2 Saturation 85 % (92-99) Arterial Blood pH 7.36 (7.35-7.45) Arterial Blood pCO2 at Patient Temp 51 mmHg (35-46) Arterial Blood pO2 at Patient Temp 56 mmHg (75-108) Arterial Blood HCO3 28 mmol/L (21-28) Arterial Blood Base Excess 2 mmol/L (-3-3) FiO2 100 White Blood Count 12.1 x10^3/uL (4.0-11.0) Red Blood Count 4.19 x10^6/uL (3.50-5.40) Hemoglobin 10.6 g/dL (12.0-15.5) Hematocrit 34.1 % (36.0-47.0) Mean Corpuscular Volume 81 fL (79-100) Mean Corpuscular Hemoglobin 25 pg (25-35) Mean Corpuscular Hemoglobin Concent 31 g/dL (31-37) Red Cell Distribution Width 17.8 % (11.5-14.5) Platelet Count 384 x10^3/uL (140-400) Sodium Level 136 mmol/L (136-145) Potassium Level 5.1 mmol/L (3.5-5.1) Chloride Level 98 mmol/L (98-107) Carbon Dioxide Level 32 mmol/L (21-32) Anion Gap 6 (6-14) Blood Urea Nitrogen 32 mg/dL (7-20) Creatinine 0.3 mg/dL (0.6-1.0) Estimated GFR (Cockcroft-Gault) 242.8 BUN/Creatinine Ratio 107 (6-20) Glucose Level 169 mg/dL (70-99) Calcium Level 9.4 mg/dL (8.5-10.1) Total Bilirubin 0.6 mg/dL (0.2-1.0) Aspartate Amino Transf (AST/SGOT) 31 U/L (15-37) Alanine Aminotransferase (ALT/SGPT) 96 U/L (14-59) Alkaline Phosphatase 145 U/L (46-116) Total Protein 6.7 g/dL (6.4-8.2) Albumin 2.0 g/dL (3.4-5.0) Albumin/Globulin Ratio 0.4 (1.0-1.7) Test 03/13/21 17:37 03/13/21 20:47 03/14/21 00:02 03/14/21 05:49 Glucose (Fingerstick) 154 mg/dL (70-99) 145 mg/dL (70-99) 158 mg/dL (70-99) 121 mg/dL (70-99) Laboratory Tests Test 03/13/21 07:30 03/13/21 08:40 03/13/21 17:37 03/13/21 20:47 O2 Saturation 85 % (92-99) Arterial Blood pH 7.36 (7.35-7.45) Arterial Blood pCO2 at Patient Temp 51 mmHg (35-46) Arterial Blood pO2 at Patient Temp 56 mmHg (75-108) Arterial Blood HCO3 28 mmol/L (21-28) Arterial Blood Base Excess 2 mmol/L (-3-3) FiO2 100 White Blood Count 12.1 x10^3/uL (4.0-11.0) Red Blood Count 4.19 x10^6/uL (3.50-5.40) Hemoglobin 10.6 g/dL (12.0-15.5) Hematocrit 34.1 % (36.0-47.0) Mean Corpuscular Volume 81 fL (79-100) Mean Corpuscular Hemoglobin 25 pg (25-35) Mean Corpuscular Hemoglobin Concent 31 g/dL (31-37) Red Cell Distribution Width 17.8 % (11.5-14.5) Platelet Count 384 x10^3/uL (140-400) Sodium Level 136 mmol/L (136-145) Potassium Level 5.1 mmol/L (3.5-5.1) Chloride Level 98 mmol/L (98-107) Carbon Dioxide Level 32 mmol/L (21-32) Anion Gap 6 (6-14) Blood Urea Nitrogen 32 mg/dL (7-20) Creatinine 0.3 mg/dL (0.6-1.0) Estimated GFR (Cockcroft-Gault) 242.8 BUN/Creatinine Ratio 107 (6-20) Glucose Level 169 mg/dL (70-99) Calcium Level 9.4 mg/dL (8.5-10.1) Total Bilirubin 0.6 mg/dL (0.2-1.0) Aspartate Amino Transf (AST/SGOT) 31 U/L (15-37) Alanine Aminotransferase (ALT/SGPT) 96 U/L (14-59) Alkaline Phosphatase 145 U/L (46-116) Total Protein 6.7 g/dL (6.4-8.2) Albumin 2.0 g/dL (3.4-5.0) Albumin/Globulin Ratio 0.4 (1.0-1.7) Glucose (Fingerstick) 154 mg/dL (70-99) 145 mg/dL (70-99) Test 03/14/21 00:02 03/14/21 05:49 Glucose (Fingerstick) 158 mg/dL (70-99) 121 mg/dL (70-99) Medications Active Scripts Medications Dose Route/Sig Max Daily Dose Days Date Category Meloxicam 15 Mg Tablet 1 Tab PO DAILY 30 02/18/21 Reported Comments Chest x-ray reviewed, small pneumo on the left some subcutaneous emphysema Impression . 1. Acute hypoxic respiratory failure with acute lung injury/ acute respiratory distress syndrome secondary to COVID-19 pneumonia andsepsis and suspected VAP. 2. Morbid obesity, BMI of 65 3. No significant tobacco history. 4. History of asthma, 5. Obstructive sleep apnea, on home CPAP. Unknown severity of obstructive sleep apnea and unknown CPAP pressure. 6. Abnormal CXR with bilateral patchy infiltrates c/w viral pneumonia. 7. Fever, per ID 8. Subcutaneous emphysema improved 9. Status post bilateral chest tube placement, for spontaneous pneumothorax 10. Bacteremia, more than likely contaminant 11. Subcutaneous emphysema, traveling up to the neck and eyes Plan . Updated 03/14 cont vent support setting reviewed, titrate peep as tolerated abg reviewed on propofol check TG cont ct l ct flushed now working subcutaneous emphysema has improved Patient continues to require 100% FiO2 15 of PEEP Overall prognosis is poor discussed w rn, rt critically ill Total cumulative critical care time of 30 minutes, reviewing the current documentation, chest x-ray, labs, and formulating a plan no overlap Updated 03/13 Chest x-ray reviewed, increasing pneumonia on the left, [facility] with [facility], Dr. Burgos Continue air leak on the right, subcutaneous emphysema has improved Patient continues to require 100% FiO2 15 of PEEP Discussed findings with at the bedside Overall prognosis is dismal Total cumulative critical care time of 30 minutes, reviewing the current documentation, chest x-ray, labs, and formulating a plan Updated 03/12 No air leak seen on the right chest tube, I repositioned the chest tube on the right, it started working there is a small air leak, suspect this will help facial subcutaneous emphysema Continue 100% FiO2 15 of PEEP Inverse ratio, pressure control ventilation Antibiotics per ID Discussed decreasing caloric delivery, with RN. Discussed above with at the bedside Total cumulative critical care time of 30 minutes, reviewing labs, chest x-ray, and formulating a plan. Updated 03/11 Subcutaneous emphysema is worsening on the right Mild air leak left chest tube Reviewed current vent settings adequate for patient Continues to require 100% FiO2 and 15 of PEEP Updated at the bedside Nutritional support Antibiotics per ID Total cumulative critical care time of 35 minutes, reviewing the current documentation, chest x-ray, reviewing the findings with the . Discussing case with RN and RT. Formulating a plan. Updated 03/10 Mild air leak on left-sided chest tube No significant subcutaneous emphysema on exam ABG noted, adequate for patient, PCO2 is better today. Continue steroids Antibiotics per ID Nutritional support at the bedside, reviewed current findings, Total cumulative critical care time of 30 minutes, reviewing current documentation, labs, chest x-ray, formulating a plan, updated Updated 03/09 Continue current support ABG noted adequate for patient Permissive hypercapnia Mild air leak on chest tube on the left side DVT GI prophylaxis Antibiotics per ID Continue steroids Continue nutritional support Total cumulative critical care time of 35 minutes, reviewing the old documentation, chest x-ray, labs, and formulating a plan. NAFISA CLINE MD Mar 14, 2021 07:20
[2021-03-14 07:48] LABS: BASO # 0.1 x10^3/uL (0.0-0.2); BASO % 1 % (0-3); EOS # 0.3 x10^3/uL (0.0-0.7); EOS % 3 % (0-3); HEMATOCRIT 31.1 % (36.0-47.0); HEMOGLOBIN 9.8 g/dL (12.0-15.5); LYMPH % 10 % (24-48); MEAN CORPUSCULAR HEMOGLOBIN 26 pg (25-35); MEAN CORPUSCULAR HGB CONC 32 g/dL (31-37); MEAN CORPUSCULAR VOLUME 81 fL (79-100); MONO # 0.5 x10^3/uL (0.0-1.1); MONO % 5 % (0-9); NEUT # 8.4 x10^3/uL (1.8-7.7); NEUT % 82 % (31-73); PLATELET COUNT 335 x10^3/uL (140-400); RED BLOOD COUNT 3.86 x10^6/uL (3.50-5.40); RED CELL DISTRIBUTION WIDTH 17.2 % (11.5-14.5); WHITE BLOOD COUNT 10.2 x10^3/uL (4.0-11.0)
[2021-03-14] MEDS: MULTIVITAMINS,THERAPEUTIC 5 ML ORAL LIQUID. PEG SCH (08:01)
[2021-03-14] MEDS: NYSTATIN TOPICAL POWDER 15GM BOTTLE. TP SCH ×2 (08:02→20:49)
[2021-03-14] MEDS: DEXAMETHASONE SOD PHOS 4 MG/ML VIAL IVP SCH (08:02)
[2021-03-14] MEDS: LINEZOLID 600 MG TABLET PO SCH ×2 (08:02→20:49)
[2021-03-14] MEDS: FAMOTIDINE 20 MG/2 ML VIAL IVP SCH ×2 (08:02→20:49)
[2021-03-14] MEDS: FLUCONAZOLE 100 MG TABLET. FT SCH (08:02)
[2021-03-14 08:04] LABS: CALCIUM 8.5 mg/dL (8.5-10.1); CREATININE 0.3 mg/dL (0.6-1.0); GFR 242.8; POTASSIUM 4.6 mmol/L (3.5-5.1)
[2021-03-14 08:12] LABS: BASE EXCESS ABG 4 mmol/L (-3-3); HCO3 ABG 32 mmol/L (21-28); PO2 ABG 57 mmHg (75-108); SAT O2 ABG 86 % (92-99)
[2021-03-14 08:27] LABS: FIO2 ABG 100; PCO2 ABG 61 mmHg (35-46)
[2021-03-14] MEDS: fentaNYL HIGH DOSE PCA 55 ML IV PRN ×2 (08:57→21:09)
--- NOTE | 2021-03-14 10:13 | PDOC ---
Infectious Disease Note Subjective Subjective Intubated/sedated/paralytics Fio2 remains unchanged at 100%,PEEP remains at 15 Bilateral chest tubes in place,subcut emphysema + Off pressers Diarrhea Family at bedside, remains hopeful. ROS ROS Unobtainable due to patient's condition Vital Sign Vital Signs Vital Signs Date Time Temp Pulse Resp B/P (MAP) Pulse Ox O2 Delivery O2 Flow Rate FiO2 03/14/21 09:31 85 30 140/83 (102) 81 Ventilator 03/14/21 08:57 1.0 03/14/21 07:01 97.7 97.7 Physical Exam PHYSICAL EXAM GENERAL: Orally intubated and sedated HEENT: Pupils equal, small, nonreactive. ETT OGT tube in place, NECK: Supple. Subcutaneous emphysema now on neck and face. LUNGS: SOft wheeze, bilateral chest tubes, Chest wall extensive subcutaneous emphysema HEART: S1, S2 ABDOMEN: Obese soft, nontender. Bowel sounds present Lott in place, fecal tube present EXTREMITIES Generalized anasarca, cyanotic finger tips SKIN: No generalized rash NEUROLOGIC: sedated on vent RUE-PICC line clean Labs Lab Laboratory Tests Test 03/13/21 17:37 03/13/21 20:47 03/14/21 00:02 03/14/21 05:49 Glucose (Fingerstick) 154 mg/dL (70-99) 145 mg/dL (70-99) 158 mg/dL (70-99) 121 mg/dL (70-99) Test 03/14/21 07:40 03/14/21 08:12 White Blood Count 10.2 x10^3/uL (4.0-11.0) Red Blood Count 3.86 x10^6/uL (3.50-5.40) Hemoglobin 9.8 g/dL (12.0-15.5) Hematocrit 31.1 % (36.0-47.0) Mean Corpuscular Volume 81 fL (79-100) Mean Corpuscular Hemoglobin 26 pg (25-35) Mean Corpuscular Hemoglobin Concent 32 g/dL (31-37) Red Cell Distribution Width 17.2 % (11.5-14.5) Platelet Count 335 x10^3/uL (140-400) Neutrophils (%) (Auto) 82 % (31-73) Lymphocytes (%) (Auto) 10 % (24-48) Monocytes (%) (Auto) 5 % (0-9) Eosinophils (%) (Auto) 3 % (0-3) Basophils (%) (Auto) 1 % (0-3) Neutrophils # (Auto) 8.4 x10^3/uL (1.8-7.7) Lymphocytes # (Auto) 1.0 x10^3/uL (1.0-4.8) Monocytes # (Auto) 0.5 x10^3/uL (0.0-1.1) Eosinophils # (Auto) 0.3 x10^3/uL (0.0-0.7) Basophils # (Auto) 0.1 x10^3/uL (0.0-0.2) Sodium Level 137 mmol/L (136-145) Potassium Level 4.6 mmol/L (3.5-5.1) Chloride Level 99 mmol/L (98-107) Carbon Dioxide Level 33 mmol/L (21-32) Anion Gap 5 (6-14) Blood Urea Nitrogen 23 mg/dL (7-20) Creatinine 0.3 mg/dL (0.6-1.0) Estimated GFR (Cockcroft-Gault) 242.8 Glucose Level 121 mg/dL (70-99) Calcium Level 8.5 mg/dL (8.5-10.1) Triglycerides Level 314 mg/dL (0-150) O2 Saturation 86 % (92-99) Arterial Blood pH 7.33 (7.35-7.45) Arterial Blood pCO2 at Patient Temp 61 mmHg (35-46) Arterial Blood pO2 at Patient Temp 57 mmHg (75-108) Arterial Blood HCO3 32 mmol/L (21-28) Arterial Blood Base Excess 4 mmol/L (-3-3) FiO2 100 CXR, 03/13: 1. Bilateral pneumothoraces are now tiny with chest tubes in place. Extensive chest wall gas. 2. Bilateral diffuse infiltrates appear increased on the left. Micro Microbiology 03/03/21 Blood Culture - Final, Complete NO GROWTH AFTER 5 DAYS 02/28/21 Gram Stain Evaluation - Final, Complete 02/28/21 Respiratory Culture - Final, Complete Objective Assessment COVID-19 positive. Acute hypoxic respiratory failure. Pneumonia, bilateral pulmonary infiltrate/ ARDS Morbid obesity. History of asthma. Obstructive sleep apnea. Fever pattern improved Bilateral pneumothorax status post bilateral CTS Blood culture positive coagulase negative staph likely contaminant, repeat blood cultures negative Leucocytosis on steroids,also likely reactive Plan Plan of Care Meropenem, 02/28 Zyvox 03/04 Fluconazole 03/07 Maintain aspiration precautions Discussed with nursing and family at bedside Critically ill Prognosis very poor On 100 % and 15 of PEEP. d/w nursing and sister Cont antimicrobials but poor prognosis Attending Co-Sign Attending Co-Sign The patient was seen and interviewed as well as examined at the bedside. The chart was reviewed. The case was discussed. Agree with the plan of care. CARON ARMSTRONG [employer] Mar 14, 2021 10:13 DAYNA MILES MD Mar 14, 2021 14:49
--- NOTE | 2021-03-14 10:40 | PN ---
DATE: 03/14/2021 SUBJECTIVE: The patient continued to be paralyzed, sedated, mechanically ventilated. She continued to be on FiO2 of 100%. Apparently, her left-sided pneumothorax has increased in size. Apparently, her chest tube was flushed and now working. Her subcutaneous emphysema has improved. PHYSICAL EXAMINATION: GENERAL: When I examined her, she was pale. No jaundice, cyanosis or thyromegaly. No jugular venous distention. No lower limb edema. VITAL SIGNS: Her heart rate was 91, blood pressure was 135/66, temperature was 97.7, respiratory rate was 30 and oxygen saturation was 89%. HEENT: Showed normocephalic, atraumatic. NECK: Supple. HEART: Normal first and second heart sounds. No gallop or murmur. CHEST: Showed central trachea. Equal bilateral chest expansion, air entry, vesicular breath sounds. I could not really appreciate any crepitation or rhonchi anteriorly. ABDOMEN: Distended, soft, nontender. NEUROLOGIC: She is heavily sedated. Her intake over the last 24 hours was 4100, output was 1800. LABORATORY DATA: As of this morning, her serum sodium was 137, potassium 4.6, chloride 99, bicarbonate 33, anion gap of 5, BUN 23, creatinine 0.3. Estimated GFR was 242. Blood glucose 121 and calcium was 8.5. Her white cell count was 10,200, hemoglobin 9.8, hematocrit 31, MCV 81 and platelet count 335,000 with normal manual differential. ASSESSMENT: 1. Acute hypoxic respiratory failure. The patient continued to be on mechanical ventilation, maintaining her oxygen saturation at 88% on FiO2 of 100%, likely multifactorial including; A. COVID-19 pneumonia. B. Acute respiratory distress syndrome and lung injury. C. Bilateral presumed pneumonic infiltrate. D. Bilateral pneumothoraces. The left side pneumothorax has increased in size according to nursing staff due to a kink in her chest tube that has improved. 2. Bronchial asthma. 3. Morbid obesity. 4. Obstructive sleep apnea. 5. The patient has extensive subcutaneous emphysema that has improved. 6. Severe protein-calorie malnutrition. Serum albumin is only 1.9 g/dL. 7. Normochromic normocytic anemia. PLAN: Obviously to continue with mechanical ventilation. Continue with nutritional support. Continue with fluconazole, linezolid as well as meropenem. Continue to monitor the blood sugar and adjust the insulin as needed. Continue with DVT and GI prophylaxis. MOHAMUD DR: Cece TID: [id number]
[2021-03-14] MEDS: VECURONIUM BROMIDE 50 MG in TOTAL VOLUME 50 ML IV PRN ×3 (11:44→23:42)
--- NOTE | 2021-03-14 12:11 | RAD ---
EXAM: CHEST ONE VIEW. HISTORY: Ventilated, respiratory failure. COMPARISON: 03/13/2021. FINDINGS: A frontal view of the chest is obtained. An endotracheal tube has its tip 6 cm above the ca héctor. A nasogastric tube has its tip below the inferior margin of the view. A right arm PICC line has its tip in the superior vena cava. Bilateral chest tubes remain in place. Small bilateral pneumothoraces have increased on the left greater than right. Chest wall gas is signi ficantly improved. Diffuse bilateral interstitial and airspace infiltrates are stable. There is no cl ear pleural effusion. The heart is not enlarged. IMPRESSION: 1. Bilateral small pneumothoraces have increased. 2. Chest wall gas has improved. 3. Diffuse bilateral infiltrates are stable. Electronically signed by: Juvenal Farmer MD (03/14/2021 12:09 PM) [facility]
[2021-03-14] MEDS ORDERED: FUROSEMIDE 40 MG/4 ML VIAL. IVP ONE (14:00)
--- NOTE | 2021-03-14 16:54 | NUR ---
Patient's O2 sats steadily decreased from low 90's - upper 60's. Bp started to decrease also, heart rate increased. Patient lung sounds were clear, tidal volume was appropriate, chest tube was checked for kinks, ET tube clear of mucous and mouth clear. Per Dr. Salter, 40mg lasix IVP was administered, O2 increased to 90's, HR decreased to 80's, and BP increased to normal range. Patient has maintain this for 3 hours.
[2021-03-14] MEDS: INSULIN GLARGINE SYRINGE. SQ SCH (20:50)
[2021-03-15] VITALS (24 sets, daily range): BP systolic 76–171; BP diastolic 44–99
[2021-03-15] MEDS: PROPOFOL 100 ML IV PRN (04:47)
--- NOTE | 2021-03-15 05:37 | PDOC ---
PULMONARY PROGRESS NOTES DATE: 03/15/21 TIME: 05:34 Subjective on vent pc 30 rr 30 peep 15 fio2 100% sat 91% small ett secretion subcut air improved on vec, fentanyl, propofol, versed Vitals Vital Signs Date Time Temp Pulse Resp B/P (MAP) Pulse Ox O2 Delivery O2 Flow Rate FiO2 03/15/21 05:05 94 Ventilator 03/15/21 05:00 101 30 141/83 (102) 03/15/21 04:00 97.7 97.7 03/14/21 09:27 1.0 Comments on vent sedated paralyzed HEENT: Other (nc at perrl No significant subcutaneous emphysema) Lungs: Crackles, Other (Bilateral chest tube placement,) Cardiovascular: S1, S2 Abdomen: Soft Extremities: Other (Edema) Skin: Warm Labs Laboratory Tests Test 03/13/21 06:02 03/13/21 07:30 03/13/21 08:40 03/13/21 17:37 Glucose (Fingerstick) 142 mg/dL (70-99) 154 mg/dL (70-99) O2 Saturation 85 % (92-99) Arterial Blood pH 7.36 (7.35-7.45) Arterial Blood pCO2 at Patient Temp 51 mmHg (35-46) Arterial Blood pO2 at Patient Temp 56 mmHg (75-108) Arterial Blood HCO3 28 mmol/L (21-28) Arterial Blood Base Excess 2 mmol/L (-3-3) FiO2 100 White Blood Count 12.1 x10^3/uL (4.0-11.0) Red Blood Count 4.19 x10^6/uL (3.50-5.40) Hemoglobin 10.6 g/dL (12.0-15.5) Hematocrit 34.1 % (36.0-47.0) Mean Corpuscular Volume 81 fL (79-100) Mean Corpuscular Hemoglobin 25 pg (25-35) Mean Corpuscular Hemoglobin Concent 31 g/dL (31-37) Red Cell Distribution Width 17.8 % (11.5-14.5) Platelet Count 384 x10^3/uL (140-400) Sodium Level 136 mmol/L (136-145) Potassium Level 5.1 mmol/L (3.5-5.1) Chloride Level 98 mmol/L (98-107) Carbon Dioxide Level 32 mmol/L (21-32) Anion Gap 6 (6-14) Blood Urea Nitrogen 32 mg/dL (7-20) Creatinine 0.3 mg/dL (0.6-1.0) Estimated GFR (Cockcroft-Gault) 242.8 BUN/Creatinine Ratio 107 (6-20) Glucose Level 169 mg/dL (70-99) Calcium Level 9.4 mg/dL (8.5-10.1) Total Bilirubin 0.6 mg/dL (0.2-1.0) Aspartate Amino Transf (AST/SGOT) 31 U/L (15-37) Alanine Aminotransferase (ALT/SGPT) 96 U/L (14-59) Alkaline Phosphatase 145 U/L (46-116) Total Protein 6.7 g/dL (6.4-8.2) Albumin 2.0 g/dL (3.4-5.0) Albumin/Globulin Ratio 0.4 (1.0-1.7) Test 03/13/21 20:47 03/14/21 00:02 03/14/21 05:49 03/14/21 07:40 Glucose (Fingerstick) 145 mg/dL (70-99) 158 mg/dL (70-99) 121 mg/dL (70-99) White Blood Count 10.2 x10^3/uL (4.0-11.0) Red Blood Count 3.86 x10^6/uL (3.50-5.40) Hemoglobin 9.8 g/dL (12.0-15.5) Hematocrit 31.1 % (36.0-47.0) Mean Corpuscular Volume 81 fL (79-100) Mean Corpuscular Hemoglobin 26 pg (25-35) Mean Corpuscular Hemoglobin Concent 32 g/dL (31-37) Red Cell Distribution Width 17.2 % (11.5-14.5) Platelet Count 335 x10^3/uL (140-400) Neutrophils (%) (Auto) 82 % (31-73) Lymphocytes (%) (Auto) 10 % (24-48) Monocytes (%) (Auto) 5 % (0-9) Eosinophils (%) (Auto) 3 % (0-3) Basophils (%) (Auto) 1 % (0-3) Neutrophils # (Auto) 8.4 x10^3/uL (1.8-7.7) Lymphocytes # (Auto) 1.0 x10^3/uL (1.0-4.8) Monocytes # (Auto) 0.5 x10^3/uL (0.0-1.1) Eosinophils # (Auto) 0.3 x10^3/uL (0.0-0.7) Basophils # (Auto) 0.1 x10^3/uL (0.0-0.2) Sodium Level 137 mmol/L (136-145) Potassium Level 4.6 mmol/L (3.5-5.1) Chloride Level 99 mmol/L (98-107) Carbon Dioxide Level 33 mmol/L (21-32) Anion Gap 5 (6-14) Blood Urea Nitrogen 23 mg/dL (7-20) Creatinine 0.3 mg/dL (0.6-1.0) Estimated GFR (Cockcroft-Gault) 242.8 Glucose Level 121 mg/dL (70-99) Calcium Level 8.5 mg/dL (8.5-10.1) Triglycerides Level 314 mg/dL (0-150) Test 03/14/21 08:12 03/14/21 11:43 03/14/21 17:38 03/14/21 20:28 O2 Saturation 86 % (92-99) Arterial Blood pH 7.33 (7.35-7.45) Arterial Blood pCO2 at Patient Temp 61 mmHg (35-46) Arterial Blood pO2 at Patient Temp 57 mmHg (75-108) Arterial Blood HCO3 32 mmol/L (21-28) Arterial Blood Base Excess 4 mmol/L (-3-3) FiO2 100 Glucose (Fingerstick) 158 mg/dL (70-99) 147 mg/dL (70-99) 178 mg/dL (70-99) Test 03/14/21 23:34 Glucose (Fingerstick) 150 mg/dL (70-99) Laboratory Tests Test 03/14/21 05:49 03/14/21 07:40 03/14/21 08:12 03/14/21 11:43 Glucose (Fingerstick) 121 mg/dL (70-99) 158 mg/dL (70-99) White Blood Count 10.2 x10^3/uL (4.0-11.0) Red Blood Count 3.86 x10^6/uL (3.50-5.40) Hemoglobin 9.8 g/dL (12.0-15.5) Hematocrit 31.1 % (36.0-47.0) Mean Corpuscular Volume 81 fL (79-100) Mean Corpuscular Hemoglobin 26 pg (25-35) Mean Corpuscular Hemoglobin Concent 32 g/dL (31-37) Red Cell Distribution Width 17.2 % (11.5-14.5) Platelet Count 335 x10^3/uL (140-400) Neutrophils (%) (Auto) 82 % (31-73) Lymphocytes (%) (Auto) 10 % (24-48) Monocytes (%) (Auto) 5 % (0-9) Eosinophils (%) (Auto) 3 % (0-3) Basophils (%) (Auto) 1 % (0-3) Neutrophils # (Auto) 8.4 x10^3/uL (1.8-7.7) Lymphocytes # (Auto) 1.0 x10^3/uL (1.0-4.8) Monocytes # (Auto) 0.5 x10^3/uL (0.0-1.1) Eosinophils # (Auto) 0.3 x10^3/uL (0.0-0.7) Basophils # (Auto) 0.1 x10^3/uL (0.0-0.2) Sodium Level 137 mmol/L (136-145) Potassium Level 4.6 mmol/L (3.5-5.1) Chloride Level 99 mmol/L (98-107) Carbon Dioxide Level 33 mmol/L (21-32) Anion Gap 5 (6-14) Blood Urea Nitrogen 23 mg/dL (7-20) Creatinine 0.3 mg/dL (0.6-1.0) Estimated GFR (Cockcroft-Gault) 242.8 Glucose Level 121 mg/dL (70-99) Calcium Level 8.5 mg/dL (8.5-10.1) Triglycerides Level 314 mg/dL (0-150) O2 Saturation 86 % (92-99) Arterial Blood pH 7.33 (7.35-7.45) Arterial Blood pCO2 at Patient Temp 61 mmHg (35-46) Arterial Blood pO2 at Patient Temp 57 mmHg (75-108) Arterial Blood HCO3 32 mmol/L (21-28) Arterial Blood Base Excess 4 mmol/L (-3-3) FiO2 100 Test 03/14/21 17:38 03/14/21 20:28 03/14/21 23:34 Glucose (Fingerstick) 147 mg/dL (70-99) 178 mg/dL (70-99) 150 mg/dL (70-99) Medications Active Scripts Medications Dose Route/Sig Max Daily Dose Days Date Category Meloxicam 15 Mg Tablet 1 Tab PO DAILY 30 02/18/21 Reported Comments Chest x-ray reviewed, small pneumo on the left some subcutaneous emphysema Impression . 1. Acute hypoxic respiratory failure with acute lung injury/ acute respiratory distress syndrome secondary to COVID-19 pneumonia andsepsis and suspected VAP. 2. Morbid obesity, BMI of 65 3. No significant tobacco history. 4. History of asthma, 5. Obstructive sleep apnea, on home CPAP. Unknown severity of obstructive sleep apnea and unknown CPAP pressure. 6. Abnormal CXR with bilateral patchy infiltrates c/w viral pneumonia. 7. Fever, per ID 8. Subcutaneous emphysema improved 9. Status post bilateral chest tube placement, for spontaneous pneumothorax 10. Bacteremia, more than likely contaminant 11. Subcutaneous emphysema, traveling up to the neck and eyes Plan . Updated 03/14 cont vent support setting reviewed, titrate peep as tolerated abg reviewed on propofol check TG 315 try to taper off may add precedex if needed cont ct l ct flushed now working subcutaneous emphysema has improved Patient continues to require 100% FiO2 15 of PEEP Overall prognosis is poor discussed w rn, rt critically ill Total cumulative critical care time of 30 minutes, reviewing the current documentation, chest x-ray, labs, and formulating a plan no overlap Updated 03/14 cont vent support setting reviewed, titrate peep as tolerated abg reviewed on propofol check TG cont ct l ct flushed now working subcutaneous emphysema has improved Patient continues to require 100% FiO2 15 of PEEP Overall prognosis is poor discussed w rn, rt critically ill Total cumulative critical care time of 30 minutes, reviewing the current documentation, chest x-ray, labs, and formulating a plan no overlap Updated 03/13 Chest x-ray reviewed, increasing pneumonia on the left, discussed with interventional radiology, Dr. Burgos Continue air leak on the right, subcutaneous emphysema has improved Patient continues to require 100% FiO2 15 of PEEP Discussed findings with at the bedside Overall prognosis is dismal Total cumulative critical care time of 30 minutes, reviewing the current documentation, chest x-ray, labs, and formulating a plan Updated 03/12 No air leak seen on the right chest tube, I repositioned the chest tube on the right, it started working there is a small air leak, suspect this will help facial subcutaneous emphysema Continue 100% FiO2 15 of PEEP Inverse ratio, pressure control ventilation Antibiotics per ID Discussed decreasing caloric delivery, with RN. Discussed above with at the bedside Total cumulative critical care time of 30 minutes, reviewing labs, chest x-ray, and formulating a plan. Updated 03/11 Subcutaneous emphysema is worsening on the right Mild air leak left chest tube Reviewed current vent settings adequate for patient Continues to require 100% FiO2 and 15 of PEEP Updated at the bedside Nutritional support Antibiotics per ID Total cumulative critical care time of 35 minutes, reviewing the current documentation, chest x-ray, reviewing the findings with the . Discussing case with RN and RT. Formulating a plan. Updated 03/10 Mild air leak on left-sided chest tube No significant subcutaneous emphysema on exam ABG noted, adequate for patient, PCO2 is better today. Continue steroids Antibiotics per ID Nutritional support at the bedside, reviewed current findings, Total cumulative critical care time of 30 minutes, reviewing current docume ntation, labs, chest x-ray, formulating a plan, updated Updated 03/09 Continue current support ABG noted adequate for patient Permissive hypercapnia Mild air leak on chest tube on the left side DVT GI prophylaxis Antibiotics per ID Continue steroids Continue nutritional support Total cumulative critical care time of 35 minutes, reviewing the old documentation, chest x-ray, labs, and formulating a plan. NAFISA CLINE MD Mar 15, 2021 05:37
[2021-03-15] MEDS: INSULIN LISPRO 300 UNITS/3 ML VIAL. SQ SCH ×3 (05:51→17:23)
[2021-03-15] MEDS: MEROPENEM 1 GM in IV NORMAL SALINE 100ML 100 ML IV SCH ×3 (05:52→22:59)
[2021-03-15 08:10] LABS: BASE EXCESS ABG 5 mmol/L (-3-3); HCO3 ABG 33 mmol/L (21-28); SAT O2 ABG 78 % (92-99)
[2021-03-15] MEDS: DEXMEDETOMIDINE 400 MCG in IV NORMAL SALINE 100ML 96 ML IV PRN ×5 (08:18→23:41)
[2021-03-15] MEDS: VECURONIUM BROMIDE 50 MG in TOTAL VOLUME 50 ML IV PRN ×3 (08:39→21:53)
--- NOTE | 2021-03-15 08:44 | PDOC ---
Infectious Disease Note Subjective Subjective Remains orally intubated/sedated/paralytics Fio2 remains unchanged at 100%,PEEP remains at 15 Bilateral chest tubes in place,subcut emphysema + Off pressers Diarrhea No fevers last 24 hrs Vital Sign Vital Signs Vital Signs Date Time Temp Pulse Resp B/P (MAP) Pulse Ox O2 Delivery O2 Flow Rate FiO2 03/15/21 07:38 82 Ventilator 03/15/21 07:00 110 30 119/66 (83) 03/15/21 04:00 97.7 97.7 03/14/21 09:27 1.0 Physical Exam PHYSICAL EXAM GENERAL: Orally intubated and sedated HEENT: Pupils equal, small, nonreactive. ETT OGT tube in place, NECK: Supple. Subcutaneous emphysema now on neck and face. LUNGS: Diminished aeration in bases bilateral chest tubes, Chest wall extensive subcutaneous emphysema HEART: S1, S2 ABDOMEN: Obese soft, nontender. Bowel sounds present. + fecal tube Lott in place EXTREMITIES Generalized anasarca, cyanotic finger tips SKIN: No generalized rash NEUROLOGIC: sedated on vent RUE-PICC line clean Labs Lab Laboratory Tests Test 03/14/21 11:43 03/14/21 17:38 03/14/21 20:28 03/14/21 23:34 Glucose (Fingerstick) 158 mg/dL (70-99) 147 mg/dL (70-99) 178 mg/dL (70-99) 150 mg/dL (70-99) Test 03/15/21 05:50 Glucose (Fingerstick) 115 mg/dL (70-99) cxr 03/14 1. Bilateral small pneumothoraces have increased. 2. Chest wall gas has improved. 3. Diffuse bilateral infiltrates are stable. Micro Objective Assessment COVID-19 positive. Acute hypoxic respiratory failure. Pneumonia, bilateral pulmonary infiltrate/ ARDS Morbid obesity. History of asthma. Obstructive sleep apnea. Fever pattern improved Bilateral pneumothorax status post bilateral CTS Blood culture positive coagulase negative staph likely contaminant, repeat blood cultures negative Leucocytosis on steroids,also likely reactive Plan Plan of Care Meropenem, 02/28 Zyvox 03/04 Fluconazole 03/07 Maintain aspiration precautions Discussed with nursing Critically ill Prognosis very poor Likely anoxia Cont abx D/w family/nursing - Attending Co-Sign Attending Co-Sign The patient was seen and interviewed as well as examined at the bedside. The chart was reviewed. The case was discussed. Agree with the plan of care. CARON ARMSTRONG APRN Mar 15, 2021 08:43 DAYNA MILES MD Mar 15, 2021 13:19
--- NOTE | 2021-03-15 09:11 | PN ---
DATE: 03/15/2021 SUBJECTIVE: The patient continues to be paralyzed, sedated and mechanically ventilated, continued to desaturate with every change in position. As of this morning, her oxygen saturation was about 83% on FiO2 of 100%. OBJECTIVE: GENERAL: On examining her, she was pale. No jaundice, cyanosis. No lymphadenopathy. No thyromegaly. No jugular venous distention. No limb edema. VITAL SIGNS: Her heart rate was 112, blood pressure was 134/67, temperature was 97.7, respiratory rate 30, and oxygen saturation was 84% on FiO2 of 100%. HEENT: Showed normocephalic, atraumatic. She has orotracheal and orogastric tube in place. NECK: Supple. HEART: Normal first and second heart sounds. No gallop, rub or murmur. Chest: Shows central trachea. LUNGS: Equal bilateral chest expansion, air entry, vesicular breath sounds. I could not really appreciate any crepitation or rhonchi anteriorly. ABDOMEN: Markedly distended, soft, nontender. NEUROLOGIC: She is heavily sedated. Her intake over the last 24 hours was 2437, output was 1800. LABORATORY WORK: As of this morning still pending. Her blood sugar seems to be well controlled. ASSESSMENT: 1. Acute hypoxic respiratory failure, multifactorial including; A. COVID-19 pneumonia. B. Acute respiratory distress syndrome and lung injury. C. Bilateral presumed pneumonic infiltrate. D. Bilateral pneumothoraces. 2. Bronchial asthma. 3. Morbid obesity. 4. Obstructive sleep apnea. 5. The patient has extensive subcutaneous emphysema that is improving. 6. Severe protein-calorie malnutrition. Serum albumin is only 1.9 g/dL. 7. Normochromic normocytic anemia. PLAN: Obviously to continue with mechanical ventilation. Continue with nutritional support. Continue with fluconazole, linezolid as well as meropenem. Continue to monitor blood sugar and adjust the insulin as needed. Continue with DVT and GI prophylaxis. MOHAMUD GÓMEZ: Cece TID: [id number]
[2021-03-15] MEDS: MULTIVITAMINS,THERAPEUTIC 5 ML ORAL LIQUID. PEG SCH (09:15)
[2021-03-15] MEDS: FAMOTIDINE 20 MG/2 ML VIAL IVP SCH ×2 (09:15→22:40)
[2021-03-15] MEDS: LINEZOLID 600 MG TABLET PO SCH ×2 (09:16→22:40)
[2021-03-15] MEDS: DEXAMETHASONE SOD PHOS 4 MG/ML VIAL IVP SCH (09:16)
[2021-03-15] MEDS: FLUCONAZOLE 100 MG TABLET. FT SCH (09:16)
[2021-03-15] MEDS: NYSTATIN TOPICAL POWDER 15GM BOTTLE. TP SCH ×2 (09:16→22:59)
[2021-03-15 09:19] LABS: PCO2 ABG 67 mmHg (35-46); PO2 ABG 47 mmHg (75-108)
[2021-03-15 09:20] LABS: FIO2 ABG 100% VENT + 15 PEEP
[2021-03-15] MEDS: fentaNYL HIGH DOSE PCA 55 ML IV PRN ×2 (10:10→21:54)
[2021-03-15] MEDS: MIDAZOLAM 100mg/100ml NS BAG 100 ML IV PRN ×2 (11:54→20:37)
[2021-03-15] MEDS ORDERED: PRED5DRO20 OS (12:04)
[2021-03-15] MEDS: NOREPINEPHRINE VIAL 8 MG in IV DEXTROSE 5% 250 ML IV PRN (13:27)
[2021-03-15] MEDS: PREDNISOLONE ACETATE 1% OS SCH (14:25)
[2021-03-15] MEDS: EYE OS SCH (14:25)
[2021-03-15] MEDS: INSULIN GLARGINE SYRINGE. SQ SCH (22:41)
[2021-03-16] VITALS (24 sets, daily range): BP systolic 77–159; BP diastolic 42–98
[2021-03-16] MEDS: VECURONIUM BROMIDE 50 MG in TOTAL VOLUME 50 ML IV PRN ×2 (03:53→18:34)
--- NOTE | 2021-03-16 04:58 | RAD ---
Single view chest dated 03/16/2021. Comparison made to 03/14/2021. CLINICAL INDICATION: Ventilator dependent. FINDINGS: Single semiupright portable exam performed. Endotracheal tube and nasogastric tube similar in positio n. There is right-sided PICC in place, unchanged. Right-sided chest tube similar in position. Widespread airspace disease throughout both lungs, similar given differences in technique. There is a small apical pneumothorax on the right, unchanged. There is also a small apical pneumothorax on the left that appears to have somewhat decreased in size from prior study. Improving pneumomediastinum. IMPRESSION: 1. Small bilateral pneumothoraces, stable in the right and mildly improved on the left. 2. Bilateral airspace disease, unchanged. 3. Stable position of tubes and lines. Electronically signed by: Bryan Soni MD (03/16/2021 4:56 AM) JOSE
[2021-03-16] MEDS: MEROPENEM 1 GM in IV NORMAL SALINE 100ML 100 ML IV SCH ×3 (05:41→21:38)
[2021-03-16] MEDS: DEXMEDETOMIDINE 400 MCG in IV NORMAL SALINE 100ML 96 ML IV PRN ×3 (05:42→18:34)
[2021-03-16] MEDS: INSULIN LISPRO 300 UNITS/3 ML VIAL. SQ SCH ×5 (05:52→23:43)
[2021-03-16] MEDS: MIDAZOLAM 100mg/100ml NS BAG 100 ML IV PRN ×2 (05:55→18:33)
[2021-03-16 06:12] LABS: BASO % 0 % (0-3); EOS # 0.2 x10^3/uL (0.0-0.7); EOS % 2 % (0-3); HEMATOCRIT 33.1 % (36.0-47.0); HEMOGLOBIN 10.3 g/dL (12.0-15.5); LYMPH # 0.9 x10^3/uL (1.0-4.8); LYMPH % 12 % (24-48); MEAN CORPUSCULAR HEMOGLOBIN 26 pg (25-35); MEAN CORPUSCULAR HGB CONC 31 g/dL (31-37); MEAN CORPUSCULAR VOLUME 82 fL (79-100); MONO # 0.5 x10^3/uL (0.0-1.1); MONO % 7 % (0-9); NEUT # 6.3 x10^3/uL (1.8-7.7); NEUT % 80 % (31-73); PLATELET COUNT 334 x10^3/uL (140-400); RED BLOOD COUNT 4.03 x10^6/uL (3.50-5.40); RED CELL DISTRIBUTION WIDTH 17.6 % (11.5-14.5); WHITE BLOOD COUNT 7.9 x10^3/uL (4.0-11.0)
[2021-03-16 06:28] LABS: ANION GAP 4 (6-14); BLOOD UREA NITROGEN 28 mg/dL (7-20); CARBON DIOXIDE 34 mmol/L (21-32); CHLORIDE 101 mmol/L (98-107); CREATININE 0.2 mg/dL (0.6-1.0); GFR > 300.0; GLUCOSE 136 mg/dL (70-99); POTASSIUM 4.6 mmol/L (3.5-5.1); SODIUM 139 mmol/L (136-145)
--- NOTE | 2021-03-16 07:41 | PDOC ---
Infectious Disease Note Subjective: Subjective Remains orally intubated/sedated/paralytics Fio2 remains unchanged at 100%,PEEP 15 Bilateral chest tubes in place,subcut emphysema + Off pressers Diarrhea No fevers last 48 hrs Vital Signs: Vital Signs Vital Signs Date Time Temp Pulse Resp B/P (MAP) Pulse Ox O2 Delivery O2 Flow Rate FiO2 03/16/21 06:00 85 30 140/72 (94) 90 Ventilator 03/16/21 04:00 97.6 97.6 03/15/21 22:24 1.0 Physical Exam: PHYSICAL EXAM GENERAL: Orally intubated and sedated HEENT: Pupils equal, small, nonreactive. ETT OGT tube in place, NECK: Supple. Subcutaneous emphysema now on neck and face. LUNGS: Diminished aeration in bases bilateral chest tubes, Chest wall extensive subcutaneous emphysema HEART: S1, S2 ABDOMEN: Obese soft, nontender. Bowel sounds present. + fecal tube Lott in place EXTREMITIES Generalized anasarca, cyanotic finger tips SKIN: No generalized rash NEUROLOGIC: sedated on vent RUE-PICC line clean Medications: Inpatient Meds: Medications reviewed. Labs: Lab Laboratory Tests Test 03/15/21 11:49 03/15/21 17:19 03/16/21 01:13 03/16/21 05:50 Glucose (Fingerstick) 170 mg/dL (70-99) 170 mg/dL (70-99) 143 mg/dL (70-99) White Blood Count 7.9 x10^3/uL (4.0-11.0) Red Blood Count 4.03 x10^6/uL (3.50-5.40) Hemoglobin 10.3 g/dL (12.0-15.5) Hematocrit 33.1 % (36.0-47.0) Mean Corpuscular Volume 82 fL (79-100) Mean Corpuscular Hemoglobin 26 pg (25-35) Mean Corpuscular Hemoglobin Concent 31 g/dL (31-37) Red Cell Distribution Width 17.6 % (11.5-14.5) Platelet Count 334 x10^3/uL (140-400) Neutrophils (%) (Auto) 80 % (31-73) Lymphocytes (%) (Auto) 12 % (24-48) Monocytes (%) (Auto) 7 % (0-9) Eosinophils (%) (Auto) 2 % (0-3) Basophils (%) (Auto) 0 % (0-3) Neutrophils # (Auto) 6.3 x10^3/uL (1.8-7.7) Lymphocytes # (Auto) 0.9 x10^3/uL (1.0-4.8) Monocytes # (Auto) 0.5 x10^3/uL (0.0-1.1) Eosinophils # (Auto) 0.2 x10^3/uL (0.0-0.7) Basophils # (Auto) 0.0 x10^3/uL (0.0-0.2) Sodium Level 139 mmol/L (136-145) Potassium Level 4.6 mmol/L (3.5-5.1) Chloride Level 101 mmol/L (98-107) Carbon Dioxide Level 34 mmol/L (21-32) Anion Gap 4 (6-14) Blood Urea Nitrogen 28 mg/dL (7-20) Creatinine 0.2 mg/dL (0.6-1.0) Estimated GFR (Cockcroft-Gault) > 300.0 Glucose Level 136 mg/dL (70-99) Calcium Level 9.0 mg/dL (8.5-10.1) Test 03/16/21 05:52 Glucose (Fingerstick) 148 mg/dL (70-99) Objective: Assessment: 1. COVID-19 positive. 2. Acute hypoxic respiratory failure. 3. Pneumonia, bilateral pulmonary infiltrate/ ARDS 4. Morbid obesity. 5. History of asthma. 6. Obstructive sleep apnea. 7 Fever pattern improved 8 Bilateral pneumothorax status post bilateral CTS 9. Blood culture positive coagulase negative staph likely contaminant, repeat blood cultures negative 10. Leucocytosis on steroids,also likely reactive Plan: Plan of Care Continue supportive care Meropenem, 02/28,Zyvox 03/04,Fluconazole 03/07 Maintain aspiration precautions Critically ill Prognosis very poor Discussed with at bedside D/W nursing - BYRON CLAYTON MD Mar 16, 2021 07:41
[2021-03-16 08:24] LABS: BASE EXCESS ABG 6 mmol/L (-3-3); HCO3 ABG 34 mmol/L (21-28); SAT O2 ABG 82 % (92-99)
[2021-03-16 08:27] LABS: PCO2 ABG 66 mmHg (35-46); PO2 ABG 50 mmHg (75-108)
[2021-03-16 08:29] LABS: % BANDS 5 % (0-9); % LYMPHS 12 % (24-48); % MONOS 3 % (0-10); % SEGS 80 % (35-66); ANISOCYTOSIS SLIGHT; PLT ESTIMATE ADEQUATE (ADEQUATE)
--- NOTE | 2021-03-16 09:03 | PDOC ---
PULMONARY PROGRESS NOTES DATE: 03/16/21 TIME: 08:55 Subjective on vent pc 30 rr 30 peep 15 fio2 100% sat 91% small ett secretion subcut air improved on vec, fentanyl, propofol, versed PTX improved on left Vitals Vital Signs Date Time Temp Pulse Resp B/P (MAP) Pulse Ox O2 Delivery O2 Flow Rate FiO2 03/16/21 08:05 91 Ventilator 03/16/21 06:00 85 30 140/72 (94) 03/16/21 04:00 97.6 97.6 03/15/21 22:24 1.0 Comments on vent sedated paralyzed HEENT: Other (nc at perrl No significant subcutaneous emphysema) Lungs: Other (Bilateral chest tube placement, decrease bs) Cardiovascular: S1, S2 Abdomen: Soft Extremities: Other (Edema) Skin: Warm Labs Laboratory Tests Test 03/14/21 11:43 03/14/21 17:38 03/14/21 20:28 03/14/21 23:34 Glucose (Fingerstick) 158 mg/dL (70-99) 147 mg/dL (70-99) 178 mg/dL (70-99) 150 mg/dL (70-99) Test 03/15/21 05:50 03/15/21 07:40 03/15/21 11:49 03/15/21 17:19 Glucose (Fingerstick) 115 mg/dL (70-99) 170 mg/dL (70-99) 170 mg/dL (70-99) O2 Saturation 78 % (92-99) Arterial Blood pH 7.32 (7.35-7.45) Arterial Blood pCO2 at Patient Temp 67 mmHg (35-46) Arterial Blood pO2 at Patient Temp 47 mmHg (75-108) Arterial Blood HCO3 33 mmol/L (21-28) Arterial Blood Base Excess 5 mmol/L (-3-3) FiO2 100% vent + 15 peep Test 03/16/21 01:13 03/16/21 05:50 03/16/21 05:52 03/16/21 08:00 Glucose (Fingerstick) 143 mg/dL (70-99) 148 mg/dL (70-99) White Blood Count 7.9 x10^3/uL (4.0-11.0) Red Blood Count 4.03 x10^6/uL (3.50-5.40) Hemoglobin 10.3 g/dL (12.0-15.5) Hematocrit 33.1 % (36.0-47.0) Mean Corpuscular Volume 82 fL (79-100) Mean Corpuscular Hemoglobin 26 pg (25-35) Mean Corpuscular Hemoglobin Concent 31 g/dL (31-37) Red Cell Distribution Width 17.6 % (11.5-14.5) Platelet Count 334 x10^3/uL (140-400) Neutrophils (%) (Auto) 80 % (31-73) Lymphocytes (%) (Auto) 12 % (24-48) Monocytes (%) (Auto) 7 % (0-9) Eosinophils (%) (Auto) 2 % (0-3) Basophils (%) (Auto) 0 % (0-3) Neutrophils # (Auto) 6.3 x10^3/uL (1.8-7.7) Lymphocytes # (Auto) 0.9 x10^3/uL (1.0-4.8) Monocytes # (Auto) 0.5 x10^3/uL (0.0-1.1) Eosinophils # (Auto) 0.2 x10^3/uL (0.0-0.7) Basophils # (Auto) 0.0 x10^3/uL (0.0-0.2) Segmented Neutrophils % 80 % (35-66) Band Neutrophils % 5 % (0-9) Lymphocytes % 12 % (24-48) Monocytes % 3 % (0-10) Platelet Estimate Adequate (ADEQUATE) Anisocytosis Slight Sodium Level 139 mmol/L (136-145) Potassium Level 4.6 mmol/L (3.5-5.1) Chloride Level 101 mmol/L (98-107) Carbon Dioxide Level 34 mmol/L (21-32) Anion Gap 4 (6-14) Blood Urea Nitrogen 28 mg/dL (7-20) Creatinine 0.2 mg/dL (0.6-1.0) Estimated GFR (Cockcroft-Gault) > 300.0 Glucose Level 136 mg/dL (70-99) Calcium Level 9.0 mg/dL (8.5-10.1) O2 Saturation 82 % (92-99) Arterial Blood pH 7.33 (7.35-7.45) Arterial Blood pCO2 at Patient Temp 66 mmHg (35-46) Arterial Blood pO2 at Patient Temp 50 mmHg (75-108) Arterial Blood HCO3 34 mmol/L (21-28) Arterial Blood Base Excess 6 mmol/L (-3-3) Laboratory Tests Test 03/15/21 11:49 03/15/21 17:19 03/16/21 01:13 03/16/21 05:50 Glucose (Fingerstick) 170 mg/dL (70-99) 170 mg/dL (70-99) 143 mg/dL (70-99) White Blood Count 7.9 x10^3/uL (4.0-11.0) Red Blood Count 4.03 x10^6/uL (3.50-5.40) Hemoglobin 10.3 g/dL (12.0-15.5) Hematocrit 33.1 % (36.0-47.0) Mean Corpuscular Volume 82 fL (79-100) Mean Corpuscular Hemoglobin 26 pg (25-35) Mean Corpuscular Hemoglobin Concent 31 g/dL (31-37) Red Cell Distribution Width 17.6 % (11.5-14.5) Platelet Count 334 x10^3/uL (140-400) Neutrophils (%) (Auto) 80 % (31-73) Lymphocytes (%) (Auto) 12 % (24-48) Monocytes (%) (Auto) 7 % (0-9) Eosinophils (%) (Auto) 2 % (0-3) Basophils (%) (Auto) 0 % (0-3) Neutrophils # (Auto) 6.3 x10^3/uL (1.8-7.7) Lymphocytes # (Auto) 0.9 x10^3/uL (1.0-4.8) Monocytes # (Auto) 0.5 x10^3/uL (0.0-1.1) Eosinophils # (Auto) 0.2 x10^3/uL (0.0-0.7) Basophils # (Auto) 0.0 x10^3/uL (0.0-0.2) Segmented Neutrophils % 80 % (35-66) Band Neutrophils % 5 % (0-9) Lymphocytes % 12 % (24-48) Monocytes % 3 % (0-10) Platelet Estimate Adequate (ADEQUATE) Anisocytosis Slight Sodium Level 139 mmol/L (136-145) Potassium Level 4.6 mmol/L (3.5-5.1) Chloride Level 101 mmol/L (98-107) Carbon Dioxide Level 34 mmol/L (21-32) Anion Gap 4 (6-14) Blood Urea Nitrogen 28 mg/dL (7-20) Creatinine 0.2 mg/dL (0.6-1.0) Estimated GFR (Cockcroft-Gault) > 300.0 Glucose Level 136 mg/dL (70-99) Calcium Level 9.0 mg/dL (8.5-10.1) Test 03/16/21 05:52 03/16/21 08:00 Glucose (Fingerstick) 148 mg/dL (70-99) O2 Saturation 82 % (92-99) Arterial Blood pH 7.33 (7.35-7.45) Arterial Blood pCO2 at Patient Temp 66 mmHg (35-46) Arterial Blood pO2 at Patient Temp 50 mmHg (75-108) Arterial Blood HCO3 34 mmol/L (21-28) Arterial Blood Base Excess 6 mmol/L (-3-3) Medications Active Scripts Medications Dose Route/Sig Max Daily Dose Days Date Category Meloxicam 15 Mg Tablet 1 Tab PO DAILY 30 02/18/21 Reported Comments Chest x-ray reviewed, 03/16 small pneumo on the right, left ptx improved, almost resolved subcutaneous emphysema Impression . 1. Acute hypoxic respiratory failure with acute lung injury/ acute respiratory distress syndrome secondary to COVID-19 pneumonia and sepsis and suspected VAP. no sig change in oxygenation 2. Morbid obesity, BMI of 65 3. No significant tobacco history. 4. History of asthma, 5. Obstructive sleep apnea, on home CPAP. Unknown severity of obstructive sleep apnea and unknown CPAP pressure. 6. Abnormal CXR with bilateral patchy infiltrates c/w viral pneumonia. 7. Fever, per ID, resolved. 8. Subcutaneous emphysema improved 9. Status post bilateral chest tube placement, for spontaneous pneumothorax, improved left ptx , stable right 03/16 cxr 10. Bacteremia, more than likely contaminant 11. Subcutaneous emphysema, traveling up to the neck and eyes, improved Plan . Updated 03/16 cont vent support setting reviewed, keep same peep , PC/ANN-MARIE, 100%FIO2 abg reviewed d/w in detail. Increasing any further PEEP with cause worsening barotrau ma. Sats in high 80's acceptable sedation/paralysis cont ct to suction subcutaneous emphysema has improved Patient continues to require 100% FiO2 15 of PEEP taper off steroids Overall prognosis is poor discussed w rn, rt and in detail critically ill Total cumulative critical care time of 30 minutes, reviewing the current documentation, chest x-ray, labs, and formulating a plan no overlap Updated 03/14 cont vent support setting reviewed, titrate peep as tolerated abg reviewed on propofol check TG 315 try to taper off may add precedex if needed cont ct l ct flushed now working subcutaneous emphysema has improved Patient continues to require 100% FiO2 15 of PEEP Overall prognosis is poor discussed w rn, rt critically ill Total cumulative critical care time of 30 minutes, reviewing the current documentation, chest x-ray, labs, and formulating a plan no overlap Updated 03/14 cont vent support setting reviewed, titrate peep as tolerated abg reviewed on propofol check TG cont ct l ct flushed now working subcutaneous emphysema has improved Patient continues to require 100% FiO2 15 of PEEP Overall prognosis is poor discussed w rn, rt critically ill Total cumulative critical care time of 30 minutes, reviewing the current documentation, chest x-ray, labs, and formulating a plan no overlap Updated 03/13 Chest x-ray reviewed, increasing pneumonia on the left, discussed with interventional radiology, Dr. Burgos Continue air leak on the right, subcutaneous emphysema has improved Patient continues to require 100% FiO2 15 of PEEP Discussed findings with at the bedside Overall prognosis is dismal Total cumulative critical care time of 30 minutes, reviewing the current documentation, chest x-ray, labs, and formulating a plan Updated 03/12 No air leak seen on the right chest tube, I repositioned the chest tube on the right, it started working there is a small air leak, suspect this will help facial subcutaneous emphysema Continue 100% FiO2 15 of PEEP Inverse ratio, pressure control ventilation Antibiotics per ID Discussed decreasing caloric delivery, with RN. Discussed above with at the bedside Total cumulative critical care time of 30 minutes, reviewing labs, chest x-ray, and formulating a plan. Updated 03/11 Subcutaneous emphysema is worsening on the right Mild air leak left chest tube Reviewed current vent settings adequate for patient Continues to require 100% FiO2 and 15 of PEEP Updated at the bedside Nutritional support Antibiotics per ID Total cumulative critical care time of 35 minutes, reviewing the current documentation, chest x-ray, reviewing the findings with the . Discussing case with RN and RT. Formulating a plan. Updated 03/10 Mild air leak on left-sided chest tube No significant subcutaneous emphysema on exam ABG noted, adequate for patient, PCO2 is better today. Continue steroids Antibiotics per ID Nutritional support at the bedside, reviewed current findings, Total cumulative critical care time of 30 minutes, reviewing current documentat ion, labs, chest x-ray, formulating a plan, updated Updated 03/09 Continue current support ABG noted adequate for patient Permissive hypercapnia Mild air leak on chest tube on the left side DVT GI prophylaxis Antibiotics per ID Continue steroids Continue nutritional support Total cumulative critical care time of 35 minutes, reviewing the old documentation, chest x-ray, labs, and formulating a plan. KEVIN PENNY MD Mar 16, 2021 09:02
--- NOTE | 2021-03-16 09:44 | PN ---
DATE: 03/15/2021 SUBJECTIVE: The patient has continued to be paralyzed, sedated, intubated and mechanically ventilated. She is maintaining her oxygen saturation of 91% on FiO2 of 100%. She apparently developed wounds in her gluteal and sacral area. She has a rectal tube. OBJECTIVE: GENERAL: When I examined her, she was pale, but no jaundice, cyanosis or thyromegaly. No jugular venous distention. No lower limb edema. VITAL SIGNS: Her heart rate was 85, blood pressure 140/72, temperature was 97.6, respiratory rate was 30 and oxygen saturation was 91%. HEAD, EYES, EARS, NOSE, THROAT: Normocephalic, atraumatic. NECK: Supple. HEART: Showed normal first and second sounds. No gallop or murmur. CHEST: Shows central trachea. Equal bilateral chest expansion, air entry. Vesicular breath sounds. I could not appreciate any crepitation or rhonchi anteriorly. ABDOMEN: Distended, soft, nontender. NEUROLOGIC: She is heavily sedated. Her intake over the last 24 hours was 2300. Output was 2700. LABORATORY DATA: As of this morning, her white cell count is 7900, hemoglobin 10, hematocrit 33, MCV 82 and platelet count of 334,000. Her chemistry showed a serum sodium 139, potassium 4.6, chloride 101, bicarbonate 34, anion gap of 4, BUN 28, creatinine 0.2. Estimated GFR was more than 300 mL per minute. Her glucose was 136. Calcium was 9. Her chest x-ray showed that the patient has small bilateral pneumothoraces, stable on the right and mildly improved on the left. Bilateral airspace disease, unchanged. Stable position of tubes and lines. ASSESSMENT: 1. Acute hypoxic respiratory failure, multifactorial including: A. COVID-19 pneumonia. B. Acute respiratory distress syndrome and lung injury. C. Bilateral presumed pneumonic infiltrate. D. Bilateral pneumothoraces. 2. Bronchial asthma. 3. Morbid obesity. 4. Obstructive sleep apnea. 5. The patient has extensive subcutaneous emphysema. It is improving. 6. Severe protein calorie malnutrition. Her serum albumin is only 1.9 g/dL. 7. Normochromic normocytic anemia. PLAN: To obviously continue with mechanical ventilation. Continue nutritional support. Continue with antibiotic as per infectious disease specialist's recommendation. Continue to monitor blood sugar and adjust insulin as needed. Continue with DVT and GI prophylaxis. AMM/FELISA DR: Cece TID: [id number]
[2021-03-16] MEDS: PREDNISOLONE ACETATE 1% OS SCH (10:19)
[2021-03-16] MEDS: EYE OS SCH (10:19)
[2021-03-16] MEDS: MULTIVITAMINS,THERAPEUTIC 5 ML ORAL LIQUID. PEG SCH (10:20)
[2021-03-16] MEDS: DEXAMETHASONE SOD PHOS 4 MG/ML VIAL IVP SCH (10:21)
[2021-03-16] MEDS: FLUCONAZOLE 100 MG TABLET. FT SCH (10:22)
[2021-03-16] MEDS: LINEZOLID 600 MG TABLET PO SCH ×2 (10:22→21:03)
[2021-03-16] MEDS: FAMOTIDINE 20 MG/2 ML VIAL IVP SCH ×2 (10:22→21:03)
[2021-03-16] MEDS: NYSTATIN TOPICAL POWDER 15GM BOTTLE. TP SCH ×2 (10:23→21:08)
[2021-03-16] MEDS: fentaNYL HIGH DOSE PCA 55 ML IV PRN ×2 (11:25→23:35)
--- NOTE | 2021-03-16 14:27 | NUR ---
SW following. Chart reviewed. Pt from home with spouse, vent, NPO, IV abx. Pt is COVID recovered. Pt critically ill. SW will continue to follow.
--- NOTE | 2021-03-16 16:59 | NUR ---
Wound Care Wound Type/Assessment: Pt seen per wound care follow up, see wound assessments. Pt has a combination of moisture associated skin damage (MASD), deep tissue injury and Stage II pressure ulcers to bilateral buttocks, coccyx, luzmaria and posterior thigh areas. Areas are dark red and purple, bright and dark red open and peeling skin scattered, small area of bleeding tissue. RLQ pannus fold and bilateral lower back folds with Intertrigo from friction and sheer of skin and folds rubbing and pressing against one another. Pt's heels are pink and blanchable, foam dressings applied. Treatment Recommendations/Plan: Recommend Vitamin A&D ointment to skin breakdown on buttocks and luzmaria areas, leave RADIATION OFFICER, left and R side turns only. Intertriginous areas dressed with Xeroform gauze, and foam dressings for protection. Education provided: to SAMINA Green re: POC. Offloading surface/device: ICU Total Care Bariatric bed, Heelmedix boots to bilateral feet, wedge and pillows. Pt repositioned onto L side with wedge and pillows. Recommended Referrals/Tests: n/a Discharge Recommendations for dressings: will continue to follow.
[2021-03-16] MEDS: INSULIN GLARGINE SYRINGE. SQ SCH (21:05)
[2021-03-17] VITALS (29 sets, daily range): BP systolic 55–164; BP diastolic 28–94
[2021-03-17] MEDS: VECURONIUM BROMIDE 50 MG in TOTAL VOLUME 50 ML IV PRN ×4 (00:12→21:34)
[2021-03-17] MEDS: DEXMEDETOMIDINE 400 MCG in IV NORMAL SALINE 100ML 96 ML IV PRN ×5 (00:13→23:35)
[2021-03-17] MEDS: MIDAZOLAM 100mg/100ml NS BAG 100 ML IV PRN ×3 (02:58→21:39)
--- NOTE | 2021-03-17 05:30 | RAD ---
Single view chest dated 03/17/2021. Comparison made to 03/16/2021. CLINICAL INDICATION: Respiratory failure. FINDINGS: Single semiupright portable exam performed. Contours are stable. Endotracheal tube and nasogastric tu be in place, unchanged. Right-sided chest tube similar in position. There is widespread airspace disease throughout both lungs, similar to slightly increased. Small apic al pneumothorax on the right appears to have slightly increased in size, although this could be parti ally related to differences in technique. A definite pleural effusion. IMPRESSION: 1. Widespread airspace disease, mildly increased from prior study. 2. Small right apical pneumothorax appears to have slightly increased in size from prior study. Chest tube remains in similar position. Electronically signed by: Bryan Soni MD (03/17/2021 5:27 AM) [place]
[2021-03-17] MEDS: MEROPENEM 1 GM in IV NORMAL SALINE 100ML 100 ML IV SCH ×3 (05:53→21:36)
[2021-03-17] MEDS: INSULIN LISPRO 300 UNITS/3 ML VIAL. SQ SCH ×3 (06:00→17:36)
[2021-03-17 08:31] LABS: BASE EXCESS ABG 6 mmol/L (-3-3); HCO3 ABG 32 mmol/L (21-28); PCO2 ABG 54 mmHg (35-46); PO2 ABG 55 mmHg (75-108); SAT O2 ABG 87 % (92-99)
[2021-03-17 08:32] LABS: FIO2 ABG 100
[2021-03-17] MEDS: DEXAMETHASONE SOD PHOS 4 MG/ML VIAL IVP SCH (08:57)
[2021-03-17] MEDS: FLUCONAZOLE 100 MG TABLET. FT SCH (08:58)
[2021-03-17] MEDS: LINEZOLID 600 MG TABLET PO SCH (08:58)
[2021-03-17] MEDS: MULTIVITAMINS,THERAPEUTIC 5 ML ORAL LIQUID. PEG SCH (08:58)
[2021-03-17] MEDS: FAMOTIDINE 20 MG/2 ML VIAL IVP SCH ×2 (08:58→20:27)
[2021-03-17] MEDS: PREDNISOLONE ACETATE 1% OS SCH (08:59)
[2021-03-17] MEDS: NYSTATIN TOPICAL POWDER 15GM BOTTLE. TP SCH ×2 (08:59→20:27)
[2021-03-17] MEDS: EYE OS SCH (08:59)
--- NOTE | 2021-03-17 10:01 | PN ---
DATE: 03/17/2021 SUBJECTIVE: The patient continued to be paralyzed, sedated, intubated, mechanically ventilated. She is maintaining her oxygen saturation at 93% on FiO2 of 100%. The nursing staff stated that she developed an episode of hypotension. The patient's systolic pressure dropped down to 50 mmHg. She was given a bolus of 200 mL of normal saline. By the time I saw her, her blood pressure was 127/80. PHYSICAL EXAMINATION: GENERAL: When I examined her, she looked well and was pale. No jaundice, cyanosis or thyromegaly. No jugular venous distention. No lower limb edema. VITAL SIGNS: Her heart rate was 93, blood pressure was 127/60, temperature was 97.7, respiratory rate 30, and oxygen saturation was 93% on FiO2 of 100%. HEENT: Showed normocephalic, atraumatic. She has orotracheal and orogastric tube. NECK: Supple. HEART: Normal first and second heart sounds. No gallop or murmur. CHEST: Shows central trachea, equal bilateral chest expansion, air entry, vesicular breath sounds. I could not really appreciate any crepitation or rhonchi anteriorly. ABDOMEN: Distended, soft, nontender. NEUROLOGIC: She is heavily sedated. Her intake over the last 24 hours was 5000, output was 1930. LABORATORY DATA: Her today's labs are still pending at the time of this dictation. ASSESSMENT: 1. Acute hypoxic respiratory failure, multifactorial including: A. COVID-19 pneumonia. B. Acute respiratory distress syndrome with lung injury. C. Bilateral presumed pneumonic infiltrate. D. Bilateral pneumothoraces. 2. Bronchial asthma. 3. Morbid obesity. 4. Obstructive sleep apnea. 5. The patient has extensive subcutaneous emphysema, which is improving. 6. Severe protein-calorie malnutrition. Serum albumin is only 1.9 g/dL. 7. Normochromic normocytic anemia. PLAN: To continue with mechanical ventilation and wean as tolerated. Continue nutritional support. Continue antibiotic as per Infectious Disease specialist's recommendation. Continue with monitoring blood sugar, adjust the insulin as needed. Continue with DVT and GI prophylaxis. MOHAMUD GÓMEZ: Cece TID: [id number]
--- NOTE | 2021-03-17 10:42 | PDOC ---
PULMONARY PROGRESS NOTES DATE: 03/17/21 TIME: 10:38 Subjective on vent pc 30 rr 34 peep 15 fio2 100% sat 88% on vec, fentanyl, propofol, versed no drainage from right chest tube Vitals Vital Signs Date Time Temp Pulse Resp B/P (MAP) Pulse Ox O2 Delivery O2 Flow Rate FiO2 03/17/21 07:40 92 Ventilator 03/17/21 07:00 93 30 99/60 (73) 03/17/21 04:00 97.7 97.7 03/17/21 00:05 1.0 Comments on vent sedated paralyzed HEENT: Other (nc at perrl No significant subcutaneous emphysema) Lungs: Other (Bilateral chest tube placement, decrease bs) Cardiovascular: S1, S2 Abdomen: Soft Extremities: Other (Edema) Skin: Warm Labs Laboratory Tests Test 03/15/21 11:49 03/15/21 17:19 03/16/21 01:13 03/16/21 05:50 Glucose (Fingerstick) 170 mg/dL (70-99) 170 mg/dL (70-99) 143 mg/dL (70-99) White Blood Count 7.9 x10^3/uL (4.0-11.0) Red Blood Count 4.03 x10^6/uL (3.50-5.40) Hemoglobin 10.3 g/dL (12.0-15.5) Hematocrit 33.1 % (36.0-47.0) Mean Corpuscular Volume 82 fL (79-100) Mean Corpuscular Hemoglobin 26 pg (25-35) Mean Corpuscular Hemoglobin Concent 31 g/dL (31-37) Red Cell Distribution Width 17.6 % (11.5-14.5) Platelet Count 334 x10^3/uL (140-400) Neutrophils (%) (Auto) 80 % (31-73) Lymphocytes (%) (Auto) 12 % (24-48) Monocytes (%) (Auto) 7 % (0-9) Eosinophils (%) (Auto) 2 % (0-3) Basophils (%) (Auto) 0 % (0-3) Neutrophils # (Auto) 6.3 x10^3/uL (1.8-7.7) Lymphocytes # (Auto) 0.9 x10^3/uL (1.0-4.8) Monocytes # (Auto) 0.5 x10^3/uL (0.0-1.1) Eosinophils # (Auto) 0.2 x10^3/uL (0.0-0.7) Basophils # (Auto) 0.0 x10^3/uL (0.0-0.2) Segmented Neutrophils % 80 % (35-66) Band Neutrophils % 5 % (0-9) Lymphocytes % 12 % (24-48) Monocytes % 3 % (0-10) Platelet Estimate Adequate (ADEQUATE) Anisocytosis Slight Sodium Level 139 mmol/L (136-145) Potassium Level 4.6 mmol/L (3.5-5.1) Chloride Level 101 mmol/L (98-107) Carbon Dioxide Level 34 mmol/L (21-32) Anion Gap 4 (6-14) Blood Urea Nitrogen 28 mg/dL (7-20) Creatinine 0.2 mg/dL (0.6-1.0) Estimated GFR (Cockcroft-Gault) > 300.0 Glucose Level 136 mg/dL (70-99) Calcium Level 9.0 mg/dL (8.5-10.1) Test 03/16/21 05:52 03/16/21 08:00 03/16/21 12:53 03/16/21 18:36 Glucose (Fingerstick) 148 mg/dL (70-99) 113 mg/dL (70-99) 154 mg/dL (70-99) O2 Saturation 82 % (92-99) Arterial Blood pH 7.33 (7.35-7.45) Arterial Blood pCO2 at Patient Temp 66 mmHg (35-46) Arterial Blood pO2 at Patient Temp 50 mmHg (75-108) Arterial Blood HCO3 34 mmol/L (21-28) Arterial Blood Base Excess 6 mmol/L (-3-3) Test 03/16/21 23:42 03/17/21 06:00 03/17/21 08:00 Glucose (Fingerstick) 133 mg/dL (70-99) 97 mg/dL (70-99) O2 Saturation 87 % (92-99) Arterial Blood pH 7.39 (7.35-7.45) Arterial Blood pCO2 at Patient Temp 54 mmHg (35-46) Arterial Blood pO2 at Patient Temp 55 mmHg (75-108) Arterial Blood HCO3 32 mmol/L (21-28) Arterial Blood Base Excess 6 mmol/L (-3-3) FiO2 100 Laboratory Tests Test 03/16/21 12:53 03/16/21 18:36 03/16/21 23:42 03/17/21 06:00 Glucose (Fingerstick) 113 mg/dL (70-99) 154 mg/dL (70-99) 133 mg/dL (70-99) 97 mg/dL (70-99) Test 03/17/21 08:00 O2 Saturation 87 % (92-99) Arterial Blood pH 7.39 (7.35-7.45) Arterial Blood pCO2 at Patient Temp 54 mmHg (35-46) Arterial Blood pO2 at Patient Temp 55 mmHg (75-108) Arterial Blood HCO3 32 mmol/L (21-28) Arterial Blood Base Excess 6 mmol/L (-3-3) FiO2 100 Medications Active Scripts Medications Dose Route/Sig Max Daily Dose Days Date Category Meloxicam 15 Mg Tablet 1 Tab PO DAILY 30 02/18/21 Reported Comments CXR 03/17 IMPRESSION: 1. Widespread airspace disease, mildly increased from prior study. 2. Small right apical pneumothorax appears to have slightly increased in size from prior study. Chest tube remains in similar position Chest x-ray reviewed, 03/16 small pneumo on the right, left ptx improved, almost resolved subcutaneous emphysema Impression . 1. Acute hypoxic respiratory failure with acute lung injury/ acute respiratory distress syndrome secondary to COVID-19 pneumonia and sepsis and suspected VAP. no sig change in oxygenation 2. Morbid obesity, BMI of 65 3. No significant tobacco history. 4. History of asthma, 5. Obstructive sleep apnea, on home CPAP. Unknown severity of obstructive sleep apnea and unknown CPAP pressure. 6. Abnormal CXR with bilateral patchy infiltrates c/w viral pneumonia. 7. Fever, per ID, resolved. 8. Subcutaneous emphysema improved 9. Status post bilateral chest tube placement, for spontaneous pneumothorax, improved left ptx , stable right 03/16 cxr 10. Bacteremia, more than likely contaminant 11. Subcutaneous emphysema, traveling up to the neck and eyes, improved Plan . Updated 03/17 cont vent support setting reviewed, keep same peep , PC/ANN-MARIE, 100%FIO2 and PEEP of 15 CXR/abg reviewed -- no changes will give X1 dose of lasix today sedation/paralysis cont ct to suction, will flush right Chest tube today taper off steroids, slow taper Overall prognosis is poor discussed w rn, rt and in detail critically ill Total cumulative critical care time of 30 minutes, reviewing the current documentation, chest x-ray, labs, and formulating a plan no overlap Updated 03/16 cont vent support setting reviewed, keep same peep , PC/ANN-MARIE, 100%FIO2 abg reviewed d/w in detail. Increasing any further PEEP with cause worsening barotrauma. Sats in high 80's acceptable sedation/paralysis cont ct to suction subcutaneous emphysema has improved Patient continues to require 100% FiO2 15 of PEEP taper off steroids Overall prognosis is poor discussed w rn, rt and in detail critically ill Total cumulative critical care time of 30 minutes, reviewing the current documentation, chest x-ray, labs, and formulating a plan no overlap Updated 03/14 cont vent support setting reviewed, titrate peep as tolerated abg reviewed on propofol check TG 315 try to taper off may add precedex if needed cont ct l ct flushed now working subcutaneous emphysema has improved Patient continues to require 100% FiO2 15 of PEEP Overall prognosis is poor discussed w rn, rt critically ill Total cumulative critical care time of 30 minutes, reviewing the current documentation, chest x-ray, labs, and formulating a plan no overlap Updated 03/14 cont vent support setting reviewed, titrate peep as tolerated abg reviewed on propofol check TG cont ct l ct flushed now working subcutaneous emphysema has improved Patient continues to require 100% FiO2 15 of PEEP Overall prognosis is poor discussed w rn, rt critically ill Total cumulative critical care time of 30 minutes, reviewing the current documentation, chest x-ray, labs, and formulating a plan no overlap Updated 03/13 Chest x-ray reviewed, increasing pneumonia on the left, discussed with inter ventional radiology, Dr. Burgos Continue air leak on the right, subcutaneous emphysema has improved Patient continues to require 100% FiO2 15 of PEEP Discussed findings with at the bedside Overall prognosis is dismal Total cumulative critical care time of 30 minutes, reviewing the current documentation, chest x-ray, labs, and formulating a plan Updated 03/12 No air leak seen on the right chest tube, I repositioned the chest tube on the right, it started working there is a small air leak, suspect this will help facial subcutaneous emphysema Continue 100% FiO2 15 of PEEP Inverse ratio, pressure control ventilation Antibiotics per ID Discussed decreasing caloric delivery, with RN. Discussed above with at the bedside Total cumulative critical care time of 30 minutes, reviewing labs, chest x-ray, and formulating a plan. Updated 03/11 Subcutaneous emphysema is worsening on the right Mild air leak left chest tube Reviewed current vent settings adequate for patient Continues to require 100% FiO2 and 15 of PEEP Updated at the bedside Nutritional support Antibiotics per ID Total cumulative critical care time of 35 minutes, reviewing the current documentation, chest x-ray, reviewing the findings with the . Discussing case with RN and RT. Formulating a plan. Updated 03/10 Mild air leak on left-sided chest tube No significant subcutaneous emphysema on exam ABG noted, adequate for patient, PCO2 is better today. Continue steroids Antibiotics per ID Nutritional support at the bedside, reviewed current findings, Total cumulative critical care time of 30 minutes, reviewing current documentation, labs, chest x-ray, formulating a plan, updated Updated 03/09 Continue current support ABG noted adequate for patient Permissive hypercapnia Mild air leak on chest tube on the left side DVT GI prophylaxis Antibiotics per ID Continue steroids Continue nutritional support Total cumulative critical care time of 35 minutes, reviewing the old documentation, chest x-ray, labs, and formulating a plan. KEVIN PENNY MD Mar 17, 2021 10:41
--- NOTE | 2021-03-17 10:48 | PDOC ---
Infectious Disease Note Subjective: Subjective Remains orally intubated/sedated/paralytics Fio2 remains unchanged at 100%,PEEP 15 Bilateral CTS present No fevers last 48 hrs Vital Signs: Vital Signs Vital Signs Date Time Temp Pulse Resp B/P (MAP) Pulse Ox O2 Delivery O2 Flow Rate FiO2 03/17/21 07:40 92 Ventilator 03/17/21 07:00 93 30 99/60 (73) 03/17/21 04:00 97.7 97.7 03/17/21 00:05 1.0 Physical Exam: PHYSICAL EXAM GENERAL: Orally intubated and sedated HEENT: Pupils equal, small, nonreactive. ETT OGT tube in place, NECK: Supple. Subcutaneous emphysema on neck and face resolved. LUNGS: Diminished aeration in bases bilateral CTS present Chest wall resolving subcutaneous emphysema HEART: S1, S2 ABDOMEN: Obese soft, nontender. Bowel sounds present. + fecal tube Lott in place EXTREMITIES Generalized anasarca, cyanotic finger tips SKIN: No generalized rash NEUROLOGIC: sedated on vent RUE-PICC line clean Medications: Inpatient Meds: Medications reviewed. Labs: Lab Laboratory Tests Test 03/16/21 12:53 03/16/21 18:36 03/16/21 23:42 03/17/21 06:00 Glucose (Fingerstick) 113 mg/dL (70-99) 154 mg/dL (70-99) 133 mg/dL (70-99) 97 mg/dL (70-99) Test 03/17/21 08:00 O2 Saturation 87 % (92-99) Arterial Blood pH 7.39 (7.35-7.45) Arterial Blood pCO2 at Patient Temp 54 mmHg (35-46) Arterial Blood pO2 at Patient Temp 55 mmHg (75-108) Arterial Blood HCO3 32 mmol/L (21-28) Arterial Blood Base Excess 6 mmol/L (-3-3) FiO2 100 Objective: Assessment: 1. COVID-19 positive. 2. Acute hypoxic respiratory failure. 3. Pneumonia, bilateral pulmonary infiltrate/ ARDS 4. Morbid obesity. 5. History of asthma. 6. Obstructive sleep apnea. 7 Fever pattern improved 8 Bilateral pneumothorax status post bilateral CTS,Now with RT CTS 9. Blood culture positive coagulase negative staph likely contaminant, repeat blood cultures negative 10. Leucocytosis on steroids,also likely reactive Plan: Plan of Care Continue supportive care Continue Meropenem DC Zyvox and ,Fluconazole Monitor off antibiotics Maintain aspiration precautions Critically ill Prognosis very poor Discussed with family at bedside Discussed with nursing BYRON CLAYTON MD Mar 17, 2021 10:48
[2021-03-17] MEDS ORDERED: FUROSEMIDE 40 MG/4 ML VIAL. IVP ONE (11:30)
[2021-03-17] MEDS: fentaNYL HIGH DOSE PCA 55 ML IV PRN (12:47)
[2021-03-17] MEDS ORDERED: ATROPINE 1 MG/10 ML DISP.SYRINGE. ONE (13:22)
--- NOTE | 2021-03-17 16:22 | NUR ---
SS following up with discharge planning. SS reviewed pt chart and discussed with pt RN. Pt is currently on the vent at 100%. COVID19 recovered. Pt on IV Meropenem. Pt on Vec, Fentanyl, Versed, and Precedex. Not stable. Chemical Code only. SS will continue to follow for discharge planning.
[2021-03-17] MEDS: INSULIN GLARGINE SYRINGE. SQ SCH (20:28)
[2021-03-17] MEDS: NOREPINEPHRINE VIAL 8 MG in IV DEXTROSE 5% 250 ML IV PRN (22:05)
[2021-03-18] VITALS (34 sets, daily range): BP systolic 89–163; BP diastolic 50–100
[2021-03-18] MEDS: fentaNYL HIGH DOSE PCA 55 ML IV PRN ×2 (00:29→13:05)
[2021-03-18] MEDS: VECURONIUM BROMIDE 50 MG in TOTAL VOLUME 50 ML IV PRN ×7 (01:30→22:14)
[2021-03-18] MEDS: DEXMEDETOMIDINE 400 MCG in IV NORMAL SALINE 100ML 96 ML IV PRN ×4 (03:56→22:12)
[2021-03-18] MEDS: MEROPENEM 1 GM in IV NORMAL SALINE 100ML 100 ML IV SCH ×3 (05:40→21:32)
[2021-03-18] MEDS: INSULIN LISPRO 300 UNITS/3 ML VIAL. SQ SCH ×4 (06:00→17:45)
[2021-03-18 06:48] LABS: ALBUMIN 1.9 g/dL (3.4-5.0); ALBUMIN/GLOBULIN RATIO 0.4 (1.0-1.7); CALCIUM 8.8 mg/dL (8.5-10.1); CREATININE 0.3 mg/dL (0.6-1.0); GFR 242.8; POTASSIUM 4.2 mmol/L (3.5-5.1); TOTAL BILIRUBIN 0.6 mg/dL (0.2-1.0); TOTAL PROTEIN 6.2 g/dL (6.4-8.2)
[2021-03-18] MEDS: MIDAZOLAM 100mg/100ml NS BAG 100 ML IV PRN ×2 (07:13→16:21)
--- NOTE | 2021-03-18 07:13 | RAD ---
Exam Date: 03/18/2021 6:46 AM XR CHEST 1V Indication: Reason: RF/PTX/ ARDS 113 / Spl. Instructions: / History: Comparison: March 17, 2021 FINDINGS/ IMPRESSION: Right central venous catheter remains in place. Small right apical pneumothorax is similar in size co mpared to the prior exam. Right chest tube remains in place. Diffuse bilateral lung infiltrates are n ot significantly changed. The cardiac silhouette is unchanged. No appreciable pleural effusion. Electronically signed by: Romeo Foley MD (03/18/2021 7:11 AM) [id number]
[2021-03-18 07:15] LABS: HEMATOCRIT 33.6 % (36.0-47.0); HEMOGLOBIN 10.3 g/dL (12.0-15.5); RED BLOOD COUNT 4.1 x10^6/uL (3.50-5.40); RED CELL DISTRIBUTION WIDTH 18.5 % (11.5-14.5); WHITE BLOOD COUNT 11.6 x10^3/uL (4.0-11.0)
[2021-03-18 08:10] LABS: BASE EXCESS ABG 7 mmol/L (-3-3); HCO3 ABG 34 mmol/L (21-28); SAT O2 ABG 82 % (92-99)
[2021-03-18 08:13] LABS: PCO2 ABG 63 mmHg (35-46); PO2 ABG 49 mmHg (75-108)
[2021-03-18 08:14] LABS: FIO2 ABG 100
[2021-03-18] MEDS: MULTIVITAMINS,THERAPEUTIC 5 ML ORAL LIQUID. PEG SCH (08:51)
[2021-03-18] MEDS: FAMOTIDINE 20 MG/2 ML VIAL IVP SCH ×2 (08:52→21:22)
[2021-03-18] MEDS: DEXAMETHASONE SOD PHOS 4 MG/ML VIAL IVP SCH (08:52)
[2021-03-18] MEDS: EYE OS SCH (08:53)
[2021-03-18] MEDS: PREDNISOLONE ACETATE 1% OS SCH (08:53)
[2021-03-18] MEDS: NYSTATIN TOPICAL POWDER 15GM BOTTLE. TP SCH ×2 (08:53→21:23)
--- NOTE | 2021-03-18 10:30 | PDOC ---
PULMONARY PROGRESS NOTES DATE: 03/18/21 TIME: 10:24 Subjective on vent pc 30 rr 33 peep 15 fio2 100% sat 91% on vec, fentanyl, propofol, versed Vitals Vital Signs Date Time Temp Pulse Resp B/P (MAP) Pulse Ox O2 Delivery O2 Flow Rate FiO2 03/18/21 09:35 90 Ventilator 03/18/21 06:00 107 30 134/82 (99) 03/18/21 04:00 99.8 99.8 03/18/21 00:59 1.0 Comments on vent sedated paralyzed HEENT: Other Lungs: Other (Bilateral chest tube placement, decrease bs) Cardiovascular: S1, S2 Abdomen: Soft Extremities: Other (Edema) Skin: Warm Labs Laboratory Tests Test 03/16/21 12:53 03/16/21 18:36 03/16/21 23:42 03/17/21 06:00 Glucose (Fingerstick) 113 mg/dL (70-99) 154 mg/dL (70-99) 133 mg/dL (70-99) 97 mg/dL (70-99) Test 03/17/21 08:00 03/17/21 12:08 03/17/21 17:32 03/17/21 23:38 O2 Saturation 87 % (92-99) Arterial Blood pH 7.39 (7.35-7.45) Arterial Blood pCO2 at Patient Temp 54 mmHg (35-46) Arterial Blood pO2 at Patient Temp 55 mmHg (75-108) Arterial Blood HCO3 32 mmol/L (21-28) Arterial Blood Base Excess 6 mmol/L (-3-3) FiO2 100 Glucose (Fingerstick) 152 mg/dL (70-99) 176 mg/dL (70-99) 134 mg/dL (70-99) Test 03/18/21 06:10 03/18/21 08:00 White Blood Count 11.6 x10^3/uL (4.0-11.0) Red Blood Count 4.10 x10^6/uL (3.50-5.40) Hemoglobin 10.3 g/dL (12.0-15.5) Hematocrit 33.6 % (36.0-47.0) Mean Corpuscular Volume 82 fL (79-100) Mean Corpuscular Hemoglobin 25 pg (25-35) Mean Corpuscular Hemoglobin Concent 31 g/dL (31-37) Red Cell Distribution Width 18.5 % (11.5-14.5) Platelet Count 365 x10^3/uL (140-400) Sodium Level 138 mmol/L (136-145) Potassium Level 4.2 mmol/L (3.5-5.1) Chloride Level 100 mmol/L (98-107) Carbon Dioxide Level 34 mmol/L (21-32) Anion Gap 4 (6-14) Blood Urea Nitrogen 22 mg/dL (7-20) Creatinine 0.3 mg/dL (0.6-1.0) Estimated GFR (Cockcroft-Gault) 242.8 BUN/Creatinine Ratio 73 (6-20) Glucose Level 137 mg/dL (70-99) Calcium Level 8.8 mg/dL (8.5-10.1) Total Bilirubin 0.6 mg/dL (0.2-1.0) Aspartate Amino Transf (AST/SGOT) 38 U/L (15-37) Alanine Aminotransferase (ALT/SGPT) 76 U/L (14-59) Alkaline Phosphatase 139 U/L (46-116) Total Protein 6.2 g/dL (6.4-8.2) Albumin 1.9 g/dL (3.4-5.0) Albumin/Globulin Ratio 0.4 (1.0-1.7) O2 Saturation 82 % (92-99) Arterial Blood pH 7.35 (7.35-7.45) Arterial Blood pCO2 at Patient Temp 63 mmHg (35-46) Arterial Blood pO2 at Patient Temp 49 mmHg (75-108) Arterial Blood HCO3 34 mmol/L (21-28) Arterial Blood Base Excess 7 mmol/L (-3-3) FiO2 100 Laboratory Tests Test 03/17/21 12:08 03/17/21 17:32 03/17/21 23:38 03/18/21 06:10 Glucose (Fingerstick) 152 mg/dL (70-99) 176 mg/dL (70-99) 134 mg/dL (70-99) White Blood Count 11.6 x10^3/uL (4.0-11.0) Red Blood Count 4.10 x10^6/uL (3.50-5.40) Hemoglobin 10.3 g/dL (12.0-15.5) Hematocrit 33.6 % (36.0-47.0) Mean Corpuscular Volume 82 fL (79-100) Mean Corpuscular Hemoglobin 25 pg (25-35) Mean Corpuscular Hemoglobin Concent 31 g/dL (31-37) Red Cell Distribution Width 18.5 % (11.5-14.5) Platelet Count 365 x10^3/uL (140-400) Sodium Level 138 mmol/L (136-145) Potassium Level 4.2 mmol/L (3.5-5.1) Chloride Level 100 mmol/L (98-107) Carbon Dioxide Level 34 mmol/L (21-32) Anion Gap 4 (6-14) Blood Urea Nitrogen 22 mg/dL (7-20) Creatinine 0.3 mg/dL (0.6-1.0) Estimated GFR (Cockcroft-Gault) 242.8 BUN/Creatinine Ratio 73 (6-20) Glucose Level 137 mg/dL (70-99) Calcium Level 8.8 mg/dL (8.5-10.1) Total Bilirubin 0.6 mg/dL (0.2-1.0) Aspartate Amino Transf (AST/SGOT) 38 U/L (15-37) Alanine Aminotransferase (ALT/SGPT) 76 U/L (14-59) Alkaline Phosphatase 139 U/L (46-116) Total Protein 6.2 g/dL (6.4-8.2) Albumin 1.9 g/dL (3.4-5.0) Albumin/Globulin Ratio 0.4 (1.0-1.7) Test 03/18/21 08:00 O2 Saturation 82 % (92-99) Arterial Blood pH 7.35 (7.35-7.45) Arterial Blood pCO2 at Patient Temp 63 mmHg (35-46) Arterial Blood pO2 at Patient Temp 49 mmHg (75-108) Arterial Blood HCO3 34 mmol/L (21-28) Arterial Blood Base Excess 7 mmol/L (-3-3) FiO2 100 Medications Active Scripts Medications Dose Route/Sig Max Daily Dose Days Date Category Meloxicam 15 Mg Tablet 1 Tab PO DAILY 30 02/18/21 Reported Comments CXR 03/18 FINDINGS/ IMPRESSION: Right central venous catheter remains in place. Small right apical pneumothorax is similar in size compared to the prior exam. Right chest tube remains in place. Diffuse bilateral lung infiltrates are not significantly changed. The cardiac silhouette is unchanged. No appreciable pleural effusion. CXR 03/17 IMPRESSION: 1. Widespread airspace disease, mildly increased from prior study. 2. Small right apical pneumothorax appears to have slightly increased in size from prior study. Chest tube remains in similar position Chest x-ray reviewed, 03/16 small pneumo on the right, left ptx improved, almost resolved subcutaneous emphysema Impression . 1. Acute hypoxic respiratory failure with acute lung injury/ acute respiratory distress syndrome secondary to COVID-19 pneumonia and sepsis and suspected VAP. no sig change in oxygenation 2. Morbid obesity, BMI of 65 3. No significant tobacco history. 4. History of asthma, 5. Obstructive sleep apnea, on home CPAP. Unknown severity of obstructive sleep apnea and unknown CPAP pressure. 6. Abnormal CXR with bilateral patchy infiltrates c/w viral pneumonia. 7. Fever, per ID, resolved. 8. Subcutaneous emphysema improved 9. Status post bilateral chest tube placement, for spontaneous pneumothorax, improved left ptx , stable right 03/16 cxr , stable left PTX, improved right PTX 10. Bacteremia, more than likely contaminant 11. Subcutaneous emphysema, traveling up to the neck and eyes, improved 12.fever- work up per ID Plan . Updated 03/18 cont vent support setting reviewed, keep same peep , PC/ANN-MARIE, 100%FIO2 and PEEP of 15 CXR/abg reviewed -- no changes sedation/paralysis cont ct to suction to bilateral chest tubes taper off steroids, slow taper Fever and ABX per ID Overall prognosis is poor DVT/GI PPX discussed w rn, rt and in detail critically ill Total cumulative critical care time of 30 minutes, reviewing the current doc umentation, chest x-ray, labs, and formulating a plan no overlap Updated 03/17 cont vent support setting reviewed, keep same peep , PC/ANN-MARIE, 100%FIO2 and PEEP of 15 CXR/abg reviewed -- no changes will give X1 dose of lasix today sedation/paralysis cont ct to suction, will flush right Chest tube today taper off steroids, slow taper Overall prognosis is poor discussed w rn, rt and in detail critically ill Total cumulative critical care time of 30 minutes, reviewing the current documentation, chest x-ray, labs, and formulating a plan no overlap Updated 03/16 cont vent support setting reviewed, keep same peep , PC/ANN-MARIE, 100%FIO2 abg reviewed d/w in detail. Increasing any further PEEP with cause worsening barotrauma. Sats in high 80's acceptable sedation/paralysis cont ct to suction subcutaneous emphysema has improved Patient continues to require 100% FiO2 15 of PEEP taper off steroids Overall prognosis is poor discussed w rn, rt and in detail critically ill Total cumulative critical care time of 30 minutes, reviewing the current documentation, chest x-ray, labs, and formulating a plan no overlap Updated 03/14 cont vent support setting reviewed, titrate peep as tolerated abg reviewed on propofol check TG 315 try to taper off may add precedex if needed cont ct l ct flushed now working subcutaneous emphysema has improved Patient continues to require 100% FiO2 15 of PEEP Overall prognosis is poor discussed w rn, rt critically ill Total cumulative critical care time of 30 minutes, reviewing the current documentation, chest x-ray, labs, and formulating a plan no overlap Updated 03/14 cont vent support setting reviewed, titrate peep as tolerated abg reviewed on propofol check TG cont ct l ct flushed now working subcutaneous emphysema has improved Patient continues to require 100% FiO2 15 of PEEP Overall prognosis is poor discussed w rn, rt critically ill Total cumulative critical care time of 30 minutes, reviewing the current documentation, chest x-ray, labs, and formulating a plan no overlap Updated 03/13 Chest x-ray reviewed, increasing pneumonia on the left, discussed with [facility] radiology, Dr. Burgos Continue air leak on the right, subcutaneous emphysema has improved Patient continues to require 100% FiO2 15 of PEEP Discussed findings with at the bedside Overall prognosis is dismal Total cumulative critical care time of 30 minutes, reviewing the current documentation, chest x-ray, labs, and formulating a plan Updated 03/12 No air leak seen on the right chest tube, I repositioned the chest tube on the right, it started working there is a small air leak, suspect this will help facial subcutaneous emphysema Continue 100% FiO2 15 of PEEP Inverse ratio, pressure control ventilation Antibiotics per ID Discussed decreasing caloric delivery, with RN. Discussed above with at the bedside Total cumulative critical care time of 30 minutes, reviewing labs, chest x-ray, and formulating a plan. Updated 03/11 Subcutaneous emphysema is worsening on the right Mild air leak left chest tube Reviewed current vent settings adequate for patient Continues to require 100% FiO2 and 15 of PEEP Updated at the bedside Nutritional support Antibiotics per ID Total cumulative critical care time of 35 minutes, reviewing the current documentation, chest x-ray, reviewing the findings with the . Discussing case with RN and RT. Formulating a plan. Updated 03/10 Mild air leak on left-sided chest tube No significant subcutaneous emphysema on exam ABG noted, adequate for patient, PCO2 is better today. Continue steroids Antibiotics per ID Nutritional support at the bedside, reviewed current findings, Total cumulative critical care time of 30 minutes, reviewing current documentation, labs, chest x-ray, formulating a plan, updated Updated 03/09 Continue current support ABG noted adequate for patient Permissive hypercapnia Mild air leak on chest tube on the left side DVT GI prophylaxis Antibiotics per ID Continue steroids Continue nutritional support Total cumulative critical care time of 35 minutes, reviewing the old documentation, chest x-ray, labs, and formulating a plan. KEVIN PENNY MD Mar 18, 2021 10:30
--- NOTE | 2021-03-18 10:41 | PDOC ---
Infectious Disease Note Subjective: Subjective Remains orally intubated/sedated/paralytics Fio2 remains unchanged at 100%,PEEP 15 Bilateral CTS present Temperature 100.4 this morning Vital Signs: Vital Signs Vital Signs Date Time Temp Pulse Resp B/P (MAP) Pulse Ox O2 Delivery O2 Flow Rate FiO2 03/18/21 09:35 90 Ventilator 03/18/21 07:00 100.4 128 30 129/59 (82) 100.4 03/18/21 00:59 1.0 Physical Exam: PHYSICAL EXAM GENERAL: Orally intubated and sedated HEENT: Pupils equal, small, nonreactive. ETT OGT tube in place, NECK: Supple. Subcutaneous emphysema on neck and face resolved. LUNGS: Diminished aeration in bases bilateral CTS present Chest wall resolving subcutaneous emphysema HEART: S1, S2 ABDOMEN: Obese soft, nontender. Bowel sounds present. + fecal tube Lott in place EXTREMITIES Generalized anasarca, cyanotic finger tips SKIN: No generalized rash NEUROLOGIC: sedated on vent RUE-PICC line clean Medications: Inpatient Meds: Medications reviewed. Labs: Lab Laboratory Tests Test 03/17/21 12:08 03/17/21 17:32 03/17/21 23:38 03/18/21 06:10 Glucose (Fingerstick) 152 mg/dL (70-99) 176 mg/dL (70-99) 134 mg/dL (70-99) White Blood Count 11.6 x10^3/uL (4.0-11.0) Red Blood Count 4.10 x10^6/uL (3.50-5.40) Hemoglobin 10.3 g/dL (12.0-15.5) Hematocrit 33.6 % (36.0-47.0) Mean Corpuscular Volume 82 fL (79-100) Mean Corpuscular Hemoglobin 25 pg (25-35) Mean Corpuscular Hemoglobin Concent 31 g/dL (31-37) Red Cell Distribution Width 18.5 % (11.5-14.5) Platelet Count 365 x10^3/uL (140-400) Sodium Level 138 mmol/L (136-145) Potassium Level 4.2 mmol/L (3.5-5.1) Chloride Level 100 mmol/L (98-107) Carbon Dioxide Level 34 mmol/L (21-32) Anion Gap 4 (6-14) Blood Urea Nitrogen 22 mg/dL (7-20) Creatinine 0.3 mg/dL (0.6-1.0) Estimated GFR (Cockcroft-Gault) 242.8 BUN/Creatinine Ratio 73 (6-20) Glucose Level 137 mg/dL (70-99) Calcium Level 8.8 mg/dL (8.5-10.1) Total Bilirubin 0.6 mg/dL (0.2-1.0) Aspartate Amino Transf (AST/SGOT) 38 U/L (15-37) Alanine Aminotransferase (ALT/SGPT) 76 U/L (14-59) Alkaline Phosphatase 139 U/L (46-116) Total Protein 6.2 g/dL (6.4-8.2) Albumin 1.9 g/dL (3.4-5.0) Albumin/Globulin Ratio 0.4 (1.0-1.7) Test 03/18/21 08:00 O2 Saturation 82 % (92-99) Arterial Blood pH 7.35 (7.35-7.45) Arterial Blood pCO2 at Patient Temp 63 mmHg (35-46) Arterial Blood pO2 at Patient Temp 49 mmHg (75-108) Arterial Blood HCO3 34 mmol/L (21-28) Arterial Blood Base Excess 7 mmol/L (-3-3) FiO2 100 Objective: Assessment: 1. COVID-19 positive. 2. Acute hypoxic respiratory failure. 3. Pneumonia, bilateral pulmonary infiltrate/ ARDS 4. Morbid obesity. 5. History of asthma. 6. Obstructive sleep apnea. 7 Fever again this morning 8 Bilateral pneumothorax status post bilateral CTS, 9. Blood culture positive coagulase negative staph likely contaminant, repeat blood cultures negative on March 03, 2021 10. Leucocytosis on steroids,also likely reactive 11. Severe protein calorie malnutrition 12. Transaminitis appears multifactorial Plan: Plan of Care Continue supportive care Continue Meropenem Restart Zyvox and fluconazole Follow-up repeat blood culture UA and urine culture Maintain aspiration precautions Critically ill Prognosis very poor Discussed with at bedside Discussed with Dr. Lechuga Discussed with nursing BYRON CLAYTON MD Mar 18, 2021 10:41
[2021-03-18] MEDS: FLUCONAZOLE 100MG/50ML PREMIX 50 ML IV SCH (12:31)
[2021-03-18] MEDS: NOREPINEPHRINE VIAL 8 MG in IV DEXTROSE 5% 250 ML IV PRN (14:02)
--- NOTE | 2021-03-18 14:40 | PN ---
DATE: 03/18/2021 SUBJECTIVE: The patient has continued to be sedated, paralyzed, on mechanical ventilation, maintaining her oxygen saturation at 83% on FIO2 of 100%. She is also spiking a temperature up to 100.8 this morning. PHYSICAL EXAMINATION: GENERAL: When I examined her, she was pale, but no jaundice, cyanosis or thyromegaly. No jugular venous distention. No lower limb edema. VITAL SIGNS: Her heart rate was 124, blood pressure was 119/70, temperature was 100.8, respiratory rate was 30 and oxygen saturation was 83% on FiO2 100%. HEAD, EYES, EARS, NOSE AND THROAT: Normocephalic, atraumatic. She has orotracheal and orogastric tube. NECK: Supple. HEART: Normal first and second sounds. No gallop or murmur. CHEST: Equal bilateral expansion, air entry, vesicular breath sounds. No crepitation or rhonchi. ABDOMEN: Distended, soft, nontender. NEUROLOGIC: She is heavily sedated. Her intake was 3800, output was 2740. LABORATORY DATA: Her blood gases as of this morning showed a pH of 7.35, pCO2 of 63, pO2 of 49, bicarbonate 34 and oxygen saturation was 82% on FIO2 of 100%. Her white cell count was 11,600, hemoglobin 10, hematocrit 33, MCV 82 and platelet count 365,000. Serum sodium was 138, potassium 4.2, chloride 100, bicarbonate 34, anion gap of 4, BUN 22, creatinine was 0.3. Estimated GFR was 242. Blood glucose was 137, calcium was 8.8. Total bilirubin is normal. AST, ALT, alkaline phosphatase slightly elevated. Total protein 6.2, albumin was 1.9. ASSESSMENT: 1. Acute hypoxic respiratory failure, multifactorial including: A. COVID-19 pneumonia. B. Acute respiratory distress syndrome with lung injury. C. Bilateral presumed pneumonic infiltrate. D. Bilateral pneumothoraces. 2. Bronchial asthma. 3. Morbid obesity. 4. Obstructive sleep apnea, on CPAP. 5. The patient has extensive subcutaneous emphysema, which is improving. 6. Severe protein-calorie malnutrition. Serum albumin is only 1.9 g/dL. 7. Normochromic normocytic anemia. 8. The patient is spiking her temperature again. Although she is already on meropenem, we will obviously order two sets of blood cultures. Her chest x-ray showed that she has a right central venous catheter remains in place. She has small right-sided apical pneumothorax similar in size compared to the prior exam. There is a right chest tube that remains in place. Diffuse bilateral lung infiltrates are not significantly changed. The cardiac silhouette is unchanged. No appreciable pleural effusion. PLAN: To continue obviously with mechanical ventilation whether with sedation and paralysis. Continue with nutritional support through the orogastric tube. Continue with IV antibiotic. I will order two sets of blood culture and the patient is currently followed by the Infectious Disease and the medicine man. ALFREDO DR: Cece TID: [id number]
--- NOTE | 2021-03-18 15:10 | NUR ---
SS following up with discharge planning. SS reviewed pt chart and discussed with pt RN. Pt is currently on the vent at 100%. COVID19 recovered. Chest tube x2. Pt on Vec, Fentanyl, Versed, and Precedex. Pt on IV Meropenem, IV Fluconazole, and IV Zyvox. Chemical code only. Not stable. SS will continue to follow for discharge planning.
[2021-03-18] MEDS: INSULIN GLARGINE SYRINGE. SQ SCH (21:22)
[2021-03-19] VITALS (24 sets, daily range): BP systolic 85–143; BP diastolic 54–87
[2021-03-19] MEDS: INSULIN LISPRO 300 UNITS/3 ML VIAL. SQ SCH ×5 (00:09→23:43)
[2021-03-19] MEDS: DEXMEDETOMIDINE 400 MCG in IV NORMAL SALINE 100ML 96 ML IV PRN ×8 (01:29→23:10)
[2021-03-19] MEDS: fentaNYL HIGH DOSE PCA 55 ML IV PRN ×2 (01:39→15:15)
[2021-03-19] MEDS: VECURONIUM BROMIDE 50 MG in TOTAL VOLUME 50 ML IV PRN ×6 (02:40→20:44)
[2021-03-19] MEDS: MIDAZOLAM 100mg/100ml NS BAG 100 ML IV PRN ×3 (02:40→23:44)
[2021-03-19] MEDS: NOREPINEPHRINE VIAL 8 MG in IV DEXTROSE 5% 250 ML IV PRN ×2 (05:14→15:56)
[2021-03-19] MEDS: MEROPENEM 1 GM in IV NORMAL SALINE 100ML 100 ML IV SCH ×3 (05:23→21:39)
[2021-03-19 06:09] LABS: HEMOGLOBIN 9.4 g/dL (12.0-15.5); RED BLOOD COUNT 3.66 x10^6/uL (3.50-5.40); RED CELL DISTRIBUTION WIDTH 18.4 % (11.5-14.5); WHITE BLOOD COUNT 10.6 x10^3/uL (4.0-11.0)
[2021-03-19 06:26] LABS: CALCIUM 8.5 mg/dL (8.5-10.1); CREATININE 0.3 mg/dL (0.6-1.0); GFR 242.8; POTASSIUM 4.6 mmol/L (3.5-5.1)
[2021-03-19 08:08] LABS: BASE EXCESS ABG 6 mmol/L (-3-3); HCO3 ABG 31 mmol/L (21-28); PCO2 ABG 51 mmHg (35-46); SAT O2 ABG 78 % (92-99)
[2021-03-19 08:21] LABS: FIO2 ABG 100; PO2 ABG 43 mmHg (75-108)
--- NOTE | 2021-03-19 09:44 | PDOC ---
PULMONARY PROGRESS NOTES DATE: 03/19/21 TIME: 09:39 Subjective on vent pc 30 rr 33 peep 15 fio2 100% sat 75% on vec, fentanyl, propofol, versed low B/P overnight a-febrile Vitals Vital Signs Date Time Temp Pulse Resp B/P (MAP) Pulse Ox O2 Delivery O2 Flow Rate FiO2 03/19/21 09:37 109/64 (79) 03/19/21 09:08 87 30 80 Ventilator 03/19/21 07:00 99.1 99.1 03/19/21 02:09 1.0 Comments on vent sedated paralyzed HEENT: Other Lungs: Other (Bilateral chest tube placement, decrease bs) Cardiovascular: S1, S2 Abdomen: Soft, Other (obese ) Extremities: Other (Edema/) Skin: Warm Labs Laboratory Tests Test 03/17/21 12:08 03/17/21 17:32 03/17/21 23:38 03/18/21 06:10 Glucose (Fingerstick) 152 mg/dL (70-99) 176 mg/dL (70-99) 134 mg/dL (70-99) White Blood Count 11.6 x10^3/uL (4.0-11.0) Red Blood Count 4.10 x10^6/uL (3.50-5.40) Hemoglobin 10.3 g/dL (12.0-15.5) Hematocrit 33.6 % (36.0-47.0) Mean Corpuscular Volume 82 fL (79-100) Mean Corpuscular Hemoglobin 25 pg (25-35) Mean Corpuscular Hemoglobin Concent 31 g/dL (31-37) Red Cell Distribution Width 18.5 % (11.5-14.5) Platelet Count 365 x10^3/uL (140-400) Sodium Level 138 mmol/L (136-145) Potassium Level 4.2 mmol/L (3.5-5.1) Chloride Level 100 mmol/L (98-107) Carbon Dioxide Level 34 mmol/L (21-32) Anion Gap 4 (6-14) Blood Urea Nitrogen 22 mg/dL (7-20) Creatinine 0.3 mg/dL (0.6-1.0) Estimated GFR (Cockcroft-Gault) 242.8 BUN/Creatinine Ratio 73 (6-20) Glucose Level 137 mg/dL (70-99) Calcium Level 8.8 mg/dL (8.5-10.1) Total Bilirubin 0.6 mg/dL (0.2-1.0) Aspartate Amino Transf (AST/SGOT) 38 U/L (15-37) Alanine Aminotransferase (ALT/SGPT) 76 U/L (14-59) Alkaline Phosphatase 139 U/L (46-116) Total Protein 6.2 g/dL (6.4-8.2) Albumin 1.9 g/dL (3.4-5.0) Albumin/Globulin Ratio 0.4 (1.0-1.7) Test 03/18/21 08:00 03/18/21 12:25 03/18/21 17:36 03/19/21 00:05 O2 Saturation 82 % (92-99) Arterial Blood pH 7.35 (7.35-7.45) Arterial Blood pCO2 at Patient Temp 63 mmHg (35-46) Arterial Blood pO2 at Patient Temp 49 mmHg (75-108) Arterial Blood HCO3 34 mmol/L (21-28) Arterial Blood Base Excess 7 mmol/L (-3-3) FiO2 100 Glucose (Fingerstick) 259 mg/dL (70-99) 160 mg/dL (70-99) 160 mg/dL (70-99) Test 03/19/21 05:50 03/19/21 06:04 03/19/21 08:06 White Blood Count 10.6 x10^3/uL (4.0-11.0) Red Blood Count 3.66 x10^6/uL (3.50-5.40) Hemoglobin 9.4 g/dL (12.0-15.5) Hematocrit 30.0 % (36.0-47.0) Mean Corpuscular Volume 82 fL (79-100) Mean Corpuscular Hemoglobin 26 pg (25-35) Mean Corpuscular Hemoglobin Concent 31 g/dL (31-37) Red Cell Distribution Width 18.4 % (11.5-14.5) Platelet Count 267 x10^3/uL (140-400) Sodium Level 135 mmol/L (136-145) Potassium Level 4.6 mmol/L (3.5-5.1) Chloride Level 99 mmol/L (98-107) Carbon Dioxide Level 36 mmol/L (21-32) Anion Gap 0 (6-14) Blood Urea Nitrogen 23 mg/dL (7-20) Creatinine 0.3 mg/dL (0.6-1.0) Estimated GFR (Cockcroft-Gault) 242.8 Glucose Level 137 mg/dL (70-99) Calcium Level 8.5 mg/dL (8.5-10.1) Glucose (Fingerstick) 146 mg/dL (70-99) O2 Saturation 78 % (92-99) Arterial Blood pH 7.41 (7.35-7.45) Arterial Blood pCO2 at Patient Temp 51 mmHg (35-46) Arterial Blood pO2 at Patient Temp 43 mmHg (75-108) Arterial Blood HCO3 31 mmol/L (21-28) Arterial Blood Base Excess 6 mmol/L (-3-3) FiO2 100 Laboratory Tests Test 03/18/21 12:25 03/18/21 17:36 03/19/21 00:05 03/19/21 05:50 Glucose (Fingerstick) 259 mg/dL (70-99) 160 mg/dL (70-99) 160 mg/dL (70-99) White Blood Count 10.6 x10^3/uL (4.0-11.0) Red Blood Count 3.66 x10^6/uL (3.50-5.40) Hemoglobin 9.4 g/dL (12.0-15.5) Hematocrit 30.0 % (36.0-47.0) Mean Corpuscular Volume 82 fL (79-100) Mean Corpuscular Hemoglobin 26 pg (25-35) Mean Corpuscular Hemoglobin Concent 31 g/dL (31-37) Red Cell Distribution Width 18.4 % (11.5-14.5) Platelet Count 267 x10^3/uL (140-400) Sodium Level 135 mmol/L (136-145) Potassium Level 4.6 mmol/L (3.5-5.1) Chloride Level 99 mmol/L (98-107) Carbon Dioxide Level 36 mmol/L (21-32) Anion Gap 0 (6-14) Blood Urea Nitrogen 23 mg/dL (7-20) Creatinine 0.3 mg/dL (0.6-1.0) Estimated GFR (Cockcroft-Gault) 242.8 Glucose Level 137 mg/dL (70-99) Calcium Level 8.5 mg/dL (8.5-10.1) Test 03/19/21 06:04 03/19/21 08:06 Glucose (Fingerstick) 146 mg/dL (70-99) O2 Saturation 78 % (92-99) Arterial Blood pH 7.41 (7.35-7.45) Arterial Blood pCO2 at Patient Temp 51 mmHg (35-46) Arterial Blood pO2 at Patient Temp 43 mmHg (75-108) Arterial Blood HCO3 31 mmol/L (21-28) Arterial Blood Base Excess 6 mmol/L (-3-3) FiO2 100 Medications Active Scripts Medications Dose Route/Sig Max Daily Dose Days Date Category Meloxicam 15 Mg Tablet 1 Tab PO DAILY 30 02/18/21 Reported Comments cxr 03/19 diffuse infiltrates, mild increase right ptx 15% CXR 03/18 FINDINGS/ IMPRESSION: Right central venous catheter remains in place. Small right apical pneumothorax is similar in size compared to the prior exam. Right chest tube remains in place. Diffuse bilateral lung infiltrates are not significantly changed. The cardiac silhouette is unchanged. No appreciable pleural effusion. CXR 03/17 IMPRESSION: 1. Widespread airspace disease, mildly increased from prior study. 2. Small right apical pneumothorax appears to have slightly increased in size from prior study. Chest tube remains in similar position Chest x-ray reviewed, 03/16 small pneumo on the right, left ptx improved, almost resolved subcutaneous emphysema Impression . 1. Acute hypoxic respiratory failure with acute lung injury/ acute respiratory distress syndrome secondary to COVID-19 pneumonia and sepsis and suspected VAP. worsening hypoxia 2. Morbid obesity, BMI of 65 3. No significant tobacco history. 4. History of asthma, 5. Obstructive sleep apnea, on home CPAP. Unknown severity of obstructive sleep apnea and unknown CPAP pressure. 6. Abnormal CXR with bilateral patchy infiltrates c/w viral pneumonia. 7. Fever, per ID, resolved. 8. Subcutaneous emphysema improved 9. Status post bilateral chest tube placement, for spontaneous pneumothorax, improved left ptx , left PTX, 10. Bacteremia, more than likely contaminant 11. Subcutaneous emphysema, traveling up to the neck and eyes, improved 12.fever- work up per ID Plan . Updated 03/19 cont vent support setting reviewed, keep same peep , PC/ANN-MARIE, 100%FIO2 and PEEP of 15 , remains hypoxia, worse today. Not much to add I have flushed chest tube again this am, no clot CXR/abg reviewed -- sedation/paralysis cont ct to suction to bilateral chest tubes off steroids Continue ABX per ID, follow cultures Overall prognosis is extremely poor TF for nutritional support DVT/GI PPX Discussed w RN/RT and in detail. I explained that at this point not much can be done. She has no chance of survival despite one month of aggressive care. He understand that critically ill Total cumulative critical care time of 35 minutes, reviewing the current documentation, chest x-ray, labs, and formulating a plan no overlap Updated 03/18 cont vent support setting reviewed, keep same peep , PC/ANN-MARIE, 100%FIO2 and PEEP of 15 CXR/abg reviewed -- no changes sedation/paralysis cont ct to suction to bilateral chest tubes taper off steroids, slow taper Fever and ABX per ID Overall prognosis is poor DVT/GI PPX discussed w rn, rt and in detail critically ill Total cumulative critical care time of 30 minutes, reviewing the current documentation, chest x-ray, labs, and formulating a plan no overlap Updated 03/17 cont vent support setting reviewed, keep same peep , PC/ANN-MARIE, 100%FIO2 and PEEP of 15 CXR/abg reviewed -- no changes will give X1 dose of lasix today sedation/paralysis cont ct to suction, will flush right Chest tube today taper off steroids, slow taper Overall prognosis is poor discussed w rn, rt and in detail critically ill Total cumulative critical care time of 30 minutes, reviewing the current documentation, chest x-ray, labs, and formulating a plan no overlap Updated 03/16 cont vent support setting reviewed, keep same peep , PC/ANN-MARIE, 100%FIO2 abg reviewed d/w in detail. Increasing any further PEEP with cause worsening barotrauma. Sats in high 80's acceptable sedation/paralysis cont ct to suction subcutaneous emphysema has improved Patient continues to require 100% FiO2 15 of PEEP taper off steroids Overall prognosis is poor discussed w rn, rt and in detail critically ill Total cumulative critical care time of 30 minutes, reviewing the current documentation, chest x-ray, labs, and formulating a plan no overlap Updated 03/14 cont vent support setting reviewed, titrate peep as tolerated abg reviewed on propofol check TG 315 try to taper off may add precedex if needed cont ct l ct flushed now working subcutaneous emphysema has improved Patient continues to require 100% FiO2 15 of PEEP Overall prognosis is poor discussed w rn, rt critically ill Total cumulative critical care time of 30 minutes, reviewing the current documentation, chest x-ray, labs, and formulating a plan no overlap Updated 03/14 cont vent support setting reviewed, titrate peep as tolerated abg reviewed on propofol check TG cont ct l ct flushed now working subcutaneous emphysema has improved Patient continues to require 100% FiO2 15 of PEEP Overall prognosis is poor discussed w rn, rt critically ill Total cumulative critical care time of 30 minutes, reviewing the current documentation, chest x-ray, labs, and formulating a plan no overlap Updated 03/13 Chest x-ray reviewed, increasing pneumonia on the left, discussed with interventional radiology, Dr. Burgos Continue air leak on the right, subcutaneous emphysema has improved Patient continues to require 100% FiO2 15 of PEEP Discussed findings with at the bedside Overall prognosis is dismal Total cumulative critical care time of 30 minutes, reviewing the current documentation, chest x-ray, labs, and formulating a plan Updated 03/12 No air leak seen on the right chest tube, I repositioned the chest tube on the right, it started working there is a small air leak, suspect this will help facial subcutaneous emphysema Continue 100% FiO2 15 of PEEP Inverse ratio, pressure control ventilation Antibiotics per ID Discussed decreasing caloric delivery, with RN. Discussed above with at the bedside Total cumulative critical care time of 30 minutes, reviewing labs, chest x-ray, and formulating a plan. Updated 03/11 Subcutaneous emphysema is worsening on the right Mild air leak left chest tube Reviewed current vent settings adequate for patient Continues to require 100% FiO2 and 15 of PEEP Updated at the bedside Nutritional support Antibiotics per ID Total cumulative critical care time of 35 minutes, reviewing the current documentation, chest x-ray, reviewing the findings with the . Discussing case with RN and RT. Formulating a plan. Updated 03/10 Mild air leak on left-sided chest tube No significant subcutaneous emphysema on exam ABG noted, adequate for patient, PCO2 is better today. Continue steroids Antibiotics per ID Nutritional support at the bedside, reviewed current findings, Total cumulative critical care time of 30 minutes, reviewing current documentation, labs, chest x-ray, formulating a plan, updated Updated 03/09 Continue current support ABG noted adequate for patient Permissive hypercapnia Mild air leak on chest tube on the left side DVT GI prophylaxis Antibiotics per ID Continue steroids Continue nutritional support Total cumulative critical care time of 35 minutes, reviewing the old documentation, chest x-ray, labs, and formulating a plan. KEVIN PENNY MD Mar 19, 2021 09:44
[2021-03-19] MEDS: FAMOTIDINE 20 MG/2 ML VIAL IVP SCH ×2 (09:51→21:39)
[2021-03-19] MEDS: MULTIVITAMINS,THERAPEUTIC 5 ML ORAL LIQUID. PEG SCH (09:51)
[2021-03-19] MEDS: NYSTATIN TOPICAL POWDER 15GM BOTTLE. TP SCH ×2 (09:55→21:39)
[2021-03-19] MEDS: EYE OS SCH (09:56)
[2021-03-19] MEDS: PREDNISOLONE ACETATE 1% OS SCH (09:56)
--- NOTE | 2021-03-19 10:37 | RAD ---
Exam performed: One view chest. Indication: Reason: pneumo / Spl. Instructions: / History: Date of Service: 03/19/2021 10:01 AM Comparison: One view chest from 03/18/2021 and priors. Single AP supine portable view chest findings and impression: Ongoing right apical pneumothorax is seen which appears similar to perhaps minimally increased since the previous exam, however may be due to difference in positioning. Right arm PICC line, endotracheal tube, feeding tube and a right-sided chest tube redemonstrated. Diffuse ongoing bilateral infiltrate s are seen without interval change. The heart size is within limits of normal. There is no pleural ef fusion or pneumothorax. Electronically signed by: Michelle Li MD (03/19/2021 10:35 AM) [id number]
--- NOTE | 2021-03-19 11:57 | PN ---
DATE: 03/19/2021 SUBJECTIVE: The patient has continued to be sedated, paralyzed, intubated and mechanically ventilated. Her oxygen saturation this morning was 81% on FiO2 of 100%. OBJECTIVE: GENERAL: On examining her, she was pale, no jaundice, cyanosis, no lymphadenopathy, no thyromegaly, no jugular venous distention, but generalized anasarca. VITAL SIGNS: Her heart rate was 84, blood pressure 100/64, temperature was 99.5, respiratory rate 30, and oxygen saturation was 81% on FIO2 of 100%. HEAD, EYES, EARS, NOSE, AND THROAT: Shows normocephalic, atraumatic. She has orotracheal and orogastric tube. NECK: Supple. HEART: Normal first and second heart sounds. No gallop or murmur. CHEST: Shows equal bilateral chest expansion, air entry, vesicular breath sounds. No crepitation or rhonchi. ABDOMEN: Markedly distended, soft, nontender. NEUROLOGIC: She is heavily sedated. Her intake was 4275, output was 2500. LABORATORY DATA: This morning showed a white cell count of 10,600, hemoglobin 9, hematocrit 30, MCV 82 and platelet count of 267,000. Her chemistry showed a serum sodium 135, potassium 4.6, chloride 99, bicarbonate 36, anion gap of 0, BUN 23, creatinine 0.3. Estimated GFR was 242 mL per minute, glucose 137, calcium was 8.5. ASSESSMENT: 1. Acute hypoxic respiratory failure, multifocal including: A. COVID-19 pneumonia. B. Acute respiratory distress syndrome and lung injury. C. Bilateral presumed pneumonic infiltrate. D. Bilateral pneumothoraces. 2. Bronchial asthma. 3. Morbid obesity. 4. Obstructive sleep apnea, on CPAP. 5. The patient has extensive subcutaneous emphysema that is improving. 6. Severe protein-calorie malnutrition. Serum albumin is only 1.9 g/dL. 7. Normochromic normocytic anemia. 8. The patient apparently spiked her temperature yesterday. We did culture her and she is now on fluconazole, linezolid as well as meropenem. PLAN: Obviously to continue with IV antibiotic. Continue with mechanical ventilation with sedation and paralysis. Continue with nutritional support through the orogastric tube. BOLA/FIDELIA/PHILIP DR: Cece TID: [id number]
[2021-03-19] MEDS: FLUCONAZOLE 100MG/50ML PREMIX 50 ML IV SCH (12:54)
--- NOTE | 2021-03-19 13:02 | PDOC ---
Infectious Disease Note Subjective: Subjective Pt ntubated/sedated/paralytics Fio2 remains unchanged at 100%,PEEP 15 Bilateral CTS present T-max greater than 101 Vital Signs: Vital Signs Vital Signs Date Time Temp Pulse Resp B/P (MAP) Pulse Ox O2 Delivery O2 Flow Rate FiO2 03/19/21 12:14 Mechanical Ventilator 03/19/21 12:11 99.6 98 30 107/62 (77) 69 99.6 03/19/21 02:09 1.0 Physical Exam: PHYSICAL EXAM GENERAL: Orally intubated and sedated HEENT: Pupils equal, small, nonreactive. ETT OGT tube in place, NECK: Supple. Subcutaneous emphysema on neck and face resolved. LUNGS: Diminished aeration in bases bilateral CTS present Chest wall resolving subcutaneous emphysema HEART: S1, S2 ABDOMEN: Obese soft, nontender. Bowel sounds present. + fecal tube Lott in place EXTREMITIES Generalized anasarca, cyanotic finger tips SKIN: No generalized rash NEUROLOGIC: sedated on vent RUE-PICC line clean Medications: Inpatient Meds: Medications reviewed. Labs: Lab Laboratory Tests Test 03/18/21 17:36 03/19/21 00:05 03/19/21 05:50 03/19/21 06:04 Glucose (Fingerstick) 160 mg/dL (70-99) 160 mg/dL (70-99) 146 mg/dL (70-99) White Blood Count 10.6 x10^3/uL (4.0-11.0) Red Blood Count 3.66 x10^6/uL (3.50-5.40) Hemoglobin 9.4 g/dL (12.0-15.5) Hematocrit 30.0 % (36.0-47.0) Mean Corpuscular Volume 82 fL (79-100) Mean Corpuscular Hemoglobin 26 pg (25-35) Mean Corpuscular Hemoglobin Concent 31 g/dL (31-37) Red Cell Distribution Width 18.4 % (11.5-14.5) Platelet Count 267 x10^3/uL (140-400) Sodium Level 135 mmol/L (136-145) Potassium Level 4.6 mmol/L (3.5-5.1) Chloride Level 99 mmol/L (98-107) Carbon Dioxide Level 36 mmol/L (21-32) Anion Gap 0 (6-14) Blood Urea Nitrogen 23 mg/dL (7-20) Creatinine 0.3 mg/dL (0.6-1.0) Estimated GFR (Cockcroft-Gault) 242.8 Glucose Level 137 mg/dL (70-99) Calcium Level 8.5 mg/dL (8.5-10.1) Test 03/19/21 08:06 O2 Saturation 78 % (92-99) Arterial Blood pH 7.41 (7.35-7.45) Arterial Blood pCO2 at Patient Temp 51 mmHg (35-46) Arterial Blood pO2 at Patient Temp 43 mmHg (75-108) Arterial Blood HCO3 31 mmol/L (21-28) Arterial Blood Base Excess 6 mmol/L (-3-3) FiO2 100 Objective: Assessment: 1. COVID-19 positive. 2. Acute hypoxic respiratory failure. 3. Pneumonia, bilateral pulmonary infiltrate/ ARDS 4. Morbid obesity. 5. History of asthma. 6. Obstructive sleep apnea. 7 Fever again this morning 8 Bilateral pneumothorax status post bilateral CTS, 9. Blood culture positive coagulase negative staph likely contaminant, repeat blood cultures negative on March 03, 2021 10. Leucocytosis on steroids,also likely reactive 11. Severe protein calorie malnutrition 12. Transaminitis appears multifactorial Plan: Plan of Care Continue supportive care Continue Meropenem/Zyvox/fluconazole Follow-up repeat blood culture UA and urine culture Maintain aspiration precautions Critically ill Prognosis very poor Discussed with nursing BYRON CLAYTON MD Mar 19, 2021 12:39
--- NOTE | 2021-03-19 15:41 | NUR ---
SS following up with discharge planning. SS reviewed pt chart and discussed with pt RN. Pt is currently on the vent at 100%. COVID19 recovered. Chest tube x2. Pt on Vec, Fentanyl, Versed, Levophed, and Precedex. Pt on IV Meropenem, IV Fluconazole, and IV Zyvox. Chemical code only. Not stable. SS will continue to follow for discharge planning.
--- NOTE | 2021-03-19 18:45 | NUR ---
Patient's OG tube would not flush this morning. This RN troubleshoot to unclog tube. Decided to discontinue OG and not to replace due to blood clot and bleeding in mouth. Family aggreed. Will begin IV nutrition.
[2021-03-19] MEDS: INSULIN GLARGINE SYRINGE. SQ SCH (21:00)
[2021-03-20] VITALS (10 sets, daily range): BP systolic 70–134; BP diastolic 33–72
[2021-03-20] MEDS: VECURONIUM BROMIDE 50 MG in TOTAL VOLUME 50 ML IV PRN ×2 (00:24→04:15)
[2021-03-20] MEDS: DEXMEDETOMIDINE 400 MCG in IV NORMAL SALINE 100ML 96 ML IV PRN (02:09)
[2021-03-20] MEDS: NOREPINEPHRINE VIAL 8 MG in IV DEXTROSE 5% 250 ML IV PRN (04:15)
[2021-03-20] MEDS: fentaNYL HIGH DOSE PCA 55 ML IV PRN (04:18)
--- NOTE | 2021-03-20 05:36 | NUR ---
Patient has been steadily declining through the night. Around 0430 patient's HR dropped into the 50s, sats in the 30s, and unable to obtain BP. Levophed increased, notified. Patient's and another family member are at bedside. I spoke with Marshall, the patient's , and he stated that he would like to let her go peacefully instead of pushing medications--verified that he wants a DNR. Dr. Fairbanks called, but the call went straight to voicemail. Dr. Lechuga was then paged. Dr Fairbanks called the unit back, orders received to make patient a DNR, telephone order verified by SAMINA Wallace. Patient then began to trevor down. I went in with CHUCKIE Nice, to listen to the patient and no heart tones were heard. Patient was pronounced at 0504 by CHUCKIE Nice, and myself. Marshall, , asked that we clean her up and get her ready while he called other family members. Dr. Fairbanks and Dr. Lechuga notified of patient's .
--- NOTE | 2021-03-20 09:55 | DS ---
DATE OF DISCHARGE: 03/20/2021 HOSPITAL COURSE: The patient is a 45-year-old female patient who was admitted originally to [facility] with acute hypoxic respiratory failure. She was treated with IV Levaquin, dexamethasone, nebulized albuterol and Atrovent as well as Lovenox; however, the patient continued to have shortness of breath and oxygen requirement has risen from 2-4 and eventually 5 liters and therefore, the patient was transferred to [facility] where she was initially started on BiPAP and then Vapotherm; however, her condition deteriorated further and eventually required intubation and mechanical ventilation. The patient has been in the ICU since 02/19/2021. In fact she was admitted on 02/18/2021 and over the last 4 weeks, the patient has been up and about. She was initially ventilated in a prone position. Unfortunately, she developed bilateral pneumothoraces requiring chest tube placement. She was treated with IV antibiotic and steroids. She was also paralyzed and heavily sedated; however, despite increasing pressure support, she continued to desaturate despite optimizing of the ventilator setting, FiO2 of 100%. She was also treated with antibiotics as she spiked a temperature recently and was started on fluconazole and linezolid as well as meropenem. Apparently, the patient started to trevor around 4:30 this morning with heart rate dropped down to 50 and her oxygen saturation down to 30%. The blood pressure was unobtainable despite increasing the Levophed. Her was notified and he basically decided to change her status to DNR/DNI. The patient was basically continued to deteriorate and at around 5:04, the patient was examined by the RN and she had no palpable pulses or audible heart sounds. The patient was pronounced around 5:04 on 03/20/2021. The causes of are obviously: 1. Cardiopulmonary arrest. 2. Acute hypoxic respiratory failure. 3. ARDS. 4. COVID-19 pneumonia. BOLA/FERNY DR: Cece TID: [id number]
== END 2021-03-20 05:04 | DRG 870 ==
LOC: 6 SOUTH 14:15 → 1 WEST ICU 18:57
PROVIDERS: ADMIT Internal Medicine; ATTEND Internal Medicine
PROC: 5A1955Z Respiratory Ventilation, Greater than 96 Consecutive Hours (ICD-10-PCS; principal; 2021-02-18)
PROC: 0BH17EZ Insertion of Endotracheal Airway into Trachea, Via Natural or Artificial Opening (ICD-10-PCS; 2021-02-18)
PROC: XW033E5 Introduction of Remdesivir Anti-infective into Peripheral Vein, Percutaneous Approach, New Technology Group 5 (ICD-10-PCS; 2021-02-18)
PROC: 02HV33Z Insertion of Infusion Device into Superior Vena Cava, Percutaneous Approach (ICD-10-PCS; 2021-02-18)
PROC: 0W9930Z Drainage of Right Pleural Cavity with Drainage Device, Percutaneous Approach (ICD-10-PCS; 2021-02-27)
DX: A41.89 Other specified sepsis (principal); E43 Unspecified severe protein-calorie malnutrition; J12.82 Pneumonia due to coronavirus disease 2019; J80 Acute respiratory distress syndrome; J93.0 Spontaneous tension pneumothorax; U07.1 COVID-19; C34.90 Malignant neoplasm of unspecified part of unspecified bronchus or lung; J45.901 Unspecified asthma with (acute) exacerbation; J90 Pleural effusion, not elsewhere classified; J93.83 Other pneumothorax; N17.9 Acute kidney failure, unspecified; Z68.44 Body mass index [BMI] 60.0-69.9, adult; D64.9 Anemia, unspecified; E03.9 Hypothyroidism, unspecified; E66.01 Morbid (severe) obesity due to excess calories; E87.5 Hyperkalemia; G47.33 Obstructive sleep apnea (adult) (pediatric); G56.03 Carpal tunnel syndrome, bilateral upper limbs; G83.9 Paralytic syndrome, unspecified; H66.93 Otitis media, unspecified, bilateral; I46.9 Cardiac arrest, cause unspecified; J43.9 Emphysema, unspecified; Z66 Do not resuscitate; Z82.49 Family history of ischemic heart disease and other diseases of the circulatory system; Z85.42 Personal history of malignant neoplasm of other parts of uterus; Z87.891 Personal history of nicotine dependence; Z90.710 Acquired absence of both cervix and uterus; Z79.899 Other long term (current) drug therapy
CPT/HCPCS: 36415; 36569; 36600; 71045; 80048; 80053; 80202; 81001; 82805; 82962; 83735; 84145; 84478; 85007; 85025; 85027; 85379; 86140; 87040; 87070; 87071; 87075; 87077; 87086; 87186; 87205; 94003; 94640; 94660; 94760; C8929; J0171; J0330; J0610; J1100; J1450; J1650; J1815; J1940; J1956; J2020; J2060; J2185; J2250; J2543; J2704; J2930; J2997; J3010; J3370; J3490; J7030; J7040; J7050; J7060; Q9956; G0378